=== PATIENT | female | born 1980 | race Caucasian/White ===

== ENCOUNTER 2017-10-06 15:50 | Emergency (ER) | payer SELFPAY ==
[~2017-10-06] VITALS: Ht 154.9 cm; Wt 77.1 kg
[~2017-10-06 15:50] MED LIST: BUDE6HFA IH; CARBAMAZEPINE; CEPH500C PO; METR500T PO; RT-COMBINH IH; SULF1TAB7 PO
[2017-10-06 16:21] LABS: BILIRUBIN,URINE NEGATIVE (NEGATIVE); CLARITY,URINE CLEAR; COLOR,URINE YELLOW; GLUCOSE, URINE (UA) NEGATIVE (NEGATIVE); KETONES,URINE NEGATIVE (NEGATIVE); LEUKOCYTE ESTERASE ,URINE 1+ (NEGATIVE); NITRITE,URINE NEGATIVE (NEGATIVE); PH,URINE 8 (5-9); PROTEIN,URINE NEGATIVE (NEGATIVE); UROBILINOGEN,URINE NORMAL (NORMAL)
--- NOTE | 2017-10-06 16:27 | ED Upper Extremity ---
General Chief Complaint: General Problems/Pain Stated Complaint: , CARPEL TUNNEL, MEDICATION CHANGE Source: patient Exam Limitations: no limitations History of Present Illness Date Seen by Provider: Oct 06, 2017 Time Seen by Provider: 16:00 Initial Comments Patient resists ER by private conveyance with her friend and a chief complaint that she is having pain in bilateral wrists and has a known history of carpal tunnel syndrome. Says the pain became much worse and unbearable now since beginning . Her last missed her period was sometime in the middle of June putting her around 12-13 weeks. She also has concerns that her primary care doctor took her off the Haldol and she has not been tolerating enough Haldol. 7 troubles friend's family and job. She would like to go back on her Haldol but she is out of the medication. She has discussed this with her primary care doctor but did not rewrote her for that or any other medication. Allergies and Home Medications Allergies Uncoded Allergies: PAPER TAPE (Allergy, 12/03/11) Home Medications Cephalexin Monohydrate 500 Mg Capsule, 1 EACH PO TID, (Reported) Ipratropium/Albuterol Sulfate 14.7 Gm Aer.w.adap, 2 PUFF IH Q 6 - 8 HRS PRN, ( Reported) Metronidazole 500 Mg Tab, 1 EACH PO BID Prescribed by: CAMILA SOTO on 12/03/111910 Patient Home Medication List Home Medication List Reviewed: Yes Constitutional: No chills, No diaphoresis, No fever, No malaise EENTM: No ear pain, No eye pain Respiratory: No cough, No short of breath Cardiovascular: No chest pain, No palpitations Gastrointestinal: No abdominal pain, No constipation, No diarrhea, No nausea Genitourinary: No discharge, No dysuria : No Musculoskeletal: No back pain, No gout Psychiatric/Neurological: Numbness, Paresthesia Past Qbdvrxy-Ieorad-Xmjsei Hx Patient Social History Alcohol Use: Denies Use Recreational Drug Use: No Recent Foreign Travel: No Contact w/Someone Who Travel: No Physical Exam Vital Signs Capillary Refill : Height, Weight, BMI Height: ', " Weight: lbs oz, kg Method:Stated ,BMI General Appearance: WD/WN, no apparent distress HEENT: PERRL/EOMI, pharynx normal Neck: non-tender, full range of motion, supple, normal inspection Cardiovascular: normal peripheral pulses, regular rate, rhythm Respiratory: no respiratory distress, no accessory muscle use Gastrointestinal: normal bowel sounds, non tender, soft Wrist: Yes no evidence of injury, Yes normal ROM, Yes soft tissue tenderness ( positive for 10) Progress/Results/Core Measures Results/Orders Lab Results Laboratory Tests Test 10/06/17 16:10 Range/Units My Orders Orders - CHRISTIANKESHA GIBBONS Ua Culture If Indicated (10/06/17 16:09) Hcg,Qualitative Urine (10/06/17 16:09) Progress Progress Note : Time: 16:36 Progress Note We'll recommend ice, Tylenol and cockup splints for her wrists. Elevation at night and when possible above the level of her heart. We will talk to her PCP provider. We have also encourage her to get an OB provider. Consults : Consulting Physician: ADAN BREWER MD Consults Notes After discussing with the psychiatrist they feel that the 2 days is a class B for and at sufficient doses can work for schizophrenia. She needs to be started low and scaled up so they recommend 60 mg one half a tablet daily until she is seen by Dr. Brewer. Dr. Brewer says she will have the clinic call the patient tomorrow to set up appointments for OB, primary care and psychiatry. Departure Impression Primary Impression: Carpal tunnel syndrome on both sides Additional Impressions: Qualified Codes: Z3A.12 - 12 weeks gestation of Schizophrenia Qualified Codes: F20.9 - Schizophrenia, unspecified Disposition: 01 HOME, SELF-CARE Condition: Stable Departure-Patient Inst. Decision time for Depature: 16:46 Referrals: [facility] [place] ([place]) Primary Care Physician Patient Instructions: Carpal Tunnel Exercises Add. Discharge Instructions: Apply ice for 20 minutes every 4 hours as needed to your wrists for swelling or pain. You can use Tylenol 1000 mg every 8 hours. You can also keep them elevated above the level of your heart so gravity will help keep the swelling down and wear the wrist splints as needed for pain especially at night when you sleep. Follow-up with your primary care physician as well as establish care with an vp software support. All discharge instructions reviewed with patient and/or family. Voiced understanding. Scripts Lurasidone HCl (Latuda) 60 Mg Tablet 30 MG PO DAILY for 30 Days, #30 TAB 0 Refills Prov: KESHA GONZALES 10/06/17 Copy Copies To 1: RADHA LEÓN DO KESHA GONZALES Oct 06, 2017 16:27
[2017-10-06 16:34] LABS: RBC,URINE 0-2 /HPF
[2017-10-06 16:35] LABS: BACTERIA,URINE FEW /HPF
[2017-10-06] MEDS ORDERED: LURA60TA2 PO (16:57)
[2017-10-06 17:12] VITALS: BP 113/61
--- OUTSIDE RECORDS SUMMARY | 2017-10-06 19:57 | XMS REPORT ---
Author Author DONOVAN JACKSON Organization [facility] Address [address] [place] [address] Care Team Providers Care Off Track Betting Manager Name Role Phone DONOVAN JACKSON Unavailable PROBLEMS Type Condition ICD9-CM Code RSQ07-GS Code Onset Dates Condition Status SNOMED Code Problem Simple chronic bronchitis J41.0 Active 28325730 Problem Anxiety F41.9 Active 27491651 Problem Acute seasonal allergic rhinitis, unspecified trigger J30.2 Active 104235978 Problem Asthma exacerbation J45.901 Active 464015939 Problem Migraine with aura and with status migrainosus, not intractable G43.101 Active 1148723 Problem Psychotic disorder with delusions F29 Active 19720335 Problem 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 186488862 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 855790769 ALLERGIES Substance Reaction Event Type Date Status Naproxen hives Drug Allergy Oct, Active ENCOUNTERS Encounter Location Date Diagnosis [facility] [id number] [place] [address] 87064- 8240 May, Psychotic disorder with delusions F29 [facility] [id number] [place] [address] 84746- 4557 May, [facility] [id number] [place] [address] 57740- 5420 May, [facility] [id number] [place] [address] 34490- 8434 Mar, Psychotic disorder with delusions F29 and 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 [facility] [id number] [place] [address] 91489- 4530 Jan, [facility] [id number] [place] [address] 80981- 7984 Dec, Psychotic disorder with delusions F29 [facility] [id number] [place] [address] 30758 -9539 Dec, Acute seasonal allergic rhinitis, unspecified trigger J30.2 [facility] [id number] [place] [address] 54691- 5547 Nov, Psychotic disorder with delusions F29 [facility] [id number] [place] [address] 26097- 6081 14 Nov, 2016 [facility] [id number] [place] [address] 55816- 7785 Nov, [facility] [address] [address]- [address]11 Nov, [facility] [address] 00986- 4930 Oct, Asthma exacerbation J45.901 [facility] [address] 30462- 7136 Oct, [place] [id number] [place] [address] 84658- 8589 Oct, 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 and 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 [facility] [id number] [place] [address] 81231- 8504 Oct, [facility] [id number] [place] [address] 75270- 8177 Oct, Migraine with aura and with status migrainosus, not intractable G43.101 ; Other abnormal cytological finding of specimen from cervix R87.618 ; Screening for diabetes mellitus (DM) Z13.1 ; Screening for lipid disorders Z13.220 and Weight gain R63.5 [facility] [id number] [place] [address] 07898- 2340 Oct, [facility] [id number] [place] [address] 70437- 1925 Oct, [facility] [address] 25363- 2666 Oct, [facility] [address] [place] [address] 31173- 7522 Sep, Weight gain R63.5 ; Screening for lipid disorders Z13.220 ; Screening for diabetes mellitus (DM) Z13.1 and Scabies exposure Z20.89 [facility] [address] [place] [address] [id number] Sep, Encounter for dental examination and cleaning without abnormal findings Z01.20 [facility] [id number] [place] [address] 23904 -7524 Sep, Abscess L02.91 [facility] [id number] [place] [address] 33829- 8567 Jun, [facility] [id number] [place] [address] 58927- 0396 Jun, Routine gynecological examination Z01.419 [place] [id number] [place] [address] 54049- 9292 Jun, Routine gynecological examination Z01.419 ; Encounter for Depo-Provera contraception Z30.42 and Routine screening for STI (sexually transmitted infection) Z11.3 [facility] [address] [place] [address] 79587- 0757 Jun, Anxiety F41.9 [place] [id number] [place] [address] 30520- 9394 May, [facility] [id number] [place] [address] 67400- 4703 Apr, Psychotic disorder with delusions F29 [facility] [id number] [place] [address] 25013- 3928 Jan, [place] [id number] [place] [address] 43567- 5853 Jan, Psychotic disorder with delusions F29 [facility] [id number] [place] [address] 21465- 8454 16 Jan, 2016 Encounter for contraceptive management, unspecified contraceptive encounter type Z30.9 ; Anxiety F41.9 ; Simple chronic bronchitis J41.0 and Encounter for Depo-Provera contraception Z30.42 [facility] [address] [address] 14 Jun, 2014 [facility] [id number] [place] [address] 71080- 7849 Jun, [facility] [id number] [place] [address] 29031- 4658 Mar, [facility] [id number] [place] [address] 67261- 5946 Jan, [facility] [id number] [place] [address] 04776- 5467 Jan, [facility] [id number] [place] [address] 27769- 6014 Jan, [facility] [id number] [place] [address] 48948- 0313 Jan, [facility] [id number] [place] [address] 40541- 1568 Jan, [facility] [address] [place] [address] 58113- 0158 Jan, [facility] [id number] [place] [address] 19362- 5151 Jan, [facility] [address] [place] [address] 22928- 3461 Dec, [facility] [id number] [place] [address] 01830- 9264 Dec, [facility] [id number] [address] 6051 Dec, [facility] [id number] [place] [address] 24711- 9290 Dec, [facility] [place] [facility] [address] [id number] [place] [address]- 5986 23 Dec, 2011 [facility] [place] [facility] [address] [id number] [place] [address] Dec, 2011 [facility] [place] [facility] [address] [id number] [place] [address]- 6655 18 Dec, 2011 [facility] [place] [facility] [address] [id number] [place] [address]- 6751 Dec, 2011 [facility] [place] [facility] [address] [id number] [place] [address]- 3030 Dec, 2011 [facility] [place] [facility] [address] [id number] [place] [address]- 6609 Dec, [facility] [place] [facility] [address] [id number] [place] [address]- 7364 Dec, [facility] [place] [facility] [address] [id number] [address] 4475 15 Dec, 2011 [facility] [place] [facility] [address] [id number] [place] [address]- 4588 10 Dec, 2011 [facility] [place] [facility] [address] [id number] [address] 4671 10 Dec, 2011 [facility] [place] [facility] [address] [id number], [place] [address]- 9990 08 Dec, 2011 [facility] [place] [facility] [address] [id number] [address]- 9885 05 Dec, 2011 [facility] [place] [facility] [address] [id number], [place] [address]- 1063 03 Dec, 2011 [facility] [place] [facility] [address] [id number], [place] [address]- 9584 02 Dec, 2011 [facility] [place] [facility] [address] [id number] [address]- 0587 18 Nov, 2011 [facility] [place] [facility] [address] [id number] [address]- 1346 17 Nov, 2011 [facility] [id number] [address]- 0616 13 Nov, 2011 [facility] [address] [address]- 1693 Nov, [facility] [address] [address]- 6882 Nov, [facility] [address] [address]- 4184 Nov, [facility] [id number] 47[address] Sep, [facility] [address] [address]- 0909 Aug, [facility] [address] [address]- 3809 Aug, [facility] [address] [address]- 0342 July, [facility] [address] [address]- 2521 July, [facility] [id number] [address] July, IMMUNIZATIONS No Known Immunizations SOCIAL HISTORY Never Assessed REASON FOR VISIT 2 week f/u PLAN OF CARE Activity Details Follow Up Schedule Colpo next available Reason: VITAL SIGNS Height 62 in 2016-11-19 Weight 206.2 lbs 2016-11-19 Temperature 98.2 degrees Fahrenheit 2016-11-19 BMI 37.71 kg/m2 2016-11-19 Blood pressure systolic 120 mmHg 2016-11-19 Blood pressure diastolic 76 mmHg 2016-11-19 MEDICATIONS Medication Instructions Dosage Frequency Start Date End Date Duration Status Propranolol HCl 20 mg Orally twice a day 1/2 tablet 12h Oct, 30 day(s) Active Benztropine Mesylate 2 MG Orally at bed time, voucher 1st fill only 1 tablet Active Haloperidol 10 mg Orally Once a day, at night. 1 tablet Jun, Active BusPIRone HCl 15 MG Orally Once a day 2 tablet 24h Active Singulair 10 mg Orally Once a day, voucher 1st fill only 1 tablet in the evening Active RESULTS Name Result Date Reference Range TSH W/ FREE T4 2016-11-19 TSH 0.741 0.450-4.500 T4,Free(Direct) 1.00 0.82-1.77 A1C 2016-11-19 Hemoglobin A1c 6.0 4.8-5.6 LIPID PANEL 2016-11-19 Cholesterol, Total 172 100-199 Triglycerides 282 0-149 HDL Cholesterol 39 >39 VLDL Cholesterol Michele 56 5-40 LDL Cholesterol Calc 77 0-99 PROCEDURES Procedure Date Ordered Result Body Site Hemoglobin Test Send Out 0 dollar Nov 19, 2016 ASSAY THYROID STIM HORMONE Nov 19, 2016 LIPID PANEL Nov 19, 2016 VENIPUNCT, ROUTINE* Nov 19, 2016 ASSAY OF FREE THYROXINE Nov 19, 2016 INSTRUCTIONS MEDICATIONS ADMINISTERED No Known Medications MEDICAL (GENERAL) HISTORY Type Description Date Medical History schizoaffective disorder Medical History bi-polar disorder Medical History depression Medical History anxiety Medical History pre diabetes Medical History COPD Surgical History x 2 Hospitalization History Staph infection in arm
--- OUTSIDE RECORDS SUMMARY | 2017-10-06 19:57 | XMS REPORT ---
Author Author JOSE NORRIS [facility] eClinicalWorks Address Unknown Phone Unavailable Care Team Providers Care Armored Vehicle Officer Name Role Phone JOSE NORRIS Unavailable Allergies No Known Allergies Problems Problem Type Condition Code Onset Dates Condition Status Problem Anxiety F41.9 Active Problem Simple chronic bronchitis J41.0 Active Problem Psychotic disorder with delusions F29 Active Medications Medication Code System Code Instructions Start Date End Date Status Dosage Atorvastatin Calcium [facility] [address]-94 10 mg Orally Once a day at bedtime Feb 15, 2016 1 tablet Results No Known Results Summary Purpose eClinicalWorks Submission
--- OUTSIDE RECORDS SUMMARY | 2017-10-06 19:58 | XMS REPORT ---
Author Author DONOVAN JACKSON Organization [facility] Address [address] [place] [address] Care Team Providers Care Director Of Rehabilitative Services Name Role Phone DONOVAN JACKSON Unavailable PROBLEMS Type Condition ICD9-CM Code UHR37-HT Code Onset Dates Condition Status SNOMED Code Problem Simple chronic bronchitis J41.0 Active 68762008 Problem Anxiety F41.9 Active 72031245 Problem Acute seasonal allergic rhinitis, unspecified trigger J30.2 Active 103234840 Problem Asthma exacerbation J45.901 Active 513577816 Problem Migraine with aura and with status migrainosus, not intractable G43.101 Active 7658782 Problem Psychotic disorder with delusions F29 Active 63128788 Problem 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 601940499 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 810929769 ALLERGIES No Information ENCOUNTERS Encounter Location Date Diagnosis [facility] [address] [address] May, Psychotic disorder with delusions F29 [facility] [id number] [place] [address] 70817- 8104 May, [facility] [id number] [place] [address] 01690- 6533 May, [facility] [id number] [place] [address] 76078- 3903 Mar, Psychotic disorder with delusions F29 and 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 [facility] [address] 02071- 7095 Jan, [facility] [id number] [place] [address] 68115- 8088 Dec, Psychotic disorder with delusions F29 [facility] [address] [place] [address] Dec, Acute seasonal allergic rhinitis, unspecified trigger J30.2 [facility] [id number] [place] [address] 32567- 7914 Nov, Psychotic disorder with delusions F29 [facility] [id number] [place] [address] 69290- 6033 14 Nov, 2016 [facility] [address] [address]- [address] Nov, [facility] [id number] [place] [address] 38311- 5708 Nov, [facility] [address] 90014- 5692 Oct, Asthma exacerbation J45.901 [facility] [address] 06084- 8596 Oct, [facility] [address] 56014- 9056 Oct, 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 and 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 [facility] [address] 37649- 5869 Oct, [facility] [id number] [place] [address] 97204- 4858 Oct, Migraine with aura and with status migrainosus, not intractable G43.101 ; Other abnormal cytological finding of specimen from cervix R87.618 ; Screening for diabetes mellitus (DM) Z13.1 ; Screening for lipid disorders Z13.220 and Weight gain R63.5 [facility] [id number] [place] [address] 50085- 1964 Oct, [facility] [id number] [place] [address] 75861- 8958 Oct, [facility] [id number] [place] [address] 72147- 1296 Oct, [facility] [id number] [place] [address] 35608- 8047 Sep, Weight gain R63.5 ; Screening for lipid disorders Z13.220 ; Screening for diabetes mellitus (DM) Z13.1 and Scabies exposure Z20.89 [facility] [address] [id number] Sep, Encounter for dental examination and cleaning without abnormal findings Z01.20 [facility] [id number] [place] [address] 95581 -1861 Sep, Abscess L02.91 [facility] [address] 01676- 0926 Jun, [facility] [id number] [place] [address] 65375- 1288 Jun, Routine gynecological examination Z01.419 [place] [address] 45007- 8002 Jun, Routine gynecological examination Z01.419 ; Encounter for Depo-Provera contraception Z30.42 and Routine screening for STI (sexually transmitted infection) Z11.3 [facility] [id number] [place] [address] 80479- 6661 Jun, Anxiety F41.9 [facility] [id number] [place] [address] 40272- 3686 May, [facility] [id number] [place] [address] 98988- 1653 Apr, Psychotic disorder with delusions F29 [facility] [id number] [place] [address] 22550- 4181 Jan, [place] [id number] [place] [address] 98490- 6685 Jan, Psychotic disorder with delusions F29 [facility] [id number] [place] [address] 87748- 4632 16 Nov, 2016 Encounter for contraceptive management, unspecified contraceptive encounter type Z30.9 ; Anxiety F41.9 ; Simple chronic bronchitis J41.0 and Encounter for Depo-Provera contraception Z30.42 [facility] [id number] [address] 6490 14 Jun, 2014 [facility] [id number] [place] [address] 43096- 8056 13 Jun, 2014 [facility] [id number] [place] [address] 92113- 2189 Mar, [facility] [id number] [place] [address] 14110- 6758 Jan, [facility] [id number] [place] [address] 73763- 1960 Jan, [facility] [id number] [place] [address] 41211- 7045 Jan, [facility] [id number] [place] [address] 95233- 8814 Jan, [facility] [id number] [place] [address] 03613- 2961 Jan, [facility] [id number] [place] [address] 57455- 7454 Jan, [facility] [address], [place] [address] 8816 Jan, [facility] [address], [place] [address]- 6796 Dec, [facility] [id number] [place] [address] 01039- 8207 Dec, [facility] [id number] [place] [address] 00865- 7211 Dec, [facility] [id number] [place] [address] 70297- 3746 Dec, [facility] [id number] [place] [address], [place] [address]- 7628 23 Dec, 2011 [facility] [place] [facility] [address] [id number] [place] [address]- 2169 18 Dec, 2011 [facility] [place] [facility] [address] [id number] [place] [address]- 3093 18 Dec, 2011 [facility] [place] [facility] [address] [id number] [place] [address]- 9687 18 Dec, 2011 [facility] [place] [facility] [address] [id number] [place] [address]- 9197 18 Dec, 2011 [facility] [place] [facility] [address] [id number] [place] [address]- 1610 18 Dec, 2011 [facility] [place] [facility] [address] [id number] [place] [address]- 6447 18 Dec, 2011 [facility] [place] [facility] [address] [id number] [place] [address]- 3761 15 Dec, 2011 [facility] [place] [facility] [address] [id number] [place] [address]- 4560 10 Dec, 2011 [facility] [place] [facility] [address] [id number] [place] [address]- 8612 10 Dec, 2011 [facility] [place] [facility] [address] [facility] [id number] [place] [address]- 4334 08 Dec, 2011 [facility] [place] [facility] [address] [id number] [place] [address]- 3784 05 Dec, 2011 [facility] [place] [facility] [address] [id number], [place] [address]- 6022 03 Dec, 2011 [facility] [place] [facility] [address] [id number] [place] [address]- 9216 02 Dec, 2011 [facility] [place] [facility] [address] [facility] [id number] [place] [address]- 4793 18 Sep, 2011 [facility] [place] [facility] [address] [facility] [id number], [place] [address]- 3969 17 Sep, 2011 [facility] [place] [facility] [id number], [place] [address]- 4163 13 Nov, 2011 [facility] [address], [place] [address]- 2840 13 Nov, 2011 [facility] [address], [place] [address]- 1763 12 Nov, 2011 [facility] [address], [place] [address]- 6051 Nov, [facility] [address], [place] [address]- 0103 Sep, [facility] [address], [place] [address]- 5911 Aug, [facility] [address], [place] [address]- 0614 Aug, [facility] [address], [place] [address]- 5869 July, [facility] [address], [place] [address]- 7247 July, [facility] [id number], [place] [address]- 2634 July, IMMUNIZATIONS No Known Immunizations SOCIAL HISTORY Never Assessed REASON FOR VISIT Medication question PLAN OF CARE VITAL SIGNS MEDICATIONS Unknown Medications RESULTS No Results PROCEDURES No Known procedures INSTRUCTIONS MEDICATIONS ADMINISTERED No Known Medications MEDICAL (GENERAL) HISTORY Type Description Date Medical History schizoaffective disorder Medical History bi-polar disorder Medical History depression Medical History anxiety Medical History pre diabetes Medical History COPD Surgical History x 2 Hospitalization History Staph infection in arm
--- OUTSIDE RECORDS SUMMARY | 2017-10-06 19:58 | XMS REPORT ---
Author Author GREGORY AMARAL [facility] Address [address] [place] [address] Care Team Providers Care Svp Of Digital Name Role Phone GREGORY AMARAL Unavailable PROBLEMS Type Condition ICD9-CM Code NJS41-OK Code Onset Dates Condition Status SNOMED Code Problem Simple chronic bronchitis J41.0 Active 73366378 Problem Anxiety F41.9 Active 22955569 Problem Acute seasonal allergic rhinitis, unspecified trigger J30.2 Active 121282612 Problem Asthma exacerbation J45.901 Active 960108011 Problem Migraine with aura and with status migrainosus, not intractable G43.101 Active 3099521 Problem Psychotic disorder with delusions F29 Active 32520502 Problem 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 779993779 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 188519187 ALLERGIES Substance Reaction Event Type Date Status Naproxen hives Drug Allergy Dec, Active ENCOUNTERS Encounter Location Date Diagnosis [facility] [id number] [place] [address] 83934- 1653 July, [facility] [id number] [place] [address] 97610- 5432 May, Psychotic disorder with delusions F29 [facility] [id number] [place] [address] 79388- 4779 May, [facility] [id number] [place] [address] 72863- 3734 May, [facility] [address] 73736- 2341 Mar, Psychotic disorder with delusions F29 and 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 [facility] [id number] [place] [address] 99729- 4204 Jan, [facility] [id number] [place] [address] 61041- 8538 Dec, Psychotic disorder with delusions F29 [facility] [id number] [place] [address] 16643 -1737 Dec, Acute seasonal allergic rhinitis, unspecified trigger J30.2 [facility] [id number] [place] [address] 83634- 8896 Nov, Psychotic disorder with delusions F29 [facility] [id number] [place] [address] 94752- 1585 14 Nov, 2016 [facility] [address] 11691- 6213 Nov, [facility] [id number] [place] [address] 18589- 2269 Nov, [facility] [address] 96991- 9037 Oct, Asthma exacerbation J45.901 [facility] [id number] [place] [address] 43396- 1256 Oct, [facility] [id number] [place] [address] 84782- 3346 Oct, 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 and 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 [facility] [id number] [place] [address] 44372- 7838 Oct, [facility] [id number] [place] [address] 41836- 5867 Oct, Migraine with aura and with status migrainosus, not intractable G43.101 ; Other abnormal cytological finding of specimen from cervix R87.618 ; Screening for diabetes mellitus (DM) Z13.1 ; Screening for lipid disorders Z13.220 and Weight gain R63.5 [facility] [id number] [place] [address] 87969- 7643 Oct, [facility] [id number] [place] [address] 22049- 0797 Oct, [facility] [address] 73680- 8894 Oct, [facility] [address] 72876- 1423 Sep, Weight gain R63.5 ; Screening for lipid disorders Z13.220 ; Screening for diabetes mellitus (DM) Z13.1 and Scabies exposure Z20.89 [facility] [address] [id number] Sep, Encounter for dental examination and cleaning without abnormal findings Z01.20 [facility] [address] 45554 -6730 Sep, Abscess L02.91 [place] [address] 14091- 6515 Jun, [facility] [address] 06670- 4992 Jun, Routine gynecological examination Z01.419 [place] [address] 43467- 6364 Jun, Routine gynecological examination Z01.419 ; Encounter for Depo-Provera contraception Z30.42 and Routine screening for STI (sexually transmitted infection) Z11.3 [place] [id number] [place] [address] 81441- 3118 Jun, Anxiety F41.9 [facility] [id number] [place] [address] 60866- 4302 May, [facility] [address] 71266- 8940 Apr, Psychotic disorder with delusions F29 [facility] [id number] [place] [address] 66648- 0370 Jan, [facility] [address] 01532- 8087 18 Jan, 2016 Psychotic disorder with delusions F29 [facility] [id number] [place] [address] 88236- 1196 16 Jan, 2016 Encounter for contraceptive management, unspecified contraceptive encounter type Z30.9 ; Anxiety F41.9 ; Simple chronic bronchitis J41.0 and Encounter for Depo-Provera contraception Z30.42 [facility] [id number] [place] [address] 55667- 1656 14 Jun, 2014 [facility] [id number] [place] [address] 90910- 7204 13 Jun, 2014 [facility] [id number] [place] [address] 41844- 8928 Mar, [facility] [id number] [place] [address] 29727- 3212 Jan, [facility] [id number] [place] [address] 91266- 8351 Jan, [facility] [id number] [place] [address] 84320- 9148 Jan, [facility] [id number] [place] [address] 88633- 5763 Jan, [facility] [id number] [place] [address] 63275- 3405 Jan, [facility] [id number] [place] [address] 05692- 1955 Jan, [facility] [id number] [place] [address] 23821- 3652 Jan, [facility] [id number] [place] [address] 25585- 8533 Dec, [facility] [id number] [place] [address] 70851- 3515 Dec, [facility] [id number] [place] [address] 89416- 5167 Dec, [facility] [place] [facility] [address] [id number] [place] [address]- 7112 Dec, 2011 [facility] [place] [facility] [address] [id number] [place] [address]- 8274 Dec, 2011 [facility] [place] [facility] [address] [id number] [place] [address]- 2427 Dec, 2011 [facility] [place] [facility] [address] [id number] [place] [address]- 2099 Dec, 2011 [facility] [place] [facility] [address] [id number] [place] [address]- 8959 Dec, 2011 [facility] [place] [facility] [address] [id number] [place] [address]- 3362 Dec, [facility] [place] [facility] [address] [id number] [place] [address]- 1854 Dec, [facility] [place] [facility] [address] [id number], [place] [address]- 8272 Dec, [facility] [place] [facility] [address] [id number], [place] [address]- 2503 15 Dec, 2011 [facility] [place] [facility] [address] [id number], [place] [address]- 1554 Dec, [facility] [place] [facility] [address] [id number], [place] [address]- 0377 10 Dec, 2011 [facility] [place] [facility] [address] [id number], [place] [address]- 0459 08 Dec, 2011 [facility] [place] [facility] [address] [id number], [place] [address]- 7414 05 Dec, 2011 [facility] [place] [facility] [address] [id number], [place] [address]- 9530 Dec, [facility] [place] [facility] [address] [id number], [place] [address]- 4475 02 Dec, 2011 [facility] [place] [facility] [address] [id number], [place] [address]- 5989 18 Nov, 2011 [facility] [address], [place] [address]- 1773 17 Nov, 2011 [facility] [address], [place] [address]- 8014 13 Nov, 2011 [facility] [address], [place] [address]- 7725 13 Nov, 2011 [facility] [id number] [place] [address] 85355- 4501 12 Nov, 2011 [facility] [id number] [place] [address] 47262- 8775 05 Nov, 2011 [facility] [id number] [place] [address] 06148- 7332 Sep, [facility] [id number] [place] [address] 51179- 5016 Aug, [facility] [address], [place] [address]- 4465 Aug, [facility] [id number] [place] [address] 01709- 1374 July, [facility] [address]- 4276 July, [facility] [address], [place] [address]- 0206 July, IMMUNIZATIONS Vaccine Route Administration Date Status DEXAMETHASONE 4MG/ML (PER 1 MG) IM Intramuscular Dec 30, 2016 Administered DEPO MEDROL 40 MG/ML IM Intramuscular Dec 30, 2016 Administered SOCIAL HISTORY Never Assessed REASON FOR VISIT Cough, congestion, facial itching and vomiting JStrasserRN PLAN OF CARE Activity Details Follow Up prn Reason: VITAL SIGNS Height 62 in 2016-12-30 Weight 215.2 lbs 2016-12-30 Temperature 98.1 degrees Fahrenheit 2016-12-30 Heart Rate 92 bpm 2016-12-30 Respiratory Rate 20 2016-12-30 BMI 39.36 kg/m2 2016-12-30 Blood pressure systolic 100 mmHg 2016-12-30 Blood pressure diastolic 70 mmHg 2016-12-30 MEDICATIONS Medication Instructions Dosage Frequency Start Date End Date Duration Status Benztropine Mesylate 2 MG Orally at bed time, voucher 1st fill only 1 tablet Active Zyrtec Allergy 10 MG Orally Once a day 1 tablet 24h Dec, Dec, 14 days Active Flonase 50 MCG/ACT Nasally Once a day 1 spray in each nostril 24h Dec, 30 day(s) Active Haloperidol 10 mg Orally Once a day, voucher 1st fill. 2 tablets Nov, 30 day(s) Active Singulair 10 mg Orally Once a day, voucher 1st fill only 1 tablet in the evening Active HydrOXYzine HCl 50 mg Orally Once a day, voucher 1st fill only 1 tablet as needed at HS Active Propranolol HCl 20 mg Orally Once a day 1 tablet 24h Oct, Active BuPROPion HCl ER (XL) 300 MG Orally Once a day, voucher 1st fill. 1 tablet in the morning Nov, 30 day(s) Active RESULTS No Results PROCEDURES Procedure Date Ordered Result Body Site DEPO MEDROL 40 MG/ML Dec 30, 2016 THER/PROPH/DIAG INJ, SC/IM Dec 30, 2016 DEXAMETHASONE 4MG/ML (PER 1 MG) Dec 30, 2016 INSTRUCTIONS MEDICATIONS ADMINISTERED No Known Medications MEDICAL (GENERAL) HISTORY Type Description Date Medical History schizoaffective disorder Medical History bi-polar disorder Medical History depression Medical History anxiety Medical History pre diabetes Medical History COPD Surgical History x 2 Hospitalization History Staph infection in arm
--- OUTSIDE RECORDS SUMMARY | 2017-10-06 19:58 | XMS REPORT ---
Author Author YENNY KHALIL [facility] Address [address] [place] [address] Care Team Providers Care Game Design Instructor Name Role Phone EMMANUEL KHALILFELIPE Unavailable PROBLEMS Type Condition ICD9-CM Code VUK70-SW Code Onset Dates Condition Status SNOMED Code Problem Simple chronic bronchitis J41.0 Active 89547311 Problem Anxiety F41.9 Active 71393524 Problem Acute seasonal allergic rhinitis, unspecified trigger J30.2 Active 612701691 Problem Asthma exacerbation J45.901 Active 679539308 Problem Migraine with aura and with status migrainosus, not intractable G43.101 Active 1020822 Problem Psychotic disorder with delusions F29 Active 28398549 Problem 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 838616611 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 153839481 ALLERGIES Substance Reaction Event Type Date Status Naproxen hives Drug Allergy Oct, Active ENCOUNTERS Encounter Location Date Diagnosis [facility] [id number] [place] [address] 86013- 9622 May, Psychotic disorder with delusions F29 [facility] [id number] [place] [address] 85023- 7509 May, [facility] [id number] [place] [address] 75578- 5585 May, [facility] [id number] [place] [address] 89188- 3454 Mar, Psychotic disorder with delusions F29 and 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 [facility] [id number] [place] [address] 08518- 6881 Jan, [facility] [id number] [place] [address] 39061- 7838 Dec, Psychotic disorder with delusions F29 [facility] [id number] [place] [address] 86842 -8730 Dec, Acute seasonal allergic rhinitis, unspecified trigger J30.2 [facility] [id number] [place] [address] 67856- 7514 Nov, Psychotic disorder with delusions F29 [facility] [id number] [place] [address] 57230- 2079 14 Nov, 2016 [facility] [id number] [place] [address] 91993- 7531 Nov, [facility] [address] 69915- 2562 Nov, [facility] [address] 88379- 7945 Oct, Asthma exacerbation J45.901 [facility] [address] 38355- 1941 Oct, [facility] [id number] [place] [address] 86904- 2203 Oct, 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 and 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 [facility] [id number] [place] [address] 99394- 5405 Oct, [facility] [id number] [place] [address] 36138- 5547 Oct, Migraine with aura and with status migrainosus, not intractable G43.101 ; Other abnormal cytological finding of specimen from cervix R87.618 ; Screening for diabetes mellitus (DM) Z13.1 ; Screening for lipid disorders Z13.220 and Weight gain R63.5 [facility] [id number] [place] [address] 56606- 5862 Oct, [facility] [id number] [place] [address] 59997- 1593 Oct, [facility] [address] 65291- 8605 Oct, [facility] [id number] [place] [address] 48687- 7386 Sep, Weight gain R63.5 ; Screening for lipid disorders Z13.220 ; Screening for diabetes mellitus (DM) Z13.1 and Scabies exposure Z20.89 [facility] [id number] [place] [address] [id number] Sep, Encounter for dental examination and cleaning without abnormal findings Z01.20 [facility] [id number] [place] [address] 21699 -4257 Sep, Abscess L02.91 [facility] [id number] [place] [address] 25146- 8635 Jun, [facility] [id number] [place] [address] 67194- 0526 Jun, Routine gynecological examination Z01.419 [facility] [id number] [place] [address] 91718- 3448 Jun, Routine gynecological examination Z01.419 ; Encounter for Depo-Provera contraception Z30.42 and Routine screening for STI (sexually transmitted infection) Z11.3 [facility] [id number] [place] [address] 33447- 7432 Jun, Anxiety F41.9 [facility] [id number] [place] [address] 73615- 8093 May, [facility] [id number] [place] [address] 19797- 8626 Apr, Psychotic disorder with delusions F29 [facility] [id number] [place] [address] 88898- 0920 Jan, [facility] [id number] [place] [address] 67869- 1711 Jan, Psychotic disorder with delusions F29 [facility] [id number] [place] [address] 09473- 9320 16 Jan, 2016 Encounter for contraceptive management, unspecified contraceptive encounter type Z30.9 ; Anxiety F41.9 ; Simple chronic bronchitis J41.0 and Encounter for Depo-Provera contraception Z30.42 [facility] [address] [address]- 2936 14 Jun, 2014 [facility] [id number] [place] [address] 93471- 2324 Jun, [facility] [id number] [place] [address] 50046- 1384 Mar, [facility] [id number] [place] [address] 22266- 4826 Jan, [facility] [id number] [place] [address] 52147- 5471 Jan, [facility] [id number] [place] [address] 98916- 3734 Jan, [facility] [id number] [place] [address] 63330- 5049 Jan, [facility] [id number] [place] [address] 25730- 9931 Jan, [facility] [id number] [place] [address] 22618- 6425 Jan, [facility] [id number] [place] [address] 02869- 2133 Jan, [facility] [id number] [place] [address] 17452- 4603 Dec, [facility] [id number] [place] [address] 11758- 8921 Dec, [facility] [id number] [address]- 5822 Dec, [facility] [id number] [place] [address] 89026- 6573 Dec, [facility] [place] [facility] [address] [id number] [place] [address]- 6349 23 Dec, 2011 [facility] [place] [facility] [address] [id number] [place] 3759 Dec, 2011 [facility] [place] [facility] [address] [id number] [place] [address]- 0392 18 Dec, 2011 [facility] [place] [facility] [address] [id number] [place] [address]- 3332 Dec, 2011 [facility] [place] [facility] [address] [id number] [place] [address]- 6804 Dec, 2011 [facility] [place] [facility] [address] [id number] [place] [address]- 6437 Dec, [facility] [place] [facility] [address] [id number] [place] [address]- 8159 Dec, [facility] [place] [facility] [address] [id number] [place] [address]- 2116 15 Dec, 2011 [facility] [place] [facility] [address] [id number] [place] [address]- 0042 10 Dec, 2011 [facility] [place] [facility] [address] [id number] [place] [address]- 6816 10 Dec, 2011 [facility] [place] [facility] [address] [id number] [place] [address]- 1699 08 Dec, 2011 [facility] [place] [facility] [address] [id number] [place] [address]- 7718 05 Dec, 2011 [facility] [place] [facility] [address] [id number] [place] [address]- 6247 03 Dec, 2011 [facility] [place] [facility] [address] [id number] [place] [address]- 4502 02 Dec, 2011 [facility] [place] [facility] [address] [id number] [place] [address]- 8468 18 Nov, 2011 [facility] [place] [facility] [address] [id number] [place] [address]- 1114 17 Nov, 2011 [facility] [address] [address]- 1045 Nov, [facility] [address] [address]- 1514 Nov, [facility] [address] [address]- 1439 Nov, [facility] [address] [address]- 8016 Nov, [facility] [address] [address]- 9497 Sep, [facility] [address] [address]- 6458 Aug, [facility] [address] [address]- 6925 Aug, [facility] [address] [address]- 8994 July, [facility] [address] [address]- 3169 July, [facility] [id number] [address]- 0704 July, IMMUNIZATIONS No Known Immunizations SOCIAL HISTORY Never Assessed REASON FOR VISIT intake PLAN OF CARE Activity Details Follow Up 4 Weeks Reason: VITAL SIGNS Height 62 in 2016-11-21 Weight 209.0 lbs 2016-11-21 Heart Rate 108 bpm 2016-11-21 Respiratory Rate 24 2016-11-21 BMI 38.22 kg/m2 2016-11-21 Blood pressure systolic 132 mmHg 2016-11-21 Blood pressure diastolic 84 mmHg 2016-11-21 MEDICATIONS Medication Instructions Dosage Frequency Start Date End Date Duration Status BusPIRone HCl 15 MG Orally Once a day 2 tablet 24h Active Singulair 10 mg Orally Once a day, voucher 1st fill only 1 tablet in the evening Active Benztropine Mesylate 2 MG Orally at bed time, voucher 1st fill only 1 tablet Active Haloperidol 10 mg Orally Once a day, at night. 1 tablet Jun, Active Haldol Decanoate 50 MG/ML Intramuscular as directed once every 4 weeks 1 ml Oct, 30 day(s) Active Propranolol HCl 20 mg Orally twice a day 1/2 tablet 12h Oct, 30 day(s) Active RESULTS No Results PROCEDURES No Known procedures INSTRUCTIONS MEDICATIONS ADMINISTERED No Known Medications MEDICAL (GENERAL) HISTORY Type Description Date Medical History schizoaffective disorder Medical History bi-polar disorder Medical History depression Medical History anxiety Medical History pre diabetes Medical History COPD Surgical History x 2 Hospitalization History Staph infection in arm
--- OUTSIDE RECORDS SUMMARY | 2017-10-06 19:58 | XMS REPORT ---
Author Author MURIEL LORA Organization [facility] Address [address] [place] [address] Care Team Providers Care Sql Analyst Name Role Phone MURIEL LORA Unavailable PROBLEMS Type Condition ICD9-CM Code CKH63-VK Code Onset Dates Condition Status SNOMED Code Problem Simple chronic bronchitis J41.0 Active 15639543 Problem Anxiety F41.9 Active 28149279 Problem Acute seasonal allergic rhinitis, unspecified trigger J30.2 Active 591243169 Problem Asthma exacerbation J45.901 Active 119620410 Problem Migraine with aura and with status migrainosus, not intractable G43.101 Active 4533267 Problem Psychotic disorder with delusions F29 Active 15729844 Problem 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 022038741 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 322567004 ALLERGIES No Information ENCOUNTERS Encounter Location Date Diagnosis [facility] [id number] [place] [address] 68579- 0410 Aug, Anxiety F41.9 and Screening for diabetes mellitus (DM) Z13.1 [facility] [id number] [place] [address] 55499- 2884 July, [facility] [id number] [place] [address] 54178- 2244 July, [facility] [id number] [place] [address] 28797- 1599 May, Psychotic disorder with delusions F29 [facility] [id number] [place] [address] 04671- 0655 May, [facility] [id number] [place] [address] 56063- 4327 May, [facility] [id number] [place] [address] 18420- 0534 Mar, Psychotic disorder with delusions F29 and 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 [facility] [id number] [place] [address] 48738- 2281 Jan, [facility] [id number] [place] [address] 90105- 0222 Dec, Psychotic disorder with delusions F29 [facility] [id number] [place] [address] 62850 -1810 Dec, Acute seasonal allergic rhinitis, unspecified trigger J30.2 [facility] [id number] [place] [address] 22029- 5548 Nov, Psychotic disorder with delusions F29 [facility] [id number] [place] [address] 13625- 5949 14 Nov, 2016 [facility] [id number] [place] [address] 57622- 9894 Nov, [facility] [id number] [place] [address] 39851- 2239 Nov, [facility] [id number] [place] [address] 21279- 5619 Oct, Asthma exacerbation J45.901 [facility] [id number] [place] [address] 90521- 2768 Oct, [facility] [id number] [place] [address] 99551- 4107 Oct, 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 and 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 [facility] [id number] [place] [address] 43473- 5359 Oct, [facility] [id number] [place] [address] 65168- 6003 Oct, Migraine with aura and with status migrainosus, not intractable G43.101 ; Other abnormal cytological finding of specimen from cervix R87.618 ; Screening for diabetes mellitus (DM) Z13.1 ; Screening for lipid disorders Z13.220 and Weight gain R63.5 [facility] [address] [address]- 9422 Oct, [facility] [id number] [place] [address] 90379- 5340 Oct, [facility] [id number] [place] [address] 81069- 4145 Oct, [facility] [id number] [place] [address] 06939- 9700 Sep, Weight gain R63.5 ; Screening for lipid disorders Z13.220 ; Screening for diabetes mellitus (DM) Z13.1 and Scabies exposure Z20.89 [facility] [id number] [place] [address] [id number] Sep, Encounter for dental examination and cleaning without abnormal findings Z01.20 [facility] [id number] [place] [address] 35682 -3021 Sep, Abscess L02.91 [facility] [id number] [place] [address] 49037- 6604 Jun, [facility] [id number] [place] [address] 46256- 3605 Jun, Routine gynecological examination Z01.419 [facility] [id number] [place] [address] 81624- 9693 Jun, Routine gynecological examination Z01.419 ; Encounter for Depo-Provera contraception Z30.42 and Routine screening for STI (sexually transmitted infection) Z11.3 [facility] [id number] [place] [address] 69014- 8498 Jun, Anxiety F41.9 [facility] [id number] [place] [address] 09674- 4580 May, [facility] [id number] [place] [address] 03727- 3547 Apr, Psychotic disorder with delusions F29 [facility] [id number] [address]- 3760 18 Jan, 2016 [facility] [id number] [place] [address] 17420- 2624 18 Jan, 2016 Psychotic disorder with delusions F29 [facility] [id number] [place] [address] 80474- 3781 16 Jan, 2016 Encounter for contraceptive management, unspecified contraceptive encounter type Z30.9 ; Anxiety F41.9 ; Simple chronic bronchitis J41.0 and Encounter for Depo-Provera contraception Z30.42 [facility] [id number] [place] [address] 77828- 3246 14 Jun, 2014 [facility] [id number] [place] [address] 37212- 7218 13 Jun, 2014 [facility] [id number] [place] [address] 57260- 2448 Mar, [facility] [id number] [place] [address] 96150- 2586 Jan, [facility] [id number] [place] [address] 06729- 4433 Jan, [facility] [id number] [place] [address] 33547- 3672 Jan, [facility] [id number] [place] [address] 84440- 5457 Jan, [facility] [id number] [place] [address] 46868- 2817 Jan, [facility] [place] [id number] [place] [address] 02436- 1978 Jan, [facility] [place] [id number] [place] [address] 61860- 6374 Jan, [facility] [id number] [place] [address] 08270- 0394 Dec, [facility] [place] [facility] [address] [id number] [place] [address]- 2911 31 Dec, 2011 [facility] [place] [facility] [address] [id number] [place] [address]- 5913 26 Dec, 2011 [facility] [place] [facility] [address] [id number] [place] [address]- 7717 Dec, [facility] [place] [facility] [address] [id number] [place] [address]- 8033 23 Dec, 2011 [facility] [place] [facility] [address] [id number] [place] [address]- 5982 18 Dec, 2011 [facility] [place] [facility] [address] [id number] [place] [address]- 5375 18 Dec, 2011 [facility] [place] [facility] [address] [id number] [place] [address]- 3105 18 Dec, 2011 [facility] [place] [facility] [address] [id number] [place] [address]- 9495 18 Dec, 2011 [facility] [place] [facility] [address] [id number] [place] [address]- 7589 18 Dec, 2011 [facility] [place] [facility] [address] [id number] [place] [address]- 5039 18 Dec, 2011 [facility] [place] [facility] [address] [id number] [place] [address]- 0186 15 Dec, 2011 [facility] [place] [facility] [address] [id number] [address]- 3225 10 Dec, 2011 [facility] [place] [facility] [address] [id number] [place] [address]- 0318 10 Dec, 2011 [facility] [place] [facility] [address] [id number] [place] [address]- 8666 08 Dec, 2011 [facility] [place] [facility] [address] [id number] [place] [address]- 3887 05 Dec, 2011 [facility] [place] [facility] [address] [id number], [place] [address]- 0616 Dec, [facility] [id number] [address]- 8405 Dec, [facility] [address] [address]- 0906 Nov, [facility] [address] [address]- 1676 17 Nov, 2011 [facility] [id number], [place] [address]- 4246 Nov, [facility] [id number], [place] [address]- 0398 Nov, [facility] [id number], [place] [address]- 9816 Nov, [facility] [id number] [address]- 1516 Nov, [facility] [id number] [address]- 9847 Sep, [facility] [id number] [address]- 1139 Aug, [facility] [id number] [address] Aug, [facility], [place] [id number] [address] July, [facility], [place] [id number] [id number] July, [facility], [place] [id number], [place] [address] July, IMMUNIZATIONS No Known Immunizations SOCIAL HISTORY Never Assessed REASON FOR VISIT Requests return call PLAN OF CARE VITAL SIGNS MEDICATIONS Medication Instructions Dosage Frequency Start Date End Date Duration Status Benztropine Mesylate 2 MG Orally at bed time, voucher 1st fill only 1 tablet Active RESULTS No Results PROCEDURES No Known procedures INSTRUCTIONS MEDICATIONS ADMINISTERED No Known Medications MEDICAL (GENERAL) HISTORY Type Description Date Medical History schizoaffective disorder Medical History bi-polar disorder Medical History depression Medical History anxiety Medical History pre diabetes Medical History COPD Surgical History x 2 Hospitalization History Staph infection in arm
--- OUTSIDE RECORDS SUMMARY | 2017-10-06 19:59 | XMS REPORT ---
Author Author DONOVAN JACKSON Organization [facility] Address [address] [place] [address] Care Team Providers Care Furniture Duster Name Role Phone DONOVAN JACKSON Unavailable PROBLEMS Type Condition ICD9-CM Code [id number] Code Onset Dates Condition Status SNOMED Code Problem Simple chronic bronchitis J41.0 Active 66487589 Problem Anxiety F41.9 Active 69588021 Problem Acute seasonal allergic rhinitis, unspecified trigger J30.2 Active 282259395 Problem Asthma exacerbation J45.901 Active 342265714 Problem Migraine with aura and with status migrainosus, not intractable G43.101 Active 8982172 Problem Psychotic disorder with delusions F29 Active 42578113 Problem 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 [address] 92267- 9252 Aug, [facility] [id number] [place] [address] 16416- 5009 July, [facility] [id number] [place] [address] 09891- 9076 July, [facility] [id number] [place] [address] 61762- 5420 May, Psychotic disorder with delusions F29 [facility] [id number] [place] [address] 70646- 9596 May, [facility] [id number] [place] [address] 85477- 7379 May, 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 [id number] [place] [address] 57150- 0772 Jan, [facility] [id number] [place] [address] 15065- 8634 Dec, Psychotic disorder with delusions F29 [facility] [address] [address]41 -[address]26 Dec, Acute seasonal allergic rhinitis, unspecified trigger J30.2 [facility] [id number] [place] [address] 35940- 8709 Nov, Psychotic disorder with delusions F29 [facility] [id number] [place] [address] 85186- 2381 Nov, [facility] [id number] [place] [address] 67202- 7554 Nov, [facility] [id number] [place] [address] 60149- 0593 Nov, [facility] [id number] [place] [address] 30556- 6188 Oct, Asthma exacerbation J45.901 [facility] [id number] [place] [address] 98145- 6234 Oct, 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 [id number] [place] [address] 97770- 4816 Oct, [facility] [address] 78599- 2774 Oct, Migraine with aura and with status migrainosus, not intractable G43.101 ; Other abnormal cytological finding of specimen from cervix R87.618 ; Screening for diabetes mellitus (DM) Z13.1 ; Screening for lipid disorders Z13.220 and Weight gain R63.5 [facility] [address], [place] [address] 8230 Oct, [facility] [id number] [place] [address] 12450- 5960 Oct, [facility] [id number] [place] [address] 31692- 7258 Oct, [facility] [id number] [place] [address] 79464- 4877 Sep, Weight gain R63.5 ; Screening for lipid disorders Z13.220 ; Screening for diabetes mellitus (DM) Z13.1 and Scabies exposure Z20.89 [facility] [id number] [place] [address] [id number] Sep, Encounter for dental examination and cleaning without abnormal findings Z01.20 [facility] [id number] [place] [address] 56096 -7437 Sep, Abscess L02.91 [facility] [id number] [place] [address] 76557- 8770 Jun, [facility] [id number] [place] [address] 38364- 6287 Jun, Routine gynecological examination Z01.419 [place] [facility] [id number] [place] [address] 32552- 7636 Jun, Routine gynecological examination Z01.419 ; Encounter for Depo-Provera contraception Z30.42 and Routine screening for STI (sexually transmitted infection) Z11.3 [facility] [address] [place] [address] 76212- 2883 Jun, Anxiety F41.9 [facility] [id number] [place] [address] 16689- 0012 May, [facility] [id number] [place] [address] 34459- 1575 Apr, Psychotic disorder with delusions F29 [facility] [id number] [address] 4867 18 Jan, 2016 [facility] [id number] [place] [address] 71359- 9706 18 Jan, 2016 Psychotic disorder with delusions F29 [facility] [id number] [place] [address] 32792- 6011 16 Jan, 2016 Encounter for contraceptive management, unspecified contraceptive encounter type Z30.9 ; Anxiety F41.9 ; Simple chronic bronchitis J41.0 and Encounter for Depo-Provera contraception Z30.42 [facility] [id number] [place] [address] 10827- 2068 14 Jun, 2014 [facility] [id number] [place] [address] 75637- 1787 Jun, [facility] [id number] [place] [address] 49108- 6475 Mar, [facility] [id number] [place] [address] 52947- 3662 Jan, [facility] [id number] [place] [address] 40838- 8709 Jan, [facility] [id number] [place] [address] 50650- 5542 Jan, [facility] [id number] [place] [address] 61675- 4794 Jan, [facility] [address] [place] [address] 82548- 1355 Jan, [facility] [id number] [place] [address] 20861- 3870 Jan, [facility] [id number] [place] [address] 41171- 9143 Jan, [facility] [id number] [place] [address] 91040- 8668 Dec, [facility] [place] [facility] [address] [id number] [place] [address]- 4506 31 Dec, 2011 [facility] [place] [facility] [address] [id number] [place] [address]- 6708 26 Dec, 2011 [facility] [place] [facility] [address] [id number] [place] [address]- 3721 Dec, 2011 [facility] [place] [facility] [address] [id number] [place] [address]- 5760 23 Dec, 2011 [facility] [place] [facility] [address] [id number] [place] [address]- 7845 18 Dec, 2011 [facility] [place] [facility] [address] [id number] [place] [address]- 9227 18 Dec, 2011 [facility] [place] [facility] [address] [id number] [place] [address]- 9307 18 Dec, 2011 [facility] [place] [facility] [address] [id number] [place] [address]- 6420 18 Dec, 2011 [facility] [place] [facility] [address] [id number] [place] [address]- 3920 18 Dec, 2011 [facility] [place] [facility] [address] [id number], [place] [address]- 0353 18 Dec, 2011 [facility] [place] [facility] [address] [id number], [place] [address]- 6942 15 Dec, 2011 [facility] [place] [facility] [address] [id number], [place] [address]- 3788 10 Dec, 2011 [facility] [place] [facility] [address] [id number], [place] [address]- 7590 10 Dec, 2011 [facility] [place] [facility] [address] [id number], [place] [address]- 4212 08 Dec, 2011 [facility] [place] [facility] [address] [id number] 0233 05 Dec, 2011 [facility] [place] [facility] [address] [id number], [place] [address] 2546 Dec, [facility] [address], [place] [address]- 3156 Dec, [facility] [address], [place] [address]- 0806 18 Nov, 2011 [facility] [address], [place] [address]- 5916 17 Nov, 2011 [facility] [address], [place] [address]- 4606 13 Nov, 2011 [facility] [address], [place] [address]- 6350 Nov, [facility] [address], [place] [address]- 3762 12 Nov, 2011 [facility] [address], [place] [address]- 9300 05 Nov, 2011 [facility] [address], [place] [address]- 8418 Sep, [facility] [address], [place] [address]- 2064 Aug, [facility] [address] [address] 4467 Aug, [facility] [address], [place] [address]- 2758 July, [facility] [address] [address] 5689 July, [facility] [id number] 5722 July, IMMUNIZATIONS No Known Immunizations SOCIAL HISTORY Never Assessed REASON FOR VISIT Transition of Care: transferring care from Júnior Mendes APRN--Rajesh, -Pt has a spot that just appeared on left lower extremity right before appt and is itching. Pt states 2 people she lives with have scabies, -pt requesting lab work for thyroid. Pt reports increased weight gain, -Would like to discuss medications and possibly make some changes PLAN OF CARE Activity Details Follow Up 3 Months with Dipesh for weight management Reason: VITAL SIGNS Height 62 in 2016-10-27 Weight 193 lbs 2016-10-27 Temperature 98.3 degrees Fahrenheit 2016-10-27 Heart Rate 72 bpm 2016-10-27 Respiratory Rate 20 2016-10-27 BMI 35.30 kg/m2 2016-10-27 Blood pressure systolic 108 mmHg 2016-10-27 Blood pressure diastolic 78 mmHg 2016-10-27 MEDICATIONS Medication Instructions Dosage Frequency Start Date End Date Duration Status Benztropine Mesylate 2 MG Orally at bed time, voucher 1st fill only 1 tablet Active HydrOXYzine HCl 50 mg Orally Once a day, voucher 1st fill only 1 tablet as needed at HS Not-Taking Haloperidol 10 mg Orally Once a day, at night. 1 tablet Jun, Active Singulair 10 mg Orally Once a day, voucher 1st fill only 1 tablet in the evening Active Haloperidol 25 mg Orally Once a day, voucher 1st fill only 1 tablet Dec, Not-Taking ProAir HFA 90 mcg/actuation 2 puffs by Inhalation route 4 times per day 6h July, Not-Taking BuSpar Not-Taking BusPIRone HCl 15 MG Orally Once a day 2 tablet 24h Active Atorvastatin Calcium 10 mg Orally Once a day at bedtime 1 tablet Jan, 30 day(s) Not-Taking RESULTS No Results PROCEDURES No Known procedures INSTRUCTIONS MEDICATIONS ADMINISTERED No Known Medications MEDICAL (GENERAL) HISTORY Type Description Date Medical History schizoaffective disorder Medical History bi-polar disorder Medical History depression Medical History anxiety Medical History pre diabetes Medical History COPD Surgical History x 2 Hospitalization History Staph infection in arm
--- OUTSIDE RECORDS SUMMARY | 2017-10-06 19:59 | XMS REPORT ---
Author Author DONOVAN JACKSON Organization [facility] Address [address] [place] [address] Care Team Providers Care Accounting Methods Analyst Name Role Phone DONOVAN JACKSON Unavailable PROBLEMS Type Condition ICD9-CM Code XPB66-PL Code Onset Dates Condition Status SNOMED Code Problem Simple chronic bronchitis J41.0 Active 84471918 Problem Anxiety F41.9 Active 41547066 Problem Acute seasonal allergic rhinitis, unspecified trigger J30.2 Active 383556701 Problem Asthma exacerbation J45.901 Active 544771570 Problem Migraine with aura and with status migrainosus, not intractable G43.101 Active 8057441 Problem Psychotic disorder with delusions F29 Active 05938939 Problem 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 183011472 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 271776510 ALLERGIES Substance Reaction Event Type Date Status Naproxen hives Drug Allergy Oct, Active ENCOUNTERS Encounter Location Date Diagnosis [facility] [id number] [place] [address] 91497- 9122 May, Psychotic disorder with delusions F29 [facility] [id number] [place] [address] 87748- 8751 May, [facility] [id number] [place] [address] 61186- 8214 May, [facility] [id number] [place] [address] 99238- 4775 Mar, Psychotic disorder with delusions F29 and 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 [facility] [id number] [place] [address] 79311- 1459 Jan, [facility] [id number] [place] [address] 54282- 1099 Dec, Psychotic disorder with delusions F29 [facility] [address] [place] [address] 87434 -0596 Dec, Acute seasonal allergic rhinitis, unspecified trigger J30.2 [facility] [id number] [place] [address] 79130- 0788 Nov, Psychotic disorder with delusions F29 [facility] [id number] [place] [address] 06359- 3108 14 Nov, 2016 [facility] [id number] [place] [address] 77821- 0920 Nov, [facility] [address] 03641- 7005 Nov, [facility] [address] 15516- 4027 Oct, Asthma exacerbation J45.901 [facility] [address] 52456- 1997 Oct, [facility] [id number] [place] [address] 07941- 9810 Oct, 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 and 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 [facility] [id number] [place] [address] 52037- 8939 Oct, [facility] [id number] [place] [address] 24421- 8335 Oct, Migraine with aura and with status migrainosus, not intractable G43.101 ; Other abnormal cytological finding of specimen from cervix R87.618 ; Screening for diabetes mellitus (DM) Z13.1 ; Screening for lipid disorders Z13.220 and Weight gain R63.5 [facility] [id number] [place] [address] 99662- 6495 Oct, [facility] [id number] [place] [address] 85179- 4471 Oct, [facility] [address] 72784- 7607 Oct, [facility] [address] [place] [address] 51839- 0594 Sep, Weight gain R63.5 ; Screening for lipid disorders Z13.220 ; Screening for diabetes mellitus (DM) Z13.1 and Scabies exposure Z20.89 [facility] [address] [place] [address] [id number] Sep, Encounter for dental examination and cleaning without abnormal findings Z01.20 [facility] [id number] [place] [address] 10451 -4549 Sep, Abscess L02.91 [facility] [id number] [place] [address] 70948- 9954 Jun, [facility] [id number] [place] [address] 37479- 9913 Jun, Routine gynecological examination Z01.419 [facility] [id number] [place] [address] 24140- 2296 Jun, Routine gynecological examination Z01.419 ; Encounter for Depo-Provera contraception Z30.42 and Routine screening for STI (sexually transmitted infection) Z11.3 [facility] [address] [place] [address] 39041- 6710 Jun, Anxiety F41.9 [facility] [id number] [place] [address] 06964- 6298 May, [facility] [id number] [place] [address] 81993- 5720 Apr, Psychotic disorder with delusions F29 [facility] [id number] [place] [address] 45122- 0272 Jan, [facility] [id number] [place] [address] 14976- 6805 Jan, Psychotic disorder with delusions F29 [facility] [id number] [place] [address] 83963- 4298 16 Jan, 2016 Encounter for contraceptive management, unspecified contraceptive encounter type Z30.9 ; Anxiety F41.9 ; Simple chronic bronchitis J41.0 and Encounter for Depo-Provera contraception Z30.42 [facility] [address] [address]- 4372 14 Jun, 2014 [facility] [id number] [place] [address] 49847- 2113 Jun, [facility] [id number] [place] [address] 09453- 7922 Mar, [facility] [id number] [place] [address] 25423- 9917 Jan, [facility] [id number] [place] [address] 17768- 7282 Jan, [facility] [id number] [place] [address] 87361- 4016 Jan, [facility] [id number] [place] [address] 53930- 1328 Jan, [facility] [id number] [place] [address] 03479- 8602 Jan, [facility] [address] [place] [address] 79336- 7326 Jan, [facility] [id number] [place] [address] 47848- 4759 Jan, [facility] [id number] [place] [address] 05390- 2992 Dec, [facility] [id number] [place] [address] 73701- 6849 Dec, [facility] [address] [id number] [address]- 3302 Dec, [facility] [id number] [place] [address] 27036- 3899 Dec, [facility] [place] [facility] [address] [id number] [place] [address]- 2762 23 Dec, 2011 [facility] [place] [facility] [address] [id number] [place] 6510 Dec, 2011 [facility] [place] [facility] [address] [id number] [place] [address]- 9608 18 Dec, 2011 [facility] [place] [facility] [address] [id number] [place] [address]- 8084 Dec, 2011 [facility] [place] [facility] [address] [id number] [place] [address]- 2254 Dec, 2011 [facility] [place] [facility] [address] [id number] [place] [address]- 4022 Dec, [facility] [place] [facility] [address] [id number] [place] [address]- 6698 Dec, [facility] [place] [facility] [address] [id number], [place] [address]- 6499 15 Dec, 2011 [facility] [place] [facility] [address] [id number] [place] [address]- 4242 10 Dec, 2011 [facility] [place] [facility] [address] [id number], [place] [address]- 6801 10 Dec, 2011 [facility] [place] [facility] [address] [id number], [place] [address]- 0645 08 Dec, 2011 [facility] [place] [facility] [address] [id number], [place] [address]- 9522 05 Dec, 2011 [facility] [place] [facility] [address] [id number], [place] [address]- 7057 03 Dec, 2011 [facility] [place] [facility] [address] [id number], [place] [address]- 3833 02 Dec, 2011 [facility] [place] [facility] [address] [id number], [place] [address]- 1790 18 Nov, 2011 [facility] [place] [facility] [address] [id number], [place] [address]- 9443 17 Nov, 2011 [facility] [address] [address]- 3764 13 Nov, 2011 [facility] [address]- 8946 Nov, [facility] [address], [place] [address]- 1674 Nov, [facility] [address], [place] [address]- 4358 Nov, [facility] [address], [place] [address]- 5940 Sep, [facility] [address]- 0249 Aug, [facility] [address] [address]- 7269 Aug, [facility] [address], [place] [address]- 9409 July, [facility] [address] [address]- 8045 July, [facility] [address], [place] [address]- 0639 July, IMMUNIZATIONS No Known Immunizations SOCIAL HISTORY Never Assessed REASON FOR VISIT wheezing, cough , back pain -- dylan klein PLAN OF CARE Activity Details Follow Up has appt with PCP Vaughn Reason: VITAL SIGNS Height 62 in 2016-11-27 Weight 207.6 lbs 2016-11-27 Temperature 97.8 degrees Fahrenheit 2016-11-27 BMI 37.97 kg/m2 2016-11-27 Blood pressure systolic 130 mmHg 2016-11-27 Blood pressure diastolic 76 mmHg 2016-11-27 MEDICATIONS Medication Instructions Dosage Frequency Start Date End Date Duration Status Propranolol HCl 20 mg Orally twice a day 1/2 tablet 12h 23 Oct, 2016 30 day(s) Active Singulair 10 mg Orally Once a day, voucher 1st fill only 1 tablet in the evening Active Benztropine Mesylate 2 MG Orally at bed time, voucher 1st fill only 1 tablet Active Haloperidol 10 mg Orally Once a day, at night. 1 tablet Jun, Active Azithromycin 250 MG Orally Once a day 2 tablets on the first day, then 1 tablet daily for 4 days 24h Oct, Nov, 5 day(s) Active Haldol Decanoate 50 MG/ML Intramuscular as directed once every 4 weeks 1 ml Oct, 30 day(s) Active PredniSONE 50 mg Orally Once a day 1 tablet 24h Oct, Nov, 07 days Active RESULTS No Results PROCEDURES No Known procedures INSTRUCTIONS MEDICATIONS ADMINISTERED No Known Medications MEDICAL (GENERAL) HISTORY Type Description Date Medical History schizoaffective disorder Medical History bi-polar disorder Medical History depression Medical History anxiety Medical History pre diabetes Medical History COPD Surgical History x 2 Hospitalization History Staph infection in arm
--- OUTSIDE RECORDS SUMMARY | 2017-10-06 19:59 | XMS REPORT ---
Author Author DONOVAN JACKSON Organization [facility] Address [address] [place] [address] Care Team Providers Care Cleaner Housekeeping Name Role Phone DONOVAN JACKSON Unavailable PROBLEMS Type Condition ICD9-CM Code VFR30-FL Code Onset Dates Condition Status SNOMED Code Problem Simple chronic bronchitis J41.0 Active 31820216 Problem Anxiety F41.9 Active 35565017 Problem Acute seasonal allergic rhinitis, unspecified trigger J30.2 Active 059022842 Problem Asthma exacerbation J45.901 Active 799507758 Problem Migraine with aura and with status migrainosus, not intractable G43.101 Active 8578321 Problem Psychotic disorder with delusions F29 Active 00845244 Problem 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 629287569 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 [id number] ALLERGIES No Information ENCOUNTERS Encounter Location Date Diagnosis [facility] [id number] [place] [address] 71521- 4383 Aug, [facility] [address] 17308- 8092 July, [facility] [id number] [place] [address] 45155- 3489 July, [facility] [id number] [place] [address] 54222- 3492 July, [facility] [id number] [place] [address] 45560- 3129 May, Psychotic disorder with delusions F29 [facility] [address] 37190- 2353 May, [facility] [id number] [place] [address] 81512- 0735 May, [facility] [id number] [place] [address] 19965- 9859 Mar, Psychotic disorder with delusions F29 and 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 [facility] [id number] [place] [address] 46999- 0819 Jan, [facility] [id number] [place] [address] 05331- 2781 Dec, Psychotic disorder with delusions F29 [facility] [id number] [place] [address] 09510 -2731 Dec, Acute seasonal allergic rhinitis, unspecified trigger J30.2 [facility] [address] 83103- 1818 Nov, Psychotic disorder with delusions F29 [facility] [id number] [place] [address] 79147- 7713 Nov, [facility] [address] 78363- 0713 Nov, [facility] [id number] [place] [address] 17109- 8432 Nov, [facility] [id number] [place] [address] 20765- 3429 Oct, Asthma exacerbation J45.901 [facility] [id number] [place] [address] 01107- 7350 Oct, [facility] [id number] [place] [address] 04347- 4023 Oct, 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 and 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 [facility] [address] 32365- 0931 Oct, [facility] [id number] [place] [address] 69973- 1635 Oct, Migraine with aura and with status migrainosus, not intractable G43.101 ; Other abnormal cytological finding of specimen from cervix R87.618 ; Screening for diabetes mellitus (DM) Z13.1 ; Screening for lipid disorders Z13.220 and Weight gain R63.5 [facility] [id number] [place] [address] 60761- 7753 Oct, [facility] [id number] [place] [address] 85906- 0312 Oct, [facility] [address] 23178- 6661 Oct, [facility] [id number] [place] [address] 98200- 4307 Sep, Weight gain R63.5 ; Screening for lipid disorders Z13.220 ; Screening for diabetes mellitus (DM) Z13.1 and Scabies exposure Z20.89 [facility] [id number] [place] [address] [id number] Sep, Encounter for dental examination and cleaning without abnormal findings Z01.20 [facility] [id number] [place] [address] 87081 -8346 Sep, Abscess L02.91 [place] [id number] [place] [address] 04256- 1574 Jun, [facility] [id number] [place] [address] 23844- 2530 Jun, Routine gynecological examination Z01.419 [place] [id number] [place] [address] 13154- 0620 Jun, Routine gynecological examination Z01.419 ; Encounter for Depo-Provera contraception Z30.42 and Routine screening for STI (sexually transmitted infection) Z11.3 [facility] [id number] [place] [address] 99693- 2930 Jun, Anxiety F41.9 [facility] [id number] [place] [address] 13366- 4043 May, [facility] [id number] [place] [address] 48813- 4029 Apr, Psychotic disorder with delusions F29 [facility] [address] [place] [address] 58807- 9035 Jan, [facility] [id number] [place] [address] 73715- 4344 Jan, Psychotic disorder with delusions F29 [facility] [id number] [place] [address] 61980- 5661 16 Jan, 2016 Encounter for contraceptive management, unspecified contraceptive encounter type Z30.9 ; Anxiety F41.9 ; Simple chronic bronchitis J41.0 and Encounter for Depo-Provera contraception Z30.42 [facility] [id number] [place] [address] 32167- 9413 14 Jun, 2014 [facility] [id number] [place] [address] 17247- 4769 Jun, [facility] [id number] [place] [address] 56462- 9502 Mar, [facility] [id number] [place] [address] 16754- 6202 Jan, [facility] [id number] [place] [address] 23767- 7009 Jan, [facility] [address] [place] [address] 08925- 2600 Jan, [facility] [id number] [place] [address] 64225- 5953 Jan, [facility] [address] [place] [address] 73551- 7998 Jan, [facility] [id number] [place] [address] 79783- 7916 Jan, [facility] [address] [place] [address] 63790- 9160 Jan, [facility] [id number] [place] [address], [place] [address]- 9541 31 Dec, 2011 [facility] [place] [facility] [address] [id number] [place] [address]- 9144 31 Dec, 2011 [facility] [place] [facility] [address] [id number] [place] [address]- 7251 26 Dec, 2011 [facility] [place] [facility] [address] [id number] [place] [address]- 4690 23 Dec, 2011 [facility] [place] [facility] [address] [id number] [place] [address]- 5235 23 Dec, 2011 [facility] [place] [facility] [address] [id number] [place] [address]- 0278 18 Dec, 2011 [facility] [place] [facility] [address] [id number] [place] [address]- 8922 18 Dec, 2011 [facility] [place] [facility] [address] [id number] [place] [address]- 1443 18 Dec, 2011 [facility] [place] [facility] [address] [id number] [place] [address]- 3325 18 Dec, 2011 [facility] [place] [facility] [address] [id number] [place] [address]- 2285 18 Dec, 2011 [facility] [place] [facility] [address] [facility] [id number] [place] [address]- 3391 18 Dec, 2011 [facility] [place] [facility] [address] [id number] [place] [address]- 5789 15 Dec, 2011 [facility] [place] [facility] [address] [id number] [address]- 8666 10 Dec, 2011 [facility] [place] [facility] [address] [id number] [place] [address]- 3207 10 Dec, 2011 [facility] [place] [facility] [address] [facility] [id number] [place] [address]- 8315 08 Dec, 2011 [facility] [place] [facility] [address] [facility] [id number], [place] [address]- 8604 05 Dec2011 [facility] [place] [facility] [address] [address] 5793 Dec, [facility] [address] 5081 Dec, [facility] [address] 5899 18 Nov, 2011 [facility] [address] [address]- 7961 17 Nov, 2011 [facility] [address] [facility] [id number], [place] [address]- 4202 Nov, [facility] [address] [address]- 4349 Nov, [facility] [address] [address]- 0990 Nov, [facility] [address] [address]- 0088 Nov, [facility] [address] [address]- 5017 Sep, [facility] [address] [address]- 9229 Aug, [facility] [address] [address]- 9305 Aug, [facility] [address] [address]- 1520 July, [facility] [id number] [address]- 5999 July, [facility] [address] [address]- 4996 July, IMMUNIZATIONS No Known Immunizations SOCIAL HISTORY Never Assessed REASON FOR VISIT Requests return call PLAN OF CARE VITAL SIGNS MEDICATIONS Unknown [...]
--- OUTSIDE RECORDS SUMMARY | 2017-10-06 19:59 | XMS REPORT ---
Author Author DONOVAN JACKSON Organization [facility] Address [address] [place] [address] Care Team Providers Care Firer Locomotive Crane Name Role Phone DONOVAN JACKSON Unavailable PROBLEMS Type Condition ICD9-CM Code YBO14-AY Code Onset Dates Condition Status SNOMED Code Problem Simple chronic bronchitis J41.0 Active 27768524 Problem Anxiety F41.9 Active 61316060 Problem Acute seasonal allergic rhinitis, unspecified trigger J30.2 Active 981355427 Problem Asthma exacerbation J45.901 Active 271509772 Problem Migraine with aura and with status migrainosus, not intractable G43.101 Active 7222296 Problem Psychotic disorder with delusions F29 Active 75294535 Problem 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 800053008 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 113057999 ALLERGIES No Information ENCOUNTERS Encounter Location Date Diagnosis [facility] [address] 56699- 9362 May, Psychotic disorder with delusions F29 [facility] [id number] [place] [address] 38718- 4598 May, [facility] [id number] [place] [address] 63163- 9594 May, [facility] [id number] [place] [address] 46424- 3168 Mar, Psychotic disorder with delusions F29 and 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 [facility] [address] 41649- 3697 Jan, [facility] [id number] [place] [address] 74800- 3324 Dec, Psychotic disorder with delusions F29 [facility] [address] [place] [address] -6538 Dec, Acute seasonal allergic rhinitis, unspecified trigger J30.2 [facility] [id number] [place] [address] 92338- 3631 Nov, Psychotic disorder with delusions F29 [facility] [id number] [place] [address] 03250- 1482 14 Nov, 2016 [facility] [address] 34062- 9059 Nov, [facility] [id number] [place] [address] 43068- 0122 Nov, [facility] [address] 16596- 5560 Oct, Asthma exacerbation J45.901 [facility] [address] 98056- 0497 Oct, [facility] [address] 31986- 0482 Oct, 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 and 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 [facility] [address] 74137- 3075 Oct, [facility] [id number] [place] [address] 20022- 5135 Oct, Migraine with aura and with status migrainosus, not intractable G43.101 ; Other abnormal cytological finding of specimen from cervix R87.618 ; Screening for diabetes mellitus (DM) Z13.1 ; Screening for lipid disorders Z13.220 and Weight gain R63.5 [facility] [id number] [place] [address] 48236- 8557 Oct, [facility] [id number] [place] [address] 11106- 9207 Oct, [facility] [id number] [place] [address] 73618- 1191 Oct, [facility] [address] [place] [address] 03892- 0387 Sep, Weight gain R63.5 ; Screening for lipid disorders Z13.220 ; Screening for diabetes mellitus (DM) Z13.1 and Scab[address] exposure Z20.89 [facility] [address] [id number] Sep, Encounter for dental examination and cleaning without abnormal findings Z01.20 [facility] [id number] [place] [address] 65100 -4549 Sep, Abscess L02.91 [facility] [address] 96826- 4720 Jun, [facility] [id number] [place] [address] 98800- 5208 Jun, Routine gynecological examination Z01.419 [place] [address] 88068- 0532 Jun, Routine gynecological examination Z01.419 ; Encounter for Depo-Provera contraception Z30.42 and Routine screening for STI (sexually transmitted infection) Z11.3 [facility] [id number] [place] [address] 19121- 6202 Jun, Anxiety F41.9 [facility] [id number] [place] [address] 05936- 5631 May, [facility] [id number] [place] [address] 05569- 5097 Apr, Psychotic disorder with delusions F29 [facility] [id number] [place] [address] 79759- 2745 Jan, [place] [id number] [place] [address] 48564- 1303 Jan, Psychotic disorder with delusions F29 [facility] [id number] [place] [address] 33108- 8783 16 Nov, 2016 Encounter for contraceptive management, unspecified contraceptive encounter type Z30.9 ; Anxiety F41.9 ; Simple chronic bronchitis J41.0 and Encounter for Depo-Provera contraception Z30.42 [facility] [id number] [address]- 1554 14 Jun, 2014 [facility] [id number] [place] [address] 77491- 8015 13 Jun, 2014 [facility] [id number] [place] [address] 08057- 4195 Mar, [facility] [id number] [place] [address] 62661- 2122 Jan, [facility] [id number] [place] [address] 44528- 6749 Jan, [facility] [id number] [place] [address] 54781- 3069 Jan, [facility] [id number] [place] [address] 10236- 8993 Jan, [facility] [id number] [place] [address] 71145- 2376 Jan, [facility] [id number] [place] [address] 70738- 7016 Jan, [facility] [address], [place] [address]- 9874 Jan, [facility] [address], [place] [address]- 3710 Dec, [facility] [id number] [place] [address] 30801- 7513 Dec, [facility] [id number] [place] [address] 88017- 3136 Dec, [facility] [address] [place] [address] 93766- 0553 Dec, [facility] [id number] [place] [address], [place] [address]- 1383 23 Dec, 2011 [facility] [place] [facility] [address] [id number] [place] [address]- 5129 18 Dec, 2011 [facility] [place] [facility] [address] [id number] [place] [address]- 0915 18 Dec, 2011 [facility] [place] [facility] [address] [id number] [place] [address]- 1921 18 Dec, 2011 [facility] [place] [facility] [address] [id number] [place] [address]- 1140 18 Dec, 2011 [facility] [place] [facility] [address] [id number] [place] [address]- 8740 18 Dec, 2011 [facility] [place] [facility] [address] [id number] [place] [address]- 6579 18 Dec, 2011 [facility] [place] [facility] [address] [id number] [place] [address]- 1219 15 Dec, 2011 [facility] [place] [facility] [address] [id number] [place] [address]- 8869 10 Dec, 2011 [facility] [place] [facility] [address] [id number] [place] [address]- 4903 10 Dec, 2011 [facility] [place] [facility] [address] [facility] [id number] [place] [address]- 3537 08 Dec, 2011 [facility] [place] [facility] [address] [id number] [place] [address]- 3809 05 Dec, 2011 [facility] [place] [facility] [address] [id number], [place] [address]- 5007 03 Dec, 2011 [facility] [place] [facility] [address] [id number] [place] [address]- 7358 02 Dec, 2011 [facility] [place] [facility] [address] [facility] [id number] [place] [address]- 5347 18 Sep, 2011 [facility] [place] [facility] [address] [facility] [id number], [place] [address]- 1776 17 Sep, 2011 [facility] [place] [facility] [id number], [place] [address]- 2246 13 Nov, 2011 [facility] [address], [place] [address]- 4694 13 Nov, 2011 [facility] [address], [place] [address]- 1611 12 Nov, 2011 [facility] [address], [place] [address]- 0699 Nov, [facility] [address], [place] [address]- 7221 Sep, [facility] [address], [place] [address]- 3491 Aug, [facility] [address], [place] [address]- 9996 Aug, [facility] [address], [place] [address]- 6925 July, [facility] [address], [place] [address]- 5251 July, [facility] [id number], [place] [address]- 0195 July, IMMUNIZATIONS No Known Immunizations SOCIAL HISTORY [...]
--- OUTSIDE RECORDS SUMMARY | 2017-10-06 20:00 | XMS REPORT ---
Author Author DONOVAN JACKSON Organization [facility] Address [address] [place] [address] Care Team Providers Care Life Enrichment Assistant Name Role Phone DONOVAN JACKSON Unavailable PROBLEMS Type Condition ICD9-CM Code [id number] Code Onset Dates Condition Status SNOMED Code Problem Simple chronic bronchitis J41.0 Active 74412599 Problem Anxiety F41.9 Active 79335435 Problem Acute seasonal allergic rhinitis, unspecified trigger J30.2 Active 900351478 Problem Asthma exacerbation J45.901 Active 510058279 Problem Migraine with aura and with status migrainosus, not intractable G43.101 Active 5210985 Problem Psychotic disorder with delusions F29 Active 53741324 Problem 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 474012246 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 396687756 ALLERGIES No Information ENCOUNTERS Encounter Location Date Diagnosis [facility] [address] [address] May, Psychotic disorder with delusions F29 [facility] [id number] [place] [address] 11789- 8327 May, [facility] [id number] [place] [address] 11476- 1587 May, [facility] [id number] [place] [address] 08044- 6789 Mar, Psychotic disorder with delusions F29 and 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 [facility] [address] 9[address]78- 4934 Jan, [facility] [id number] [place] [address] 83323- 4366 Dec, Psychotic disorder with delusions F29 [facility] [address] [place] [address] Dec, Acute seasonal allergic rhinitis, unspecified trigger J30.2 [facility] [id number] [place] [address] 17499- 1598 Nov, Psychotic disorder with delusions F29 [facility] [id number] [place] [address] 52786- 1105 14 Nov, 2016 [facility] [address] 42979- 6839 Nov, [facility] [id number] [place] [address] 90490- 3844 Nov, [facility] [address] 34595- 7638 Oct, Asthma exacerbation J45.901 [facility] [address] 91517- 7731 Oct, [facility] [address] 30573- 5475 Oct, 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 and 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 [facility] [address] 81979- 8180 Oct, [facility] [id number] [place] [address] 10226- 0750 Oct, Migraine with aura and with status migrainosus, not intractable G43.101 ; Other abnormal cytological finding of specimen from cervix R87.618 ; Screening for diabetes mellitus (DM) Z13.1 ; Screening for lipid disorders Z13.220 and Weight gain R63.5 [facility] [id number] [place] [address] 15442- 7513 Oct, [facility] [id number] [place] [address] 82147- 4761 Oct, [facility] [id number] [place] [address] 02693- 3270 Oct, [facility] [address] [place] [address] 59029- 3804 Sep, Weight gain R63.5 ; Screening for lipid disorders Z13.220 ; Screening for diabetes mellitus (DM) Z13.1 and Scabies exposure Z20.89 [facility] [address] [id number] Sep, Encounter for dental examination and cleaning without abnormal findings Z01.20 [facility] [id number] [place] [address] 91295 -2410 Sep, Abscess L02.91 [facility] [address] 31802- 5015 Jun, [facility] [id number] [place] [address] 54488- 5368 Jun, Routine gynecological examination Z01.419 [place] [address] 61015- 6641 Jun, Routine gynecological examination Z01.419 ; Encounter for Depo-Provera contraception Z30.42 and Routine screening for STI (sexually transmitted infection) Z11.3 [facility] [id number] [place] [address] 52675- 9694 Jun, Anxiety F41.9 [facility] [id number] [place] [address] 51742- 3747 May, [facility] [id number] [place] [address] 14314- 1692 Apr, Psychotic disorder with delusions F29 [facility] [id number] [place] [address] 73073- 7163 Jan, [place] [id number] [place] [address] 65893- 7496 Jan, Psychotic disorder with delusions F29 [facility] [id number] [place] [address] 51506- 9584 16 Nov, 2016 Encounter for contraceptive management, unspecified contraceptive encounter type Z30.9 ; Anxiety F41.9 ; Simple chronic bronchitis J41.0 and Encounter for Depo-Provera contraception Z30.42 [facility] [id number] [address] 3[address] 14 Jun, 2014 [facility] [id number] [place] [address] 46156- 6728 13 Jun, 2014 [facility] [id number] [place] [address] 57760- 2634 Mar, [facility] [id number] [place] [address] 18629- 1584 Jan, [facility] [id number] [place] [address] 23609- 0037 Jan, [facility] [id number] [place] [address] 79789- 0860 Jan, [facility] [id number] [place] [address] 40378- 3107 Jan, [facility] [id number] [place] [address] 48501- 5450 Jan, [facility] [id number] [place] [address] 60833- 7576 Jan, [facility] [address] [address] 5264 Jan, [facility] [address], [place] [address] 4638 Dec, [facility] [id number] [place] [address] 99892- 2513 Dec, [facility] [id number] [place] [address] 45514- 4403 Dec, [facility] [address] [place] [address] 42506- 1939 Dec, [facility] [id number] [place] [address], [place] [address]- 7551 23 Dec, 2011 [facility] [place] [facility] [address] [id number] [place] [address]- 0840 18 Dec, 2011 [facility] [place] [facility] [address] [id number] [place] [address]- 4264 18 Dec, 2011 [facility] [place] [facility] [address] [id number] [place] [address]- 9711 18 Dec, 2011 [facility] [place] [facility] [address] [id number] [place] [address]- 5426 18 Dec, 2011 [facility] [place] [facility] [address] [id number] [place] [address]- 9096 18 Dec, 2011 [facility] [place] [facility] [address] [id number] [place] [address]- 9770 18 Dec, 2011 [facility] [place] [facility] [address] [id number] [place] [address]- 5600 15 Dec, 2011 [facility] [place] [facility] [address] [id number] [place] [address]- 4010 10 Dec, 2011 [facility] [place] [facility] [address] [id number] [place] [address]- 2787 10 Dec, 2011 [facility] [place] [facility] [address] [facility] [id number] [place] [address]- 1176 08 Dec, 2011 [facility] [place] [facility] [address] [id number] [place] [address]- 2217 05 Dec, 2011 [facility] [place] [facility] [address] [id number] [address]- 3852 03 Dec, 2011 [facility] [place] [facility] [address] [id number] [place] [address]- 1504 02 Dec, 2011 [facility] [place] [facility] [address] [facility] [id number] [place] [address]- 0069 18 Sep, 2011 [facility] [place] [facility] [address] [facility] [id number], [place] [address]- 2521 17 Sep, 2011 [facility] [place] [facility] [id number] [address]- 4566 13 Nov, 2011 [facility] [address], [place] [address]- 4708 13 Nov, 2011 [facility] [address], [place] [address]- 1463 12 Nov, 2011 [facility] [address], [place] [address]- 1016 05 Nov, 2011 [facility] [address], [place] [address]- 0388 Sep, [facility] [address], [place] [address]- 1221 Aug, [facility] [address], [place] [address]- 5908 Aug, [facility] [address], [place] [address]- 2876 July, [facility] [address], [place] [address]- 0699 July, [facility] [id number] [address]- 9815 July, IMMUNIZATIONS No Known Immunizations SOCIAL HISTORY Never Assessed REASON FOR VISIT Eye Exam PLAN OF CARE VITAL SIGNS MEDICATIONS Unknown [...]
--- OUTSIDE RECORDS SUMMARY | 2017-10-06 20:00 | XMS REPORT ---
Author Author BRENDON VAN Organization [facility] Address [address] [place] [address] Phone Unavailable Care Team Providers Care Polytechnic Teacher Name Role Phone BRENDON VAN Unavailable Unavailable PROBLEMS Type Condition ICD9-CM Code QRH47-HT Code Onset Dates Condition Status SNOMED Code Problem Simple chronic bronchitis J41.0 Active 02446499 Problem Anxiety F41.9 Active 55475895 Problem Acute seasonal allergic rhinitis, unspecified trigger J30.2 Active 018182743 Problem Asthma exacerbation J45.901 Active 071263864 Problem Migraine with aura and with status migrainosus, not intractable G43.101 Active 1478642 Problem Psychotic disorder with delusions F29 Active 35292054 Problem 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 080666087 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 142006926 ALLERGIES Substance Reaction Event Type Date Status Naproxen hives Drug Allergy Sep, Active ENCOUNTERS Encounter Location Date Diagnosis [facility] [id number] [place] [address] 22610- 9313 May, Psychotic disorder with delusions F29 [facility] [id number] [place] [address] 41764- 1623 May, [facility] [id number] [place] [address] 30499- 9913 May, [facility] [id number] [place] [address] 00353- 6701 Mar, Psychotic disorder with delusions F29 and 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 [address] [place] [address] Dec, Acute seasonal allergic rhinitis, unspecified trigger J30.2 [facility] [address] 70411- 7831 Nov, Psychotic disorder with delusions F29 [facility] [address] 47585- 1530 Nov, [facility] [address] 25526- 0589 Nov, [facility] [address] 08934- 0004 Nov, [place] [address] 94190- 9567 Oct, Asthma exacerbation J45.901 [place] [address] 50754- 3106 Oct, [facility] [address] 93391- 8802 Oct, 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 and 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 [place] [address] 26595- 7296 Oct, [place] [id number] [place] [address] 33742- 9150 Oct, Migraine with aura and with status migrainosus, not intractable G43.101 ; Other abnormal cytological finding of specimen from cervix R87.618 ; Screening for diabetes mellitus (DM) Z13.1 ; Screening for lipid disorders Z13.220 and Weight gain R63.5 [place] [address] 31786- 0959 Oct, [facility] [id number] [place] [address] 22680- 2590 Oct, [facility] [address] 09325- 3916 Oct, [facility] [address] [place] [address] 97669- 0908 Sep, Weight gain R63.5 ; Screening for lipid disorders Z13.220 ; Screening for diabetes mellitus (DM) Z13.1 and Scabies exposure Z20.89 [facility] [address] [place] [address] [id number] Sep, Encounter for dental examination and cleaning without abnormal findings Z01.20 [facility] [id number] [place] [address] 35153 -7647 Sep, Abscess L02.91 [place] [address] 84304- 5642 Jun, [facility] [address] 38358- 6561 Jun, Routine gynecological examination Z01.419 [place] [address] 96361- 0284 Jun, Routine gynecological examination Z01.419 ; Encounter for Depo-Provera contraception Z30.42 and Routine screening for STI (sexually transmitted infection) Z11.3 [place] [id number] [place] [address] 94360- 6942 Jun, Anxiety F41.9 [place] [id number] [place] [address] 55329- 3036 May, [place] [id number] [place] [address] 13115- 5101 Apr, Psychotic disorder with delusions F29 [place] [id number] [place] [address] 83345- 7059 Jan, [place] [address] 13797- 0769 Jan, Psychotic disorder with delusions F29 [place] [id number] [place] [address] 50430- 5917 Jan, Encounter for contraceptive management, unspecified contraceptive encounter type Z30.9 ; Anxiety F41.9 ; Simple chronic bronchitis J41.0 and Encounter for Depo-Provera contraception Z30.42 [facility] [id number] [place] [address] 02316- 7432 14 Jun, 2014 [facility] [address] [place] [address] 73061- 9460 13 Jun, 2014 [facility] [address] [place] [address] 82737- 1151 Mar, [facility] [id number] [place] [address] 49213- 2648 Jan, [facility] [id number] [place] [address] 47292- 2805 Jan, [facility] [id number] [place] [address] 23716- 1681 Jan, [facility] [id number] [place] [address] 13332- 7491 Jan, [facility] [id number] [place] [address] 50181- 6842 Jan, [facility] [id number] [place] [address] 41164- 7327 Jan, [facility] [address] [place] [address] 30509- 8231 Jan, [facility] [id number] [place] [address] 81064- 1250 Dec, [facility] [id number] [place] [address] 68238- 8195 Dec, [facility] [id number] [place] [address] 74345- 5472 Dec, [facility] [id number] [place] [address] 81189- 2838 Dec, [facility] [address] [place] [address]- 1098 23 Dec, 2011 [facility] [place] [facility] [address] [id number] [place] [address]- 8025 18 Dec, 2011 [facility] [place] [facility] [address] [id number] [place] 7135 18 Dec, 2011 [facility] [place] [facility] [address] [id number] [place] [address]- 7401 18 Dec, 2011 [facility] [place] [facility] [address] [id number] [place] [address]- 1890 18 Dec, 2011 [facility] [place] [facility] [address] [id number] [place] 8830 18 Dec, 2011 [facility] [place] [facility] [address] [id number] [place] [address]- 5316 18 Dec, 2011 [facility] [place] [facility] [address] [id number] [place] [address]- 3624 15 Dec, 2011 [facility] [place] [facility] [address] [id number] [place] [address]- 9404 10 Dec, 2011 [facility] [place] [facility] [address] [id number] [place] [address]- 0048 10 Dec, 2011 [facility] [place] [facility] [address] [facility] [id number] [place] [address]- 5275 08 Dec, 2011 [facility] [place] [facility] [address] [id number] [place] [address]- 1451 05 Dec, 2011 [facility] [place] [facility] [address] [id number], [place] [address]- 1696 03 Dec, 2011 [facility] [place] [facility] [address] [id number] [place] [address]- 2681 02 Dec, 2011 [facility] [place] [facility] [address] [facility] [id number] [place] [address]- 4081 18 Sep, 2011 [facility] [place] [facility] [address] [id number] [place] [address]- 9303 17 Nov, 2011 [facility] [address] [facility] [id number], [place] [address]- 8276 Nov, [facility] [address] [facility] [id number], [place] [address]- 2296 Nov, [facility] [address] [facility] [id number], [place] [address]- 6706 Nov, [facility] [address] [facility] [id number], [place] [address]- 9158 Nov, [facility] [address] [facility] [id number], [place] [address]- 1649 Sep, [facility] [address] [facility] [id number], [place] [address]- 6618 Aug, [facility] [address] [address]- 0344 Aug, [facility] [address] [address]- 8973 July, [facility] [address] [address]- 5190 July, [facility] [id number] [address]- 6649 July, IMMUNIZATIONS No Known Immunizations SOCIAL HISTORY Never Assessed REASON FOR VISIT ADULT OUTREACH [facility] PLAN OF CARE Activity Details Follow Up prn Reason:TE #15 VITAL SIGNS MEDICATIONS Medication Instructions Dosage Frequency Start Date End Date Duration Status Bactrim DS 800-160 MG Orally Twice a day 1 tablet 12h Sep,Sep 10 day(s) Active Haloperidol 10 mg Orally Once a day, at night. 1 tablet Jun, Active HydrOXYzine HCl 50 mg Orally Once a day, voucher 1st fill only 1 tablet as needed at HS Active Haloperidol 25 mg Orally Once a day, voucher 1st fill only 1 tablet Dec, Active Ibuprofen 800 MG Orally Three times a day 1 tablet with food or milk 8h Sep, Sep, 10 days Active Cipro 500 mg Orally Twice a day 1 tablet 12h Jun, 07 days Active Benztropine Mesylate 2 MG Orally at bed time, voucher 1st fill only 1 tablet Active RESULTS No Results PROCEDURES Procedure Date Ordered Result Body Site Full mouth debridement October 17, 2016 Dental Outreach adjust balance October 17, 2016 INSTRUCTIONS MEDICATIONS ADMINISTERED No Known Medications MEDICAL (GENERAL) HISTORY Type Description Date Medical History schizoaffective disorder Medical History bi-polar disorder Medical History depression Medical History anxiety Medical History pre diabetes Medical History COPD Surgical History x 2 Hospitalization History Staph infection in arm
--- OUTSIDE RECORDS SUMMARY | 2017-10-06 20:00 | XMS REPORT ---
Author Author DONOVAN JACKSON Organization [facility] Address [address] [place] [address] Care Team Providers Care Corrections Cadet Name Role Phone DONOVAN JACKSON Unavailable PROBLEMS Type Condition ICD9-CM Code [id number] Code Onset Dates Condition Status SNOMED Code Problem Simple chronic bronchitis J41.0 Active 02831521 Problem Anxiety F41.9 Active 36144424 Problem Acute seasonal allergic rhinitis, unspecified trigger J30.2 Active 136261079 Problem Asthma exacerbation J45.901 Active 509294746 Problem Migraine with aura and with status migrainosus, not intractable G43.101 Active 6539039 Problem Psychotic disorder with delusions F29 Active 28259424 Problem 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 136435006 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 691830600 ALLERGIES No Information ENCOUNTERS Encounter Location Date Diagnosis [facility] [address] [address] May, Psychotic disorder with delusions F29 [facility] [id number] [place] [address] 56110- 9032 May, [facility] [id number] [place] [address] 81257- 1008 May, [facility] [id number] [place] [address] 70805- 0705 Mar, Psychotic disorder with delusions F29 and 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 [facility] [address] 88698- 3140 Jan, [facility] [id number] [place] [address] 19211- 1531 Dec, Psychotic disorder with delusions F29 [facility] [address] [place] [address] Dec, Acute seasonal allergic rhinitis, unspecified trigger J30.2 [facility] [id number] [place] [address] 00676- 5239 Nov, Psychotic disorder with delusions F29 [facility] [id number] [place] [address] 21465- 0759 14 Nov, 2016 [facility] [address] 54325- 1563 Nov, [facility] [id number] [place] [address] 84562- 8477 Nov, [facility] [address] 88940- 3291 Oct, Asthma exacerbation J45.901 [facility] [address] 18131- 5242 Oct, [facility] [address] 64295- 2384 Oct, 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 and 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 [facility] [address] 52791- 6306 Oct, [facility] [id number] [place] [address] 00455- 6082 Oct, Migraine with aura and with status migrainosus, not intractable G43.101 ; Other abnormal cytological finding of specimen from cervix R87.618 ; Screening for diabetes mellitus (DM) Z13.1 ; Screening for lipid disorders Z13.220 and Weight gain R63.5 [facility] [id number] [place] [address] 54166- 7894 Oct, [facility] [id number] [place] [address] 61893- 1585 Oct, [facility] [id number] [place] [address] 94112- 3348 Oct, [facility] [id number] [place] [address] 59053- 5721 Sep, Weight gain R63.5 ; Screening for lipid disorders Z13.220 ; Screening for diabetes mellitus (DM) Z13.1 and Scabies exposure Z20.89 [facility] [address] [address] Sep, Encounter for dental examination and cleaning without abnormal findings Z01.20 [facility] [id number] [place] [address] 76358 -5224 Sep, Abscess L02.91 [facility] [address] 16841- 2590 Jun, [facility] [id number] [place] [address] 91728- 4346 Jun, Routine gynecological examination Z01.419 [place] [address] 47489- 7374 Jun, Routine gynecological examination Z01.419 ; Encounter for Depo-Provera contraception Z30.42 and Routine screening for STI (sexually transmitted infection) Z11.3 [facility] [id number] [place] [address] 08378- 6874 Jun, Anxiety F41.9 [facility] [id number] [place] [address] 40096- 8129 May, [facility] [id number] [place] [address] 76279- 9699 Apr, Psychotic disorder with delusions F29 [facility] [id number] [place] [address] 27120- 2389 Jan, [place] [id number] [place] [address] 10482- 9180 Jan, Psychotic disorder with delusions F29 [facility] [id number] [place] [address] 30513- 3520 16 Nov, 2016 Encounter for contraceptive management, unspecified contraceptive encounter type Z30.9 ; Anxiety F41.9 ; Simple chronic bronchitis J41.0 and Encounter for Depo-Provera contraception Z30.42 [facility] [id number] [address] 1557 14 Jun, 2014 [facility] [id number] [place] [address] 46975- 4102 13 Jun, 2014 [facility] [id number] [place] [address] 42412- 5255 Mar, [facility] [id number] [place] [address] 83873- 6060 Jan, [facility] [id number] [place] [address] 28047- 4012 Jan, [facility] [id number] [place] [address] 03784- 8010 Jan, [facility] [id number] [place] [address] 10789- 1035 Jan, [facility] [id number] [place] [address] 81099- 6839 Jan, [facility] [id number] [place] [address] 38531- 4733 Jan, [facility] [address] [address]- 2810 Jan, [facility] [address], [place] [address]- 1208 Dec, [facility] [id number] [place] [address] 81894- 4227 Dec, [facility] [id number] [place] [address] 16383- 3027 Dec, [facility] [id number] [place] [address] 96757- 2042 Dec, [facility] [id number] [place] [address], [place] [address]- 3326 23 Dec, 2011 [facility] [place] [facility] [address] [id number] [place] [address]- 1743 18 Dec, 2011 [facility] [place] [facility] [address] [id number] [place] [address]- 6378 18 Dec, 2011 [facility] [place] [facility] [address] [id number] [place] [address]- 2080 18 Dec, 2011 [facility] [place] [facility] [address] [id number] [place] [address]- 7227 18 Dec, 2011 [facility] [place] [facility] [address] [id number] [place] [address]- 0032 18 Dec, 2011 [facility] [place] [facility] [address] [id number] [place] [address]- 0032 18 Dec, 2011 [facility] [place] [facility] [address] [id number] [place] [address]- 4090 15 Dec, 2011 [facility] [place] [facility] [address] [id number] [place] [address]- 8224 10 Dec, 2011 [facility] [place] [facility] [address] [id number] [place] [address]- 3877 10 Dec, 2011 [facility] [place] [facility] [address] [facility] [id number] [place] [address]- 2390 08 Dec, 2011 [facility] [place] [facility] [address] [id number] [place] [address]- 7074 05 Dec, 2011 [facility] [place] [facility] [address] [id number] [address]- 6995 03 Dec, 2011 [facility] [place] [facility] [address] [id number] [place] [address]- 3278 02 Dec, 2011 [facility] [place] [facility] [address] [facility] [id number] [place] [address]- 6392 18 Sep, 2011 [facility] [place] [facility] [address] [facility] [id number], [place] [address]- 3061 17 Sep, 2011 [facility] [place] [facility] [id number] [address]- 2867 13 Nov, 2011 [facility] [address], [place] [address]- 9528 Nov, [facility] [address], [place] [address]- 7458 Nov, [facility] [address] [address]- 4395 Nov, [facility] [address] [address]- 4315 Sep, [facility] [address] [address]- [address] Aug, [facility] [address] [address]- 9244 Aug, [facility] [address], [place] [address]- 3380 July, [facility] [address], [place] [address]- 2308 July, [facility] [id number] [address]- 6229 July, IMMUNIZATIONS No Known Immunizations SOCIAL HISTORY Never Assessed REASON FOR VISIT requesting a returned call PLAN OF CARE VITAL SIGNS MEDICATIONS [...]
--- OUTSIDE RECORDS SUMMARY | 2017-10-06 20:01 | XMS REPORT ---
Author JOSE Pope [facility] eClinicalWorks Address Unknown Phone Unavailable Care Team Providers Care Family Consumer Science Teacher Name Role Phone JOSE NORRIS Unavailable Allergies, Adverse Reactions, Alerts Substance Reaction Event Type Naproxen hives Drug Allergy Problems Problem Type Condition Code Onset Dates Condition Status Problem Simple chronic bronchitis J41.0 Active Assessment Encounter for contraceptive management, unspecified contraceptive encounter type Z30.9 Active Problem Anxiety F41.9 Active Assessment Encounter for Depo-Provera contraception Z30.42 Active Assessment Anxiety F41.9 Active Assessment Simple chronic bronchitis J41.0 Active Medications Medication Code System Code Instructions Start Date End Date Status Dosage HydrOXYzine HCl [facility] [address]-48 50 MG Orally Once a day 1 tablet as needed at HS Haloperidol [facility] [address]-74 25 mg Orally Once a day Jan 02, 2012 1 tablet Singulair [facility] [address]-35 10 mg Orally Once a day 1 tablet in the evening ProAir HFA [facility] [address]-53 90 mcg/actuation August 21, 2011 2 puffs by Inhalation route 4 times per day Procedures Procedure Coding System Code Date VENIPUNCT, ROUTINE* CPT-4 33647 Feb 13, 2016 URINE TEST CPT-4 69997 Feb 13, 2016 COMPLETE CBC W/AUTO DIFF WBC CPT-4 34754 Feb 13, 2016 URINALYSIS, AUTO, W/O SCOPE CPT-4 06802 Feb 13, 2016 DEPO PROVERA (150 MG/ML) CPT-4 J1050 Feb 13, 2016 Office Visit, Est Pt., Level 4 CPT-4 94042 Feb 13, 2016 THER/PROPH/DIAG INJ, SC/IM CPT-4 63910 Feb 13, 2016 LIPID PANEL CPT-4 53616 Feb 13, 2016 COMPREHEN METABOLIC PANEL CPT-4 21550 Feb 13, 2016 ASSAY THYROID STIM HORMONE CPT-4 43281 Feb 13, 2016 ACUTE HEPATITIS PANEL CPT-4 82723 Feb 13, 2016 Vital Signs Date/Time: Feb 13, 2016 Cardiac Monitoring Heart Rate 92 bpm Weight 189.2 lbs Height 62 in BMI 34.60 Index Blood Pressure Diastolic 86 mmHg Blood Pressure Systolic 122 mmHg Results Name Result Date Reference Range Unit Abnormality Flag ROUTINE VENIPUNCTURE TSH ----TSH 0.701 20160213 0.450-4.500 uIU/mL TEST, URINE (IN HOUSE) ----RESULTS Negative [id number] ----Lot # [id number] ----Control + [id number] ----Exp date 20160213 UA LONG DIP (IN HOUSE) ----JOSE negative 20160213 ----GLU negative 58381752 ----SG 1.010 20160213 ----KET negative 20160213 ----pH 6.0 20160213 ----Protein negative 08982518 ----BLO Negative 80754408 ----ESTRELLITA negative 27837324 ----Color yellow 35917654 ----Odor none 20160213 ----Exp date 20160213 ----URO 0.2 19321284 ----NIT negative 20160213 ----Clarity clear 44549369 ----Lot # [id number] CMP ----BUN/Creatinine Ratio 14 20160213 8-20 ----eGFR If Africn Am 123 88814978 >59 mL/min/1.73 ----eGFR If NonAfricn Am 107 97681956 >59 mL/min/1.73 ----Creatinine, Serum 0.74 36209685 0.57-1.00 mg/dL ----Chloride, Serum 98 67659935 97-106 mmol/L ----Potassium, Serum 4.5 81707317 3.5-5.2 mmol/L ----Sodium, Serum 140 76508097 136-144 mmol/L ----Protein, Total, Serum 8.5 08830184 6.0-8.5 g/dL ----Albumin, Serum 4.7 90256424 3.5-5.5 g/dL ----Globulin, Total 3.8 02391067 1.5-4.5 g/dL ----A/G Ratio 1.2 96243535 1.1-2.5 ----BUN 10 20160213 6-20 mg/dL ----Glucose, Serum 87 20160213 65-99 mg/dL ----Carbon Dioxide, Total 23 20160213 18-29 mmol/L ----Calcium, Serum 10.3 77240446 8.7-10.2 mg/dL H ----AST (SGOT) 14 20160213 0-40 IU/L ----ALT (SGPT) 7 20160213 0-32 IU/L ----Bilirubin, Total 0.2 20160213 0.0-1.2 mg/dL ----Alkaline Phosphatase, S 181 19871077 39-117 IU/L H HEPATITIS PROFILE ----Hep A Ab, IgM Negative 51373686 Negative ----HBsAg Screen Negative 20160213 Negative ----Hep B Core Ab, IgM Negative 73843799 Negative ----Hep C Virus Ab <0.1 43083271 0.0-0.9 s/co ratio CBC ----RDW 14.0 64514299 12.3-15.4 % ----MCHC 32.4 86290466 31.5-35.7 g/dL ----MCH 28.2 71166441 26.6-33.0 pg ----MCV 87 43473906 79-97 fL ----Hematocrit 44.8 75185485 34.0-46.6 % ----Hemoglobin 14.5 40041007 11.1-15.9 g/dL ----Immature Granulocytes 1 39542251 % ----RBC 5.14 01166833 3.77-5.28 x10E6/uL ----WBC 10.1 94744352 3.4-10.8 x10E3/uL ----Immature Grans (Abs) 0.1 26434004 0.0-0.1 x10E3/uL ----Eos (Absolute) 0.3 34477697 0.0-0.4 x10E3/uL ----Basos 0 61544120 % ----Baso (Absolute) 0.0 38410565 0.0-0.2 x10E3/uL ----Neutrophils (Absolute) 7.2 93342821 1.4-7.0 x10E3/uL H ----Lymphs (Absolute) 2.0 96446283 0.7-3.1 x10E3/uL ----Monocytes(Absolute) 0.6 66277954 0.1-0.9 x10E3/uL ----Neutrophils 70 48735291 % ----Lymphs 20 57874918 % ----Monocytes 6 80360455 % ----Eos 3 37352898 % ----Platelets 308 13098612 150-379 x10E3/uL LIPID PANEL ----HDL Cholesterol 49 64422270 >39 mg/dL ----Triglycerides 209 42915876 0-149 mg/dL H ----LDL Cholesterol Calc 119 27842169 0-99 mg/dL H ----VLDL Cholesterol Michele 42 46820077 5-40 mg/dL H ----Cholesterol, Total 210 45032427 100-199 mg/dL H Summary Purpose eClinicalWorks Submission
--- OUTSIDE RECORDS SUMMARY | 2017-10-06 20:01 | XMS REPORT ---
Author Author DONOVAN JACKSON Organization [facility] Address [address] [place] [address] Care Team Providers Care Fruit Or Nut Crops Farm Manager Name Role Phone DONOVAN JACKSON Unavailable PROBLEMS Type Condition ICD9-CM Code TXD54-JD Code Onset Dates Condition Status SNOMED Code Problem Simple chronic bronchitis J41.0 Active 54717334 Problem Anxiety F41.9 Active 08077287 Problem Acute seasonal allergic rhinitis, unspecified trigger J30.2 Active 661754165 Problem Asthma exacerbation J45.901 Active 032956693 Problem Migraine with aura and with status migrainosus, not intractable G43.101 Active 6144681 Problem Psychotic disorder with delusions F29 Active 13366818 Problem 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 840453368 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 065535528 ALLERGIES No Information ENCOUNTERS Encounter Location Date Diagnosis [facility] [address] [address]- [address] May, Psychotic disorder with delusions F29 [facility] [id number] [place] [address] 00907- 9005 May, [facility] [id number] [place] [address] 43696- 1015 May, [facility] [id number] [place] [address] 29107- 8713 Mar, Psychotic disorder with delusions F29 and 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 [facility] [address] 88800- 4573 Jan, [facility] [id number] [place] [address] 97091- 6596 Dec, Psychotic disorder with delusions F29 [facility] [address] [place] [address] Dec, Acute seasonal allergic rhinitis, unspecified trigger J30.2 [facility] [id number] [place] [address] 82542- 1820 Nov, Psychotic disorder with delusions F29 [facility] [id number] [place] [address] 61939- 2544 14 Nov, 2016 [facility] [address] 33226- 8466 Nov, [facility] [id number] [place] [address] 69220- 7860 Nov, [facility] [address] 87743- 8447 Oct, Asthma exacerbation J45.901 [facility] [address] 05092- 5833 Oct, [facility] [address] 63271- 1919 Oct, 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 and 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 [facility] [address] 67891- 4103 Oct, [facility] [id number] [place] [address] 80980- 4899 Oct, Migraine with aura and with status migrainosus, not intractable G43.101 ; Other abnormal cytological finding of specimen from cervix R87.618 ; Screening for diabetes mellitus (DM) Z13.1 ; Screening for lipid disorders Z13.220 and Weight gain R63.5 [facility] [id number] [place] [address] 47904- 3062 Oct, [facility] [id number] [place] [address] 28163- 8077 Oct, [facility] [id number] [place] [address] 49913- 6732 Oct, [facility] [address] [place] [address] 76986- 7919 Sep, Weight gain R63.5 ; Screening for lipid disorders Z13.220 ; Screening for diabetes mellitus (DM) Z13.1 and Scabies exposure Z20.89 [facility] [address] [address] Sep, Encounter for dental examination and cleaning without abnormal findings Z01.20 [facility] [id number] [place] [address] 82475 -4391 Sep, Abscess L02.91 [facility] [address] 32583- 2084 Jun, [facility] [id number] [place] [address] 04024- 4435 Jun, Routine gynecological examination Z01.419 [place] [address] 19124- 6262 Jun, Routine gynecological examination Z01.419 ; Encounter for Depo-Provera contraception Z30.42 and Routine screening for STI (sexually transmitted infection) Z11.3 [facility] [id number] [place] [address] 31381- 1665 Jun, Anxiety F41.9 [facility] [id number] [place] [address] 84233- 6642 May, [facility] [id number] [place] [address] 95652- 3799 Apr, Psychotic disorder with delusions F29 [facility] [id number] [place] [address] 44550- 4993 Jan, [place] [id number] [place] [address] 46786- 5216 Jan, Psychotic disorder with delusions F29 [facility] [id number] [place] [address] 73174- 1884 16 Nov, 2016 Encounter for contraceptive management, unspecified contraceptive encounter type Z30.9 ; Anxiety F41.9 ; Simple chronic bronchitis J41.0 and Encounter for Depo-Provera contraception Z30.42 [facility] [address] [address]- 9773 14 Jun, 2014 [facility] [id number] [place] [address] 72123- 2978 13 Jun, 2014 [facility] [id number] [place] [address] 65297- 0425 Mar, [facility] [id number] [place] [address] 19444- 6565 Jan, [facility] [id number] [place] [address] 86851- 3395 Jan, [facility] [id number] [place] [address] 10582- 5613 Jan, [facility] [id number] [place] [address] 04132- 7587 Jan, [facility] [id number] [place] [address] 21788- 1628 Jan, [facility] [id number] [place] [address] 20731- 3299 Jan, [facility] [address], [place] [address]- 4082 Jan, [facility] [address], [place] [address]- 1574 Dec, [facility] [id number] [place] [address] 61341- 2814 Dec, [facility] [id number] [place] [address] 42861- 1677 Dec, [facility] [address] [place] [address] 84463- 7328 Dec, [facility] [id number] [place] [address], [place] [address]- 8759 23 Dec, 2011 [facility] [place] [facility] [address] [id number] [place] [address]- 4330 18 Dec, 2011 [facility] [place] [facility] [address] [id number] [place] [address]- 1507 18 Dec, 2011 [facility] [place] [facility] [address] [id number] [place] [address]- 4783 18 Dec, 2011 [facility] [place] [facility] [address] [id number] [place] [address]- 2961 18 Dec, 2011 [facility] [place] [facility] [address] [id number] [place] [address]- 0604 18 Dec, 2011 [facility] [place] [facility] [address] [id number] [place] [address]- 2199 18 Dec, 2011 [facility] [place] [facility] [address] [id number] [place] [address]- 0415 15 Dec, 2011 [facility] [place] [facility] [address] [id number] [place] [address]- 5065 10 Dec, 2011 [facility] [place] [facility] [address] [id number] [place] [address]- 7234 10 Dec, 2011 [facility] [place] [facility] [address] [facility] [id number] [place] [address]- 5174 08 Dec, 2011 [facility] [place] [facility] [address] [id number] [place] [address]- 9615 05 Dec, 2011 [facility] [place] [facility] [address] [id number], [place] [address]- 2251 03 Dec, 2011 [facility] [place] [facility] [address] [id number] [place] [address]- 2778 02 Dec, 2011 [facility] [place] [facility] [address] [facility] [id number] [place] [address] 18 Sep, 2011 [facility] [place] [facility] [address] [facility] [id number], [place] [address] 17 Sep, 2011 [facility] [place] [facility] [address] [id number], [place] [address] 13 Nov, 2011 [facility] [id number], [place] [address] 13 Nov, 2011 [facility] [id number], [place] [address] 12 Nov, 2011 [facility] [id number], [place] [address] Nov, [facility] [id number], [place] [address] Sep, [facility] [id number], [place] [address] Aug, [facility] [id number], [place] [address] Aug, [facility] [id number], [place] [address] July, [facility] [id number], [place] [address] July, [facility] [address] [id number], [place] [address] July, IMMUNIZATIONS No Known Immunizations SOCIAL HISTORY [...]
--- OUTSIDE RECORDS SUMMARY | 2017-10-06 20:01 | XMS REPORT ---
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 003375569 Problem Migraine with aura and with status migrainosus, not intractable G43.101 Active 3764017 ALLERGIES No Information SOCIAL HISTORY Never Assessed PLAN OF CARE VITAL SIGNS MEDICATIONS Medication Instructions Dosage Frequency Start Date End Date Duration Status Haloperidol 25 mg Orally Once a day, voucher 1st fill only 1 tablet Dec, Active Benztropine Mesylate 2 MG Orally at bed time, voucher 1st fill only 1 tablet Active Atorvastatin Calcium 10 mg Orally Once a day at bedtime 1 tablet Jan, 30 day(s) Active Singulair 10 mg Orally Once a day, voucher 1st fill only 1 tablet in the evening Active HydrOXYzine HCl 50 mg Orally Once a day, voucher 1st fill only 1 tablet as needed at HS Active BusPIRone HCl 15 MG Orally at bed time, voucher 1st fill only 2 tablets Active RESULTS No Results PROCEDURES No Known procedures IMMUNIZATIONS No Known Immunizations MEDICAL (GENERAL) HISTORY Type Description Date Medical History schizoaffective disorder Medical History bi-polar disorder Medical History depression Medical History anxiety Medical History pre diabetes Medical History COPD Surgical History x 2 Hospitalization History Staph infection in arm
--- OUTSIDE RECORDS SUMMARY | 2017-10-06 20:02 | XMS REPORT ---
Author Author DONOVAN JACKSON Organization [facility] Address [address] [place] [address] Care Team Providers Care Auto Radiator Specialist Name Role Phone DONOVAN JACKSNO Unavailable PROBLEMS Type Condition ICD9-CM Code WEF29-UD Code Onset Dates Condition Status SNOMED Code Problem Simple chronic bronchitis J41.0 Active 31009742 Problem Anxiety F41.9 Active 27529673 Problem Acute seasonal allergic rhinitis, unspecified trigger J30.2 Active 132624793 Problem Asthma exacerbation J45.901 Active 142236827 Problem Migraine with aura and with status migrainosus, not intractable G43.101 Active 1340826 Problem Psychotic disorder with delusions F29 Active 07135792 Problem 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 057673738 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 [id number] ALLERGIES No Information ENCOUNTERS Encounter Location Date Diagnosis [facility] [address] [address] May, Psychotic disorder with delusions F29 [facility] [id number] [place] [address] May, [facility] [id number] [place] [address] May, [facility] [id number] [place] [address]73- [address] Mar, Psychotic disorder with delusions F29 and 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 [facility] [address] [address] Jan, [facility] [id number] [place] [address]- 2391 Dec, Psychotic disorder with delusions F29 [facility] [address] [place] [address] Dec, Acute seasonal allergic rhinitis, unspecified trigger J30.2 [facility] [id number] [place] [address]- 117[address] Nov, Psychotic disorder with delusions F29 [facility] [id number] [place] [address]- [address] 14 Nov, 2016 [facility] [address] [address] Nov, [facility] [id number] [place] [address]- [address] Nov, [facility] [address] [address] Oct, Asthma exacerbation J45.901 [facility] [address] [address] Oct, [facility] [address] [address] Oct, 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 and 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 [facility] [address] [address] Oct, [facility] [id number] [place] [address]- [address] Oct, Migraine with aura and with status migrainosus, not intractable G43.101 ; Other abnormal cytological finding of specimen from cervix R87.618 ; Screening for diabetes mellitus (DM) Z13.1 ; Screening for lipid disorders Z13.220 and Weight gain R63.5 [facility] [id number] [place] [address]- 7569 Oct, [facility] [id number] [place] [address] 36173- 5[address] Oct, [facility] [id number] [place] [address]33- 87[address] Oct, [facility] [address] [place] [address]20- 62[address] Sep, Weight gain R63.5 ; Screening for lipid disorders Z13.220 ; Screening for diabetes mellitus (DM) Z13.1 and Scabies exposure Z20.89 [facility] [address] [id number] Sep, Encounter for dental examination and cleaning without abnormal findings Z01.20 [facility] [id number] [place] [address] Sep, Abscess L02.91 [facility] [address] [address] Jun, [facility] [id number] [place] [address]856- 49[address] Jun, Routine gynecological examination Z01.419 [place] [address] [address] Jun, Routine gynecological examination Z01.419 ; Encounter for Depo-Provera contraception Z30.42 and Routine screening for STI (sexually transmitted infection) Z11.3 [facility] [id number] [place] [address]- 395[address] Jun, Anxiety F41.9 [facility] [id number] [place] [address]- [address] May, [facility] [id number] [place] [address]97- 18[address] Apr, Psychotic disorder with delusions F29 [facility] [id number] [place] [address]227- [address] Jan, [place] [id number] [place] [address] 67965- 9[address] Jan, Psychotic disorder with delusions F29 [facility] [id number] [place] [address]79- 6[address] 16 Nov, 2016 Encounter for contraceptive management, unspecified contraceptive encounter type Z30.9 ; Anxiety F41.9 ; Simple chronic bronchitis J41.0 and Encounter for Depo-Provera contraception Z30.42 [facility] [id number] [address] 14 Jun, 2014 [facility] [id number] [place] [address]12- 60[address] 13 Jun, 2014 [facility] [id number] [place] [address] 58031- 47[address] Mar, [facility] [id number] [place] [address]24- 9[address] Jan, [facility] [id number] [place] [address] 9[address]15- 4[address] Jan, [facility] [id number] [place] [address]77- 6787 Jan, [facility] [id number] [place] [address] 76375- 3786 Jan, [facility] [id number] [place] [address] 73904- 5827 Jan, [facility] [id number] [place] [address] 29013- 7[address] Jan, [facility] [address], [place] [address] Jan, [facility] [address] [address] Dec, [facility] [id number] [place] [address]24- 8218 Dec, [facility] [id number] [place] [address] 62955- 4253 Dec, [facility] [address] [place] [address] 49387- 38[address] Dec, [facility] [id number] [place] [address], [place] [address] 23 Dec, 2011 [facility] [place] [facility] [address] [id number] [place] [address] 18 Dec, 2011 [facility] [place] [facility] [address] [id number] [place] [address]- 7198 18 Dec, 2011 [facility] [place] [facility] [address] [id number] [place] [address]- 0644 18 Dec, 2011 [facility] [place] [facility] [address] [id number] [place] [address]- 9105 18 Dec, 2011 [facility] [place] [facility] [address] [id number] [place] [address]- 7704 18 Dec, 2011 [facility] [place] [facility] [address] [id number] [place] [address]- 0[address] 18 Dec, 2011 [facility] [place] [facility] [address] [id number] [place] [address]- 3524 15 Dec, 2011 [facility] [place] [facility] [address] [id number] [place] [address]- 3342 10 Dec, 2011 [facility] [place] [facility] [address] [id number] [place] [address]- 9067 10 Dec, 2011 [facility] [place] [facility] [address] [facility] [id number] [place] [address]- 97[address] 08 Dec, 2011 [facility] [place] [facility] [address] [id number] [place] [address]- 8140 05 Dec, 2011 [facility] [place] [facility] [address] [id number] [address] 03 Dec, 2011 [facility] [place] [facility] [address] [id number] [place] [address]- 57[address] 02 Dec, 2011 [facility] [place] [facility] [address] [facility] [id number] [place] [address]- 6757 18 Sep, 2011 [facility] [place] [facility] [address] [facility] [id number] [address] 17 Sep, 2011 [facility] [place] [facility] [id number] [address] 13 Nov, 2011 [facility] [address], [place] [address] 9[address] Nov, [facility] [address], [place] [address] 0[address] Nov, [facility] [address], [place] [address] Nov, [facility] [address] [address] 8[address] Sep, [facility] [address], [place] [address] Aug, [facility] [address], [place] [address] Aug, [facility] [address], [place] [address] July, [facility] [address], [place] [address] July, [facility] [id number] [address] July, IMMUNIZATIONS No Known Immunizations SOCIAL HISTORY Never Assessed REASON FOR VISIT triage - CBowmanRN PLAN OF CARE VITAL SIGNS MEDICATIONS Unknown [...]
--- OUTSIDE RECORDS SUMMARY | 2017-10-06 20:02 | XMS REPORT | Continuity of Care Document ---
Author Author [facility] Address Unknown Phone Unavailable Allergies There is no data. Medications Medication Packaging Start Date Stop Date Route Dosage Sig gabapentin (NEURONTIN) 300 mg capsule -- Take 300 mg by mouth at bedtime capsule 07/08/2017 Oral EVERY BEDTIME EVERY BEDTIME metFORMIN (GLUCOPHAGE) 500 mg tablet -- Take 500 mg by mouth once a day with dinner tablet 07/08/2017 Oral DAILY WITH AN EVENING MEAL DAILY WITH AN EVENING MEAL Problems Date Dx Coded Attending Type Code Diagnosis Diagnosed By 10/17/2009 680.9 Carbuncle And Furuncle, Unspecified Site 10/17/2009 GREEN DDS, BENSON L 680.9 Carbuncle And Furuncle, Unspecified Site 08/21/2011 300.00 ANXIETY STATE UNSPECIFIED 08/21/2011 496 CHRONIC AIRWAY OBSTRUCTION NOT ELSEWHERE CLASSIFIED 08/21/2011 GREEN DDS, BENSON L 300.00 ANXIETY STATE UNSPECIFIED 08/21/2011 GREEN DDS, BENSON L 496 CHRONIC AIRWAY OBSTRUCTION NOT ELSEWHERE CLASSIFIED 09/27/2011 530.81 GERD 09/27/2011 553.3 DIAPHRAGMATIC HERNIA WITHOUT OBSTRUCTION OR GANGRENE 09/27/2011 V58.69 LONG-TERM ( CURRENT) USE OF OTHER MEDICATIONS 09/27/2011 V65.42 COUNSELING - SMOKING CESSATION 09/27/2011 GREEN DDS, BENSON L 530.81 GERD 09/27/2011 GREEN DDS, BENSON L 553.3 DIAPHRAGMATIC HERNIA WITHOUT OBSTRUCTION OR GANGRENE 09/27/2011 GREEN DDS, BENSON L V58.69 LONG-TERM (CURRENT) USE OF OTHER MEDICATIONS 09/27/2011 GREEN DDS, BENSON L V65.42 COUNSELING - SMOKING CESSATION 12/31/2011 112.1 CANDIDIASIS OF VULVA AND VAGINA 12/31/2011 620.2 OVARIAN CYST 12/31/2011 V25.42 CONTRACEPTION SURVEILLANCE (IUD) 12/31/2011 V74.5 STD SCREEN 12/31/2011 V76.2 CERVICAL CANCER SCREENING (PAP SMEAR) 12/31/2011 GREEN DDS, BENSON L 112.1 CANDIDIASIS OF VULVA AND VAGINA 12/31/2011 GREEN DDS, BENSON L 620.2 OVARIAN CYST 12/31/2011 GREEN DDS, BENSON L V25.42 CONTRACEPTION SURVEILLANCE (IUD) 12/31/2011 GREEN DDS, BENSON L V74.5 STD SCREEN 12/31/2011 GREEN DDS, BENSON L V76.2 CERVICAL CANCER SCREENING (PAP SMEAR) 01/02/2012 V04.81 FLU DX (3 YRS AND ABOVE, IM) 01/02/2012 GREEN DDS, BENSON L V04.81 FLU DX (3 YRS AND ABOVE, IM) 01/07/2012 305.1 TOBACCO ABUSE 01/07/2012 477.9 RHINITIS 01/07/2012 GREEN DDS, BENSON L 305.1 TOBACCO ABUSE 01/07/2012 GREEN DDS, BENSON L 477.9 RHINITIS 01/28/2012 626.2 MENORRHAGIA 01/28/2012 V25.09 CONTRACEPTIVE COUNSELING - GENERAL 01/28/2012 V25.12 IUD REMOVAL 01/28/2012 GREEN DDS, BENSON L 626.2 MENORRHAGIA 01/28/2012 GREEN DDS, BENSON L V25.09 CONTRACEPTIVE COUNSELING - GENERAL 01/28/2012 GREEN DDS, BENSON L V25.12 IUD REMOVAL 02/03/2012 327.23 OBSTRUCTIVE SLEEP APNEA (ADULT) (PEDIATRIC) 02/03/2012 GREEN DDS, BENSON L 327.23 OBSTRUCTIVE SLEEP APNEA (ADULT) (PEDIATRIC) 07/02/2017 MILLIE SHEIKH WORKING G89.29 Other chronic pain 07/02/2017 MILLIE SHEIKH WORKING M54.31 Sciatica, right side 07/02/2017 MILLIE SHEIKH WORKING M54.5 Low back pain 07/07/2017 MILLIE SHEIKH WORKING R53.83 Other fatigue 07/08/2017 WORKING M54.41 Lumbago with sciatica, right side 07/08/2017 WORKING R87.619 Unspecified abnormal cytological findings in specimens from cervix uteri 07/08/2017 WORKING Z86.32 Personal history of gestational diabetes 07/13/2017 WORKING G89.29 Other chronic pain 07/13/2017 WORKING R10.2 Pelvic and perineal pain 07/13/2017 WORKING Z87.898 Personal history of other specified conditions Procedures Code Description Performed By Performed On NICOLE JOAQUIN 01/28/2012 98903 SLEEP STUDY 02/03/2012 68921 US PELVIC (TRANSVAGINAL ONLY ) 02/05/2012 Results Test Result Range CBC With Differential/Platelet - 02/13/16 10:04 WBC 10.1 x10E3/uL 3.4-10.8 RBC 5.14 x10E6/uL 3.77-5.28 Hemoglobin 14.5 g/dL 11.1-15.9 Hematocrit 44.8 % 34.0-46.6 MCV 87 fL 79-97 MCH 28.2 pg 26.6-33.0 MCHC 32.4 g/dL 31.5-35.7 RDW 14.0 % 12.3-15.4 Platelets 308 x10E3/uL 150-379 Neutrophils 70 % Lymphs 20 % Monocytes 6 % Eos 3 % Basos 0 % Neutrophils (Absolute) 7.2 x10E3/uL 1.4-7.0 Lymphs (Absolute) 2.0 x10E3/uL 0.7-3.1 Monocytes(Absolute) 0.6 x10E3/uL 0.1-0.9 Eos (Absolute) 0.3 x10E3/uL 0.0-0.4 Baso (Absolute) 0.0 x10E3/uL 0.0-0.2 Immature Granulocytes 1 % Immature Grans (Abs) 0.1 x10E3/uL 0.0-0.1 Comp. Metabolic Panel (14) - 02/13/16 10:04 Glucose, Serum 87 mg/dL 65-99 BUN 10 mg/dL 6-20 Creatinine, Serum 0.74 mg/dL 0.57-1.00 eGFR If NonAfricn Am 107 mL/min/1.73 >59 eGFR If Africn Am 123 mL/min/1.73 >59 BUN/Creatinine Ratio 14 8-20 Sodium, Serum 140 mmol/L 136-144 Potassium, Serum 4.5 mmol/L 3.5-5.2 Chloride, Serum 98 mmol/L 97-106 Carbon Dioxide, Total 23 mmol/L 18-29 Calcium, Serum 10.3 mg/dL 8.7-10.2 Protein, Total, Serum 8.5 g/dL 6.0-8.5 Albumin, Serum 4.7 g/dL 3.5-5.5 Globulin, Total 3.8 g/dL 1.5-4.5 A/G Ratio 1.2 1.1-2.5 Bilirubin, Total 0.2 mg/dL 0.0-1.2 Alkaline Phosphatase, S 181 IU/L 39-117 AST (SGOT) 14 IU/L 0-40 ALT (SGPT) 7 IU/L 0-32 Lipid Panel - 02/13/16 10:04 Cholesterol, Total 210 mg/dL 100-199 Triglycerides 209 mg/dL 0-149 HDL Cholesterol 49 mg/dL >39 VLDL Cholesterol Michele 42 mg/dL 5-40 LDL Cholesterol Calc 119 mg/dL 0-99 Hepatitis Panel (4) - 02/13/16 10:04 HBsAg Screen Negative Negative Hep A Ab, IgM Negative Negative Hep B Core Ab, IgM Negative Negative Hep C Virus Ab <0.1 s/co ratio 0.0-0.9 TSH - 02/13/16 10:04 TSH 0.701 uIU/mL 0.450-4.500 Genital Culture, Routine - 07/08/16 14:11 Genital Culture, Routine Note HSV 1 and 2-Specific Ab, IgG - 07/08/16 14:11 HSV 1 IgG, Type Spec 19.10 index 0.00-0.90 HSV 2 IgG, Type Spec 5.49 index 0.00-0.90 HSV 1 and 2 IgM Abs, Indirect - 07/08/16 14:11 HSV 1 IgM Antibodies <1:10 titer <1:10 HSV 2 IgM Antibodies <1:10 titer <1:10 Pap Lb, HPV-hr - 07/08/16 14:11 HPV, high-risk Positive Negative DIAGNOSIS: Comment Specimen adequacy: Comment Clinician provided ICD10: Comment Performed by: Comment . . Note: Comment LIPID PANEL - 11/19/16 10:39 Cholesterol, Total 172 mg/dL 100-199 Triglycerides 282 mg/dL 0-149 HDL Cholesterol 39 mg/dL >39 VLDL Cholesterol Michele 56 mg/dL 5-40 LDL Cholesterol Calc 77 mg/dL 0-99 TSH+Free T4 - 11/19/16 10:39 TSH 0.741 uIU/mL 0.450-4.500 T4,Free(Direct) 1.00 ng/dL 0.82-1.77 Lipid Panel - 11/19/16 10:39 Cholesterol, Total 172 mg/dL 100-199 Triglycerides 282 mg/dL 0-149 HDL Cholesterol 39 mg/dL >39 VLDL Cholesterol Michele 56 mg/dL 5-40 LDL Cholesterol Calc 77 mg/dL 0-99 Hemoglobin A1c - 11/19/16 10:39 Hemoglobin A1c 6.0 % 4.8-5.6 POC URINE TEST, QUAL - 07/02/17 12:25 POC URINE TEST NEGATIVE POC COMMENT SEE NOTES URINALYSIS POC - 07/02/17 12:39 POC COMMENT SEE NOTES COLOR, URINE POCT YELLOW APPEARANCE, URINE POCT CLEAR GLUCOSE, URINE POCT NEGATIVE mg/dL NEGATIVE BILIRUBIN, URINE POCT NEGATIVE NEGATIVE KETONES, URINE POCT NEGATIVE mg/dL NEGATIVE SPECIFIC GRAVITY, URINE POCT 1.015 1.005-1.030 BLOOD, URINE POCT NEGATIVE NEGATIVE PH, URINE POCT 7.5 5.0-9.0 PROTEIN, URINE POCT NEGATIVE mg/dL NEGATIVE UROBILINOGEN, URINE POCT 0.2 EhrlichU/dL 0.2-1.0 NITRITES, URINE POCT NEGATIVE NEGATIVE LEUKOCYTES, URINE POCT NEGATIVE NEGATIVE URINALYSIS AUTOMATED W MICROSCOPY - 07/07/17 15:45 SPECIMEN VOIDED URINE COLOR LIGHT YELLOW APPEARANCE CLEAR CLEAR SPECIFIC GRAVITY 1.017 1.005-1.030 PH, URINE 6.5 5.0-9.0 PROTEIN NEGATIVE mg/dL NEGATIVE GLUC LARGE mg/dL NEGATIVE KETONES TRACE mg/dL NEGATIVE BILIRUBIN NEGATIVE NEGATIVE BLOOD NEGATIVE NEGATIVE NITRITE NEGATIVE NEGATIVE UROBILINOGEN NORMAL mg/dL NORMAL LEUKOCYTE ESTERASE NEGATIVE NEGATIVE WBC'S <1 [HPF] 0-4 SQUAMOUS EPITHELIAL CELLS 1 [HPF] 0-1 DRUG SCREEN URINE - 07/07/17 15:45 BARBITURATE, URINE NEGATIVE NEGATIVE BENZODIAZEPINE, URINE NEGATIVE NEGATIVE AMPHETAMINE, URINE NEGATIVE NEGATIVE THC, URINE NEGATIVE NEGATIVE COCAINE, URINE NEGATIVE NEGATIVE OPIATES, URINE NEGATIVE NEGATIVE PHENCYCLIDINE, URINE SCREEN NEGATIVE NEGATIVE ALCOHOL, URINE NEGATIVE NEGATIVE CBC WITH DIFF - 07/07/17 15:50 WBC 19.76 10*3/uL 4.00-10.80 RBC 4.49 10*6/uL 4.20-5.40 HGB 12.9 g/dL 12.0-16.0 HCT 40.1 % 37.0-47.0 MCV 89 fL 81-99 MCH 29 pg 26.0-34.0 MCHC 32.2 g/dL 31.0-37.0 PLATELET COUNT 298 10*3/uL 150-400 RDWCV 14.2 % 11.5-14.5 DIFF TYPE AUTOMATED DIFF NEUTROPHIL % 79.0 % 36.0-66.0 LYMPHOCYTE % 11.8 % 24.0-44.0 MONOCYTE % 3.7 % 1.0-10.0 EOSINOPHIL % 0.1 % 0.0-6.0 BASOPHIL % 0.6 % 0.0-2.0 ABS. NEUTROPHILS 15.63 10*3/uL 1.55-7.13 ABS. LYMPHOCYTES 2.33 10*3/uL 1.00-4.80 ABS. MONOCYTES 0.73 10*3/uL 0.40-1.08 ABS. EOSINOPHILS 0.01 10*3/uL 0.00-0.65 ABS. BASOPHILS 0.11 10*3/uL 0.00-0.11 ABSOLUTE NUCLEATED RBC 0.00 10*3/uL 0.00 PERCENT NUCLEATED RBC 0.0 % 0.0 MPV 9.3 fL 9.4-12.3 RDW STANDARD DEVIATION 46.5 fL 36.4-46.3 GRANULOCYTE, IMMATURE, ABSOLUTE 0.95 10*3/uL 0.00-0.10 GRANULOCYTES, IMMATURE, PERCENT 4.8 % 0.0-0.5 ACETAMINOPHEN LEVEL - 07/07/17 15:50 ACETAMINOPHEN <2.0 ug/mL COMPREHENSIVE METABOLIC PANEL - 07/07/17 15:50 POTASSIUM 4.2 mmol/L 3.5-5.1 CALCIUM 9.0 mg/dL 8.5-10.0 GLUCOSE 233 mg/dL 70-115 BUN 15 mg/dL 7-18 CREATININE 1.02 mg/dL 0.55-1.30 SODIUM 138 mmol/L 136-145 CHLORIDE 104 mmol/L 98-107 CO2 23 mmol/L 21-32 GFR ESTIMATED NOT AFR/AM >60 GFR ESTIMATED IF AFR/AM >60 ALT-SGPT 11 U/L 13-56 AST-SGOT 7 U/L 15-37 TOTAL PROTEIN,SERUM 7.6 g/dL 6.0-8.3 ALBUMIN 3.5 g/dL 3.4-5.0 ALKALINE PHOSPHATASE 146 U/L 45-117 TOTAL BILIRUBIN 0.2 mg/dL 0.2-1.0 ANION GAP 11 5-15 GLOBULIN, CALCULATED 4.1 g/dL A/G RATIO 0.9 ratio 1-1.8 PROCALCITONIN - 07/07/17 15:50 PROCALCITONIN <0.05 ng/mL POC URINE TEST, QUAL - 07/07/17 15:58 POC URINE TEST NEGATIVE POC COMMENT SEE NOTES LACTIC ACID - 07/07/17 16:22 LACTATE 3.1 mmol/L 0.4-2.0 SALICYLATE LEVEL - 07/07/17 16:22 SALICYLATE 2.5 mg/dL MONO TEST - 07/07/17 16:22 MONONUCLEOSIS TEST NEGATIVE NEGATIVE LACTIC ACID - 07/07/17 18:18 LACTATE 1.8 mmol/L 0.4-2.0 LACTIC ACID - 07/07/17 20:18 LACTATE 1.5 mmol/L 0.4-2.0 Encounters ACCT No. Visit Date/Time Discharge Status Pt. Type Provider Facility Loc./Unit Complaint [id number] 02/04/2012 11:19:00 02/04/2012 23:59:59 CLS Outpatient [id number] 01/28/2012 17:42:00 01/28/2012 23:59:59 CLS Outpatient BENSON ZHANG DDS [id number] 07/11/2016 10:08:00 Document Registration [id number] 02/14/2016 13:06:00 Document Registration [id number] 09/09/2017 18:00:00 09/09/2017 23:59:59 CLS Outpatient MURIEL LORA APRN [facility] [id number] 11/19/2016 10:00:00 Document Registration [id number] 11/20/2016 09:09:00 Document Registration [id number] 07/13/2017 10:07:00 07/13/2017 11:19:00 DIS Emergency [facility] FED [id number] 07/07/2017 14:49:00 07/07/2017 21:52:00 DIS Emergency [facility] FED [id number] 07/02/2017 10:25:00 07/02/2017 13:41:00 [facility] [id number] 07/10/2016 17:09:00 Document Registration [id number] 07/11/2016 19:07:00 Document Registration [id number] 07/13/2017 00:00:00 07/13/2017 23:59:59 [place] [facility] [id number] 07/13/2017 00:00:00 07/13/2017 23:59:59 CLS Outpatient [facility] [id number] 07/08/2017 09:51:36 07/08/2017 23:59:59 CLS Outpatient [facility]
--- OUTSIDE RECORDS SUMMARY | 2017-10-06 20:02 | XMS REPORT ---
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 Name Role Phone DONOVAN JACKSON Unavailable PROBLEMS Type Condition ICD9-CM Code JSB33-PO Code Onset Dates Condition Status SNOMED Code Problem Simple chronic bronchitis J41.0 Active 03563359 Problem Anxiety F41.9 Active 89447530 Problem Acute seasonal allergic rhinitis, unspecified trigger J30.2 Active 878949391 Problem Asthma exacerbation J45.901 Active 460830501 Problem Migraine with aura and with status migrainosus, not intractable G43.101 Active 1581807 Problem Psychotic disorder with delusions F29 Active 71617408 Problem 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 166602442 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 [id number] ALLERGIES No Information ENCOUNTERS Encounter Location Date Diagnosis [facility] [address] [address] May, Psychotic disorder with delusions F29 [facility] [id number] [place] [address] 88032- 6830 May, [facility] [id number] [place] [address] 33649- 2398 May, [facility] [id number] [place] [address] 62700- 7553 Mar, Psychotic disorder with delusions F29 and 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 [facility] [address] 50492- 0270 Jan, [facility] [id number] [place] [address] 42345- 1336 Dec, Psychotic disorder with delusions F29 [facility] [address] [place] [address] Dec, Acute seasonal allergic rhinitis, unspecified trigger J30.2 [facility] [id number] [place] [address] 84573- 8622 Nov, Psychotic disorder with delusions F29 [facility] [id number] [place] [address] 53918- 7255 14 Nov, 2016 [facility] [address] 13683- 1844 Nov, [facility] [id number] [place] [address] 65721- 1112 Nov, [facility] [address] 78489- 2845 Oct, Asthma exacerbation J45.901 [facility] [address] 21490- 6305 Oct, [facility] [address] 47572- 1799 Oct, 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 and 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 [facility] [address] 81369- 9989 Oct, [facility] [id number] [place] [address] 47452- 7460 Oct, Migraine with aura and with status migrainosus, not intractable G43.101 ; Other abnormal cytological finding of specimen from cervix R87.618 ; Screening for diabetes mellitus (DM) Z13.1 ; Screening for lipid disorders Z13.220 and Weight gain R63.5 [facility] [id number] [place] [address] 83918- 2460 Oct, [facility] [id number] [place] [address] 19584- 9212 Oct, [facility] [id number] [place] [address] 52780- 1655 Oct, [facility] [address] [place] [address] 09128- 7664 Sep, Weight gain R63.5 ; Screening for lipid disorders Z13.220 ; Screening for diabetes mellitus (DM) Z13.1 and Scabies exposure Z20.89 [facility] [address] [id number] Sep, Encounter for dental examination and cleaning without abnormal findings Z01.20 [facility] [id number] [place] [address] 83960 -5723 Sep, Abscess L02.91 [facility] [address] 82669- 7435 Jun, [facility] [id number] [place] [address] 85311- 7263 Jun, Routine gynecological examination Z01.419 [place] [address] 25995- 0064 Jun, Routine gynecological examination Z01.419 ; Encounter for Depo-Provera contraception Z30.42 and Routine screening for STI (sexually transmitted infection) Z11.3 [facility] [id number] [place] [address] 13133- 1598 Jun, Anxiety F41.9 [facility] [id number] [place] [address] 94594- 1147 May, [facility] [id number] [place] [address] 90176- 0258 Apr, Psychotic disorder with delusions F29 [facility] [id number] [place] [address] 09570- 3093 Jan, [place] [id number] [place] [address] 50348- 3449 Jan, Psychotic disorder with delusions F29 [facility] [id number] [place] [address] 58204- 9382 16 Nov, 2016 Encounter for contraceptive management, unspecified contraceptive encounter type Z30.9 ; Anxiety F41.9 ; Simple chronic bronchitis J41.0 and Encounter for Depo-Provera contraception Z30.42 [facility] [id number] [address]- 1011 14 Jun, 2014 [facility] [id number] [place] [address] 82109- 3369 13 Jun, 2014 [facility] [id number] [place] [address] 50029- 9857 Mar, [facility] [id number] [place] [address] 17519- 5783 Jan, [facility] [id number] [place] [address] 06580- 9267 Jan, [facility] [id number] [place] [address] 06484- 0087 Jan, [facility] [id number] [place] [address] 20688- 5180 Jan, [facility] [id number] [place] [address] 57162- 6694 Jan, [facility] [id number] [place] [address] 29920- 5884 Jan, [facility] [address] [address]- 7645 Jan, [facility] [address] [address]- 1708 Dec, [facility] [id number] [place] [address] 42925- 5536 Dec, [facility] [id number] [place] [address] 60090- 4913 Dec, [facility] [id number] [place] [address] 34994- 4901 Dec, [facility] [id number] [place] [address], [place] [address]- 6508 23 Dec, 2011 [facility] [place] [facility] [address] [id number] [place] [address]- 4453 18 Dec, 2011 [facility] [place] [facility] [address] [id number] [place] [address]- 1742 18 Dec, 2011 [facility] [place] [facility] [address] [id number] [place] [address]- 9857 18 Dec, 2011 [facility] [place] [facility] [address] [id number] [place] [address]- 5520 18 Dec, 2011 [facility] [place] [facility] [address] [id number] [place] [address]- 1688 18 Dec, 2011 [facility] [place] [facility] [address] [id number] [place] [address]- 5705 18 Dec, 2011 [facility] [place] [facility] [address] [id number] [place] [address]- 2694 15 Dec, 2011 [facility] [place] [facility] [address] [id number] [place] [address]- 2455 10 Dec, 2011 [facility] [place] [facility] [address] [id number] [place] [address]- 8442 10 Dec, 2011 [facility] [place] [facility] [address] [facility] [id number] [place] [address]- 2752 08 Dec, 2011 [facility] [place] [facility] [address] [id number] [place] [address]- 9093 05 Dec, 2011 [facility] [place] [facility] [address] [id number] [address]- 2421 03 Dec, 2011 [facility] [place] [facility] [address] [id number] [place] [address]- 4275 02 Dec, 2011 [facility] [place] [facility] [address] [facility] [id number] [place] [address]- 8195 18 Sep, 2011 [facility] [place] [facility] [address] [facility] [id number] [address]- 3233 17 Sep, 2011 [facility] [place] [facility] [id number] [address]- 1592 13 Nov, 2011 [facility] [address] [address]- 6396 13 Nov, 2011 [facility] [address] [address]- 4473 12 Nov, 2011 [facility] [address] [address]- 7004 Nov, [facility] [address] [address]- 1307 Sep, [facility] [address] [address]- 3005 Aug, [facility] [address] [address]- 6441 Aug, [facility] [address] [address]- 3893 July, [facility] [address] [address]- 9065 July, [facility] [id number] [address]- 4947 July, IMMUNIZATIONS No Known Immunizations SOCIAL HISTORY [...]
--- OUTSIDE RECORDS SUMMARY | 2017-10-06 20:02 | XMS REPORT ---
Author Author GREGORY AMARAL [facility] Address [address] [place] [address] Care Team Providers Care Scheduler Name Role Phone GREGORY AMARAL Unavailable PROBLEMS Type Condition ICD9-CM Code RPA34-AL Code Onset Dates Condition Status SNOMED Code Problem Simple chronic bronchitis J41.0 Active 31747142 Problem Anxiety F41.9 Active 64384959 Problem Acute seasonal allergic rhinitis, unspecified trigger J30.2 Active 129873521 Problem Asthma exacerbation J45.901 Active 725004170 Problem Migraine with aura and with status migrainosus, not intractable G43.101 Active 1694840 Problem Psychotic disorder with delusions F29 Active 98773163 Problem 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 911588611 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 620491336 ALLERGIES Substance Reaction Event Type Date Status Naproxen hives Drug Allergy Sep, Active ENCOUNTERS Encounter Location Date Diagnosis [facility] [id number] [place] [address] 03630- 5879 May, Psychotic disorder with delusions F29 [facility] [id number] [place] [address] 86967- 0014 May, [facility] [id number] [place] [address] 89122- 0906 May, [facility] [id number] [place] [address] 92634- 5295 Mar, Psychotic disorder with delusions F29 and 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 [facility] [id number] [place] [address] 67509- 6660 Jan, [facility] [id number] [place] [address] 51740- 9821 Dec, Psychotic disorder with delusions F29 [facility] [id number] [place] [address] 21023 -2908 Dec, Acute seasonal allergic rhinitis, unspecified trigger J30.2 [facility] [id number] [place] [address] 25921- 8272 Nov, Psychotic disorder with delusions F29 [facility] [address] 28267- 8961 Nov, [facility] [address] 40035- 4848 Nov, [facility] [address] 59047- 3771 Nov, [facility] [address] 10256- 2268 Oct, Asthma exacerbation J45.901 [facility] [address] 98042- 8373 Oct, [facility] [address] 37895- 1003 Oct, 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 and 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 [facility] [id number] [place] [address] 58572- 2096 Oct, [facility] [id number] [place] [address] 33617- 4455 Oct, Migraine with aura and with status migrainosus, not intractable G43.101 ; Other abnormal cytological finding of specimen from cervix R87.618 ; Screening for diabetes mellitus (DM) Z13.1 ; Screening for lipid disorders Z13.220 and Weight gain R63.5 [facility] [id number] [place] [address] 32995- 0977 Oct, [facility] [id number] [place] [address] 67037- 8981 Oct, [facility] [address] [place] [address]- 4508 Oct, [facility] [id number] [place] [address] 69106- 8755 Sep, Weight gain R63.5 ; Screening for lipid disorders Z13.220 ; Screening for diabetes mellitus (DM) Z13.1 and Scabies exposure Z20.89 [facility] [address] [place] [address] [id number] Sep, Encounter for dental examination and cleaning without abnormal findings Z01.20 [facility] [address] 48593 -5474 Sep, Abscess L02.91 [facility] [address] 13874- 2251 Jun, [facility] [address] 49179- 3193 Jun, Routine gynecological examination Z01.419 [place] [address] 02774- 2252 Jun, Routine gynecological examination Z01.419 ; Encounter for Depo-Provera contraception Z30.42 and Routine screening for STI (sexually transmitted infection) Z11.3 [facility] [id number] [place] [address] 87766- 5606 Jun, Anxiety F41.9 [place] [id number] [place] [address] 73857- 0938 May, [place] [id number] [place] [address] 93903- 2442 Apr, Psychotic disorder with delusions F29 [facility] [address] 57034- 7414 Jan, [place] [id number] [place] [address] 75837- 7006 Jan, Psychotic disorder with delusions F29 [facility] [address] 99712- 1755 16 Jan, 2016 Encounter for contraceptive management, unspecified contraceptive encounter type Z30.9 ; Anxiety F41.9 ; Simple chronic bronchitis J41.0 and Encounter for Depo-Provera contraception Z30.42 [facility] [address] [address]- 3559 14 Jun, 2014 [facility] [id number] [place] [address] 42910- 1316 Jun, [facility] [id number] [place] [address] 72167- 6050 Mar, [facility] [id number] [place] [address] 99101- 6430 Jan, [facility] [id number] [place] [address] 50185- 9000 Jan, [facility] [id number] [place] [address] 66218- 2066 Jan, [facility] [id number] [place] [address] 34072- 5987 Jan, [facility] [id number] [place] [address] 05773- 7838 Jan, [facility] [id number] [place] [address] 60824- 1349 Jan, [facility] [id number] [place] [address] 59966- 7763 Jan, [facility] [address] [place] [address] 77109- 9563 Dec, [facility] [id number] [place] [address] 070730- 9458 Dec, [facility] [id number] [place] [address] 63180- 6090 Dec, [facility] [id number] [place] [address] 95160- 8123 Dec, [facility] [place] [facility] [address] [id number] [place] [address]- 3498 23 Dec, 2011 [facility] [place] [facility] [address] [id number] [place] [address]- 5300 Dec, 2011 [facility] [place] [facility] [address] [id number] [place] 9693 18 Dec, 2011 [facility] [place] [facility] [address] [id number] [place] [address]- 1029 Dec, 2011 [facility] [place] [facility] [address] [id number] [place] [address]- 9944 Dec, [facility] [place] [facility] [address] [id number] [place] [address]- 5950 Dec, [facility] [place] [facility] [address] [id number] [place] [address]- 8403 Dec, [facility] [place] [facility] [address] [id number] [place] [address]- 9270 15 Dec, 2011 [facility] [place] [facility] [address] [id number] [place] [address]- 9682 10 Dec, 2011 [facility] [place] [facility] [address] [id number] [place] [address]- 6560 10 Dec, 2011 [facility] [place] [facility] [address] [id number] [place] [address]- 3362 08 Dec, 2011 [facility] [place] [facility] [address] [id number] [place] [address]- 5771 05 Dec, 2011 [facility] [place] [facility] [address] [id number] [place] [address]- 6818 Dec, [facility] [place] [facility] [address] [id number] [place] [address]- 1340 02 Dec, 2011 [facility] [place] [facility] [address] [id number] [place] [address]- 2457 18 Nov, 2011 [facility] [place] [facility] [address] [id number] [place] [address]- 5438 17 Nov, 2011 [facility] [address] [address]- 9745 13 Nov, 2011 [facility] [address] [address]- 2351 13 Nov, 2011 [facility] [address] [address]- 6929 12 Nov, 2011 [facility] [id number] [place] [address] 22521- 8856 05 Nov, 2011 [facility] [id number] [place] [address] 49397- 3252 Sep, [facility] [id number] [place] [address] 66119- 7766 Aug, [facility] [id number] [place] [address] 970982- 3060 Aug, [facility] [id number] [place] [address] 05994- 3050 July, [facility] [id number] [place] [address] 668981- 2421 July, [facility] [address] [address]- 8718 July, IMMUNIZATIONS Vaccine Route Administration Date Status ROCEPHIN 1 GM (IM) IM Intramuscular October 13, 2016 Administered SOCIAL HISTORY Never Assessed REASON FOR VISIT Shot up meth 7 days ago in right wrist, slammed in door that night- is having redness and swelling. JStrasserRN PLAN OF CARE Activity Details Follow Up prn Reason: VITAL SIGNS Height 62 in 2016-10-13 Weight 185.2 lbs 2016-10-13 Temperature 97.8 degrees Fahrenheit 2016-10-13 Heart Rate 68 bpm 2016-10-13 Respiratory Rate 22 2016-10-13 BMI 33.87 kg/m2 2016-10-13 Blood pressure systolic 114 mmHg 2016-10-13 Blood pressure diastolic 88 mmHg 2016-10-13 MEDICATIONS Medication Instructions Dosage Frequency Start Date End Date Duration Status Benztropine Mesylate 2 MG Orally at bed time, voucher 1st fill only 1 tablet Active HydrOXYzine HCl 50 mg Orally Once a day, voucher 1st fill only 1 tablet as needed at HS Active Singulair 10 mg Orally Once a day, voucher 1st fill only 1 tablet in the evening Active BuSpar Active Atorvastatin Calcium 10 mg Orally Once a day at bedtime 1 tablet Jan, 30 day(s) Active Haloperidol 10 mg Orally Once a day, at night. 1 tablet Jun, Active Bactrim DS 800-160 MG Orally Twice a day 1 tablet 12h Sep,Sep 10 day(s) Active Ibuprofen 800 MG Orally Three times a day 1 tablet with food or milk 8h Sep, Sep, 10 days Active RESULTS No Results PROCEDURES Procedure Date Ordered Result Body Site ROCEPHIN 1 GM (IM) October 13, 2016 THER/PROPH/DIAG INJ, SC/IM October 13, 2016 INSTRUCTIONS MEDICATIONS ADMINISTERED No Known Medications MEDICAL (GENERAL) HISTORY Type Description Date Medical History schizoaffective disorder Medical History bi-polar disorder Medical History depression Medical History anxiety Medical History pre diabetes Medical History COPD Surgical History x 2 Hospitalization History Staph infection in arm
== END 2017-10-06 17:12 | disposition home or self-care (01) ==
LOC: EDUNIT# 15:50 → ER 15:54
DX: O99.351 Diseases of the nervous system complicating pregnancy, first trimester (principal); G56.03 Carpal tunnel syndrome, bilateral upper limbs; O99.341 Other mental disorders complicating pregnancy, first trimester; F20.9 Schizophrenia, unspecified; Z88.8 Allergy status to other drugs, medicaments and biological substances; Z3A.12 12 weeks gestation of pregnancy
CPT/HCPCS: 81000; 84703; 99282

== ENCOUNTER 2018-04-11 11:29 | Inpatient (IN) | payer MEDICAID ==
[~2018-04-11] VITALS: Ht 160 cm; Wt 104.0 kg
--- NOTE | 2018-04-11 11:24 | NUR ---
SMITHA WELLS presented to unit via W/C from HOME, accompanied by S/O, with c/o CONTRACTIONS. SMITHA WELLS weighed, gowned, voided, and to bed. EFHM and TOCO applied, VS taken. SMITHA WELLS oriented to bed controls, call light, TV, heat, and A/C controls.
[~2018-04-11 11:29] MED LIST changes: +LURA60TA2 PO
[2018-04-11 11:35] VITALS: BP 132/86
--- NOTE | 2018-04-11 11:45 | NUR ---
assisted into lithotomy position. SVE performed by this RN. 3cm 60-70% -3 membranes intact. no bleeding noted. patient very anxious and tense during exam. s/o at bedside.
[2018-04-11 11:48] LABS: BILIRUBIN,URINE NEGATIVE (NEGATIVE); CLARITY,URINE SLIGHTLY CLOUDY; COLOR,URINE YELLOW; GLUCOSE, URINE (UA) 3+ (NEGATIVE); KETONES,URINE 2+ (NEGATIVE); LEUKOCYTE ESTERASE ,URINE NEGATIVE (NEGATIVE); NITRITE,URINE NEGATIVE (NEGATIVE); PH,URINE 5 (5-9); PROTEIN,URINE 1+ (NEGATIVE); UROBILINOGEN,URINE NORMAL (NORMAL)
[2018-04-11 11:56] LABS: BACTERIA,URINE FEW /HPF
[2018-04-11 12:00] LABS: AMPHETAMINE SCREEN, URINE NEGATIVE (NEGATIVE); BARBITURATE SCREEN URINE NEGATIVE (NEGATIVE); BENZODIAZEPINES SCREEN URINE NEGATIVE (NEGATIVE); CANNABINOID SCREEN, URINE NEGATIVE (NEGATIVE); COCAINE SCREEN URINE NEGATIVE (NEGATIVE); METHADONE STAT NEGATIVE (NEGATIVE); METHAMPHETAMINE SCREEN URINE S NEGATIVE (NEGATIVE); OPIATE SCREEN URINE NEGATIVE (NEGATIVE); OXYCODONE STAT NEGATIVE (NEGATIVE); PROPOXYPHENE STAT NEGATIVE (NEGATIVE); TRICYCLIC ANTIDEPRESSANTS SCRE POSITIVE (NEGATIVE)
[2018-04-11] MEDS ORDERED: FLU QUADRIvalent (5+ YOA) 2018-2019 (AFLURIA) 0.5 ML IM ONE (12:15)
[2018-04-11] MEDS ORDERED: LACTATED RINGERS 1,000 ML IV ONE (12:18)
--- NOTE | 2018-04-11 12:18 | NUR ---
dr antoine notified of patient status using SBAR report. new orders received. continuing to monitor expectantly.
--- NOTE | 2018-04-11 12:30 | NUR ---
to bedside reviewed UA results and continued plan for EFM and IV fluids. patient verbalized understanding.
[2018-04-11 12:38] VITALS: BP 118/70
[2018-04-11] MEDS ORDERED: ACETAMINOPHEN 500 MG TAB (TYLENOL) PO NR (12:45)
[2018-04-11] MEDS ORDERED: LACTATED RINGERS 1,000 ML IV SCH (13:00)
--- NOTE | 2018-04-11 13:11 | NUR ---
Dr. Stuart notified of patients c/o pain and contractions and current FHR pattern. No accelerations in FHR since arrival with periods of decreased variability with continued irregular contractions. orders received to continue IV fluids and current plan of care and observation.
[2018-04-11] MEDS: LACTATED RINGERS 1,000 ML IV SCH ×2 (13:30→15:45)
[2018-04-11] MEDS ORDERED: LACTATED RINGERS 1,000 ML IV PRN ×2 (14:16)
[2018-04-11 14:20] VITALS: BP 109/57
[2018-04-11] MEDS ORDERED: METOCLOPRAMIDE INJ 10 MG/2 ML (REGLAN) IV ONE (14:30)
[2018-04-11] MEDS ORDERED: CITRIC ACID/SOB CIT (BICITRA) 30 ML UDC PO ONE (14:30)
[2018-04-11] MEDS ORDERED: FAMOTIDINE 20MG/2ML IV (PEPCID) IV ONE (14:30)
[2018-04-11] MEDS ORDERED: CATHETER FLUSH 10 ML SYR IV PRN (14:30)
[2018-04-11] MEDS ORDERED: fentaNYL INJECTION 100 MCG/2 ML AMP ONE (15:01)
--- NOTE | 2018-04-11 15:05 | NUR ---
dr antoine called for abx order and ETA. new orders received.
[2018-04-11] MEDS ORDERED: ceFAZolin 2 GM IV Premixed 50 ML ONE (15:11)
[2018-04-11 15:16] LABS: BASOPHILS # (AUTO) 0.1 10^3/uL (0.0-0.1); BASOPHILS % (AUTO) 1 % (0-10); EOSINOPHILS # (AUTO) 0.2 10^3/uL (0.0-0.3); EOSINOPHILS % (AUTO) 2 % (0-10); HEMATOCRIT 37 % (35-52); HEMOGLOBIN 12.3 G/DL (11.5-16.0); LYMPHOCYTES # (AUTO) 2.7 X 10^3 (1.0-4.0); LYMPHOCYTES % (AUTO) 21 % (12-44); MEAN CORPUSCULAR HEMOGLOBIN 32 PG (25-34); MEAN CORPUSCULAR HGB CONC 33 G/DL (32-36); MEAN CORPUSCULAR VOLUME 96 FL (80-99); MONOCYTES # (AUTO) 1.4 X 10^3 (0.0-1.0); MONOCYTES % (AUTO) 10 % (0-12); NEUTROPHILS # (AUTO) 8.8 X 10^3 (1.8-7.8); NEUTROPHILS % (AUTO) 67 % (42-75); PLATELET COUNT 227 10^3/uL (130-400); RED BLOOD COUNT 3.89 10^6/uL (4.35-5.85); RED CELL DISTRIBUTION WIDTH 14.2 % (10.0-14.5); WHITE BLOOD COUNT 13.1 10^3/uL (4.3-11.0)
--- NOTE | 2018-04-11 15:18 | NUR ---
dr antoine arrived to floor.
--- NOTE | 2018-04-11 15:33 | History & Physical-OB ---
OB - Chief Complaint & HPI Date/Time Date of Admission: 04/11/2018 \Date of Admission: Date seen by a Provider: Apr 11, 2018 Time Seen by a Provider: 15:20 Chief Complaint/History OB-Reason for Admission/Chief: Obstetrical Complication Hx : 4 Hx Para: 3 Expected Date of Delivery: Apr 16, 2018 Gestational Age in Weeks: 38 Gestational Age in Days: 2 Other reason for admission: Pelvic pain, visual disturbances and contractions Allergies and Home Medications Allergies Coded Allergies: latex (Verified Allergy, Unknown, HIVES, 04/11/18) Uncoded Allergies: PAPER TAPE (Allergy, Unknown, 04/11/18) Patient Home Medication List Home Medication List Reviewed: Yes OB - History Hx of Present Care: Yes Obstetrical History Hx : 4 Hx Para: 3 Hx Total # of Abortions (Spona: 0 Delivery History Adverse Rxn to Tranfusion: No Patient Past Medical History Bipolar Disorder Schizophrenia Diabetic 2 Previous Social History/Family History Recent Infectious Disease Expo: No 2nd Hand Smoke Exposure: Yes OB - Admission Exam Physical Exam Vitals: Vital Signs 04/11/18 11:53 O2 Delivery Room Air Labs Laboratory Tests Test 04/11/18 11:30 04/11/18 14:45 Range/Units Urine Color YELLOW Urine Clarity SLIGHTLY CLOUDY Urine pH 5 5-9 Urine Specific Jamison 1.015 L 1.016-1.022 Urine Protein 1+ H NEGATIVE Urine Glucose (UA) 3+ H NEGATIVE Urine Ketones 2+ H NEGATIVE Urine Nitrite NEGATIVE NEGATIVE Urine Bilirubin NEGATIVE NEGATIVE Urine Urobilinogen NORMAL NORMAL MG/DL Urine Leukocyte Esterase NEGATIVE NEGATIVE Urine RBC (Auto) NEGATIVE NEGATIVE Urine RBC NONE /HPF Urine WBC NONE /HPF Urine Squamous Epithelial Cells 2-5 /HPF Urine Crystals NONE /LPF Urine Bacteria FEW H /HPF Urine Casts NONE /LPF Urine Mucus NEGATIVE /LPF Urine Culture Indicated NO Urine Opiates Screen NEGATIVE NEGATIVE Urine Oxycodone Screen NEGATIVE NEGATIVE Urine Methadone Screen NEGATIVE NEGATIVE Urine Propoxyphene Screen NEGATIVE NEGATIVE Urine Barbiturates Screen NEGATIVE NEGATIVE Ur Tricyclic Antidepressants Screen POSITIVE H NEGATIVE Urine Phencyclidine Screen NEGATIVE NEGATIVE Urine Amphetamines Screen NEGATIVE NEGATIVE Urine Methamphetamines Screen NEGATIVE NEGATIVE Urine Benzodiazepines Screen NEGATIVE NEGATIVE Urine Cocaine Screen NEGATIVE NEGATIVE Urine Cannabinoids Screen NEGATIVE NEGATIVE White Blood Count 13.1 H 4.3-11.0 10^3/uL Red Blood Count 3.89 L 4.35-5.85 10^6/uL Hemoglobin 12.3 11.5-16.0 G/DL Hematocrit 37 35-52 % Mean Corpuscular Volume 96 80-99 FL Mean Corpuscular Hemoglobin 32 25-34 PG Mean Corpuscular Hemoglobin Concent 33 32-36 G/DL Red Cell Distribution Width 14.2 10.0-14.5 % Platelet Count 227 130-400 10^3/uL Mean Platelet Volume 10.0 7.4-10.4 FL Neutrophils (%) (Auto) 67 42-75 % Lymphocytes (%) (Auto) 21 12-44 % Monocytes (%) (Auto) 10 0-12 % Eosinophils (%) (Auto) 2 0-10 % Basophils (%) (Auto) 1 0-10 % Neutrophils # (Auto) 8.8 H 1.8-7.8 X 10^3 Lymphocytes # (Auto) 2.7 1.0-4.0 X 10^3 Monocytes # (Auto) 1.4 H 0.0-1.0 X 10^3 Eosinophils # (Auto) 0.2 0.0-0.3 10^3/uL Basophils # (Auto) 0.1 0.0-0.1 10^3/uL OB - Assessment/Plan/Diagnosis Assessment Assessment: section (Previous 2. Pelvic Pain 3. Gestational Diabetes 4. Nonreassuring Heart Tracing 5. History of Bipolar Disorder) Admission Dx IUP at 38 2/7 weeks Previous Nonreassuring Heart Strip Diabetes Pelvic Pain Bipolar Disorder Admission Status: Inpatient Order (span 2 midnights) Reason for Inpatient Admission: performed Plan Plan: Section (Proceed with a Repeat C-Seciton) ProblemList: BENNYAnshulAMY Mendez Apr 11, 2018 15:33
[2018-04-11] MEDS ORDERED: ceFAZolin 2 GM IV Premixed 50 ML IV ONE (16:00)
--- OUTSIDE RECORDS SUMMARY | 2018-04-11 16:33 | XMS REPORT ---
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 945343327 Problem Migraine with aura and with status migrainosus, not intractable G43.101 Active 3690090 Problem Anxiety F41.9 Active 57127089 Problem Simple chronic bronchitis J41.0 Active 60218584 Problem Previous section complicating O34.219 Active 864140515 Problem Hallucinations R44.3 Active 7276345 Problem Asthma exacerbation J45.901 Active 507053427 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 443010387 Problem Diabetes mellitus affecting in second trimester O24.912 Active 56855933 Problem Acute seasonal allergic rhinitis, unspecified trigger J30.2 Active 015621396 ALLERGIES No Information ENCOUNTERS Encounter Location Date Diagnosis [place] [id number] [place] [address] 64632- 3356 Dec, [facility] [id number] [place] [address] 39886- 7682 Dec, [facility] [id number] [place] [address] 73671- 4867 Dec, Normal in multigravida Z34.80 ; Right hip pain M25.551 ; 26 weeks gestation of Z3A.26 ; Psychotic disorder with delusions F29 ; Gestational diabetes mellitus (GDM) in second trimester controlled on oral hypoglycemic drug O24.415 ; Multigravida of advanced maternal age in second trimester O09.522 and Previous section complicating O34.219 [facility] [id number] [address] Dec, [facility] [id number] [place] [address] 84038- 6276 Nov, care in second trimester Z34.92 [place] [id number] [place] [address] 98942- 8321 Nov, Normal in multigravida Z34.80 ; Diabetes mellitus affecting in second trimester O24.912 ; Hallucinations R44.3 ; 18 weeks gestation of Z3A.18 and Multigravida of advanced maternal age in second trimester O09.522 [place] [id number] [place] [address] 30978- 4946 Nov, [place] [id number] [place] [address] 56778- 1554 Nov, [place] [id number] [place] [address] 81408- 1692 Oct, care in second trimester Z34.92 ; Anxiety F41.9 and Psychotic disorder with delusions F29 [place] [id number] [place] [address] 76248- 9463 Oct, Normal in multigravida Z34.80 ; care in second trimester Z34.92 ; Gonorrhea affecting , antepartum O98.219 ; 18 weeks gestation of Z3A.18 ; 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 and Psychotic disorder with delusions F29 [place] [id number] [place] [address] 34326- 5962 Oct, Encounter for dental examination and cleaning without abnormal findings Z01.20 and Caries K02.9 [place] [id number] [place] [address] 10585- 0038 Oct, [place] [id number] [place] [address] 10347- 4412 Oct, [place] [id number] [place] [address] 66465- 5081 Oct, [facility] [address] [address] 7506 Sep, [facility] [id number] [place] [address] 87816- 3733 Sep, [facility] [id number] [place] [address] 11548- 4592 Sep, Normal in multigravida Z34.80 ; Currently in second trimester with unknown gestational age Z34.92 ; 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 ; 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 and Psychotic disorder with delusions F29 [facility] [id number] [place] [address] 81565- 5015 Sep, [facility] [id number] [place] [address] 26897- 6527 Sep, [facility] [id number] [place] [address] 05612- 8898 Aug, Anxiety F41.9 and Screening for diabetes mellitus (DM) Z13.1 [facility] [id number] [place] [address] 85826- 1882 July, [facility] [id number] [place] [address] 25566- 1336 July, [facility] [id number] [place] [address] 12821- 3835 May, Psychotic disorder with delusions F29 [facility] [address] [address] 2653 May, [facility] [id number] [place] [address] 07930- 3078 May, [facility] [id number] [place] [address] 61875- 3581 Mar, Psychotic disorder with delusions F29 and 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 [facility] [id number] [place] [address] 52701- 1171 Jan, [facility] [id number] [place] [address] 50567- 3399 Dec, Psychotic disorder with delusions F29 [facility] [id number] [place] [address] 02065 -6849 Dec, Acute seasonal allergic rhinitis, unspecified trigger J30.2 [facility] [address] 35735- 8989 Nov, Psychotic disorder with delusions F29 [facility] [id number] [place] [address] 12841- 2380 Nov, [facility] [address] 66975- 7133 Nov, [facility] [address] 07787- 7831 Nov, [facility] [address] 36042- 2195 Oct, Asthma exacerbation J45.901 [facility] [id number] [place] [address] 51944- 8791 Oct, [facility] [id number] [place] [address] 09512- 7544 Oct, 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 and 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 [facility] [id number] [place] [address] 60952- 0117 Oct, [facility] [id number] [place] [address] 21779- 8389 Oct, Migraine with aura and with status migrainosus, not intractable G43.101 ; Other abnormal cytological finding of specimen from cervix R87.618 ; Screening for diabetes mellitus (DM) Z13.1 ; Screening for lipid disorders Z13.220 and Weight gain R63.5 [facility] [id number] [place] [address] 62892- 4424 Oct, [facility] [address] [address]- 9164 Oct, [facility] [id number] [place] [address] 32637- 3868 Oct, [facility] [id number] [place] [address] 91825- 6080 Sep, Weight gain R63.5 ; Screening for lipid disorders Z13.220 ; Screening for diabetes mellitus (DM) Z13.1 and Scabies exposure Z20.89 [facility] [id number] [place] [address] [id number] Sep, Encounter for dental examination and cleaning without abnormal findings Z01.20 [facility] [id number] [place] [address] 44444 -7878 Sep, Abscess L02.91 [place] [id number] [place] [address] 03686- 9338 Jun, [facility] [id number] [place] [address] 22784- 4403 Jun, Routine gynecological examination Z01.419 [place] [id number] [place] [address] 22370- 2085 Jun, Routine gynecological examination Z01.419 ; Encounter for Depo-Provera contraception Z30.42 and Routine screening for STI (sexually transmitted infection) Z11.3 [facility] [id number] [place] [address] 88082- 2275 Jun, Anxiety F41.9 [facility] [id number] [place] [address] 82239- 2406 May, [facility] [id number] [place] [address] 47051- 5183 Apr, Psychotic disorder with delusions F29 [facility] [id number] [place] [address] 36229- 7826 Jan, [facility] [id number] [place] [address] 77737- 7744 18 Jan, 2016 Psychotic disorder with delusions F29 [facility] [id number] [place] [address] 39511- 6881 16 Jan, 2016 Encounter for contraceptive management, unspecified contraceptive encounter type Z30.9 ; Anxiety F41.9 ; Simple chronic bronchitis J41.0 and Encounter for Depo-Provera contraception Z30.42 [facility] [id number] [place] [address] 37875- 2056 14 Jun, 2014 [facility] [id number] [place] [address] 43935- 2223 Jun, [facility] [id number] [place] [address] 93064- 3126 Mar, [facility] [id number] [place] [address] 01206- 6182 Jan, [facility] [id number] [place] [address] 68837- 5489 Jan, [facility] [id number] [place] [address] 80220- 5599 Jan, [facility] [id number] [place] [address] 11225- 4269 Jan, [facility] [id number] [place] [address] 21869- 4383 Jan, [facility] [id number] [place] [address] 83568- 5108 Jan, [facility] [id number] [place] [address] 20200- 7457 Jan, [facility] [id number] [place] [address] 45802- 6472 Dec, [facility] [id number] [place] [address] 27248- 0821 Dec, [facility] [id number] [address]- 1012 26 Dec, 2011 [facility] [place] [facility] [address] [id number] [place] [address]- 3895 Dec, 2011 [facility] [place] [facility] [address] [id number] [place] [address]- 7517 23 Dec, 2011 [facility] [place] [facility] [address] [id number] [place] [address]- 2382 18 Dec, 2011 [facility] [place] [facility] [address] [id number] [place] [address]- 4270 18 Dec, 2011 [facility] [place] [facility] [address] [id number] [place] [address]- 9404 18 Dec, 2011 [facility] [place] [facility] [address] [id number] [place] [address]- 5840 18 Dec, 2011 [facility] [place] [facility] [address] [id number] [place] [address]- 6382 18 Dec, 2011 [facility] [place] [facility] [address] [id number] [place] [address]- 2872 18 Dec, 2011 [facility] [place] [facility] [address] [id number] [place] [address]- 0828 15 Dec, 2011 [facility] [place] [facility] [address] [facility] [id number] [place] [address]- 1617 10 Dec, 2011 [facility] [place] [facility] [address] [id number] [place] [address]- 8669 10 Dec, 2011 [facility] [place] [facility] [address] [id number] [address]- 1907 08 Dec, 2011 [facility] [place] [facility] [address] [id number] [place] [address]- 0486 05 Dec, 2011 [facility] [place] [facility] [address] [facility] [id number] [place] [address]- 5548 03 Dec, 2011 [facility] [place] [facility] [address] [id number] [place] [address]- 5559 02 Dec, 2011 [facility] [address] [address]- 4868 18 Nov, 2011 [facility] [address] [address]- 9184 17 Nov, 2011 [facility] [address] [facility] [id number] [address]- 8812 13 Nov, 2011 [facility] [address] [address]- 0880 13 Nov, 2011 [facility] [address] [facility] [id number] [address]- 5315 12 Nov, 2011 [facility] [address] [address]- 6770 05 Nov, 2011 [facility] [address] [address]- 7271 Sep, [facility] [address] [address]- 0361 Aug, [facility] [address] [address]- 1112 Aug, [facility] [address] [address]- 3418 July, [facility] [address] [address]- 4336 July, [facility] [address] [place] [id number] [address]- 7270 July, IMMUNIZATIONS No Known Immunizations SOCIAL HISTORY Never Assessed REASON FOR VISIT OB 4wk f/u -- dylan klein PLAN OF CARE Activity Details Follow Up 2 Weeks Reason: VITAL SIGNS Height 62 in 2018-01-21 Weight 205.0 lbs 2018-01-21 Temperature 97.4 degrees Fahrenheit 2018-01-21 Heart Rate 78 bpm 2018-01-21 Respiratory Rate 22 2018-01-21 BMI 37.495 kg/m2 2018-01-21 Blood pressure systolic 126 mmHg 2018-01-21 Blood pressure diastolic 72 mmHg 2018-01-21 MEDICATIONS Medication Instructions Dosage Frequency Start Date End Date Duration Status Zyrtec Allergy 10 mg Orally Once a day 1 tablet 24h Oct, 30 day (s) Active Glucocard Expression Test - In Vitro 4 times a day as directed 6h Nov, Active Glucocard Expression Monitor w/Device as directed Nov, Active Vitamins Plus by oral route Once a day 1 tablet 24h 14 Oct, 2017 Active Risperdal 1 MG Orally BID 1.5 tab 12h 30 days Active Metformin HCl 500 mg Orally twice a day 1 tablet with a meal 12h 30 days Active PredniSONE 20 mg Orally Once a day 1 tablet 24h Dec, 30 Dec, 2017 5 days Active Latuda 40 mg Orally Once a day 1 tablet daily for two weeks and then 1/2 tab daily x2 weeks then stop 24h Sep, Active BusPIRone HCl 15 mg Orally Twice a day 1 tablet 12h 13 Aug, 2017 Active Ferrous Sulfate 325 (65 Fe) MG Orally Once a day 1 tablet 24h Dec, 30 day(s) Active TUBE SORTER-Thiago Rx 1 MG Orally Once a day 1 tablet 24h Dec, 30 day(s) Active RESULTS Name Result Date Reference Range UA OB DIP (IN HOUSE) 2018-01-21 Glucose negative Protein trace PROCEDURES Procedure Date Ordered Result Body Site URINE-NO MICRO Jan 21, 2018 INSTRUCTIONS MEDICATIONS ADMINISTERED No Known Medications MEDICAL (GENERAL) HISTORY Type Description Date Medical History schizoaffective disorder Medical History bi-polar disorder Medical History depression Medical History anxiety Medical History pre diabetes Medical History COPD Surgical History x 2 Hospitalization History Staph infection in arm
--- OUTSIDE RECORDS SUMMARY | 2018-04-11 16:33 | XMS REPORT ---
Author Author DONOVAN JACKSON Organization [facility] Address [address] [place] [address] Care Team Providers Care Tank Pumper Panelboard Name Role Phone DONOVAN JACKSON Unavailable PROBLEMS Type Condition ICD9-CM Code [id number]-VA Code Onset Dates Condition Status SNOMED Code Problem Simple chronic bronchitis J41.0 Active 58887968 Problem Anxiety F41.9 Active 93410588 Problem Acute seasonal allergic rhinitis, unspecified trigger J30.2 Active 833107981 Problem Asthma exacerbation J45.901 Active 624814719 Problem Migraine with aura and with status migrainosus, not intractable G43.101 Active 3190415 Problem Psychotic disorder with delusions F29 Active 67995982 Problem 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 675983895 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 813550697 ALLERGIES Substance Reaction Event Type Date Status Naproxen hives Drug Allergy Oct, Active ENCOUNTERS Encounter Location Date Diagnosis [facility] [id number] [place] [address] 80527- 6010 Jan, [facility] [id number] [place] [address] 06019- 7464 Dec, [facility] [id number] [place] [address] 92595- 7620 Dec, [facility] [id number] [place] [address] 41104- 8398 Dec, Normal in multigravida Z34.80 ; Right hip pain M25.551 ; 26 weeks gestation of Z3A.26 ; Psychotic disorder with delusions F29 and Gestational diabetes mellitus (GDM) in second trimester controlled on oral hypoglycemic drug O24.415 [facility] [id number] [place] [address] 12344- 9546 Dec, [facility] [address], [place] [address] 1634 Nov, care in second trimester Z34.92 [facility] [id number] [place] [address] 94310- 0236 Nov, Normal in multigravida Z34.80 [facility] [address], [place] [address]- 6729 Nov, [facility] [id number] [place] [address] 26358- 1918 Nov, [facility] [id number] [place] [address] 18932- 8877 Oct, care in second trimester Z34.92 ; Anxiety F41.9 and Psychotic disorder with delusions F29 [facility] [id number] [place] [address] 31423- 5015 Oct, Normal in multigravida Z34.80 ; care in second trimester Z34.92 ; Gonorrhea affecting , antepartum O98.219 ; 18 weeks gestation of Z3A.18 ; 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 and Psychotic disorder with delusions F29 [facility] [id number] [place] [address] 28357- 6831 Oct, Encounter for dental examination and cleaning without abnormal findings Z01.20 and Caries K02.9 [facility] [address], [place] [address] Oct, [facility] [address], [place] [address] 0866 Oct, [facility] [id number] [place] [address] 82343- 0518 Oct, [facility] [address], [place] [address]- 2689 Sep, [facility] [address], [place] [address]- 4309 Sep, [facility] [address], [place] [address]- 0954 Sep, Normal in multigravida Z34.80 ; Currently in second trimester with unknown gestational age Z34.92 ; 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 ; 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 and Psychotic disorder with delusions F29 [facility] [id number] [place] [address] 55965- 8036 Sep, [facility] [id number] [place] [address] 37122- 8324 Sep, [facility] [id number] [place] [address] 46640- 6302 Aug, Anxiety F41.9 and Screening for diabetes mellitus (DM) Z13.1 [facility] [id number] [place] [address] 26499- 8567 July, [facility] [id number] [place] [address] 22036- 4625 July, [facility] [id number] [place] [address] 08874- 7486 May, Psychotic disorder with delusions F29 [facility] [id number] [place] [address] 16754- 5525 May, [facility] [id number] [place] [address] 18811- 3771 May, [facility] [id number] [place] [address] 24628- 7861 Mar, Psychotic disorder with delusions F29 and 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 [facility] [id number] [place] [address] 04474- 2248 Jan, [facility] [id number] [place] [address] 19910- 4690 Dec, Psychotic disorder with delusions F29 [facility] [id number] [place] [address] 83597 -5632 Dec, Acute seasonal allergic rhinitis, unspecified trigger J30.2 [facility] [id number] [place] [address] 21164- 2608 Nov, Psychotic disorder with delusions F29 [facility] [id number] [place] [address] 35784- 8908 14 Nov, 2016 [facility] [address] 72018- 2478 Nov, [facility] [id number] [place] [address] 65535- 0880 Nov, [facility] [address] 87324- 6720 Oct, Asthma exacerbation J45.901 [address] 23197- 0916 Oct, [facility] [address] 03991- 6366 Oct, 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 and 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 [address] [id number] [place] [address] 07720- 2275 Oct, [facility] [id number] [place] [address] 52410- 8576 Oct, Migraine with aura and with status migrainosus, not intractable G43.101 ; Other abnormal cytological finding of specimen from cervix R87.618 ; Screening for diabetes mellitus (DM) Z13.1 ; Screening for lipid disorders Z13.220 and Weight gain R63.5 [facility] [id number] [place] [address] 12042- 8169 Oct, [facility] [id number] [place] [address] 38996- 5981 Oct, [facility] [id number] [place] [address] 66206- 3668 Oct, [facility] [address] [place] [address] 22324- 8202 Sep, Weight gain R63.5 ; Screening for lipid disorders Z13.220 ; Screening for diabetes mellitus (DM) Z13.1 and Scabies exposure Z20.89 [facility] [address] [id number] Sep, Encounter for dental examination and cleaning without abnormal findings Z01.20 [facility] [id number] [place] [address] 28178 -1357 Sep, Abscess L02.91 [facility] [id number] [place] [address] 83116- 0472 Jun, [facility] [id number] [place] [address] 32606- 1552 Jun, Routine gynecological examination Z01.419 [address] 48074- 4556 Jun, Routine gynecological examination Z01.419 ; Encounter for Depo-Provera contraception Z30.42 and Routine screening for STI (sexually transmitted infection) Z11.3 [facility] [id number] [place] [address] 09059- 7852 Jun, Anxiety F41.9 [facility] [id number] [place] [address] 63890- 5704 May, [facility] [id number] [place] [address] 90545- 3878 Apr, Psychotic disorder with delusions F29 [facility] [id number] [place] [address] 35112- 5668 Jan, [facility] [id number] [place] [address] 73144- 9887 Jan, Psychotic disorder with delusions F29 [facility] [id number] [place] [address] 55207- 2769 Jan, Encounter for contraceptive management, unspecified contraceptive encounter type Z30.9 ; Anxiety F41.9 ; Simple chronic bronchitis J41.0 and Encounter for Depo-Provera contraception Z30.42 [facility] [id number] [place] [address] 65110- 8292 14 Jun, 2014 [facility] [id number] [place] [address] 14983- 4026 13 Jun, 2014 [facility] [address] 06054- 0011 Mar, [facility] [address] 68269- 1662 Jan, [facility] [address] 91420- 3276 Jan, [facility] [address] 52103- 4309 Jan, [facility] [address] 68630- 5154 Jan, [facility] [id number] [place] [address] 87742- 1617 Jan, [facility] [id number] [place] [address] 29755- 1767 Jan, [facility] [id number] [place] [address] 13113- 0823 Jan, [facility] [id number] [place] [address] 97465- 8553 Dec, [facility] [id number] [place] [address] 76467- 5453 Dec, [facility] [id number] [place] [address] 28734- 7273 Dec, [facility] [id number] [place] [address] 00316- 3983 Dec, [facility] [address] 19930- 6476 23 Dec, 2011 [facility] [place] [facility] [address] [id number] [place] [address]- 2016 18 Dec, 2011 [facility] [place] [facility] [address] [id number] [place] [address]- 2198 18 Dec, 2011 [facility] [place] [facility] [address] [id number] [place] [address]- 0999 18 Dec, 2011 [facility] [place] [facility] [address] [id number] [place] [address]- 5393 18 Dec, 2011 [facility] [place] [facility] [address] [id number] [place] [address]- 8664 18 Dec, 2011 [facility] [place] [facility] [address] [id number] [place] [address]- 0826 18 Dec, 2011 [facility] [place] [facility] [address] [id number] [place] [address]- 0388 15 Dec, 2011 [facility] [place] [facility] [address] [id number], [place] [address]- 0804 10 Dec, 2011 [facility] [place] [facility] [address] [id number], [place] [address]- 3173 10 Dec, 2011 [facility] [place] [facility] [address] [id number], [place] [address]- 2138 08 Dec, 2011 [facility] [place] [facility] [address] [id number], [place] [address]- 2245 05 Dec, 2011 [facility] [place] [facility] [address] [id number], [place] [address]- 4518 03 Dec, 2011 [facility] [place] [facility] [address] [id number] [place] [address]- 5256 02 Dec, 2011 [facility] [place] [facility] [address] [facility] [id number], [place] [address]- 3413 18 Sep, 2011 [facility] [place] [facility] [address] [id number], [place] [address] 2545 17 Sep, 2011 [facility] [place] [facility] [id number] [address]- 8217 13 Nov, 2011 [facility] [id number] [address]- 0040 13 Nov, 2011 [facility] [address], [place] [address]- 8334 12 Nov, 2011 [facility] [address], [place] [address]- 1150 Nov, [facility] [address], [place] [address]- 8924 Sep, [facility] [address] Aug, [facility] [address], [place] [address]- 8812 Aug, [facility] [address], [place] [address]- 0323 July, [facility] [address], [place] [address]- 1346 July, [facility] [address], [place] [address]- 9139 July, IMMUNIZATIONS No Known Immunizations SOCIAL HISTORY Never Assessed REASON FOR VISIT OB 4wk f/u -- dylan klein PLAN OF CARE Activity Details Follow Up 2 Weeks Reason: VITAL SIGNS Height 62 in 2017-11-18 Weight 191.0 lbs 2017-11-18 Temperature 98.0 degrees Fahrenheit 2017-11-18 BMI 34.934 kg/m2 2017-11-18 Blood pressure systolic 126 mmHg 2017-11-18 Blood pressure diastolic 86 mmHg 2017-11-18 MEDICATIONS Medication Instructions Dosage Frequency Start Date End Date Duration Status HydrOXYzine HCl 50 mg Orally Once a day, voucher 1st fill only 1 tablet as needed at HS Not-Taking Propranolol HCl 20 mg Orally Once a day 1 tablet 24h Oct, Not-Taking Flonase 50 MCG/ACT Nasally Once a day 1 spray in each nostril 24h Dec, 30 day(s) Not-Taking BuPROPion HCl ER (XL) 300 MG Orally Once a day, voucher 1st fill. 1 tablet in the morning Nov, 90 days Not-Taking Latuda 60 mg Orally Once a day 0.5 tablet with food 24h Sep, 30 day(s) Active BusPIRone HCl 15 mg Orally Twice a day 1 tablet 12h 13 Aug, 2017 Not -Taking Haloperidol 10 mg Orally Once a day, voucher 1st fill. 2 tablets Nov, 30 day(s) Not-Taking Vitamins Plus by oral route Once a day 1 tablet 24h Oct, Not-Taking Metformin HCl 500 mg Orally twice a day 1 tablet with a meal 12h Not-Taking Benztropine Mesylate 2 MG Orally at bed time, voucher 1st fill only 1 tablet Not-Taking Singulair 10 MG Orally Once a day 1 tablet in the evening 24h 30 days Not-Taking RESULTS Name Result Date Reference Range UA OB DIP (IN HOUSE) 2017-11-18 Glucose 500 Protein neg PROCEDURES Procedure Date Ordered Result Body Site URINE-NO MICRO Nov 18, 2017 INSTRUCTIONS MEDICATIONS ADMINISTERED No Known Medications MEDICAL (GENERAL) HISTORY Type Description Date Medical History schizoaffective disorder Medical History bi-polar disorder Medical History depression Medical History anxiety Medical History pre diabetes Medical History COPD Surgical History x 2 Hospitalization History Staph infection in arm
--- OUTSIDE RECORDS SUMMARY | 2018-04-11 16:33 | XMS REPORT ---
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 416880955 Problem Migraine with aura and with status migrainosus, not intractable G43.101 Active 2531423 Problem Anxiety F41.9 Active 41738494 Problem Simple chronic bronchitis J41.0 Active 40265231 Problem Previous section complicating O34.219 Active 395222601 Problem Hallucinations R44.3 Active 4352361 Problem Asthma exacerbation J45.901 Active 968826608 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 387824000 Problem Diabetes mellitus affecting in second trimester O24.912 Active 30289127 Problem Acute seasonal allergic rhinitis, unspecified trigger J30.2 Active 578520534 ALLERGIES No Information ENCOUNTERS Encounter Location Date Diagnosis [place] [id number] [place] [address] 37442- 4112 Dec, [facility] [id number] [place] [address] 51134- 8085 Dec, [facility] [id number] [place] [address] 66614- 3124 Dec, Normal in multigravida Z34.80 ; Right hip pain M25.551 ; 26 weeks gestation of Z3A.26 ; Psychotic disorder with delusions F29 ; Gestational diabetes mellitus (GDM) in second trimester controlled on oral hypoglycemic drug O24.415 ; Multigravida of advanced maternal age in second trimester O09.522 and Previous section complicating O34.219 [facility] [id number] [address] Dec, [place] [id number] [place] [address] 00646- 6596 Nov, care in second trimester Z34.92 [place] [id number] [place] [address] 10087- 2450 Nov, Normal in multigravida Z34.80 ; Diabetes mellitus affecting in second trimester O24.912 ; Hallucinations R44.3 ; 18 weeks gestation of Z3A.18 and Multigravida of advanced maternal age in second trimester O09.522 [place] [id number] [place] [address] 75500- 1653 Nov, [place] [id number] [place] [address] 57108- 8580 Nov, [place] [id number] [place] [address] 24842- 5634 Oct, care in second trimester Z34.92 ; Anxiety F41.9 and Psychotic disorder with delusions F29 [place] [id number] [place] [address] 42333- 0715 Oct, Normal in multigravida Z34.80 ; care in second trimester Z34.92 ; Gonorrhea affecting , antepartum O98.219 ; 18 weeks gestation of Z3A.18 ; 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 and Psychotic disorder with delusions F29 [place] [id number] [place] [address] 62267- 2597 Oct, Encounter for dental examination and cleaning without abnormal findings Z01.20 and Caries K02.9 [place] [id number] [place] [address] 96984- 0887 Oct, [place] [id number] [place] [address] 55426- 9127 Oct, [place] [id number] [place] [address] 42207- 5484 Oct, [facility] [address] [address] 3732 Sep, [facility] [id number] [place] [address] 72969- 5426 Sep, [facility] [id number] [place] [address] 95514- 3143 Sep, Normal in multigravida Z34.80 ; Currently in second trimester with unknown gestational age Z34.92 ; 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 ; 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 and Psychotic disorder with delusions F29 [facility] [id number] [place] [address] 74602- 8109 Sep, [facility] [id number] [place] [address] 50171- 7878 Sep, [facility] [id number] [place] [address] 22478- 4680 Aug, Anxiety F41.9 and Screening for diabetes mellitus (DM) Z13.1 [facility] [id number] [place] [address] 09076- 4992 July, [facility] [id number] [place] [address] 88676- 3610 July, [facility] [id number] [place] [address] 32191- 9111 May, Psychotic disorder with delusions F29 [facility] [address] [address] 6446 May, [facility] [id number] [place] [address] 23047- 6390 May, [facility] [id number] [place] [address] 82122- 7744 Mar, Psychotic disorder with delusions F29 and 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 [facility] [id number] [place] [address] 72870- 3413 Jan, [facility] [id number] [place] [address] 16051- 5284 Dec, Psychotic disorder with delusions F29 [facility] [id number] [place] [address] 31364 -7186 Dec, Acute seasonal allergic rhinitis, unspecified trigger J30.2 [facility] [address] 20669- 6688 Nov, Psychotic disorder with delusions F29 [facility] [id number] [place] [address] 31090- 0050 Nov, [facility] [address] 72908- 6526 Nov, [facility] [address] 20767- 8911 Nov, [facility] [address] 07482- 6699 Oct, Asthma exacerbation J45.901 [facility] [id number] [place] [address] 89941- 9721 Oct, [facility] [id number] [place] [address] 28733- 2569 Oct, 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 and 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 [facility] [id number] [place] [address] 98262- 0026 Oct, [facility] [id number] [place] [address] 78399- 5494 Oct, Migraine with aura and with status migrainosus, not intractable G43.101 ; Other abnormal cytological finding of specimen from cervix R87.618 ; Screening for diabetes mellitus (DM) Z13.1 ; Screening for lipid disorders Z13.220 and Weight gain R63.5 [facility] [id number] [place] [address] 21733- 9535 Oct, [facility] [address] [address]- 5897 Oct, [facility] [id number] [place] [address] 22886- 9563 Oct, [facility] [id number] [place] [address] 80732- 8356 Sep, Weight gain R63.5 ; Screening for lipid disorders Z13.220 ; Screening for diabetes mellitus (DM) Z13.1 and Scabies exposure Z20.89 [facility] [address] [place] [address] [id number] Sep, Encounter for dental examination and cleaning without abnormal findings Z01.20 [facility] [id number] [place] [address] 19740 -4981 Sep, Abscess L02.91 [place] [id number] [place] [address] 40353- 0748 Jun, [facility] [id number] [place] [address] 93760- 6647 Jun, Routine gynecological examination Z01.419 [place] [id number] [place] [address] 76190- 1781 Jun, Routine gynecological examination Z01.419 ; Encounter for Depo-Provera contraception Z30.42 and Routine screening for STI (sexually transmitted infection) Z11.3 [facility] [address] [place] [address] 08409- 4067 Jun, Anxiety F41.9 [facility] [id number] [place] [address] 81402- 7365 May, [facility] [id number] [place] [address] 36204- 9710 Apr, Psychotic disorder with delusions F29 [facility] [id number] [place] [address] 34485- 3997 Jan, [facility] [id number] [place] [address] 27109- 9958 18 Jan, 2016 Psychotic disorder with delusions F29 [facility] [id number] [place] [address] 19705- 7322 16 Jan, 2016 Encounter for contraceptive management, unspecified contraceptive encounter type Z30.9 ; Anxiety F41.9 ; Simple chronic bronchitis J41.0 and Encounter for Depo-Provera contraception Z30.42 [facility] [id number] [place] [address] 42637- 7855 14 Jun, 2014 [facility] [id number] [place] [address] 89135- 2271 Jun, [facility] [id number] [place] [address] 86340- 1529 Mar, [facility] [id number] [place] [address] 80785- 3094 Jan, [facility] [id number] [place] [address] 79541- 4080 Jan, [facility] [id number] [place] [address] 70369- 6839 Jan, [facility] [id number] [place] [address] 83639- 6194 Jan, [facility] [id number] [place] [address] 96621- 4295 Jan, [facility] [id number] [place] [address] 21993- 9984 Jan, [facility] [id number] [place] [address] 59335- 8763 Jan, [facility] [id number] [place] [address] 85804- 7107 Dec, [facility] [id number] [place] [address] 40334- 8897 Dec, [facility] [id number] [place] [address]- 8789 26 Dec, 2011 [facility] [place] [facility] [address] [id number] [place] [address]- 3650 Dec, 2011 [facility] [place] [facility] [address] [id number] [place] [address]- 1889 23 Dec, 2011 [facility] [place] [facility] [address] [id number] [place] [address]- 7681 18 Dec, 2011 [facility] [place] [facility] [address] [id number] [place] [address]- 6211 18 Dec, 2011 [facility] [place] [facility] [address] [id number] [place] [address]- 1702 18 Dec, 2011 [facility] [place] [facility] [address] [id number] [place] [address]- 4719 18 Dec, 2011 [facility] [place] [facility] [address] [id number] [place] [address]- 4269 18 Dec, 2011 [facility] [place] [facility] [address] [id number] [place] [address]- 5915 18 Dec, 2011 [facility] [place] [facility] [address] [id number] [place] [address]- 1735 15 Dec, 2011 [facility] [place] [facility] [address] [facility] [id number] [place] [address]- 7720 10 Dec, 2011 [facility] [place] [facility] [address] [id number] [place] [address]- 8456 10 Dec, 2011 [facility] [place] [facility] [address] [id number] [address]- 8672 08 Dec, 2011 [facility] [place] [facility] [address] [id number] [place] [address]- 6969 05 Dec, 2011 [facility] [place] [facility] [address] [facility] [id number] [address]- 6882 03 Dec, 2011 [facility] [place] [facility] [address] [id number] [address]- 7315 02 Dec, 2011 [facility] [address] [address]- 2363 18 Nov, 2011 [facility] [address] [address]- 5333 17 Nov, 2011 [facility] [address] [address]- 5280 13 Nov, 2011 [facility] [id number] [place] [address] 94846- 6869 13 Nov, 2011 [facility] [address] [address]- 5049 12 Nov, 2011 [facility] [id number] [place] [address] 71900- 3343 05 Nov, 2011 [facility] [id number] [address]- 2867 Sep, [facility] [id number] [place] [address] 05660- 5903 Aug, [facility] [address] [address]- 2229 Aug, [facility] [address] [address]- 7416 July, [facility] [address] [address]- 3020 July, [facility] [address] [address]- 1397 July, IMMUNIZATIONS No Known Immunizations SOCIAL HISTORY Never Assessed REASON FOR VISIT OB 4wk f/u, urine ob dip-- dylan klein PLAN OF CARE Activity Details Follow Up 4 Weeks Reason: VITAL SIGNS Height 62 in 2017-12-24 Weight 200.0 lbs 2017-12-24 Temperature 98.6 degrees Fahrenheit 2017-12-24 BMI 36.58 kg/m2 2017-12-24 Blood pressure systolic 126 mmHg 2017-12-24 Blood pressure diastolic 80 mmHg 2017-12-24 MEDICATIONS Medication Instructions Dosage Frequency Start Date End Date Duration Status Glucocard Expression Test - In Vitro 4 times a day as directed 6h Nov, Active HydrOXYzine HCl 50 mg Orally Once a day, voucher 1st fill only 1 tablet as needed at HS Not-Taking Glucocard Expression Monitor w/Device as directed Nov, Active Metformin HCl 500 mg Orally twice a day 1 tablet with a meal 12h Not-Taking Flonase 50 MCG/ACT Nasally Once a day 1 spray in each nostril 24h Dec, 30 day(s) Not-Taking Risperdal 1 MG Orally Once a day 1/2 tablet twice daily x2 weeks then 1 tablet twice daily 24h Active Latuda 40 mg Orally Once a day 1 tablet daily for two weeks and then 1/2 tab daily x2 weeks then stop 24h Sep, Active BuPROPion HCl ER (XL) 300 MG Orally Once a day, voucher 1st fill. 1 tablet in the morning Nov, 90 days Not-Taking Benztropine Mesylate 2 MG Orally at bed time, voucher 1st fill only 1 tablet Not-Taking Propranolol HCl 20 mg Orally Once a day 1 tablet 24h Oct, Not-Taking Haloperidol 10 mg Orally Once a day, voucher 1st fill. 2 tablets Nov, 30 day(s) Not-Taking Zyrtec Allergy 10 mg Orally Once a day 1 tablet 24h Oct, 30 day (s) Active BusPIRone HCl 15 mg Orally Twice a day 1 tablet 12h Aug, Active Vol-Care Rx 1 MG Orally Once a day 1 tablet 24h Oct, 30 day(s) Active Vitamins Plus by oral route Once a day 1 tablet 24h 14 Oct, 2017 Not-Taking RESULTS Name Result Date Reference Range UA OB DIP (IN HOUSE) 2017-12-24 Glucose neg Protein trace PROCEDURES Procedure Date Ordered Result Body Site URINE-NO MICRO Dec 24, 2017 INSTRUCTIONS MEDICATIONS ADMINISTERED No Known Medications MEDICAL (GENERAL) HISTORY Type Description Date Medical History schizoaffective disorder Medical History bi-polar disorder Medical History depression Medical History anxiety Medical History pre diabetes Medical History COPD Surgical History x 2 Hospitalization History Staph infection in arm
--- OUTSIDE RECORDS SUMMARY | 2018-04-11 16:34 | XMS REPORT ---
Author Author DONOVAN JACKSON Organization [facility] Address [address] [place] [address] Care Team Providers Care Back Tender Pulp Drier Name Role Phone DONOVAN JACKSON Unavailable PROBLEMS Type Condition ICD9-CM Code WPA49-YS Code Onset Dates Condition Status SNOMED Code Problem Simple chronic bronchitis J41.0 Active 02652829 Problem Anxiety F41.9 Active 29176778 Problem Acute seasonal allergic rhinitis, unspecified trigger J30.2 Active 603734216 Problem Asthma exacerbation J45.901 Active 353261911 Problem Migraine with aura and with status migrainosus, not intractable G43.101 Active 6709352 Problem Psychotic disorder with delusions F29 Active 71996261 Problem 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 [id number] [place] [address] 04545- 2379 Dec, [facility] [id number] [place] [address] 06231- 0830 Dec, [facility] [id number] [place] [address] 48207- 7323 Nov, care in second trimester Z34.92 [facility] [id number] [place] [address] 84975- 0939 Nov, Normal in multigravida Z34.80 [facility] [id number] [place] [address] 36314- 5783 Nov, [facility] [address] [address] 2419 Nov, [facility] [id number] [place] [address] 66758- 2647 Oct, care in second trimester Z34.92 ; Anxiety F41.9 and Psychotic disorder with delusions F29 [facility] [id number] [address]- 7577 Oct, Normal in multigravida Z34.80 ; care in second trimester Z34.92 ; Gonorrhea affecting , antepartum O98.219 and 18 weeks gestation of Z3A.18 [place] [id number] [place] [address] 54258- 7689 Oct, Encounter for dental examination and cleaning without abnormal findings Z01.20 and Caries K02.9 [facility] [id number] [place] [address] 09125- 8726 Oct, [facility] [id number] [place] [address] 80762- 6907 Oct, [facility] [id number] [place] [address] 50529- 7892 Oct, [facility] [id number] [place] [address] 53647- 8890 Sep, [facility] [address] [address]- 8302 Sep, 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 [address] [address]- 2131 Sep, [facility] [id number] [place] [address] 10162- 7177 Sep, [facility] [id number] [place] [address] 78058- 8036 Aug, Anxiety F41.9 and Screening for diabetes mellitus (DM) Z13.1 [facility] [id number] [place] [address] 31883- 2254 July, [facility] [id number] [place] [address] 80933- 3149 July, [facility] [id number] [place] [address] 26757- 2496 May, Psychotic disorder with delusions F29 [facility] [id number] [place] [address] 73696- 7675 May, [facility] [id number] [place] [address] 89553- 3798 May, 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 [id number] [place] [address] 07194- 7696 Jan, [facility] [id number] [place] [address] 35285- 0543 Dec, Psychotic disorder with delusions F29 [facility] [id number] [place] [address] 95040 -4912 Dec, Acute seasonal allergic rhinitis, unspecified trigger J30.2 [facility] [id number] [place] [address] 30670- 5286 Nov, Psychotic disorder with delusions F29 [facility] [id number] [place] [address] 49014- 5015 14 Nov, 2016 [facility] [id number] [place] [address] 93848- 5422 11 Nov, 2016 [facility] [id number] [place] [address]- 1679 Nov, [facility] [id number] [place] [address] 74285- 6737 Oct, Asthma exacerbation J45.901 [facility] [id number] [place] [address] 63521- 4254 Oct, 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 [address] 96881- 0727 Oct, [place] [address] 83198- 1720 Oct, Migraine with aura and with status migrainosus, not intractable G43.101 ; Other abnormal cytological finding of specimen from cervix R87.618 ; Screening for diabetes mellitus (DM) Z13.1 ; Screening for lipid disorders Z13.220 and Weight gain R63.5 [facility] [id number] [place] [address] 47421- 8911 Oct, [facility] [id number] [place] [address] 07583- 4094 Oct, [facility] [id number] [place] [address] 90251- 6211 Oct, [facility] [id number] [place] [address] 57956- 4698 Sep, Weight gain R63.5 ; Screening for lipid disorders Z13.220 ; Screening for diabetes mellitus (DM) Z13.1 and Scabies exposure Z20.89 [facility] [id number] [place] [address] [id number] Sep, Encounter for dental examination and cleaning without abnormal findings Z01.20 [facility] [id number] [place] [address] 23706 -6374 Sep, Abscess L02.91 [facility] [address] [address]- 8806 Jun, [facility] [address] [address]- 2303 Jun, Routine gynecological examination Z01.419 [facility] [address] [address]- 2907 Jun, Routine gynecological examination Z01.419 ; Encounter for Depo-Provera contraception Z30.42 and Routine screening for STI (sexually transmitted infection) Z11.3 [facility] [address] [address]- 9510 Jun, Anxiety F41.9 [facility] [id number] [place] [address] 39188- 8836 May, [facility] [id number] [place] [address] 67590- 9530 Apr, Psychotic disorder with delusions F29 [facility] [id number] [place] [address] 16333- 1029 Jan, [facility] [id number] [place] [address] 57471- 7791 Jan, Psychotic disorder with delusions F29 [facility] [address] [address]- 7515 Jan, Encounter for contraceptive management, unspecified contraceptive encounter type Z30.9 ; Anxiety F41.9 ; Simple chronic bronchitis J41.0 and Encounter for Depo-Provera contraception Z30.42 [facility] [address] [address]- 1432 Jun, [facility] [id number] [place] [address] 06608- 5323 Jun, [facility] [address] [address]- 8783 Mar, [facility] [address] [place] [address]- 8514 Jan, [facility] [place] [facility] [address] [id number] [place] [address]- 8352 Jan, [facility] [place] [facility] [address] [id number] [place] [address]- 7356 Jan, [facility] [place] [facility] [address] [id number] [place] [address]- 4112 Jan, [facility] [place] [facility] [address] [id number] [place] [address]- 3868 Jan, [facility] [place] [facility] [address] [facility] [id number] [place] [address], [place]- 6287 Jan, [facility] [place] [facility] [address] [facility] [id number] [place] [address]- 7268 Jan, [facility] [place] [facility] [address] [facility] [id number] [place] [address]- 1653 Dec, [facility] [place] [facility] [address] [facility] [id number] [place] [address]- 5879 Dec, [facility] [place] [facility] [address] [facility] [id number] [place] [address]- 5816 Dec, [facility] [place] [facility] [address] [facility] [id number] [place] [address]- 4783 Dec, [facility] [place] [facility] [address] [facility] [id number] [place] [address]- 6483 Dec, [facility] [place] [facility] [address] [facility] [id number] [address]- 0595 Dec, [facility] [place] [facility] [address] [facility] [id number] [place] [address]- 3600 Dec, [facility] [place] [facility] [address] [facility] [id number] [place] [address]- 4005 Dec, [facility] [place] [facility] [address] [facility] [id number] [place] [address]- 7270 Dec, [facility] [place] [facility] [address] [id number] [place] [address]- 7013 18 Dec, 2011 [facility] [place] [facility] [address] [id number] [place] [address]- 2877 18 Dec, 2011 [facility] [place] [facility] [address] [id number] [place] [address]- 3489 15 Dec, 2011 [facility] [place] [facility] [address] [id number] [place] [address]- 4261 10 Dec, 2011 [facility] [place] [facility] [address] [id number] [place] [address]- 1232 10 Dec, 2011 [facility] [place] [facility] [address] [id number] [place] [address]- 2711 08 Dec, 2011 [facility] [place] [facility] [address] [facility] [id number] [place] [address]- 2352 05 Dec, 2011 [facility] [place] [facility] [address] [id number] [place] [address]- 8188 03 Dec, 2011 [facility] [place] [facility] [address] [id number] [place] [address]- 8384 02 Dec, 2011 [facility] [place] [facility] [address] [facility] [id number] [place] [address]- 7501 18 Nov, 2011 [facility] [place] [facility] [address] [facility] [id number] [place] [address]- 1832 17 Sep, 2011 [facility] [place] [facility] [address] [id number] [place] [address]- 1616 13 Sep, 2011 [facility] [place] [facility] [address] [id number] [place] [address]- 8420 13 Sep, 2011 [facility] [place] [facility] [address] [id number] [place] [address]- 9151 12 Sep, 2011 [facility] [place] [facility] [address] [facility] [id number] [place] [address]- 1423 05 Sep, 2011 [facility] [place] [facility] [address] [id number] [place] [address]- 2546 Sep, [facility] [address] [facility] [id number] [place] [address] 2546 Aug, [facility] [address] [facility] [id number] [place] [address] 2546 Aug, [facility] [address] [facility] [id number] [place] [address] 2546 July, [facility] [address] [facility] [id number] [place] [address] 2546 July, [facility] [address] [facility] [id number] [place] [address]- 1746 July, IMMUNIZATIONS No Known Immunizations SOCIAL HISTORY Never Assessed REASON FOR VISIT OB-intake -- dylan klein PLAN OF CARE Activity Details Follow Up 2 Weeks Reason: Pending Test URINE DRUG SCREEN (IN HOUSE) VITAL SIGNS Height 62 in 2017-10-21 Weight 184.6 lbs 2017-10-21 Temperature 98.0 degrees Fahrenheit 2017-10-21 Heart Rate 78 bpm 2017-10-21 Respiratory Rate 20 2017-10-21 BMI 33.764 kg/m2 2017-10-21 Blood pressure systolic 127 mmHg 2017-10-21 Blood pressure diastolic 78 mmHg 2017-10-21 MEDICATIONS Medication Instructions Dosage Frequency Start Date End Date Duration Status Benztropine Mesylate 2 MG Orally at bed time, voucher 1st fill only 1 tablet Not-Taking BuPROPion HCl ER (XL) 300 MG Orally Once a day, voucher 1st fill. 1 tablet in the morning Nov, 90 days Not-Taking Flonase 50 MCG/ACT Nasally Once a day 1 spray in each nostril 24h Dec, 30 day(s) Not-Taking Singulair 10 MG Orally Once a day 1 tablet in the evening 24h 30 days Not-Taking HydrOXYzine HCl 50 mg Orally Once a day, voucher 1st fill only 1 tablet as needed at HS Not-Taking Metformin HCl 500 mg Orally twice a day 1 tablet with a meal 12h Not-Taking Haloperidol 10 mg Orally Once a day, voucher 1st fill. 2 tablets Nov, 30 day(s) Active Latuda 60 mg Orally Once a day 0.5 tablet with food 24h Sep, 30 day(s) Active BusPIRone HCl 15 mg Orally Twice a day 1 tablet 12h 13 Aug, 2017 Not -Taking Propranolol HCl 20 mg Orally Once a day 1 tablet 24h 23 Oct, 2016 Not-Taking RESULTS No Results PROCEDURES Procedure Date Ordered Result Body Site No Charge October 21, 2017 TRICHOMONAS ASSAY W/OPTIC October 21, 2017 SPECIMEN HANDLING October 21, 2017 CULTURE, BACTERIA, OTHER October 21, 2017 VENIPUNCT, ROUTINE* October 21, 2017 INSTRUCTIONS MEDICATIONS ADMINISTERED No Known Medications MEDICAL (GENERAL) HISTORY Type Description Date Medical History schizoaffective disorder Medical History bi-polar disorder Medical History depression Medical History anxiety Medical History pre diabetes Medical History COPD Surgical History x 2 Hospitalization History Staph infection in arm
--- OUTSIDE RECORDS SUMMARY | 2018-04-11 16:34 | XMS REPORT ---
Author Author DONOVAN JACKSON Organization [facility] Address [address] [place] [address] Care Team Providers Care Operations Superintendent Name Role Phone DONOVAN JACKSON Unavailable PROBLEMS Type Condition ICD9-CM Code [id number] Code Onset Dates Condition Status SNOMED Code Problem Simple chronic bronchitis J41.0 Active 53196496 Problem Anxiety F41.9 Active 64390685 Problem Acute seasonal allergic rhinitis, unspecified trigger J30.2 Active 801689939 Problem Asthma exacerbation J45.901 Active 650673880 Problem Migraine with aura and with status migrainosus, not intractable G43.101 Active 0770574 Problem Psychotic disorder with delusions F29 Active 65594465 Problem 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 953972740 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 274523581 ALLERGIES No Information ENCOUNTERS Encounter Location Date Diagnosis [place] [id number] [address] Jan, [facility] [address] [address]- [address] Dec, [facility] [address] [place] [id number] [place] [address] 64104- 4949 Dec, [facility] [address] [place] [id number] [place] [address] 01453- 8893 Nov, care in second trimester Z34.92 [facility] [address] [place] [id number] [place] [address] 62170- 2090 Nov, Normal in multigravida Z34.80 [facility] [address] [place] [id number] [place] [address] 21409- 0548 Nov, [facility] [address] [address]57- 8403 Nov, [facility] [id number] [place] [address] 82083- 8300 Oct, care in second trimester Z34.92 ; Anxiety F41.9 and Psychotic disorder with delusions F29 [facility] [address] [place] [address] 88431- 5603 Oct, Normal in multigravida Z34.80 ; care in second trimester Z34.92 ; Gonorrhea affecting , antepartum O98.219 and 18 weeks gestation of Z3A.18 [facility] [address] [place] [id number] [place] [address] 35461- 3752 Oct, Encounter for dental examination and cleaning without abnormal findings Z01.20 and Caries K02.9 [facility] [address] [place] [id number] [place] [address] 17552- 6991 Oct, [facility] [address] [place] [id number] [place] [address] 61719- 8185 Oct, [facility] [address] [place] [id number] [place] [address] 03557- 5630 Oct, [facility] [address] [place] [id number] [place] [address] 39221- 1897 Sep, [facility] [address] [place] [id number] [place] [address] 12472- 0560 Sep, [facility] [address] [place] [id number] [place] [address] 36162- 2745 Sep, Normal in multigravida Z34.80 ; Currently in second trimester with unknown gestational age Z34.92 ; 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 ; 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 and Psychotic disorder with delusions F29 [facility] [address] [place] [address] 96049- 5107 Sep, [facility] [address] [place] [id number] [place] [address] 56654- 1663 Sep, [facility] [address] [place] [id number] [place] [address] 97281- 4773 Aug, Anxiety F41.9 and Screening for diabetes mellitus (DM) Z13.1 [facility] [address] [place] [id number] [place] [address] 07917- 7460 July, [facility] [address] [place] [id number] [place] [address] 26661- 6781 July, [facility] [address] [place] [id number] [place] [address] 60522- 1220 May, Psychotic disorder with delusions F29 [facility] [address] [place] [id number] [place] [address] 31164- 7279 May, [facility] [address] [place] [id number] [place] [address] 74334- 1065 May, [facility] [address] [place] [id number] [place] [address] 32366- 4188 Mar, Psychotic disorder with delusions F29 and 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 [facility] [address] [place] [id number] [place] [address] 96163- 2482 Jan, [facility] [address] [place] [id number] [place] [address] 29508- 9175 Dec, Psychotic disorder with delusions F29 [facility] [address] [place] [address] [id number] [place] [address] 69176 -0616 Dec, Acute seasonal allergic rhinitis, unspecified trigger J30.2 [facility] [address] [place] [id number] [place] [address] 93278- 7596 Nov, Psychotic disorder with delusions F29 [facility] [address] [place] [id number] [place] [address] 96014- 1705 14 Nov, 2016 [facility] [address] [place] [id number] [place] [address] 32122- 8381 11 Nov, 2016 [facility] [address] [place] [id number] [place] [address] 61870- 2536 Nov, [facility] [address] [place] [id number] [place] [address] 06043- 5832 Oct, Asthma exacerbation J45.901 [place] [address] 16593- 3023 Oct, [place] [address] 52928- 2129 Oct, 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 and 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 [place] [address] 90332- 9940 Oct, [place] [address] 90020- 6377 Oct, Migraine with aura and with status migrainosus, not intractable G43.101 ; Other abnormal cytological finding of specimen from cervix R87.618 ; Screening for diabetes mellitus (DM) Z13.1 ; Screening for lipid disorders Z13.220 and Weight gain R63.5 [place] [address] [place] [id number] [place] [address] 98709- 4648 Oct, [place] [address] 48353- 9583 Oct, [place] [address] [place] [id number] [place] [address] 62764- 0125 Oct, [place] [address] [place] [id number] [place] [address] 13321- 5252 Sep, Weight gain R63.5 ; Screening for lipid disorders Z13.220 ; Screening for diabetes mellitus (DM) Z13.1 and Scabies exposure Z20.89 [facility] [address] [id number] Sep, Encounter for dental examination and cleaning without abnormal findings Z01.20 [facility] [address] [place] [id number] [place] [address] 37808 -9137 Sep, Abscess L02.91 [place] [address] [place] [address] Jun, [facility] [address] [place] [address] 73281- 3942 Jun, Routine gynecological examination Z01.419 [facility] [address] [address]- 5391 Jun, Routine gynecological examination Z01.419 ; Encounter for Depo-Provera contraception Z30.42 and Routine screening for STI (sexually transmitted infection) Z11.3 [facility] [address] [address]- 1621 Jun, Anxiety F41.9 [facility] [address] [place] [id number] [place] [address] 88825- 7963 May, [facility] [address] [place] [id number] [place] [address] 37662- 1433 Apr, Psychotic disorder with delusions F29 [facility] [id number] [place] [address] 94272- 1276 Jan, [facility] [address] [place] [id number] [place] [address] 75372- 8172 Jan, Psychotic disorder with delusions F29 [facility] [address] [place] [address] 46823- 4663 Jan, Encounter for contraceptive management, unspecified contraceptive encounter type Z30.9 ; Anxiety F41.9 ; Simple chronic bronchitis J41.0 and Encounter for Depo-Provera contraception Z30.42 [facility] [address] [address]- 1615 Jun, [facility] [address] [place] [id number] [place] [address] 93179- 6897 Jun, [facility] [address] [address]- 1820 Mar, [facility] [address] [place] [id number] [place] [address] 42431- 0905 Jan, [facility] [place] [facility] [address] [id number] [place] [address]- 1863 Jan, [facility] [place] [facility] [address] [id number] [place] [address]- 9434 Jan, [facility] [place] [facility] [address] [id number] [place] [address]- 9381 Jan, [facility] [place] [facility] [address] [id number] [place] [address]- 5577 Jan, [facility] [place] [facility] [address] [id number] [place] [address]- 8577 Jan, [facility] [place] [facility] [address] [id number] [place] [address]- 7998 Jan, [facility] [place] [facility] [address] [facility] [id number] [place] [address]- 9874 Dec, [facility] [place] [facility] [address] [id number], [place] [address]- 2949 Dec, [facility] [place] [facility] [address] [id number], [place] [address]- 7005 Dec, [facility] [place] [facility] [address] [facility] [id number], [place] [address]- 5342 Dec, [facility] [place] [facility] [address] [id number], [place] [address]- 2369 Dec, [facility] [place] [facility] [address] [id number], [place] [address]- 3631 Dec, [facility] [place] [facility] [address] [id number], [place] [address]- 5171 Dec, [facility] [place] [facility] [address] [id number], [place] [address]- 4699 Dec, [facility] [place] [facility] [address] [facility] [id number], [place] [address]- 6335 Dec, [facility] [place] [facility] [address] [id number] [place] [address]- 2995 18 Dec, 2011 [facility] [place] [facility] [address] [id number] [place] [address]- 9307 18 Dec, 2011 [facility] [place] [facility] [address] [id number] [place] [address]- 8886 15 Dec, 2011 [facility] [place] [facility] [address] [id number] [place] [address]- 9826 10 Dec, 2011 [facility] [place] [facility] [address] [id number] [place] [address]- 3316 10 Dec, 2011 [facility] [place] [facility] [address] [id number] [place] [address]- 4694 08 Dec, 2011 [facility] [place] [facility] [address] [id number] [place] [address]- 1202 05 Dec, 2011 [facility] [place] [facility] [address] [id number] [place] [address]- 3007 03 Dec, 2011 [facility] [place] [facility] [address] [id number] [place] [address]- 0900 02 Dec, 2011 [facility] [place] [facility] [address] [id number] [place] [address]- 3640 18 Nov, 2011 [facility] [place] [facility] [address] [id number] [place] [address]- 9957 17 Sep, 2011 [facility] [place] [facility] [address] [id number] [place] [address]- 6506 13 Nov, 2011 [facility] [place] [facility] [address] [id number] [place] [address]- 2546 13 Nov, 2011 [facility] [place] [facility] [address] [id number] [place] [address]- 0066 12 Nov, 2011 [facility] [place] [facility] [address] [id number] [place] [address]- 9456 05 Nov, 2011 [facility] [place] [facility] [address] [id number], [place] [address]- 0297 13 Sep, 2011 [facility] [address] [facility] [id number][place] 3691 Aug, [facility] [address] [facility] [id number], [place] [address]- 1193 Aug, [facility] [address] [facility] [id number], [place] [address]- 9774 July, [facility] [address] [place] [id number] [address]- 0815 July, [facility] [address] [facility] [id number], [place] [address]- 2500 July, IMMUNIZATIONS No Known Immunizations SOCIAL HISTORY Never Assessed REASON FOR VISIT Patient Call PLAN OF CARE VITAL SIGNS MEDICATIONS Unknown [...]
--- OUTSIDE RECORDS SUMMARY | 2018-04-11 16:34 | XMS REPORT ---
Author Author DONOVAN JACKSON Organization [facility] Address [address] [place] [address] Care Team Providers Care Manager Architecture Name Role Phone DONOVAN JACKSON Unavailable PROBLEMS Type Condition ICD9-CM Code YSA25-LZ Code Onset Dates Condition Status SNOMED Code Problem Simple chronic bronchitis J41.0 Active 07231146 Problem Anxiety F41.9 Active 51212676 Problem Acute seasonal allergic rhinitis, unspecified trigger J30.2 Active 906773686 Problem Asthma exacerbation J45.901 Active 377810924 Problem Migraine with aura and with status migrainosus, not intractable G43.101 Active 2184478 Problem Psychotic disorder with delusions F29 Active 67754824 Problem 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 767302721 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 [id number] ALLERGIES No Information ENCOUNTERS Encounter Location Date Diagnosis [facility] [address] [address] Jan, [facility] [address] [address] Dec, [place] [id number] [place] [address] 18607- 1436 Dec, [facility] [id number] [place] [address] 34795- 6034 Dec, Normal in multigravida Z34.80 ; Right hip pain M25.551 ; 26 weeks gestation of Z3A.26 ; Psychotic disorder with delusions F29 and Gestational diabetes mellitus (GDM) in second trimester controlled on oral hypoglycemic drug O24.415 [facility] [id number] [place] [address] 89136- 7616 Dec, [facility] [address] [address] Nov, care in second trimester Z34.92 [facility] [address] [address] Nov, Normal in multigravida Z34.80 [facility] [address] [address] Nov, [facility] [id number] [place] [address] 15231- 4519 Nov, [facility] [address] [address] Oct, care in second trimester Z34.92 ; Anxiety F41.9 and Psychotic disorder with delusions F29 [facility] [address], [place] [address] Oct, Normal in multigravida Z34.80 ; care in second trimester Z34.92 ; Gonorrhea affecting , antepartum O98.219 and 18 weeks gestation of Z3A.18 [facility] [address] [address] Oct, Encounter for dental examination and cleaning without abnormal findings Z01.20 and Caries K02.9 [facility] [address] [address] Oct, [facility] [address] [address] 52[address] Oct, [facility] [address] [address] 8[address] Oct, [facility] [id number] [address] Sep, [facility] [address] [address] 7969 Sep, [facility] [address], [place] [address] 2288 Sep, Normal in multigravida Z34.80 ; Currently in second trimester with unknown gestational age Z34.92 ; 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 ; 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 and Psychotic disorder with delusions F29 [facility] [id number] [place] [address] 30321- 0858 Sep, [facility] [id number] [place] [address] 07654- 5537 Sep, [facility] [id number] [place] [address] 18450- 9672 Aug, Anxiety F41.9 and Screening for diabetes mellitus (DM) Z13.1 [facility] [id number] [place] [address] 07230- 0788 July, [facility] [id number] [place] [address] 29186- 8084 July, [facility] [id number] [place] [address] 15243- 1330 May, Psychotic disorder with delusions F29 [facility] [id number] [place] [address] 39312- 0505 May, [facility] [id number] [place] [address] 27210- 0715 May, [facility] [id number] [place] [address] 47754- 1657 Mar, Psychotic disorder with delusions F29 and 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 [facility] [id number] [place] [address] 15226- 0472 Jan, [facility] [id number] [place] [address] 35677- 2145 Dec, Psychotic disorder with delusions F29 [facility] [address] [place] [address] 56674 -2551 Dec, Acute seasonal allergic rhinitis, unspecified trigger J30.2 [facility] [id number] [address] 58[address] Nov, Psychotic disorder with delusions F29 [facility] [id number] [place] [address] 88449- 6405 14 Nov, 2016 [facility] [address] [place] [address] 63532- 8010 Nov, [facility] [id number] [place] [address] 68747- 5017 Nov, [facility] [id number] [place] [address] 77990- 4940 Oct, Asthma exacerbation J45.901 [facility] [id number] [place] [address] 68379- 2929 Oct, [facility] [id number] [place] [address] 61203- 8830 Oct, 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 and 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 [facility] [id number] [place] [address] 03797- 3448 Oct, [place] [id number] [place] [address] 92937- 6045 Oct, Migraine with aura and with status migrainosus, not intractable G43.101 ; Other abnormal cytological finding of specimen from cervix R87.618 ; Screening for diabetes mellitus (DM) Z13.1 ; Screening for lipid disorders Z13.220 and Weight gain R63.5 [facility] [address], [place] [address]- 4992 Oct, [facility] [id number] [place] [address] 52298- 7306 Oct, [facility] [address] [place] [address] 98369- 8750 Oct, [facility] [address] [place] [address] 52918- 7146 Sep, Weight gain R63.5 ; Screening for lipid disorders Z13.220 ; Screening for diabetes mellitus (DM) Z13.1 and Scabies exposure Z20.89 [facility] [address] [place] [address] [id number] Sep, Encounter for dental examination and cleaning without abnormal findings Z01.20 [facility] [id number] [place] [address] 02783 -7815 Sep, Abscess L02.91 [facility] [id number] [place] [address] 10510- 7345 Jun, [facility] [id number] [place] [address] 65933- 1340 Jun, Routine gynecological examination Z01.419 [facility] [id number] [place] [address] 57686- 2794 Jun, Routine gynecological examination Z01.419 ; Encounter for Depo-Provera contraception Z30.42 and Routine screening for STI (sexually transmitted infection) Z11.3 [facility] [id number] [place] [address] 64769- 1854 Jun, Anxiety F41.9 [facility] [id number] [place] [address] 08136- 0665 May, [facility] [id number] [place] [address] 69999- 5920 Apr, Psychotic disorder with delusions F29 [facility] [id number] [place] [address] 16935- 8180 Jan, [facility] [id number] [place] [address] 44573- 0332 Jan, Psychotic disorder with delusions F29 [facility] [id number] [place] [address] 92523- 4093 Jan, Encounter for contraceptive management, unspecified contraceptive encounter type Z30.9 ; Anxiety F41.9 ; Simple chronic bronchitis J41.0 and Encounter for Depo-Provera contraception Z30.42 [facility] [place] [facility] [address] [id number] [place] [address]- 0440 14 Jun, 2014 [facility] [place] [facility] [address] [id number] [place] [address]- 2811 Jun, [facility] [place] [facility] [address] [id number] [place] [address]- 1505 Mar, [facility] [place] [facility] [id number] [place] [address], [place] [address]- 8224 Jan, [facility] [place] [facility] [address] [id number] [place] [address]- 5785 Jan, [facility] [place] [facility] [id number] [place] [address], [place] [address]- 9062 Jan, [facility] [place] [facility] [address] [facility] [id number] [place] [address]- 8433 Jan, [facility] [place] [facility] [id number] [place] [address], [place] [address]- 6184 Jan, [facility] [place] [facility] [address] [id number] [place] [address]- 0298 Jan, [facility] [place] [facility] [address] [facility] [id number] [place] [address]- 2436 Jan, [facility] [place] [facility] [address] [facility] [id number] [place] [address]- 9315 Dec, [facility] [place] [facility] [address] [id number], [place] [address]- 8025 Dec, [facility] [place] [facility] [address] [id number] [place] [address]- 4068 Dec, [facility] [place] [facility] [address] [id number] [place] [address]- 7907 Dec, [facility] [place] [facility] [address] [id number] [place] [address]- 4339 Dec, [facility] [place] [facility] [address] [id number] [place] [address]- 2546 18 Dec, 2011 [facility] [place] [facility] [address] [id number] [place]- 5174 18 Dec, 2011 [facility] [place] [facility] [address] [id number] [place] [address]- 2372 18 Dec, 2011 [facility] [place] [facility] [address] [id number] [place] [address]- 6467 18 Dec, 2011 [facility] [place] [facility] [address] [id number] [place] [address]- 2457 18 Dec, 2011 [facility] [place] [facility] [address] [id number] [place]- 3438 18 Dec, 2011 [facility] [place] [facility] [address] [id number] [place]- 0922 15 Dec, 2011 [facility] [place] [facility] [address] [id number] [place] [address]- 0514 10 Dec, 2011 [facility] [place] [facility] [address] [id number] [place] [address]- 7170 10 Dec, 2011 [facility] [place] [facility] [address] [id number] [place] [address]- 1069 08 Dec, 2011 [facility] [place] [facility] [address] [id number] [place] [address]- 8183 05 Dec, 2011 [facility] [place] [facility] [address] [id number], [place] [address]- 7642 03 Dec, 2011 [facility] [place] [facility] [address] [id number], [place] [address]- 7527 02 Dec, 2011 [facility] [place] [facility] [address] [id number] [place] [address]- 6756 18 Sep, 2011 [facility] [place] [facility] [address] [id number] [place] [address]- 8636 17 Sep, 2011 [facility] [place] [facility] [address] [id number] [place] [address]- 9187 13 Sep, 2011 [facility] [place] [facility] [id number] [address] 2546 13 Nov, 2011 [facility] [id number] [address]- 9805 Nov, [facility] [address], [place] [address]- 1356 Nov, [facility] [address], [place] [address]- 8143 Sep, [facility] [address], [place] [address]- 6904 Aug, [facility] [id number] [place] [address] 62323- 7373 Aug, [facility] [address], [place] [address]- 2642 July, [facility] [address], [place] [address]- 8815 July, [facility] [id number] [address]- 5663 July, IMMUNIZATIONS No Known Immunizations SOCIAL HISTORY Never Assessed REASON FOR VISIT OBGYN Referral PLAN OF CARE VITAL SIGNS MEDICATIONS Unknown [...]
--- OUTSIDE RECORDS SUMMARY | 2018-04-11 16:34 | XMS REPORT ---
Author Author DONOVAN JACKSON Organization [facility] Address [address] [place] [address] Care Team Providers Care Travel Director Name Role Phone DONOVAN JACKSON Unavailable PROBLEMS Type Condition ICD9-CM Code CDH81-VX Code Onset Dates Condition Status SNOMED Code Problem Simple chronic bronchitis J41.0 Active 32447622 Problem Anxiety F41.9 Active 94302289 Problem Acute seasonal allergic rhinitis, unspecified trigger J30.2 Active 643575703 Problem Asthma exacerbation J45.901 Active 167577787 Problem Migraine with aura and with status migrainosus, not intractable G43.101 Active 0027967 Problem Psychotic disorder with delusions F29 Active 22297464 Problem 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 305351052 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 563238930 ALLERGIES No Information ENCOUNTERS Encounter Location Date Diagnosis [facility] [address] [address] Jan, [facility] [address] [address]- [address] Dec, [facility] [id number] [place] [address] 32668- 9346 Dec, [facility] [id number] [place] [address] 99055- 1607 Dec, Normal in multigravida Z34.80 ; Right hip pain M25.551 ; 26 weeks gestation of Z3A.26 ; Psychotic disorder with delusions F29 and Gestational diabetes mellitus (GDM) in second trimester controlled on oral hypoglycemic drug O24.415 [facility] [id number] [place] [address] 54217- 5577 Dec, [facility] [address] [address]- [address] Nov, care in second trimester Z34.92 [facility] [address] [address] Nov, Normal in multigravida Z34.80 [facility] [address] [address] Nov, [facility] [id number] [place] [address] 67104- 6607 Nov, [facility] [address], [place] [address] Oct, care in second trimester Z34.92 ; Anxiety F41.9 and Psychotic disorder with delusions F29 [facility] [address] [address] Oct, Normal in multigravida Z34.80 ; care in second trimester Z34.92 ; Gonorrhea affecting , antepartum O98.219 and 18 weeks gestation of Z3A.18 [facility] [address] [address] Oct, Encounter for dental examination and cleaning without abnormal findings Z01.20 and Caries K02.9 [facility] [address] [address] Oct, [facility] [address] [address] Oct, [facility] [address] [address] Oct, [facility] [id number] [address] Sep, [facility] [address], [place] [address] Sep, [facility] [address] [address] 39[address] Sep, Normal in multigravida Z34.80 ; Currently in second trimester with unknown gestational age Z34.92 ; 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 ; 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 and Psychotic disorder with delusions F29 [facility] [id number] [place] [address] 69900- 0000 Sep, [facility] [id number] [place] [address] 29071- 1992 Sep, [facility] [id number] [place] [address] 03068- 4857 Aug, Anxiety F41.9 and Screening for diabetes mellitus (DM) Z13.1 [facility] [id number] [place] [address] 96166- 3410 July, [facility] [id number] [place] [address] 52625- 1739 July, [facility] [id number] [place] [address] 27573- 5769 May, Psychotic disorder with delusions F29 [facility] [id number] [place] [address] 07244- 0904 May, [facility] [id number] [place] [address] 54436- 6907 May, [facility] [id number] [place] [address] 85522- 0045 Mar, Psychotic disorder with delusions F29 and 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 [facility] [id number] [place] [address] 11998- 2333 Jan, [facility] [id number] [place] [address] 22132- 7710 Dec, Psychotic disorder with delusions F29 [facility] [id number] [place] [address] 85093 -6301 Dec, Acute seasonal allergic rhinitis, unspecified trigger J30.2 [facility] [id number] [address] Nov, Psychotic disorder with delusions F29 [facility] [id number] [place] [address] 18005- 5139 14 Nov, 2016 [facility] [id number] [place] [address] 19762- 8043 Nov, [facility] [id number] [place] [address] 29668- 0799 Nov, [facility] [id number] [place] [address] 46759- 2529 Oct, Asthma exacerbation J45.901 [facility] [id number] [place] [address] 56040- 9301 Oct, [facility] [id number] [place] [address] 74110- 2919 Oct, 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 and 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 [facility] [id number] [place] [address] 58284- 7919 Oct, [facility] [id number] [place] [address] 38357- 9801 Oct, Migraine with aura and with status migrainosus, not intractable G43.101 ; Other abnormal cytological finding of specimen from cervix R87.618 ; Screening for diabetes mellitus (DM) Z13.1 ; Screening for lipid disorders Z13.220 and Weight gain R63.5 [facility] [address] [address]- 4111 Oct, [facility] [id number] [place] [address] 39154- 3300 Oct, [facility] [id number] [place] [address] 85466- 3443 Oct, [facility] [id number] [place] [address] 13662- 0100 Sep, Weight gain R63.5 ; Screening for lipid disorders Z13.220 ; Screening for diabetes mellitus (DM) Z13.1 and Scabies exposure Z20.89 [facility] [id number] [place] [address] [id number] Sep, Encounter for dental examination and cleaning without abnormal findings Z01.20 [facility] [id number] [place] [address] 16204 -8299 Sep, Abscess L02.91 [facility] [id number] [place] [address] 28322- 5690 Jun, [facility] [id number] [place] [address] 67015- 7554 Jun, Routine gynecological examination Z01.419 [facility] [id number] [place] [address] 45823- 0794 Jun, Routine gynecological examination Z01.419 ; Encounter for Depo-Provera contraception Z30.42 and Routine screening for STI (sexually transmitted infection) Z11.3 [facility] [id number] [place] [address] 84588- 4563 Jun, Anxiety F41.9 [facility] [id number] [place] [address] 63391- 2315 May, [facility] [id number] [place] [address] 42825- 2003 Apr, Psychotic disorder with delusions F29 [facility] [id number] [place] [address] 67696- 1851 Jan, [facility] [id number] [place] [address] 41138- 1789 Jan, Psychotic disorder with delusions F29 [facility] [id number] [place] [address] 78256- 2725 Jan, Encounter for contraceptive management, unspecified contraceptive encounter type Z30.9 ; Anxiety F41.9 ; Simple chronic bronchitis J41.0 and Encounter for Depo-Provera contraception Z30.42 [facility] [place] [facility] [address] [id number] [place] [address]- 6228 14 Jun, 2014 [facility] [place] [facility] [address] [id number] [place] [address]- 3682 Jun, [facility] [place] [facility] [address] [id number] [place] [address]- 6580 Mar, [facility] [place] [facility] [id number] [place] [address], [place] [address]- 3467 Jan, [facility] [place] [facility] [address] [id number] [place] [address]- 6065 Jan, [facility] [place] [facility] [address] [id number] [place] [address], [place] [address]- 3959 Jan, [facility] [place] [facility] [address] [facility] [id number] [place] [address]- 9587 Jan, [facility] [place] [facility] [address] [id number] [place] [address], [place] [address]- 6460 Jan, [facility] [place] [facility] [address] [id number] [place] [address]- 8398 Jan, [facility] [place] [facility] [address] [facility] [id number] [place] [address]- 2492 Jan, [facility] [place] [facility] [address] [facility] [id number] [place] [address]- 5231 Dec, [facility] [place] [facility] [address] [id number] [address]- 7502 Dec, [facility] [place] [facility] [address] [id number] [place] [address]- 7071 Dec, [facility] [place] [facility] [address] [id number] [place] [address]- 4772 Dec, [facility] [place] [facility] [address] [id number] [place] [address]- 8921 Dec, [facility] [place] [facility] [address] [id number] [place] [address]- 2546 18 Dec, 2011 [facility] [place] [facility] [address] [id number] [place] [address] 18 Dec, 2011 [facility] [place] [facility] [address] [id number] [place] [address]- 6628 18 Dec, 2011 [facility] [place] [facility] [address] [id number] [place] [address]- 2347 18 Dec, 2011 [facility] [place] [facility] [address] [id number] [place] [address]- 8172 18 Dec, 2011 [facility] [place] [facility] [address] [id number] [place] 8221 18 Dec, 2011 [facility] [place] [facility] [address] [id number] [place] 1439 15 Dec, 2011 [facility] [place] [facility] [address] [id number] [place] [address]- 8234 10 Dec, 2011 [facility] [place] [facility] [address] [id number] [place] [address]- 1729 10 Dec, 2011 [facility] [place] [facility] [address] [id number] [place] [address]- 0383 08 Dec, 2011 [facility] [place] [facility] [address] [id number] [place] [address]- 4323 05 Dec, 2011 [facility] [place] [facility] [address] [id number] [address]- 6374 03 Dec, 2011 [facility] [place] [facility] [address] [id number], [place] [address]- 5131 02 Dec, 2011 [facility] [place] [facility] [address] [id number] [place] [address]- 8702 18 Sep, 2011 [facility] [place] [facility] [address] [id number] [place] [address]- 1499 17 Sep, 2011 [facility] [place] [facility] [address] [id number] [place] [address]- 5252 13 Sep, 2011 [facility] [place] [facility] [id number] [address] 2546 13 Nov, 2011 [facility] [id number] [address]- 2795 Nov, [facility] [address], [place] [address]- 2426 Nov, [facility] [address], [place] [address]- 8324 Sep, [facility] [address], [place] [address]- 8704 Aug, [facility] [id number] [place] [address] 83863- 0008 Aug, [facility] [address] [address]- 4956 July, [facility] [address], [place] [address]- 6728 July, [facility] [id number] [address]- 1877 July, IMMUNIZATIONS No Known Immunizations SOCIAL HISTORY Never Assessed REASON FOR VISIT Refill request PLAN OF CARE VITAL SIGNS MEDICATIONS Unknown [...]
--- OUTSIDE RECORDS SUMMARY | 2018-04-11 16:35 | XMS REPORT ---
Author Author DONOVAN JACKSON Organization [facility] [place] Address [address] [place] [address] Care Team Providers Care Torch Operator Name Role Phone DONOVAN JACKSON Unavailable PROBLEMS Type Condition ICD9-CM Code SFE29-ZZ Code Onset Dates Condition Status SNOMED Code Problem Simple chronic bronchitis J41.0 Active 88327551 Problem Anxiety F41.9 Active 44478394 Problem Acute seasonal allergic rhinitis, unspecified trigger J30.2 Active 995104565 Problem Asthma exacerbation J45.901 Active 731526042 Problem Migraine with aura and with status migrainosus, not intractable G43.101 Active 7077699 Problem Psychotic disorder with delusions F29 Active 36217714 Problem 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 142273963 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80 [facility] [place] [id number] [place] [address] 76852- 4378 Nov, [facility] [place] [id number] [place] [address] 24860- 9300 Nov, [facility] [place] [id number] [place] [address] 59751- 4961 Oct, care in second trimester Z34.92 ; Anxiety F41.9 and Psychotic disorder with delusions F29 [facility] [place] [id number] [place] [address] 05690- 0535 Oct, Normal in multigravida Z34.80 ; care in second trimester Z34.92 ; Gonorrhea affecting , antepartum O98.219 and 18 weeks gestation of Z3A.18 [facility] [place] [id number] [place] [address] 42637- 0729 Oct, Encounter for dental examination and cleaning without abnormal findings Z01.20 and Caries K02.9 [facility] [place] [id number] [place] [address] 77100- 1928 Oct, [facility] [place] [id number] [place] [address] 69624- 7931 Oct, [facility] [place] [id number] [place] [address] 25208- 5831 Oct, [facility] [place] [id number] [place] [address] 48895- 5928 Sep, [facility] [place] [id number] [place] [address] 57338- 6759 Sep, [facility] [place] [id number] [place] [address] 36631- 3416 Sep, Normal in multigravida Z34.80 [facility] [place] [id number] [place] [address] 93446- 4042 Sep, [facility] [place] [id number] [place] [address] 90630- 4435 Sep, [facility] [place] [id number] [place] [address] 47608- 2327 Aug, Anxiety F41.9 and Screening for diabetes mellitus (DM) Z13.1 [facility] [place] [id number] [place] [address] 15714- 5800 July, [facility] [place] [address] [address] 3981 July, [facility] [place] [id number] [place] [address] 44072- 4444 May, Psychotic disorder with delusions F29 [facility] [place] [address] [address]- 4772 May, [facility] [place] [id number] [place] [address] 65196- 1853 May, [facility] [place] [id number] [place] [address] 83986- 5340 Mar, Psychotic disorder with delusions F29 and 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 [facility] [place] [id number] [place] [address] 76757- 0073 Jan, [facility] [place] [id number] [place] [address] 04803- 6208 Dec, Psychotic disorder with delusions F29 [facility] [id number] [place] [address] 81454 -5359 Dec, Acute seasonal allergic rhinitis, unspecified trigger J30.2 [facility] [place] [id number] [place] [address] 74491- 0550 Nov, Psychotic disorder with delusions F29 [facility] [place] [id number] [place] [address] 84164- 8027 14 Nov, 2016 [facility] [place] [id number] [place] [address] 74291- 2169 Nov, [facility] [place] [id number] [place] [address] 33060- 9487 Nov, [facility] [place] [id number] [place] [address] 28977- 1877 Oct, Asthma exacerbation J45.901 [facility] [place] [id number] [place] [address] 68729- 0644 Oct, [facility] [place] [id number] [place] [address] 23451- 0973 Oct, 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 and 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 [facility] [place] [id number] [place] [address] 33882- 6870 Oct, [facility] [place] [id number] [place] [address] 88653- 6284 Oct, Migraine with aura and with status migrainosus, not intractable G43.101 ; Other abnormal cytological finding of specimen from cervix R87.618 ; Screening for diabetes mellitus (DM) Z13.1 ; Screening for lipid disorders Z13.220 and Weight gain R63.5 [facility] [id number] [place] [address] 32103- 6607 Oct, [facility] [address] 72832- 2918 Oct, [place] [address] 68495- 7516 Oct, [facility] [address] 28180- 4319 Sep, Weight gain R63.5 ; Screening for lipid disorders Z13.220 ; Screening for diabetes mellitus (DM) Z13.1 and Scabies exposure Z20.89 [facility] [address] [place] [address] [id number] Sep, Encounter for dental examination and cleaning without abnormal findings Z01.20 [facility] [id number] [place] [address] 72517 -3874 Sep, Abscess L02.91 [facility] [place] [address] 02620- 4597 Jun, [facility] [place] [id number] [place] [address] 93804- 9856 Jun, Routine gynecological examination Z01.419 [place] [address] 66255- 0771 Jun, Routine gynecological examination Z01.419 ; Encounter for Depo-Provera contraception Z30.42 and Routine screening for STI (sexually transmitted infection) Z11.3 [facility] [place] [address] [place] [address] 83091- 0616 Jun, Anxiety F41.9 [facility] [place] [id number] [place] [address] 18227- 8128 May, [facility] [place] [id number] [place] [address] 27178- 5768 Apr, Psychotic disorder with delusions F29 [facility] [place] [id number] [place] [address] 97277- 1255 Jan, [facility] [place] [id number] [place] [address] 91168- 0770 Jan, Psychotic disorder with delusions F29 [facility] [place] [id number] [place] [address] 69126- 6498 Jan, Encounter for contraceptive management, unspecified contraceptive encounter type Z30.9 ; Anxiety F41.9 ; Simple chronic bronchitis J41.0 and Encounter for Depo-Provera contraception Z30.42 [facility] [place] [id number] [place] [address] 94646- 6492 Jun, [facility] [place] [id number] [place] [address] 79180- 3745 Jun, [facility] [place] [id number] [place] [address] 83231- 7044 Mar, [facility] [place] [id number] [place] [address] 62933- 9749 Jan, [facility] [place] [id number] [place] [address] 34530- 6793 Jan, [facility] [place] [id number] [place] [address] 55806- 4819 Jan, [facility] [place] [facility] [address] [facility] [id number] [place] [address]- 4215 08 Jan, 2012 [facility] [place] [facility] [address] [id number] [place] [address]- 0403 08 Jan, 2012 [facility] [place] [facility] [address] [id number] [place] [address]- 4788 Jan, [facility] [place] [facility] [address] [id number] [place] [address]- 2638 Jan, [facility] [place] [facility] [address] [id number] [place] [address]- 2924 Dec, [facility] [place] [facility] [address] [id number] [place] 0380 31 Dec, 2011 [facility] [place] [facility] [address] [id number] [place] [address]- 0161 Dec, [facility] [place] [facility] [address] [id number] [place] [address]- 3769 Dec, [facility] [place] [facility] [address] [id number] [place] [address]- 4992 Dec, [facility] [place] [facility] [address] [id number] [place] [address]- 2937 Dec, [facility] [place] [facility] [address] [facility] [id number] [place] [address]- 2231 18 Dec, 2011 [facility] [place] [facility] [address] [id number] [place] [address]- 1479 18 Dec, 2011 [facility] [place] [facility] [address] [id number] [place] [address]- 4141 18 Dec, 2011 [facility] [place] [facility] [address] [id number] [place] [address]- 7880 18 Dec, 2011 [facility] [place] [facility] [address] [facility] [id number] [place] [address]- 5692 18 Dec, 2011 [facility] [place] [facility] [address] [id number] [place] [address]- 7734 15 Dec, 2011 [facility] [place] [facility] [address] [id number] [place] [address]- 6760 10 Dec, 2011 [facility] [place] [facility] [address] [id number] [place] [address]- 6634 10 Dec, 2011 [facility] [place] [facility] [address] [id number] [place] [address]- 1680 08 Dec, 2011 [facility] [place] [facility] [address] [id number] [place] [address]- 2667 05 Dec, 2011 [facility] [place] [facility] [address] [id number] [place] [address]- 2604 03 Dec, 2011 [facility] [place] [facility] [address] [id number] [place] [address]- 8214 02 Dec, 2011 [facility] [place] [facility] [address] [id number] [place] [address]- 5877 18 Nov, 2011 [facility] [place] [facility] [address] [id number] [place] [address]- 5954 17 Nov, 2011 [facility] [place] [facility] [address] [id number] [place] [address]- 1166 13 Nov, 2011 [facility] [place] [facility] [address] [id number] [place] [address]- 2670 13 Nov, 2011 [facility] [place] [facility] [address] [id number] [address]- 4006 12 Nov, 2011 [facility] [place] [facility] [address] [id number], [place] [address]- 4717 05 Nov, 2011 [facility] [place] [facility] [address] [id number] [place] [address]- 2351 13 Sep, 2011 [facility] [place] [facility] [address] [id number], [place] [address]- 8019 30 Aug, 2011 [facility] [place] [facility] [address] [id number] [place] [address]- 6695 29 Aug, 2011 [facility] [place] [facility] [address] [facility] [id number] [place] [address]- 4992 July, [facility] [place] [address] [facility] [id number] [place] [address]- 0829 July, [facility] [place] [address] [facility] [id number] [place] [address]- 3184 July, IMMUNIZATIONS No Known Immunizations SOCIAL HISTORY Never Assessed REASON FOR VISIT Lab Draw PLAN OF CARE VITAL SIGNS MEDICATIONS Unknown [...]
--- OUTSIDE RECORDS SUMMARY | 2018-04-11 16:35 | XMS REPORT ---
Author Author DONOVAN JACKSON Organization [facility] Address [address] [place] [address] Care Team Providers Care Spool Cleaner Name Role Phone DONOVAN JACKSON Unavailable PROBLEMS Type Condition ICD9-CM Code DZL70-PN Code Onset Dates Condition Status SNOMED Code Problem Simple chronic bronchitis J41.0 Active 64771787 Problem Anxiety F41.9 Active 50924547 Problem Acute seasonal allergic rhinitis, unspecified trigger J30.2 Active 171687128 Problem Asthma exacerbation J45.901 Active 475181905 Problem Migraine with aura and with status migrainosus, not intractable G43.101 Active 9558314 Problem Psychotic disorder with delusions F29 Active 93873274 Problem 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 823445804 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 897195718 ALLERGIES No Information ENCOUNTERS Encounter Location Date Diagnosis [place] [id number] [address] Jan, [place] [address] [address]- [address] Dec, [place] [address] [address] [place] [id number] [place] [address] 27325- 8307 Nov, care in second trimester Z34.92 [facility] [address] [place] [id number] [place] [address] 84690- 3966 Nov, Normal in multigravida Z34.80 [facility] [address] [address]- 1446 Nov, [facility] [address] [place] [id number] [place] [address] 76936- 5259 Nov, [facility] [address] [address]- [address] Oct, care in second trimester Z34.92 ; Anxiety F41.9 and Psychotic disorder with delusions F29 [facility] [address] [place] [id number] [place] [address] 58740- 0104 Oct, Normal in multigravida Z34.80 ; care in second trimester Z34.92 ; Gonorrhea affecting , antepartum O98.219 and 18 weeks gestation of Z3A.18 [facility] [address] [place] [id number] [place] [address] 37858- 4164 Oct, Encounter for dental examination and cleaning without abnormal findings Z01.20 and Caries K02.9 [facility] [address] [place] [id number] [place] [address] 60877- 2482 Oct, [facility] [address] [place] [id number] [place] [address] 49762- 7576 Oct, [facility] [address] [place] [id number] [place] [address] 24007- 2201 Oct, [facility] [address] [place] [id number] [place] [address] 22526- 8164 Sep, [facility] [address] [place] [id number] [place] [address] 40173- 9346 Sep, [facility] [address] [place] [id number] [place] [address] 86593- 3537 Sep, Normal in multigravida Z34.80 [facility] [address] [place] [id number] [place] [address] 44769- 2009 Sep, [facility] [address] [place] [id number] [place] [address] 60864- 7741 Sep, [facility] [address] [place] [id number] [place] [address] 13909- 4975 Aug, Anxiety F41.9 and Screening for diabetes mellitus (DM) Z13.1 [facility] [address] [place] [id number] [place] [address] 21231- 6779 July, [facility] [address], [place] [address] 6[address] July, [facility] [address] [place] [id number] [place] [address] 13025- 2148 May, Psychotic disorder with delusions F29 [facility] [address] [address] 2402 May, [facility] [address] [place] [id number] [place] [address] 41259- 8651 May, [facility] [address] [place] [id number] [place] [address] 15132- 9037 Mar, Psychotic disorder with delusions F29 and 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 [facility] [address] [place] [id number] [place] [address] 03379- 0054 Jan, [facility] [address] [place] [id number] [place] [address] 45404- 2511 Dec, Psychotic disorder with delusions F29 [facility] [address], [place] [address] Dec, Acute seasonal allergic rhinitis, unspecified trigger J30.2 [facility] [address] [address] 2164 Nov, Psychotic disorder with delusions F29 [facility] [address], [place] [address] 3400 14 Nov, 2016 [facility] [id number] [place] [address] 92620- 3201 Nov, [facility] [address] [place] [id number] [place] [address] 43871- 8582 Nov, [facility] [address] [place] [address] 44824- 0440 Oct, Asthma exacerbation J45.901 [facility] [address] [place] [id number] [place] [address] 81692- 7245 Oct, [facility] [address] [place] [id number] [place] [address] 59563- 2393 Oct, 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 and 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 [facility] [address] [place] [id number] [place] [address] 77954- 9435 Oct, [place] [address] 13841- 0577 Oct, Migraine with aura and with status migrainosus, not intractable G43.101 ; Other abnormal cytological finding of specimen from cervix R87.618 ; Screening for diabetes mellitus (DM) Z13.1 ; Screening for lipid disorders Z13.220 and Weight gain R63.5 [place] [address] [place] [id number] [place] [address] 87724- 4668 Oct, [place] [address] 19421- 0646 Oct, [place] [address] [place] [id number] [place] [address] 43217- 2274 Oct, [place] [address] 00745- 1776 Sep, Weight gain R63.5 ; Screening for lipid disorders Z13.220 ; Screening for diabetes mellitus (DM) Z13.1 and Scabies exposure Z20.89 [facility] [address] [place] [id number] [place] [address] [id number] Sep, Encounter for dental examination and cleaning without abnormal findings Z01.20 [facility] [address] [place] [id number] [place] [address] 21004 -7447 Sep, Abscess L02.91 [facility] [address] [place] [id number] [place] [address] 95165- 4279 Jun, [facility] [address] [place] [id number] [place] [address] 89605- 5854 Jun, Routine gynecological examination Z01.419 [place] [address], [place] [address]- [address]26 Jun, Routine gynecological examination Z01.419 ; Encounter for Depo-Provera contraception Z30.42 and Routine screening for STI (sexually transmitted infection) Z11.3 [facility] [address], [place] [address]- 1775 Jun, Anxiety F41.9 [facility] [address] [place] [id number] [place] [address] 48775- 0335 May, [facility] [address] [place] [id number] [place] [address] 99667- 5977 Apr, Psychotic disorder with delusions F29 [facility] [address] [place] [id number] [place] [address] 67891- 7021 Jan, [facility] [address] [place] [id number] [place] [address] 67279- 1095 Jan, Psychotic disorder with delusions F29 [facility] [address] [place] [id number] [place] [address] 21670- 5665 16 Jan, 2016 Encounter for contraceptive management, unspecified contraceptive encounter type Z30.9 ; Anxiety F41.9 ; Simple chronic bronchitis J41.0 and Encounter for Depo-Provera contraception Z30.42 [facility] [address], [place] [address]- 7148 14 Jun, 2014 [facility] [address] [place] [address] 42947- 2633 Jun, [facility] [address] [place] [address] 74095- 1910 Mar, [facility] [address] [place] [id number] [place] [address] 79440- 0802 Jan, [facility] [address] [place] [id number] [place] [address] 29340- 7585 Jan, [facility] [address] [place] [id number] [place] [address] 55104- 5083 Jan, [facility] [place] [facility] [address] [id number] [place] [address]- 6850 Jan, [facility] [place] [facility] [address] [id number] [place] [address]- 3048 Jan, [facility] [place] [facility] [address] [id number] [place] [address]- 7953 Jan, [facility] [place] [facility] [address] [id number] [place] [address]- 0933 Jan, [facility] [place] [facility] [address] [id number] [place] [address]80 Dec, [facility] [place] [facility] [address] [id number] [place] [address]- 4289 Dec, [facility] [place] [facility] [address] [facility] [id number] [place] [address]- 8725 Dec, [facility] [place] [facility] [address] [id number], [place] [address]- 4546 Dec, [facility] [place] [facility] [address] [facility] [id number], [place] [address]- 6092 Dec, [facility] [place] [facility] [address] [facility] [id number], [place] [address]- 1878 Dec, [facility] [place] [facility] [address] [facility] [id number], [place] [address]- 1749 Dec, [facility] [place] [facility] [address] [id number], [place] [address]- 6242 Dec, [facility] [place] [facility] [address] [facility] [id number][place] [address]- 8226 Dec, [facility] [place] [facility] [address] [facility] [id number], [place] [address]- 1703 Dec, [facility] [place] [facility] [address] [facility] [id number] 3393 Dec, [facility] [place] [facility] [address] [id number], [place] [address]- 6809 15 Dec, 2011 [facility] [place] [facility] [address] [id number] [place] [address]- 9152 10 Dec, 2011 [facility] [place] [facility] [address] [id number] [place] [address]- 0039 10 Dec, 2011 [facility] [place] [facility] [address] [facility] [id number] [place] [address]- 9483 08 Dec, 2011 [facility] [place] [facility] [address] [id number] [place] [address]- 6340 05 Dec, 2011 [facility] [place] [facility] [address] [id number] [place] [address]- 6156 03 Dec, 2011 [facility] [place] [facility] [address] [facility] [id number] [place] [address]- 7627 02 Dec, 2011 [facility] [place] [facility] [address] [place] [id number] [place] [address]- 9187 18 Nov, 2011 [facility] [place] [facility] [address] [facility] [id number] [place] [address]- 4861 17 Nov, 2011 [facility] [place] [facility] [address] [place] [id number] [place] [address]- 3405 13 Nov, 2011 [facility] [place] [facility] [address] [facility] [id number] [place] [address]- 6287 13 Nov, 2011 [facility] [place] [facility] [address] [facility] [id number], [place] [address]- 9684 12 Nov, 2011 [facility] [place] [facility] [address] [facility] [id number], [place] [address]- 7215 05 Nov, 2011 [facility] [place] [facility] [address] [facility] [id number] [place] [address]- 2677 13 Sep, 2011 [facility] [place] [facility] [address] [facility] [id number] [place] [address]- 2969 30 Aug, 2011 [facility] [place] [facility] [address] [facility] [id number] [place] [address]- 0347 29 Aug, 2011 [facility] [place] [facility] [address] [facility] [id number] [place] [address] July, [facility] [address] [facility] [id number], [place] [address]- 2844 July, [facility] [address] [facility] [id number] [place] [address]- 0910 July, IMMUNIZATIONS No Known Immunizations SOCIAL HISTORY Never Assessed REASON FOR VISIT Prior Authorization Request PLAN OF CARE VITAL SIGNS MEDICATIONS Medication Instructions Dosage Frequency Start Date End Date Duration Status Ferrous Sulfate 325 (65 Fe) MG Orally Once a day 1 tablet 24h Dec, 30 day(s) Active COMBER SETTER-Thiago Rx 1 MG Orally Once a day 1 tablet 24h Dec, 30 day(s) Active RESULTS No Results PROCEDURES No Known procedures INSTRUCTIONS MEDICATIONS ADMINISTERED No Known Medications MEDICAL (GENERAL) HISTORY Type Description Date Medical History schizoaffective disorder Medical History bi-polar disorder Medical History depression Medical History anxiety Medical History pre diabetes Medical History COPD Surgical History x 2 Hospitalization History Staph infection in arm
--- OUTSIDE RECORDS SUMMARY | 2018-04-11 16:35 | XMS REPORT ---
Author Author DONOVAN JACKSON Organization [facility] Address [address] [place] [address] Care Team Providers Care Ruby On Rails Web Developer Name Role Phone DONOVAN JACKSON Unavailable PROBLEMS Type Condition ICD9-CM Code [id number] Code Onset Dates Condition Status SNOMED Code Problem Simple chronic bronchitis J41.0 Active 18255411 Problem Anxiety F41.9 Active 64101864 Problem Acute seasonal allergic rhinitis, unspecified trigger J30.2 Active 890546333 Problem Asthma exacerbation J45.901 Active 470950186 Problem Migraine with aura and with status migrainosus, not intractable G43.101 Active 8916782 Problem Psychotic disorder with delusions F29 Active 55715877 Problem 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 631176803 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 [id number] ALLERGIES No Information ENCOUNTERS Encounter Location Date Diagnosis [facility] [id number] [place] [address] 08025- 0916 Jan, [facility] [id number] [place] [address] 06733- 2644 Dec, [facility] [id number] [place] [address] 10330- 2929 Nov, [facility] [id number] [place] [address] 99966- 7486 Nov, Normal in multigravida Z34.80 [facility] [id number] [place] [address] 47969- 3095 Nov, [facility] [id number] [place] [address] 27198- 5160 Nov, [facility] [id number] [place] [address] 95375- 6785 Oct, care in second trimester Z34.92 ; Anxiety F41.9 and Psychotic disorder with delusions F29 [facility] [id number] [place] [address] 15792- 0567 Oct, Normal in multigravida Z34.80 ; care in second trimester Z34.92 ; Gonorrhea affecting , antepartum O98.219 and 18 weeks gestation of Z3A.18 [facility] [id number] [place] [address] 27072- 7223 Oct, Encounter for dental examination and cleaning without abnormal findings Z01.20 and Caries K02.9 [facility] [id number] [place] [address] 42669- 9241 Oct, [facility] [id number] [place] [address] 24849- 7281 Oct, [facility] [id number] [place] [address] 99300- 2667 Oct, [facility] [id number] [place] [address] 37042- 1961 Sep, [facility] [id number] [place] [address] 03416- 9673 Sep, [facility] [id number] [place] [address] 03945- 1286 Sep, Normal in multigravida Z34.80 [facility] [id number] [place] [address] 06165- 5787 Sep, [facility] [id number] [place] [address] 42556- 0150 Sep, [facility] [id number] [place] [address] 63829- 3356 Aug, Anxiety F41.9 and Screening for diabetes mellitus (DM) Z13.1 [facility] [id number] [place] [address] 57473- 7104 July, [facility] [address] [place] [address] 0434 July, [facility] [id number] [place] [address] 40976- 1280 May, Psychotic disorder with delusions F29 [facility] [address] [address] 5112 May, [facility] [id number] [place] [address] 59260- 2927 May, [facility] [id number] [place] [address] 84595- 1342 Mar, Psychotic disorder with delusions F29 and 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 [id number] [place] [address] 81833 -0464 Dec, Acute seasonal allergic rhinitis, unspecified trigger J30.2 [facility] [id number] [place] [address] 71761- 7960 Nov, Psychotic disorder with delusions F29 [facility] [id number] [place] [address] 51556- 2641 14 Nov, 2016 [facility] [id number] [place] [address] 45195- 9688 Nov, [facility] [id number] [place] [address] 99672- 1954 Nov, [facility] [id number] [place] [address] 91003- 3010 Oct, Asthma exacerbation J45.901 [facility] [id number] [place] [address] 29285- 8317 Oct, [facility] [id number] [place] [address] 05702- 0110 Oct, 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 and 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 [facility] [id number] [place] [address] 78884- 6532 Oct, [facility] [id number] [place] [address] 74265- 5739 Oct, Migraine with aura and with status migrainosus, not intractable G43.101 ; Other abnormal cytological finding of specimen from cervix R87.618 ; Screening for diabetes mellitus (DM) Z13.1 ; Screening for lipid disorders Z13.220 and Weight gain R63.5 [place] [id number] [place] [address] 50498- 8467 Oct, [place] [address] 39927- 6286 Oct, [place] [address] 20561- 9322 Oct, [place] [address] 04927- 0299 Sep, Weight gain R63.5 ; Screening for lipid disorders Z13.220 ; Screening for diabetes mellitus (DM) Z13.1 and Scabies exposure Z20.89 [facility] [address] [place] [address] [id number] Sep, Encounter for dental examination and cleaning without abnormal findings Z01.20 [facility] [id number] [place] [address] 59840 -0190 Sep, Abscess L02.91 [facility] [address] 56043- 6327 Jun, [facility] [id number] [place] [address] 55993- 1115 Jun, Routine gynecological examination Z01.419 [place] [address] 13363- 8210 Jun, Routine gynecological examination Z01.419 ; Encounter for Depo-Provera contraception Z30.42 and Routine screening for STI (sexually transmitted infection) Z11.3 [facility] [id number] [place] [address] 09690- 9973 Jun, Anxiety F41.9 [facility] [id number] [place] [address] 63601- 8947 May, [facility] [id number] [place] [address] 38715- 9788 Apr, Psychotic disorder with delusions F29 [facility] [id number] [place] [address] 97144- 6570 Jan, [facility] [id number] [place] [address] 88009- 5917 Jan, Psychotic disorder with delusions F29 [facility] [id number] [place] [address] 80901- 0201 Jan, Encounter for contraceptive management, unspecified contraceptive encounter type Z30.9 ; Anxiety F41.9 ; Simple chronic bronchitis J41.0 and Encounter for Depo-Provera contraception Z30.42 [facility] [id number] [place] [address] 56753- 5995 Jun, [facility] [id number] [place] [address] 34546- 3176 Jun, [facility] [id number] [place] [address] 72268- 9049 Mar, [facility] [id number] [place] [address] 53074- 7917 Jan, [facility] [id number] [place] [address] 69144- 0060 Jan, [facility] [id number] [place] [address] 52052- 9749 Jan, [facility] [place] [facility] [address] [id number] [place] [address]- 8559 08 Jan, 2012 [facility] [place] [facility] [address] [id number] [place] [address]- 8525 08 Jan, 2012 [facility] [place] [facility] [address] [id number] [place] [address]- 7157 Jan, [facility] [place] [facility] [address] [id number] [place] [address]- 6162 Jan, [facility] [place] [facility] [address] [id number] [place] [address]- 7781 Dec, [facility] [place] [facility] [address] [id number] [place] 5375 31 Dec, 2011 [facility] [place] [facility] [address] [id number] [place] [address]- 8212 Dec, [facility] [place] [facility] [address] [id number] [place] [address]- 5077 Dec, [facility] [place] [facility] [address] [id number] [place] [address]- 1496 Dec, [facility] [place] [facility] [address] [id number] [place] [address]- 3975 Dec, [facility] [place] [facility] [address] [facility] [id number] [place] [address]- 2161 18 Dec, 2011 [facility] [place] [facility] [address] [id number] [place] [address]- 6667 18 Dec, 2011 [facility] [place] [facility] [address] [id number] [place] [address]- 7543 18 Dec, 2011 [facility] [place] [facility] [address] [id number] [place] [address]- 4887 18 Dec, 2011 [facility] [place] [facility] [address] [id number] [place] [address]- 3065 18 Dec, 2011 [facility] [place] [facility] [address] [id number] [place] [address]- 2761 15 Dec, 2011 [facility] [place] [facility] [address] [id number] [place] [address]- 4535 10 Dec, 2011 [facility] [place] [facility] [address] [id number] [place] [address]- 1019 10 Dec, 2011 [facility] [place] [facility] [address] [id number] [place] [address]- 6491 08 Dec, 2011 [facility] [place] [facility] [address] [id number] [place] [address]- 2923 05 Dec, 2011 [facility] [place] [facility] [address] [id number] [place] [address]- 6864 03 Dec, 2011 [facility] [place] [facility] [address] [id number] [place] [address]- 8704 02 Dec, 2011 [facility] [place] [facility] [address] [id number] [place] [address]- 5041 18 Nov, 2011 [facility] [place] [facility] [address] [id number] [place] [address]- 7683 17 Nov, 2011 [facility] [place] [facility] [address] [id number] [place] [address]- 6382 13 Nov, 2011 [facility] [place] [facility] [address] [id number] [place] [address]- 5759 13 Nov, 2011 [facility] [place] [facility] [address] [id number] [place] [address]- 0153 12 Nov, 2011 [facility] [place] [facility] [address] [id number] [place] [address]- 1166 05 Nov, 2011 [facility] [place] [facility] [address] [id number] [place] [address]- 6576 13 Sep, 2011 [facility] [place] [facility] [address] [id number] [place] [address]- 7564 30 Aug, 2011 [facility] [place] [facility] [address] [id number] [place] [address]- 1855 29 Aug, 2011 [facility] [place] [facility] [address] [id number] [place] [address]- 3310 July, [facility] [address] [id number] [place] [address]- 4933 July, [facility] [address] [id number] [place] [address]- 0137 July, IMMUNIZATIONS No Known Immunizations SOCIAL HISTORY [...]
--- OUTSIDE RECORDS SUMMARY | 2018-04-11 16:35 | XMS REPORT ---
Author Author MURIEL LORA Organization [facility] Address [address] [place] [address] Care Team Providers Care Internal Controls Consultant Name Role Phone MURIEL LORA Unavailable PROBLEMS Type Condition ICD9-CM Code ORN58-VL Code Onset Dates Condition Status SNOMED Code Problem Simple chronic bronchitis J41.0 Active 10958095 Problem Anxiety F41.9 Active 25714481 Problem Acute seasonal allergic rhinitis, unspecified trigger J30.2 Active 010670057 Problem Asthma exacerbation J45.901 Active 912984141 Problem Migraine with aura and with status migrainosus, not intractable G43.101 Active 7699150 Problem Psychotic disorder with delusions F29 Active 63609343 Problem 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 915265884 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 953077004 ALLERGIES No Information ENCOUNTERS Encounter Location Date Diagnosis [facility] [id number] [place] [address] 58889- 4054 Jan, [facility] [id number] [place] [address] 01751- 5883 Nov, [facility] [address] [address] Nov, [facility] [id number] [place] [address] 40569- 5888 Nov, [facility] [id number] [place] [address] 07733- 8112 Oct, care in second trimester Z34.92 ; Anxiety F41.9 and Psychotic disorder with delusions F29 [facility] [id number] [place] [address] 73611- 3636 Oct, 2018 Normal in multigravida Z34.80 ; care in second trimester Z34.92 ; Gonorrhea affecting , antepartum O98.219 and 18 weeks gestation of Z3A.18 [facility] [id number] [place] [address] 47660- 2757 Oct, Encounter for dental examination and cleaning without abnormal findings Z01.20 and Caries K02.9 [facility] [id number] [place] [address] 91561- 9325 Oct, [facility] [id number] [place] [address] 26516- 0781 Oct, [facility] [id number] [place] [address] 51971- 7101 Oct, [facility] [id number] [place] [address] 32279- 3421 Sep, [facility] [id number] [place] [address] 21062- 3882 Sep, [facility] [id number] [place] [address] 16321- 1581 Sep, Normal in multigravida Z34.80 [facility] [id number] [place] [address] 45446- 9682 Sep, [facility] [id number] [place] [address] 74688- 4563 Sep, [facility] [id number] [place] [address] 77999- 7206 Aug, Anxiety F41.9 and Screening for diabetes mellitus (DM) Z13.1 [facility] [id number] [place] [address] 16219- 4833 July, [facility] [id number] [place] [address] 78716- 7521 July, [facility] [id number] [place] [address] 04418- 5281 May, Psychotic disorder with delusions F29 [facility] [address] [place] [address]- 7904 May, [facility] [id number] [place] [address] 91480- 6876 May, [facility] [id number] [place] [address] 26710- 9425 Mar, Psychotic disorder with delusions F29 and 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 [facility] [id number] [place] [address] 71552- 3085 Jan, [facility] [id number] [place] [address] 82869- 7090 Dec, Psychotic disorder with delusions F29 [facility] [id number] [place] [address] 17730 -1200 Dec, Acute seasonal allergic rhinitis, unspecified trigger J30.2 [facility] [id number] [place] [address] 59184- 7827 Nov, Psychotic disorder with delusions F29 [facility] [id number] [place] [address] 75089- 7948 Nov, [facility] [id number] [place] [address] 58826- 0168 Nov, [facility] [id number] [place] [address] 30015- 1227 Nov, [facility] [id number] [place] [address] 24275- 3649 Oct, Asthma exacerbation J45.901 [facility] [id number] [place] [address] 85627- 2407 Oct, [facility] [id number] [place] [address] 55093- 8717 Oct, 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 and 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 [facility] [id number] [place] [address] 82428- 1596 Oct, [facility] [id number] [place] [address] 81972- 9657 Oct, Migraine with aura and with status migrainosus, not intractable G43.101 ; Other abnormal cytological finding of specimen from cervix R87.618 ; Screening for diabetes mellitus (DM) Z13.1 ; Screening for lipid disorders Z13.220 and Weight gain R63.5 [facility] [address] 76840- 0086 Oct, [place] [facility] [id number] [place] [address] 46394- 7751 Oct, [facility] [facility] [address] 92015- 5828 Oct, [facility] [id number] [place] [address] 68191- 5272 Sep, Weight gain R63.5 ; Screening for lipid disorders Z13.220 ; Screening for diabetes mellitus (DM) Z13.1 and Scabies exposure Z20.89 [facility] [id number] [place] [address] [id number] Sep, Encounter for dental examination and cleaning without abnormal findings Z01.20 [facility] [id number] [place] [address] 32518 -2141 Sep, Abscess L02.91 [facility] [id number] [place] [address] 16246- 9838 Jun, [facility] [id number] [place] [address] 85027- 8106 Jun, Routine gynecological examination Z01.419 [place] [facility] [address] 41951- 5389 Jun, Routine gynecological examination Z01.419 ; Encounter for Depo-Provera contraception Z30.42 and Routine screening for STI (sexually transmitted infection) Z11.3 [facility] [id number] [place] [address] 58123- 1911 Jun, Anxiety F41.9 [facility] [id number] [place] [address] 47237- 0481 May, [facility] [id number] [place] [address] 85344- 9519 Apr, Psychotic disorder with delusions F29 [facility] [id number] [place] [address] 14313- 1447 Jan, [facility] [id number] [place] [address] 94662- 2751 Jan, Psychotic disorder with delusions F29 [facility] [id number] [place] [address] 60700- 0957 Jan, Encounter for contraceptive management, unspecified contraceptive encounter type Z30.9 ; Anxiety F41.9 ; Simple chronic bronchitis J41.0 and Encounter for Depo-Provera contraception Z30.42 [facility] [id number] [place] [address] 55081- 8264 Jun, [facility] [id number] [place] [address] 97786- 4013 Jun, [facility] [id number] [place] [address] 41733- 8644 Mar, [facility] [id number] [place] [address] 11862- 1515 Jan, [facility] [id number] [place] [address] 39569- 2124 Jan, [facility] [id number] [place] [address] 04060- 6006 Jan, [facility] [id number] [place] [address] 61233- 4991 Jan, [facility] [id number] [place] [address] 45717- 7752 Jan, [facility] [id number] [place] [address] 15533- 3176 Jan, [facility] [place] [facility] [address] [id number] [place] 5342 Jan, [facility] [place] [facility] [address] [id number] [place] [address]- 3249 31 Dec, 2011 [facility] [place] [facility] [address] [facility] [id number] [place] 7048 31 Dec, 2011 [facility] [place] [facility] [address] [id number] 6380 Dec, [facility] [place] [facility] [address] [id number] [place] [address]- 4943 Dec, [facility] [place] [facility] [address] [id number] [place] [address]- 3708 Dec, [facility] [place] [facility] [address] [id number], [place] [address]- 7339 18 Dec, 2011 [facility] [place] [facility] [address] [id number], [place] [address]- 4113 18 Dec, 2011 [facility] [place] [facility] [address] [id number], [place] [address]- 4917 18 Dec, 2011 [facility] [place] [facility] [address] [id number], [place] [address]- 7491 18 Dec, 2011 [facility] [place] [facility] [address] [id number], [place] [address]- 1759 18 Dec, 2011 [facility] [place] [facility] [address] [id number], [place] [address]- 5002 18 Dec, 2011 [facility] [place] [facility] [address] [id number], [place] [address]- 4843 15 Dec, 2011 [facility] [place] [facility] [address] [facility] [id number][place]- 2832 10 Dec, 2011 [facility] [place] [facility] [address] [facility] [id number], [place] [address]- 7774 10 Dec, 2011 [facility] [place] [facility] [address] [id number] [place] [address]- 8973 Dec, [facility] [address] [id number] [place] [address]- 5224 Dec, [facility] [address] [id number] [place] [address]- 7636 Dec, [facility] [address] [id number] [place] [address]- 3648 Dec, [facility] [address] [id number] [place] [address]- 7254 18 Nov, 2011 [facility] [id number] [place] [address], [place] [address]- 5696 17 Nov, 2011 [facility] [address] [facility] [id number] [place] [address]- 8206 13 Nov, 2011 [facility] [id number] [place] [address]- 5064 13 Nov, 2011 [facility] [address] [facility] [id number] [place] [address]- 2345 12 Nov, 2011 [facility] [id number] [place] [address]- 8026 05 Nov, 2011 [facility] [address] [facility] [id number] [place] [address]- 6391 Sep, [facility] [address] [facility] [id number] [place] [address]- 5965 Aug, [facility] [address] [facility] [id number] [place] [address]- 9940 Aug, [facility] [address] [facility] [id number] [place] [address]- 9134 July, [facility] [address] [facility] [id number] [place] [id number] 2006 July, [facility] [address] [facility] [id number] [place] [address]- 7251 July, IMMUNIZATIONS No Known Immunizations SOCIAL HISTORY Never Assessed REASON FOR VISIT eye exam PLAN OF CARE VITAL SIGNS MEDICATIONS Unknown [...]
--- OUTSIDE RECORDS SUMMARY | 2018-04-11 16:35 | XMS REPORT ---
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 Name Role Phone DANIELLAJANELL ARGUETAHANY Unavailable PROBLEMS Type Condition ICD9-CM Code [id number] Code Onset Dates Condition Status SNOMED Code Problem Simple chronic bronchitis J41.0 Active 73482122 Problem Anxiety F41.9 Active 27648960 Problem Acute seasonal allergic rhinitis, unspecified trigger J30.2 Active 979032636 Problem Asthma exacerbation J45.901 Active 286802198 Problem Migraine with aura and with status migrainosus, not intractable G43.101 Active 0818667 Problem Psychotic disorder with delusions F29 Active 08024815 Problem 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 458147722 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 501905721 ALLERGIES No Information ENCOUNTERS Encounter Location Date Diagnosis [facility] [id number] [place] [address] 09478- 2984 Jan, [facility] [id number] [place] [address] 39969- 5535 Nov, [facility] [id number] [place] [address] 49462- 5521 Nov, [facility] [id number] [place] [address] 87292- 5036 Nov, [facility] [id number] [place] [address] 93161- 6311 Oct, care in second trimester Z34.92 ; Anxiety F41.9 and Psychotic disorder with delusions F29 [facility] [id number] [place] [address] 23338- 2458 Oct, 2018 Normal in multigravida Z34.80 ; care in second trimester Z34.92 ; Gonorrhea affecting , antepartum O98.219 and 18 weeks gestation of Z3A.18 [facility] [id number] [place] [address] 17717- 7763 Oct, Encounter for dental examination and cleaning without abnormal findings Z01.20 and Caries K02.9 [facility] [id number] [address] 3[address] Oct, [facility] [id number] [place] [address] 82558- 3585 Oct, [facility] [id number] [place] [address] 25773- 6501 Oct, [facility] [id number] [place] [address] 79848- 5312 Sep, [facility] [id number] [place] [address] 40858- 6500 Sep, [facility] [id number] [place] [address] 31311- 1925 Sep, Normal in multigravida Z34.80 [facility] [id number] [place] [address] 68551- 1390 Sep, [facility] [id number] [place] [address] 52125- 3975 Sep, [facility] [id number] [place] [address] 41682- 0332 Aug, Anxiety F41.9 and Screening for diabetes mellitus (DM) Z13.1 [facility] [id number] [address] 5[address] July, [facility] [id number] [place] [address] 26014- 9419 July, [facility] [id number] [address] 8796 May, Psychotic disorder with delusions F29 [facility] [id number] [place] [address] 89050- 3265 May, [facility] [id number] [place] [address] 88196- 1398 May, [facility] [id number] [place] [address] 53342- 2033 Mar, Psychotic disorder with delusions F29 and 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 [facility] [id number] [place] [address] 35345- 8330 Jan, [facility] [id number] [place] [address] 58099- 4101 Dec, Psychotic disorder with delusions F29 [facility] [id number] [place] [address] 60668 -6370 Dec, Acute seasonal allergic rhinitis, unspecified trigger J30.2 [facility] [id number] [place] [address] 00614- 3291 Nov, Psychotic disorder with delusions F29 [facility] [id number] [place] [address] 67766- 0634 Nov, [facility] [id number] [place] [address] 38628- 7019 Nov, [facility] [id number] [place] [address] 56820- 8548 Nov, [facility] [id number] [place] [address] 73465- 3680 Oct, Asthma exacerbation J45.901 [facility] [id number] [place] [address] 03082- 8317 Oct, [facility] [id number] [place] [address] 49473- 0428 Oct, 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 and 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 [facility] [id number] [place] [address] 68308- 7602 Oct, [facility] [id number] [place] [address] 88579- 0489 Oct, Migraine with aura and with status migrainosus, not intractable G43.101 ; Other abnormal cytological finding of specimen from cervix R87.618 ; Screening for diabetes mellitus (DM) Z13.1 ; Screening for lipid disorders Z13.220 and Weight gain R63.5 [facility] [id number] [place] [address] 68939- 1042 Oct, [facility] [id number] [place] [address] 00413- 6939 Oct, [place] [address] 98713- 0813 Oct, [place] [id number] [place] [address] 95732- 2001 Sep, Weight gain R63.5 ; Screening for lipid disorders Z13.220 ; Screening for diabetes mellitus (DM) Z13.1 and Scabies exposure Z20.89 [facility] [id number] [place] [address] [id number] Sep, Encounter for dental examination and cleaning without abnormal findings Z01.20 [facility] [id number] [place] [address] 00671 -0632 Sep, Abscess L02.91 [facility] [id number] [place] [address] 51842- 2314 Jun, [facility] [id number] [place] [address] 93175- 4743 Jun, Routine gynecological examination Z01.419 [place] [address] 84932- 4395 Jun, Routine gynecological examination Z01.419 ; Encounter for Depo-Provera contraception Z30.42 and Routine screening for STI (sexually transmitted infection) Z11.3 [facility] [id number] [place] [address] 77440- 9794 Jun, Anxiety F41.9 [facility] [address] [address]- 5450 May, [facility] [id number] [place] [address] 30340- 8707 Apr, Psychotic disorder with delusions F29 [facility] [id number] [place] [address] 52934- 0930 Jan, [facility] [id number] [place] [address] 51887- 0558 Jan, Psychotic disorder with delusions F29 [facility] [id number] [place] [address] 34966- 8804 Jan, Encounter for contraceptive management, unspecified contraceptive encounter type Z30.9 ; Anxiety F41.9 ; Simple chronic bronchitis J41.0 and Encounter for Depo-Provera contraception Z30.42 [facility] [id number] [place] [address] 16664- 4432 Jun, [facility] [id number] [place] [address] 28233- 3610 Jun, [facility] [id number] [place] [address] 65460- 6805 Mar, [facility] [address] [address]- 1772 Jan, [facility] [id number] [place] [address] 30920- 1184 Jan, [facility] [id number] [place] [address] 26125- 3416 Jan, [facility] [id number] [place] [address] 45969- 2151 Jan, [facility] [address] [address]- 4341 Jan, [facility] [id number] [place] [address] [place] [address]- 6140 06 Jan, 2011 [facility] [place] [facility] [address] [id number] [place] [address]- 4931 06 Jan, 2011 [facility] [place] [facility] [address] [id number] [place] [address]- 0497 31 Dec, 2011 [facility] [place] [facility] [address] [id number] [place] [address]- 5520 31 Dec, 2011 [facility] [place] [facility] [address] [id number] [place] [address]- 7681 26 Dec, 2011 [facility] [place] [facility] [id number] [place] [address], [place] 1322 Dec, 2011 [facility] [place] [facility] [address] [id number] [place] [address]- 1807 23 Dec, 2011 [facility] [place] [facility] [address] [facility] [id number] [place] [address]- 9771 18 Dec, 2011 [facility] [place] [facility] [address] [id number] [address]- 9610 18 Dec, 2011 [facility] [place] [facility] [address] [facility] [id number] [place] [address]- 5846 18 Dec, 2011 [facility] [place] [facility] [address] [facility] [id number] [address]- 4470 18 Dec, 2011 [facility] [place] [facility] [address] [facility] [id number] [address]- 5363 18 Dec, 2011 [facility] [place] [facility] [address] [id number] [address]- 9303 18 Dec, 2011 [facility] [place] [facility] [address] [id number] 5808 15 Dec, 2011 [facility] [place] [facility] [address] [facility] [id number] [address]- 3641 10 Dec, 2011 [facility] [place] [facility] [address] [facility] [id number] 7367 10 Dec, 2011 [facility] [place] [facility] [address] [id number] [place] [address]- 2627 08 Dec, 2011 [facility] [place] [facility] [address] [id number] [place] [address]- 2276 05 Dec, 2011 [facility] [place] [facility] [address] [id number] [place] [address] 2546 Dec, [facility] [place] [facility] [address] [id number] [place] [address]- 0616 02 Dec, 2011 [facility] [place] [facility] [address] [id number] [place] [address]- 7465 18 Nov, 2011 [facility] [place] [facility] [address] [id number] [place] [address]- 1906 17 Nov, 2011 [facility] [place] [facility] [address] [id number] [place] [address]- 1676 13 Nov, 2011 [facility] [place] [facility] [address] [id number] [place] [address]- 2786 13 Nov, 2011 [facility] [place] [facility] [address] [id number] [place] [address]- 4098 12 Nov, 2011 [facility] [place] [facility] [address] [id number] [place] [address]- 8389 05 Nov, 2011 [facility] [place] [facility] [address] [id number] [place] [address]- 2562 Sep, [facility] [place] [facility] [address] [id number] [place] [address]- 5780 Aug, [facility] [place] [facility] [address] [id number] [place] [address]- 0723 Aug, [facility] [place] [facility] [address] [id number] [place] 8347 July, [facility] [place] [facility] [address] [id number] [place] [address]- 9321 July, [facility] [place] [facility] [address] [id number] [place] [address]- 9519 July, IMMUNIZATIONS No Known Immunizations SOCIAL HISTORY Never Assessed REASON FOR VISIT refills PLAN OF CARE VITAL SIGNS MEDICATIONS Medication Instructions Dosage Frequency Start Date End Date Duration Status BusPIRone HCl 15 mg Orally Twice a day 1 tablet 12h 13 Aug, 2017 Active Latuda 80 MG Orally Once a day 1 tablet with food 24h Sep, 30 day(s) Active Vol-Care Rx 1 MG Orally Once a day 1 tablet 24h Oct, 30 day(s) Active Zyrtec Allergy 10 mg Orally Once a day 1 tablet 24h Oct, 30 day (s) Active RESULTS No Results PROCEDURES No Known procedures INSTRUCTIONS MEDICATIONS ADMINISTERED No Known Medications MEDICAL (GENERAL) HISTORY Type Description Date Medical History schizoaffective disorder Medical History bi-polar disorder Medical History depression Medical History anxiety Medical History pre diabetes Medical History COPD Surgical History x 2 Hospitalization History Staph infection in arm
--- OUTSIDE RECORDS SUMMARY | 2018-04-11 16:36 | XMS REPORT ---
Author Author DONOVAN JACKSON Organization [facility] Address [address] [place] [address] Care Team Providers Care Marketing Database Coordinator Name Role Phone DONOVAN JACKSON Unavailable PROBLEMS Type Condition ICD9-CM Code NQA60-TM Code Onset Dates Condition Status SNOMED Code Problem Simple chronic bronchitis J41.0 Active 00590419 Problem Anxiety F41.9 Active 45184410 Problem Acute seasonal allergic rhinitis, unspecified trigger J30.2 Active 344366263 Problem Asthma exacerbation J45.901 Active 684038800 Problem Migraine with aura and with status migrainosus, not intractable G43.101 Active 9840184 Problem Psychotic disorder with delusions F29 Active 44155451 Problem 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 008770485 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 828749720 ALLERGIES No Information ENCOUNTERS Encounter Location Date Diagnosis [facility] [id number] [place] [address] 18530- 6848 Jan, [facility] [id number] [place] [address] 88383- 5119 Nov, [facility] [id number] [place] [address] 20790- 8114 Nov, [facility] [id number] [place] [address] 94514- 8854 Nov, [facility] [id number] [place] [address] 32731- 0954 Oct, care in second trimester Z34.92 ; Anxiety F41.9 and Psychotic disorder with delusions F29 [facility] [id number] [place] [address] 52669- 1907 Oct, Normal in multigravida Z34.80 ; care in second trimester Z34.92 ; Gonorrhea affecting , antepartum O98.219 and 18 weeks gestation of Z3A.18 [facility] [id number] [place] [address] 43878- 7572 Oct, Encounter for dental examination and cleaning without abnormal findings Z01.20 and Caries K02.9 [facility] [id number] [address] 5149 Oct, [facility] [id number] [place] [address] 19108- 0390 Oct, [facility] [id number] [place] [address] 44732- 5726 Oct, [facility] [id number] [place] [address] 75868- 9325 Sep, [facility] [id number] [place] [address] 98648- 8344 Sep, [facility] [id number] [place] [address] 45752- 7447 Sep, Normal in multigravida Z34.80 [facility] [id number] [place] [address] 92220- 1849 Sep, [facility] [address] [address] 7759 Sep, [facility] [id number] [place] [address] 28620- 2771 Aug, Anxiety F41.9 and Screening for diabetes mellitus (DM) Z13.1 [facility] [id number] [address] 3[address] July, [facility] [id number] [place] [address] 72946- 5312 July, [facility] [address] [address] 0247 May, Psychotic disorder with delusions F29 [facility] [id number] [place] [address] 60556- 5369 May, [facility] [address] 40547- 2495 May, [facility] [id number] [place] [address] 71022- 2759 Mar, Psychotic disorder with delusions F29 and 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 [facility] [address] 49763- 8035 Jan, [facility] [id number] [place] [address] 03916- 8226 Dec, Psychotic disorder with delusions F29 [facility] [id number] [place] [address] 40158 -0947 Dec, Acute seasonal allergic rhinitis, unspecified trigger J30.2 [facility] [address] 47573- 5419 Nov, Psychotic disorder with delusions F29 [facility] [id number] [place] [address] 72133- 5281 Nov, [facility] [address] 41738- 6661 Nov, [facility] [id number] [place] [address] 31773- 8195 Nov, [facility] [id number] [place] [address] 45444- 2803 Oct, Asthma exacerbation J45.901 [facility] [id number] [place] [address] 80175- 7864 Oct, [facility] [address] 35629- 0538 Oct, 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 and 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 [facility] [id number] [place] [address] 55649- 0485 Oct, [facility] [address] [place] [address] 20106- 6888 Oct, Migraine with aura and with status migrainosus, not intractable G43.101 ; Other abnormal cytological finding of specimen from cervix R87.618 ; Screening for diabetes mellitus (DM) Z13.1 ; Screening for lipid disorders Z13.220 and Weight gain R63.5 [facility] [id number] [place] [address] 80646- 5355 Oct, [facility] [id number] [place] [address] 05509- 9567 Oct, [facility] [id number] [place] [address] 51219- 8478 Oct, [facility] [id number] [place] [address] 29259- 5900 Sep, Weight gain R63.5 ; Screening for lipid disorders Z13.220 ; Screening for diabetes mellitus (DM) Z13.1 and Scabies exposure Z20.89 [facility] [id number] [place] [address] [id number] Sep, Encounter for dental examination and cleaning without abnormal findings Z01.20 [facility] [id number] [place] [address] 82782 -0392 Sep, Abscess L02.91 [facility] [id number] [place] [address] 29071- 0329 Jun, [facility] [id number] [place] [address] 19308- 7422 Jun, Routine gynecological examination Z01.419 [place] [facility] [address] 97188- 5604 Jun, Routine gynecological examination Z01.419 ; Encounter for Depo-Provera contraception Z30.42 and Routine screening for STI (sexually transmitted infection) Z11.3 [facility] [id number] [place] [address] 58202- 9972 Jun, Anxiety F41.9 [facility] [address], [place] [address]- 7004 May, [facility] [id number] [place] [address] 65534- 8042 Apr, Psychotic disorder with delusions F29 [facility] [id number] [place] [address] 32845- 7949 Jan, [facility] [id number] [place] [address] 57173- 8819 Jan, Psychotic disorder with delusions F29 [facility] [id number] [place] [address] 55263- 3951 Jan, Encounter for contraceptive management, unspecified contraceptive encounter type Z30.9 ; Anxiety F41.9 ; Simple chronic bronchitis J41.0 and Encounter for Depo-Provera contraception Z30.42 [facility] [id number] [place] [address] 75021- 3678 Jun, [facility] [id number] [place] [address] 64595- 3347 Jun, [facility] [id number] [place] [address] 39924- 5002 Mar, [facility] [address] [address]- 0799 Jan, [facility] [id number] [place] [address] 69346- 9545 Jan, [facility] [id number] [place] [address] 02377- 2619 Jan, [facility] [id number] [place] [address] 28212- 2307 Jan, [facility] [id number] [place] [address] 44723- 8947 Jan, [facility] [id number] [place] [address] 69370- 7098 Jan, [facility] [place] [facility] [address] [id number] [place] [address]- 5281 06 Jan, 2011 [facility] [place] [facility] [address] [id number] [place] [address]- 5435 31 Dec, 2011 [facility] [place] [facility] [address] [facility] [id number] [place] [address]326 31 Dec, 2011 [facility] [place] [facility] [address] [id number] [place] [address]- 9835 26 Dec, 2011 [facility] [place] [facility] [address] [id number] [place] [address]- 6459 Dec, [facility] [place] [facility] [address] [facility] [id number] [place] [address]- 0258 23 Dec, 2011 [facility] [place] [facility] [address] [facility] [id number], [place] [address]- 7829 18 Dec, 2011 [facility] [place] [facility] [address] [facility] [id number] [place] [address]- 7984 18 Dec, 2011 [facility] [place] [facility] [address] [facility] [id number], [place] [address]- 5053 18 Dec, 2011 [facility] [place] [facility] [address] [facility] [id number] [address]- 9798 18 Dec, 2011 [facility] [place] [facility] [address] [facility] [id number] [address]- 7624 18 Dec, 2011 [facility] [place] [facility] [address] [facility] [id number], [place] [address]- 1608 18 Dec, 2011 [facility] [place] [facility] [address] [facility] [id number], [place] [address]- 5962 15 Dec, 2011 [facility] [place] [facility] [address] [facility] [id number], [place] [address]- 4801 10 Dec, 2011 [facility] [place] [facility] [address] [facility] [id number] [address]- 5418 10 Dec, 2011 [facility] [place] [facility] [address] [id number] [place] [address]- 1526 08 Dec, 2011 [facility] [place] [facility] [address] [id number] [place] [address]- 0954 05 Dec, 2011 [facility] [place] [facility] [address] [id number] [place] [address]- 2896 Dec, [facility] [place] [facility] [address] [id number] [place] [address]- 9522 02 Dec, 2011 [facility] [place] [facility] [address] [id number] [place] [address]- 8608 18 Nov, 2011 [facility] [place] [facility] [address] [id number] [place] [address]- 4306 17 Nov, 2011 [facility] [place] [facility] [address] [id number] [place] [address]- 9320 13 Nov, 2011 [facility] [place] [facility] [address] [id number] [place] [address]- 0498 13 Nov, 2011 [facility] [place] [facility] [address] [id number] [place] [address]- 8416 12 Nov, 2011 [facility] [place] [facility] [address] [id number] [place] [address]- 7323 05 Nov, 2011 [facility] [place] [facility] [address] [id number] [place] [address]- 2997 Sep, [facility] [place] [facility] [address] [id number] [place] [address]- 8836 Aug, [facility] [place] [facility] [address] [id number] [place] [address]- 8654 Aug, [facility] [place] [facility] [address] [id number] [place] [address]- 0556 July, [facility] [place] [facility] [address] [id number] [place] [address]- 1680 July, [facility] [place] [facility] [address] [id number] [place] [address]- 1675 July, IMMUNIZATIONS No Known Immunizations SOCIAL HISTORY Never Assessed REASON FOR VISIT Requests return call PLAN OF CARE VITAL SIGNS MEDICATIONS Medication Instructions Dosage Frequency Start Date End Date Duration Status Miconazole 7 2 % Vaginal Once a day 1 applicatorful at bedtime 24h Oct, Oct, 7 day(s) Active RESULTS No Results PROCEDURES No Known procedures INSTRUCTIONS MEDICATIONS ADMINISTERED No Known Medications MEDICAL (GENERAL) HISTORY Type Description Date Medical History schizoaffective disorder Medical History bi-polar disorder Medical History depression Medical History anxiety Medical History pre diabetes Medical History COPD Surgical History x 2 Hospitalization History Staph infection in arm
--- OUTSIDE RECORDS SUMMARY | 2018-04-11 16:36 | XMS REPORT ---
Author Author EDILBERTO JACKSON Organization [facility] Address [address] [place] [address] Care Team Providers Care Materials Mgmt Tech Name Role Phone RENETTA EDILBERTO Unavailable PROBLEMS Type Condition ICD9-CM Code SMU66-HI Code Onset Dates Condition Status SNOMED Code Problem Simple chronic bronchitis J41.0 Active 90811590 Problem Anxiety F41.9 Active 49009214 Problem Acute seasonal allergic rhinitis, unspecified trigger J30.2 Active 645224774 Problem Asthma exacerbation J45.901 Active 734394972 Problem Migraine with aura and with status migrainosus, not intractable G43.101 Active 7132830 Problem Psychotic disorder with delusions F29 Active 67527967 Problem 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 397574659 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 233505579 ALLERGIES Substance Reaction Event Type Date Status Naproxen hives Drug Allergy Oct, Active ENCOUNTERS Encounter Location Date Diagnosis [facility] [id number] [place] [address] 58199- 2987 Jan, [facility] [id number] [place] [address] 75931- 8750 Nov, [facility] [id number] [place] [address] 21016- 4526 Nov, [facility] [id number] [place] [address] 47947- 5128 Nov, [facility] [address] 49538- 4977 Oct, care in second trimester Z34.92 ; Anxiety F41.9 and Psychotic disorder with delusions F29 [facility] [id number] [place] [address] 42056- 6036 Oct, Normal in multigravida Z34.80 ; care in second trimester Z34.92 ; Gonorrhea affecting , antepartum O98.219 and 18 weeks gestation of Z3A.18 [facility] [id number] [place] [address] 40249- 6949 Oct, Encounter for dental examination and cleaning without abnormal findings Z01.20 and Caries K02.9 [facility] [id number] [place] [address] 80278- 5500 Oct, [facility] [id number] [place] [address] 23773- 0177 Oct, [facility] [id number] [place] [address] 09217- 5213 Oct, [facility] [id number] [place] [address] 04874- 5673 Sep, [facility] [id number] [place] [address] 88437- 3020 Sep, [facility] [id number] [place] [address] 61789- 5016 Sep, Normal in multigravida Z34.80 [facility] [id number] [place] [address] 77040- 4306 Sep, [facility] [id number] [place] [address] 10448- 0452 Sep, [facility] [id number] [place] [address] 55217- 4656 Aug, Anxiety F41.9 and Screening for diabetes mellitus (DM) Z13.1 [facility] [id number] [place] [address] 89928- 0723 July, [facility] [id number] [place] [address] 59322- 8354 July, [facility] [id number] [place] [address] 81766- 9219 May, Psychotic disorder with delusions F29 [facility] [id number] [place] [address] 20336- 8730 May, [facility] [id number] [place] [address] 70240- 3210 May, [facility] [id number] [place] [address] 89230- 3730 Mar, Psychotic disorder with delusions F29 and 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 [facility] [id number] [place] [address] 89069- 5132 Jan, [facility] [id number] [place] [address] 81964- 0871 Dec, Psychotic disorder with delusions F29 [facility] [id number] [place] [address] 75199 -3224 Dec, Acute seasonal allergic rhinitis, unspecified trigger J30.2 [facility] [id number] [place] [address] 73251- 3118 Nov, Psychotic disorder with delusions F29 [facility] [id number] [place] [address] 25348- 7155 Nov, [facility] [id number] [place] [address] 73033- 9071 Nov, [facility] [id number] [place] [address] 30556- 2015 Nov, [facility] [id number] [place] [address] 63749- 9947 Oct, Asthma exacerbation J45.901 [facility] [id number] [place] [address] 12871- 9408 Oct, [facility] [id number] [place] [address] 77207- 0851 Oct, 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 and 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 [facility] [id number] [place] [address] 95581- 2672 Oct, [facility] [id number] [place] [address] 86805- 2831 Oct, Migraine with aura and with status migrainosus, not intractable G43.101 ; Other abnormal cytological finding of specimen from cervix R87.618 ; Screening for diabetes mellitus (DM) Z13.1 ; Screening for lipid disorders Z13.220 and Weight gain R63.5 [facility] [id number] [place] [address] 40560- 0104 Oct, [facility] [id number] [place] [address] 45329- 1073 Oct, [facility] [id number] [place] [address] 44077- 8331 Oct, [facility] [id number] [place] [address] 22247- 2450 Sep, Weight gain R63.5 ; Screening for lipid disorders Z13.220 ; Screening for diabetes mellitus (DM) Z13.1 and Scabies exposure Z20.89 [facility] [id number] [place] [address] [id number] Sep, Encounter for dental examination and cleaning without abnormal findings Z01.20 [facility] [address] [place] [address] 51798 -3283 Sep, Abscess L02.91 [facility] [id number] [place] [address] 62568- 9273 Jun, [facility] [id number] [place] [address] 11928- 5052 Jun, Routine gynecological examination Z01.419 [facility] [address] 16411- 2939 Jun, Routine gynecological examination Z01.419 ; Encounter for Depo-Provera contraception Z30.42 and Routine screening for STI (sexually transmitted infection) Z11.3 [facility] [address] [address]- 6606 Jun, Anxiety F41.9 [facility] [id number] [place] [address] 05827- 6891 May, [facility] [id number] [place] [address] 28870- 5753 Apr, Psychotic disorder with delusions F29 [facility] [id number] [place] [address] 72847- 0681 Jan, [facility] [address] [place] [address] 66767- 8390 Jan, Psychotic disorder with delusions F29 [facility] [address] [place] [address] 38955- 2926 16 Jan, 2016 Encounter for contraceptive management, unspecified contraceptive encounter type Z30.9 ; Anxiety F41.9 ; Simple chronic bronchitis J41.0 and Encounter for Depo-Provera contraception Z30.42 [facility] [address] [address]- 2294 Jun, [facility] [id number] [place] [address] 64736- 9284 Jun, [facility] [address] [address]- 3827 Mar, [facility] [address] [address]- 7357 Jan, [facility] [address] [place] [address] 72299- 3110 Jan, [facility] [id number] [place] [address] 19397- 9953 Jan, [facility] [id number] [place] [address] 62583- 6472 Jan, [facility] [id number] [place] [address] 65078- 4735 Jan, [facility] [place] [facility] [address] [id number] [place] [address]- 0838 Jan, [facility] [place] [facility] [address] [id number] [place] [address]- 0000 Jan, [facility] [place] [facility] [address] [id number] [place] 2552 Dec, [facility] [place] [facility] [address] [id number] [place] [address]- 2440 Dec, [facility] [place] [facility] [address] [id number] [place] [address]- 9820 Dec, [facility] [place] [facility] [address] [id number] [place] [address]- 7360 Dec, [facility] [place] [facility] [address] [id number] [place] [address]- 4309 Dec, [facility] [place] [facility] [address] [id number] [address]- 0273 Dec, [facility] [place] [facility] [address] [id number] [place] [address]- 8876 18 Dec, 2011 [facility] [place] [facility] [address] [id number], [place] [address]- 8714 18 Dec, 2011 [facility] [place] [facility] [address] [id number], [place] [address]- 1747 18 Dec, 2011 [facility] [place] [facility] [address] [id number], [place] [address]- 8381 18 Dec, 2011 [facility] [place] [facility] [address] [id number], [place] [address]- 2653 18 Dec, 2011 [facility] [place] [facility] [address] [id number], [place] [address]- 7432 15 Dec, 2011 [facility] [place] [facility] [address] [id number], [place] [address]- 4239 10 Dec, 2011 [facility] [place] [facility] [address] [id number] [place] [address]- 6719 10 Dec, 2011 [facility] [place] [facility] [address] [id number] [place] [address]- 4470 08 Dec, 2011 [facility] [place] [facility] [address] [id number] [place] [address]- 9402 05 Dec, 2011 [facility] [place] [facility] [address] [id number] [place] [address]- 1531 03 Dec, 2011 [facility] [place] [facility] [address] [id number] [place] [address]- 1956 02 Dec, 2011 [facility] [place] [facility] [address] [id number] [place] [address]- 8173 18 Nov, 2011 [facility] [place] [facility] [address] [id number] [place] [address]- 9615 17 Nov, 2011 [facility] [place] [facility] [address] [id number] [place] [address]- 1275 13 Nov, 2011 [facility] [place] [facility] [address] [id number] [place] [address]- 2684 13 Nov, 2011 [facility] [place] [facility] [address] [id number] [place] [address]- 0958 12 Nov, 2011 [facility] [place] [facility] [address] [facility] [id number] [place] [address]- 7554 05 Nov, 2011 [facility] [place] [facility] [address] [id number] [place] [address]- 1246 Sep, [facility] [place] [facility] [address] [id number] [place] [address]- 7510 30 Aug, 2011 [facility] [place] [facility] [address] [id number] [place] [address]- 5824 Aug, [facility] [place] [facility] [address] [facility] [id number] [place] [address]- 6353 July, [facility] [place] [facility] [address] [facility] [id number] [place]- 5878 July, [facility] [place] [facility] [address] [facility] [id number] [place] [address]- 4816 July, IMMUNIZATIONS No Known Immunizations SOCIAL HISTORY Never Assessed REASON FOR VISIT OB DENTAL/est. care PLAN OF CARE Activity Details Follow Up SATISH Reason:JOVANNA VITAL SIGNS Height 62 in 2017-11-18 Blood pressure systolic 130 mmHg 2017-11-18 Blood pressure diastolic 76 mmHg 2017-11-18 MEDICATIONS Medication Instructions Dosage Frequency Start Date End Date Duration Status BuPROPion HCl ER (XL) 300 MG Orally Once a day, voucher 1st fill. 1 tablet in the morning Nov, 90 days Not-Taking BusPIRone HCl 15 mg Orally Twice a day 1 tablet 12h 13 Aug, 2017 Not -Taking Propranolol HCl 20 mg Orally Once a day 1 tablet 24h Oct, Not-Taking Benztropine Mesylate 2 MG Orally at bed time, voucher 1st fill only 1 tablet Not-Taking Metformin HCl 500 mg Orally twice a day 1 tablet with a meal 12h Not-Taking HydrOXYzine HCl 50 mg Orally Once a day, voucher 1st fill only 1 tablet as needed at HS Not-Taking Vitamins Plus by oral route Once a day 1 tablet 24h 14 Oct, 2017 Active Latuda 60 mg Orally Once a day 0.5 tablet with food 24h Sep, 30 day(s) Active Flonase 50 MCG/ACT Nasally Once a day 1 spray in each nostril 24h Dec, 30 day(s) Not-Taking Haloperidol 10 mg Orally Once a day, voucher 1st fill. 2 tablets Nov, 30 day(s) Not-Taking Singulair 10 MG Orally Once a day 1 tablet in the evening 24h 30 days Not-Taking RESULTS No Results PROCEDURES Procedure Date Ordered Result Body Site INTRAORL - CMPL SERIES CODE 71042 Nov 27, 2017 PANORAMIC FILM SEE ALSO CODE 83255 Nov 27, 2017 TOPICAL FLUORIDE VARNISH Nov 27, 2017 PROPHYLAXIS - ADULT Nov 27, 2017 INSTRUCTIONS MEDICATIONS ADMINISTERED No Known Medications MEDICAL (GENERAL) HISTORY Type Description Date Medical History schizoaffective disorder Medical History bi-polar disorder Medical History depression Medical History anxiety Medical History pre diabetes Medical History COPD Surgical History x 2 Hospitalization History Staph infection in arm
--- OUTSIDE RECORDS SUMMARY | 2018-04-11 16:36 | XMS REPORT ---
Author Author DONOVAN JACKSON Organization [facility] Address [address] [place] [address] Care Team Providers Care Database Administration Project Manager Name Role Phone DONOVAN JACKSON Unavailable PROBLEMS Type Condition ICD9-CM Code WVX55-EY Code Onset Dates Condition Status SNOMED Code Problem Simple chronic bronchitis J41.0 Active 50412838 Problem Anxiety F41.9 Active 82201156 Problem Acute seasonal allergic rhinitis, unspecified trigger J30.2 Active 870849661 Problem Asthma exacerbation J45.901 Active 582970441 Problem Migraine with aura and with status migrainosus, not intractable G43.101 Active 2962269 Problem Psychotic disorder with delusions F29 Active 19544833 Problem 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 767764495 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 123227338 ALLERGIES No Information ENCOUNTERS Encounter Location Date Diagnosis [place] [address] [address] Nov, [place] [address] [address] Oct, care in second trimester Z34.92 ; Anxiety F41.9 and Psychotic disorder with delusions F29 [place] [address] [place] [id number] [place] [address] Oct, Normal in multigravida Z34.80 ; care in second trimester Z34.92 ; Gonorrhea affecting , antepartum O98.219 and 18 weeks gestation of Z3A.18 [place] [address] [address] Oct, Encounter for dental examination and cleaning without abnormal findings Z01.20 and Caries K02.9 [place] [address] [address] Oct, [facility] [address] [address] Oct, [facility] [address] [id number] [place] [address]4638- 8115 Oct, [facility] [address] [address] Sep, [facility] [address] [place] [address] [id number] [place] [address]9611- 65[address] Sep, [facility] [address] [id number] [place] [address] 65151- 3156 Sep, Normal in multigravida Z34.80 [facility] [address] [place] [id number] [place] [address] 96405- 6670 Sep, [facility] [address] [id number] [place] [address] 61817- 8496 Sep, [facility] [address] [place] [id number] [place] [address]- 3359 Aug, Anxiety F41.9 and Screening for diabetes mellitus (DM) Z13.1 [facility] [address] [address] July, [facility] [address] [address] July, [facility] [address] [address] May, Psychotic disorder with delusions F29 [facility] [address] [address] May, [facility] [id number] [address] May, [facility] [address] [address] Mar, Psychotic disorder with delusions F29 and 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 [facility] [address] [place] [id number] [place] [address] 55683- 3434 Jan, [facility] [address] [place] [id number] [place] [address] 30300- 52[address] Dec, Psychotic disorder with delusions F29 [facility] [address] [place] [id number] [place] [address] Dec, Acute seasonal allergic rhinitis, unspecified trigger J30.2 [facility] [address] [place] [id number] [place] [address] 62359- 5332 Nov, Psychotic disorder with delusions F29 [facility] [address] [place] [id number] [place] [address] 40747- 2716 14 Nov, 2016 [facility] [address] [place] [id number] [place] [address] 89603- 4303 Nov, [facility] [address] [place] [id number] [place] [address] 40088- 5185 Nov, [facility] [address] [place] [id number] [place] [address] 44523- 7163 Oct, Asthma exacerbation J45.901 [facility] [address] [place] [id number] [place] [address] 24124- 0131 Oct, [facility] [address] [place] [id number] [place] [address] 75589- 5875 Oct, 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 and 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 [facility] [address] [place] [id number] [place] [address] 09093- 3051 Oct, [place] [address] [address] Oct, Migraine with aura and with status migrainosus, not intractable G43.101 ; Other abnormal cytological finding of specimen from cervix R87.618 ; Screening for diabetes mellitus (DM) Z13.1 ; Screening for lipid disorders Z13.220 and Weight gain R63.5 [place] [address] [place] [id number] [place] [address] 76835- 4487 Oct, [facility] [address] [place] [id number] [place] [address] 22683- 3911 Oct, [facility] [address] [place] [id number] [place] [address] 59294- 2027 Oct, [facility] [address] [address] Sep, Weight gain R63.5 ; Screening for lipid disorders Z13.220 ; Screening for diabetes mellitus (DM) Z13.1 and Scabies exposure Z20.89 [facility] [address] [place] [id number] [place] [id number] Sep, Encounter for dental examination and cleaning without abnormal findings Z01.20 [facility] [address] [place] [id number] [place] [address] -[address]59 Sep, Abscess L02.91 [facility] [address] [place] [id number] [place] [address] 36748- 2908 Jun, [facility] [address] [place] [id number] [place] [address] 43057- 7436 Jun, Routine gynecological examination Z01.419 [place] [address] [place] [id number] [place] [address] 83242- 2681 Jun, Routine gynecological examination Z01.419 ; Encounter for Depo-Provera contraception Z30.42 and Routine screening for STI (sexually transmitted infection) Z11.3 [facility] [address] [place] [id number] [place] [address] 18116- 1236 Jun, Anxiety F41.9 [facility] [address] [place] [id number] [place] [address] 49759- 0276 May, [facility] [address] [place] [id number] [place] [address] 67305- 3649 Apr, Psychotic disorder with delusions F29 [facility] [address] [place] [address]- [address] 18 Jan, 2016 [facility] [address] [place] [id number] [place] [address] 15795- 3694 18 Jan, 2016 Psychotic disorder with delusions F29 [facility] [address] [place] [id number] [place] [address] 75951- 7538 16 Jan, 2016 Encounter for contraceptive management, unspecified contraceptive encounter type Z30.9 ; Anxiety F41.9 ; Simple chronic bronchitis J41.0 and Encounter for Depo-Provera contraception Z30.42 [facility] [address] [place] [id number] [place] [address] 84149- 1364 14 Jun, 2014 [facility] [address] [place] [id number] [place] [address] 47707- 0361 13 Jun, 2014 [facility] [address] [place] [id number] [place] [address] 57561- 0173 Mar, [facility] [address] [place] [id number] [place] [address] 22901- 0198 Jan, [facility] [address] [place] [id number] [place] [address] 69935- 1484 Jan, [facility] [address] [place] [id number] [place] [address] 62707- 9417 Jan, [facility] [address] [place] [id number] [place] [address] 08068- 2687 Jan, [facility] [address] [place] [id number] [place] [address] 52691- 4683 Jan, [facility] [id number] [place] [address] 51620- 9257 Jan, [facility] [address] [place] [id number] [place] [address] 00536- 1218 Jan, [facility] [address] [address]- 8[address] Dec, [facility] [address] [place] [id number] [place] [address] 76040- 3008 31 Dec, 2011 [facility] [place] [facility] [address] [id number] [place] [address]- 3181 26 Dec, 2011 [facility] [place] [facility] [address] [id number] [place] [address]- 0734 Dec, 2011 [facility] [place] [facility] [address] [facility] [id number] [place] [address]- 4821 23 Dec, 2011 [facility] [place] [facility] [address] [id number] [place] [address]- 0325 18 Dec, 2011 [facility] [place] [facility] [address] [id number] [place] [address]- 2292 18 Dec, 2011 [facility] [place] [facility] [address] [id number] [place] [address]- 3701 18 Dec, 2011 [facility] [place] [facility] [address] [facility] [id number] [address]- 74[address] 18 Dec, 2011 [facility] [place] [facility] [address] [facility] [id number] [place] [address]- 1120 18 Dec, 2011 [facility] [place] [facility] [address] [facility] [id number] [address]- 5630 18 Dec, 2011 [facility] [place] [facility] [address] [facility] [id number] [address]- 4255 15 Dec, 2011 [facility] [place] [facility] [address] [facility] [id number] [address]- 7948 10 Dec, 2011 [facility] [place] [facility] [address] [facility] [id number] [address]- 3601 10 Dec, 2011 [facility] [place] [facility] [address] [facility] [id number] [address]- 6592 08 Dec, 2011 [facility] [place] [facility] [address] [facility] [id number] [address]- 1072 05 Dec, 2011 [facility] [place] [facility] [address] [facility] [id number] [address]- 1570 03 Dec, 2011 [facility] [place] [facility] [address] [place] [id number] [address]- 0466 02 Dec, 2011 [facility] [address] 18 Nov, 2011 [facility] [address] [facility] [id number] [address]- 3335 17 Nov, 2011 [facility] [address] [address]- 4659 13 Nov, 2011 [facility] [address] [facility] [id number] [place] [address]- 1729 13 Nov, 2011 [facility] [address] [address]- 0767 12 Nov, 2011 [facility] [address] 278[address] 05 Nov, 2011 [facility] [address] [address]- 8613 Sep, [facility] [address] [address]- 4020 Aug, [facility] [address] [address]- 0639 Aug, [facility] [address] [place] [id number] July, [facility] [address] [place] [id number] [address]- 9226 July, [facility] [address] [place] [id number] [address]- 0726 July, IMMUNIZATIONS No Known Immunizations SOCIAL HISTORY Never Assessed REASON FOR VISIT PLAN OF CARE VITAL SIGNS MEDICATIONS Unknown [...]
--- OUTSIDE RECORDS SUMMARY | 2018-04-11 16:36 | XMS REPORT ---
Author Author DONOVAN JACKSON Organization [facility] Address [address] [place] [address] Care Team Providers Care Financial Brokers Name Role Phone DONOVAN JACKSON Unavailable PROBLEMS Type Condition ICD9-CM Code [id number] Code Onset Dates Condition Status SNOMED Code Problem Simple chronic bronchitis J41.0 Active 92656263 Problem Anxiety F41.9 Active 26825127 Problem Acute seasonal allergic rhinitis, unspecified trigger J30.2 Active 199844391 Problem Asthma exacerbation J45.901 Active 247588286 Problem Migraine with aura and with status migrainosus, not intractable G43.101 Active 9797221 Problem Psychotic disorder with delusions F29 Active 34489442 Problem 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 124856526 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 882077249 ALLERGIES No Information ENCOUNTERS Encounter Location Date Diagnosis [facility] [id number] [place] [address] 09398- 4173 Jan, [facility] [id number] [place] [address] 20571- 3994 Nov, [facility] [id number] [place] [address] 28281- 1054 Nov, [facility] [id number] [place] [address] 56824- 0008 Nov, [facility] [id number] [place] [address] 95749- 1079 Oct, care in second trimester Z34.92 ; Anxiety F41.9 and Psychotic disorder with delusions F29 [facility] [id number] [place] [address] 59710- 1988 Oct, Normal in multigravida Z34.80 ; care in second trimester Z34.92 ; Gonorrhea affecting , antepartum O98.219 and 18 weeks gestation of Z3A.18 [facility] [id number] [place] [address] 86918- 9538 Oct, Encounter for dental examination and cleaning without abnormal findings Z01.20 and Caries K02.9 [facility] [id number] [address] 8082 Oct, [facility] [id number] [place] [address] 95474- 5360 Oct, [facility] [id number] [place] [address] 20842- 9662 Oct, [facility] [id number] [place] [address] 24552- 6719 Sep, [facility] [id number] [place] [address] 78037- 9897 Sep, [facility] [id number] [place] [address] 59748- 8740 Sep, Normal in multigravida Z34.80 [facility] [id number] [place] [address] 28840- 8929 Sep, [facility] [address], [place] [address]- 3816 Sep, [facility] [id number] [place] [address] 53655- 3161 Aug, Anxiety F41.9 and Screening for diabetes mellitus (DM) Z13.1 [facility] [id number] [address] 0188 July, [facility] [id number] [place] [address] 63587- 7817 July, [facility] [address], [place] [address]- 7603 May, Psychotic disorder with delusions F29 [facility] [id number] [place] [address] 10599- 4877 May, [facility] [address] 79141- 6808 May, [facility] [id number] [place] [address] 33152- 7391 Mar, Psychotic disorder with delusions F29 and 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 [facility] [address] 45832- 0001 Jan, [facility] [id number] [place] [address] 80927- 6217 Dec, Psychotic disorder with delusions F29 [facility] [id number] [place] [address] 21968 -6787 Dec, Acute seasonal allergic rhinitis, unspecified trigger J30.2 [facility] [address] 47810- 1996 Nov, Psychotic disorder with delusions F29 [facility] [id number] [place] [address] 50905- 9541 Nov, [facility] [address] 52425- 2844 Nov, [facility] [id number] [place] [address] 41743- 1509 Nov, [facility] [id number] [place] [address] 62072- 3895 Oct, Asthma exacerbation J45.901 [facility] [id number] [place] [address] 01194- 8719 Oct, [facility] [address] 95281- 9234 Oct, 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 and 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 [facility] [id number] [place] [address] 61082- 7523 Oct, [facility] [id number] [place] [address] 27532- 7079 Oct, Migraine with aura and with status migrainosus, not intractable G43.101 ; Other abnormal cytological finding of specimen from cervix R87.618 ; Screening for diabetes mellitus (DM) Z13.1 ; Screening for lipid disorders Z13.220 and Weight gain R63.5 [facility] [id number] [place] [address] 89552- 0977 Oct, [facility] [id number] [place] [address] 01497- 3258 Oct, [place] [id number] [place] [address] 00100- 3217 Oct, [place] [facility] [id number] [place] [address] 21375- 5076 Sep, Weight gain R63.5 ; Screening for lipid disorders Z13.220 ; Screening for diabetes mellitus (DM) Z13.1 and Scabies exposure Z20.89 [facility] [id number] [place] [address] [id number] Sep, Encounter for dental examination and cleaning without abnormal findings Z01.20 [facility] [id number] [place] [address] 89897 -3631 Sep, Abscess L02.91 [facility] [id number] [place] [address] 45063- 7014 Jun, [facility] [id number] [place] [address] 18075- 5048 Jun, Routine gynecological examination Z01.419 [place] [address] 22019- 1370 Jun, Routine gynecological examination Z01.419 ; Encounter for Depo-Provera contraception Z30.42 and Routine screening for STI (sexually transmitted infection) Z11.3 [facility] [id number] [place] [address] 14346- 6150 Jun, Anxiety F41.9 [facility] [address], [place] [address]- 4607 May, [facility] [id number] [place] [address] 47099- 7846 Apr, Psychotic disorder with delusions F29 [facility] [id number] [place] [address] 56860- 9658 Jan, [facility] [id number] [place] [address] 70462- 0463 Jan, Psychotic disorder with delusions F29 [facility] [id number] [place] [address] 07385- 2939 Jan, Encounter for contraceptive management, unspecified contraceptive encounter type Z30.9 ; Anxiety F41.9 ; Simple chronic bronchitis J41.0 and Encounter for Depo-Provera contraception Z30.42 [facility] [id number] [place] [address] 02886- 4707 Jun, [facility] [id number] [place] [address] 70839- 9190 Jun, [facility] [id number] [place] [address] 30807- 7384 Mar, [facility] [address], [place] [address]- 6144 Jan, [facility] [id number] [place] [address] 72556- 3491 Jan, [facility] [id number] [place] [address] 16848- 5372 Jan, [facility] [id number] [place] [address] 31995- 5294 Jan, [facility] [id number] [place] [address] 03750- 6636 Jan, [facility] [id number] [place] [address] 36797- 9791 Jan, [facility] [place] [facility] [address] [id number] [place] [address]- 7131 06 Jan, 2011 [facility] [place] [facility] [address] [id number] [place] [address]- 1998 31 Dec, 2011 [facility] [place] [facility] [address] [facility] [id number] [place] 4380 31 Dec, 2011 [facility] [place] [facility] [address] [id number] [place] [address]- 1887 26 Dec, 2011 [facility] [place] [facility] [address] [id number] [place] [address]- 1668 Dec, [facility] [place] [facility] [address] [facility] [id number] [place] [address]- 7407 23 Dec, 2011 [facility] [place] [facility] [address] [facility] [id number], [place] [address]- 6296 18 Dec, 2011 [facility] [place] [facility] [address] [facility] [id number] [place] [address]- 1940 18 Dec, 2011 [facility] [place] [facility] [address] [facility] [id number], [place] [address]- 3923 18 Dec, 2011 [facility] [place] [facility] [address] [facility] [id number], [place] [address]- 0444 18 Dec, 2011 [facility] [place] [facility] [address] [facility] [id number], [place] [address]- 7662 18 Dec, 2011 [facility] [place] [facility] [address] [facility] [id number], [place] [address]- 6410 18 Dec, 2011 [facility] [place] [facility] [address] [facility] [id number], [place] [address]- 0580 15 Dec, 2011 [facility] [place] [facility] [address] [facility] [id number], [place] [address]- 1077 10 Dec, 2011 [facility] [place] [facility] [address] [facility] [id number], [place] [address]- 6379 10 Dec, 2011 [facility] [place] [facility] [address] [id number] [place] [address]- 5441 08 Dec, 2011 [facility] [place] [facility] [address] [id number] [place] [address]- 6292 05 Dec, 2011 [facility] [place] [facility] [address] [id number] [place] [address]- 3196 Dec, [facility] [place] [facility] [address] [id number] [place] [address]- 3798 02 Dec, 2011 [facility] [place] [facility] [address] [id number] [place] [address]- 0219 18 Nov, 2011 [facility] [place] [facility] [address] [id number] [place] [address]- 7806 17 Nov, 2011 [facility] [place] [facility] [address] [id number] [place] [address]- 6247 13 Nov, 2011 [facility] [place] [facility] [address] [id number] [place] [address]- 2921 13 Nov, 2011 [facility] [place] [facility] [address] [id number] [place] [address]- 4134 12 Nov, 2011 [facility] [place] [facility] [address] [id number] [place] [address]- 8004 05 Nov, 2011 [facility] [place] [facility] [address] [id number] [place] [address]- 1296 Sep, [facility] [place] [facility] [address] [id number] [place] [address]- 9397 Aug, [facility] [place] [facility] [address] [id number] [place] [address]- 7301 Aug, [facility] [place] [facility] [address] [id number] [place] [address]- 8292 July, [facility] [place] [facility] [address] [id number] [place] [address]- 5937 July, [facility] [place] [facility] [address] [id number] [place] [address]- 1166 July, IMMUNIZATIONS No Known Immunizations SOCIAL HISTORY Never Assessed REASON FOR VISIT Vitamins PLAN OF CARE VITAL SIGNS MEDICATIONS Medication Instructions Dosage Frequency Start Date End Date Duration Status Vitamins Plus by oral route Once a day 1 tablet 24h Oct, Active RESULTS No Results PROCEDURES No Known procedures INSTRUCTIONS MEDICATIONS ADMINISTERED No Known Medications MEDICAL (GENERAL) HISTORY Type Description Date Medical History schizoaffective disorder Medical History bi-polar disorder Medical History depression Medical History anxiety Medical History pre diabetes Medical History COPD Surgical History x 2 Hospitalization History Staph infection in arm
--- OUTSIDE RECORDS SUMMARY | 2018-04-11 16:37 | XMS REPORT ---
Author Author DONOVAN JACKSON Organization [facility] Address [address] [place] [address] Care Team Providers Care Underwriting Support Specialist Name Role Phone DONOVAN JACKSON Unavailable PROBLEMS Type Condition ICD9-CM Code [id number] Code Onset Dates Condition Status SNOMED Code Problem Simple chronic bronchitis J41.0 Active 08054965 Problem Anxiety F41.9 Active 59968064 Problem Acute seasonal allergic rhinitis, unspecified trigger J30.2 Active 218993409 Problem Asthma exacerbation J45.901 Active 420623049 Problem Migraine with aura and with status migrainosus, not intractable G43.101 Active 3703528 Problem Psychotic disorder with delusions F29 Active 83051298 Problem 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 722131985 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 832983784 ALLERGIES No Information ENCOUNTERS Encounter Location Date Diagnosis [place] [address] 36014- 5201 Nov, [place] [address] 82084- 0732 Oct, care in second trimester Z34.92 ; Anxiety F41.9 and Psychotic disorder with delusions F29 [place] [id number] [place] [address] 79599- 1509 Oct, Normal in multigravida Z34.80 ; care in second trimester Z34.92 ; Gonorrhea affecting , antepartum O98.219 and 18 weeks gestation of Z3A.18 [place] [address] 08042- 2395 Oct, Encounter for dental examination and cleaning without abnormal findings Z01.20 and Caries K02.9 [place] [address] 01625- 7146 Oct, [facility] [address], [place] [address]- 7707 Oct, [facility] [id number] [place] [address] 17399- 6323 Oct, [facility] [address], [place] [address]- 1605 Sep, [facility] [id number] [place] [address] 86192- 4617 Sep, [facility] [id number] [place] [address] 16108- 9148 Sep, Normal in multigravida Z34.80 [facility] [id number] [place] [address] 29118- 7821 Sep, [facility] [id number] [place] [address] 44879- 7604 Sep, [facility] [id number] [place] [address] 86882- 3463 Aug, Anxiety F41.9 and Screening for diabetes mellitus (DM) Z13.1 [facility] [address] [address]- 8647 July, [facility] [address], [place] [address]- 1052 July, [facility] [address] [address]- 1146 May, Psychotic disorder with delusions F29 [facility] [address], [place] [address]- 0582 May, [facility] [id number] [address]- 4910 May, [facility] [address], [place] [address]- 6414 Mar, Psychotic disorder with delusions F29 and 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 [id number] [place] [address] 28657 -1908 Dec, Acute seasonal allergic rhinitis, unspecified trigger J30.2 [facility] [id number] [place] [address] 51345- 8818 Nov, Psychotic disorder with delusions F29 [facility] [id number] [place] [address] 81725- 2030 14 Nov, 2016 [facility] [id number] [place] [address] 07895- 6849 Nov, [facility] [id number] [place] [address] 97267- 3959 Nov, [facility] [id number] [place] [address] 65188- 6482 Oct, Asthma exacerbation J45.901 [facility] [id number] [place] [address] 01126- 2766 Oct, [facility] [id number] [place] [address] 61867- 8250 Oct, 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 and 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 [facility] [id number] [place] [address] 76378- 0443 Oct, [place] [address] 29324- 5744 Oct, Migraine with aura and with status migrainosus, not intractable G43.101 ; Other abnormal cytological finding of specimen from cervix R87.618 ; Screening for diabetes mellitus (DM) Z13.1 ; Screening for lipid disorders Z13.220 and Weight gain R63.5 [place] [id number] [place] [address] 80516- 8984 Oct, [facility] [id number] [place] [address] 68889- 3341 Oct, [facility] [id number] [place] [address] 92037- 2720 Oct, [facility] [address] 01382- 0563 Sep, Weight gain R63.5 ; Screening for lipid disorders Z13.220 ; Screening for diabetes mellitus (DM) Z13.1 and Scabies exposure Z20.89 [facility] [id number] [place] [address] [id number] Sep, Encounter for dental examination and cleaning without abnormal findings Z01.20 [facility] [id number] [place] [address] 55892 -1085 Sep, Abscess L02.91 [facility] [id number] [place] [address] 25450- 4075 Jun, [facility] [id number] [place] [address] 49597- 3326 Jun, Routine gynecological examination Z01.419 [place] [id number] [place] [address] 54907- 4399 Jun, Routine gynecological examination Z01.419 ; Encounter for Depo-Provera contraception Z30.42 and Routine screening for STI (sexually transmitted infection) Z11.3 [facility] [id number] [place] [address] 04257- 1393 Jun, Anxiety F41.9 [facility] [id number] [place] [address] 13687- 8441 May, [facility] [id number] [place] [address] 97954- 8177 Apr, Psychotic disorder with delusions F29 [facility] [address] [place] [address]- 7601 18 Jan, 2016 [facility] [id number] [place] [address] 31725- 4247 18 Jan, 2016 Psychotic disorder with delusions F29 [facility] [id number] [place] [address] 21557- 8109 16 Jan, 2016 Encounter for contraceptive management, unspecified contraceptive encounter type Z30.9 ; Anxiety F41.9 ; Simple chronic bronchitis J41.0 and Encounter for Depo-Provera contraception Z30.42 [facility] [id number] [place] [address] 48748- 4832 14 Jun, 2014 [facility] [id number] [place] [address] 28377- 6523 13 Jun, 2014 [facility] [id number] [place] [address] 98556- 8614 Mar, [facility] [id number] [place] [address] 33486- 5509 Jan, [facility] [id number] [place] [address] 98619- 9537 Jan, [facility] [id number] [place] [address] 83521- 8034 Jan, [facility] [id number] [place] [address] 98156- 9382 Jan, [facility] [id number] [place] [address] 40705- 7709 Jan, [facility] [id number] [place] [address] 45469- 8966 Jan, [facility] [id number] [place] [address] 34571- 5690 Jan, [facility] [address] [address]- 3263 Dec, [facility] [id number] [place] [address] 64588- 4524 31 Dec, 2011 [facility] [place] [facility] [address] [id number] [place] [address]- 0829 26 Dec, 2011 [facility] [place] [facility] [address] [id number] [place] [address]- 4296 Dec, 2011 [facility] [place] [facility] [address] [facility] [id number] [place] [address]- 3179 23 Dec, 2011 [facility] [place] [facility] [address] [id number] [place] [address]- 3724 18 Dec, 2011 [facility] [place] [facility] [address] [id number] [place] [address]- 9945 18 Dec, 2011 [facility] [place] [facility] [address] [id number] [place] [address]- 7175 18 Dec, 2011 [facility] [place] [facility] [address] [facility] [id number], [place] [address]- 3522 18 Dec, 2011 [facility] [place] [facility] [address] [facility] [id number] [place] [address]- 0016 18 Dec, 2011 [facility] [place] [facility] [address] [facility] [id number], [place] [address]- 1025 18 Dec, 2011 [facility] [place] [facility] [address] [facility] [id number], [place] [address]- 1602 15 Dec, 2011 [facility] [place] [facility] [address] [facility] [id number][place] [address]- 1109 10 Dec, 2011 [facility] [address] [facility] [id number], [place] [address] 10 Dec, 2011 [facility] [address] [facility] [id number], [place] [address] 08 Dec, 2011 [facility] [address] [facility] [id number], [place] [address] 05 Dec, 2011 [facility] [address] [facility] [id number], [place] [address] 03 Dec, 2011 [facility] [address] [id number] [address] 02 Dec, 2011 [facility] [id number], [place] [address] 18 Nov, 2011 [facility] [id number] [address] 17 Nov, 2011 [facility] [id number], [place] [address] 13 Nov, 2011 [facility] [address] [facility] [id number], [place] [address] 13 Nov, 2011 [facility] [id number], [place] [address] 12 Nov, 2011 [facility] [id number], [place] [address] 05 Nov, 2011 [facility] [id number], [place] [address] Sep, [facility] [id number], [place] [address] Aug, [facility] [id number], [place] [address] Aug, [facility] [address] [id number], [place] [address] July, [facility] [address] [id number], [place] [address] July, [facility] [address] [id number], [place] [address] July, IMMUNIZATIONS No Known Immunizations SOCIAL HISTORY Never Assessed REASON FOR VISIT BH/AT phone response PLAN OF CARE VITAL SIGNS MEDICATIONS Unknown [...]
--- OUTSIDE RECORDS SUMMARY | 2018-04-11 16:37 | XMS REPORT ---
Author Author DONOVAN JACKSON Organization [facility] Address [address] [place] [address] Care Team Providers Care Rocket Engine Component Mechanic Name Role Phone DONOVAN JACKSON Unavailable PROBLEMS Type Condition ICD9-CM Code PXF22-PI Code Onset Dates Condition Status SNOMED Code Problem Simple chronic bronchitis J41.0 Active 70982662 Problem Anxiety F41.9 Active 07800760 Problem Acute seasonal allergic rhinitis, unspecified trigger J30.2 Active 928553074 Problem Asthma exacerbation J45.901 Active 711815703 Problem Migraine with aura and with status migrainosus, not intractable G43.101 Active 0912144 Problem Psychotic disorder with delusions F29 Active 40110936 Problem 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 741255139 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 [id number] ALLERGIES No Information ENCOUNTERS Encounter Location Date Diagnosis [facility] [id number] [place] [address] 89869- 4787 Oct, [facility] [id number] [place] [address] 87551- 7330 Oct, [facility] [id number] [place] [address] 99411- 0686 Oct, [facility] [id number] [place] [address] 85652- 7783 Sep, [facility] [id number] [place] [address] 01468- 6526 Sep, [facility] [id number] [place] [address] 53662- 3887 Sep, Normal in multigravida Z34.80 [facility] [id number] [place] [address] 66455- 7792 Sep, [facility] [id number] [place] [address] 52212- 1515 Sep, [facility] [id number] [place] [address] 26534- 1158 Aug, Anxiety F41.9 and Screening for diabetes mellitus (DM) Z13.1 [facility] [id number] [place] [address] 98178- 0101 July, [facility] [id number] [place] [address] 35244- 3070 July, [facility] [id number] [place] [address] 99227- 5869 May, Psychotic disorder with delusions F29 [facility] [id number] [place] [address] 59347- 4917 May, [facility] [id number] [place] [address] 57052- 9212 May, [facility] [id number] [place] [address] 93343- 1111 Mar, Psychotic disorder with delusions F29 and 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 [facility] [id number] [place] [address] 17782- 9257 Jan, [facility] [id number] [place] [address] 21131- 7203 Dec, Psychotic disorder with delusions F29 [facility] [id number] [place] [address] 92643 -3013 Dec, Acute seasonal allergic rhinitis, unspecified trigger J30.2 [facility] [id number] [place] [address] 59135- 1286 25 Nov, 2016 Psychotic disorder with delusions F29 [facility] [id number] [place] [address] 30917- 5617 14 Nov, 2016 [facility] [id number] [place] [address] 99265- 2891 Nov, [facility] [id number] [place] [address] 40111- 7445 Nov, [facility] [id number] [place] [address] 29554- 0069 Oct, Asthma exacerbation J45.901 [facility] [id number] [place] [address] 96412- 6932 Oct, [facility] [id number] [place] [address] 21602- 0677 Oct, 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 and 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 [facility] [id number] [place] [address] 78606- 1821 Oct, [facility] [id number] [place] [address] 57468- 5811 Oct, Migraine with aura and with status migrainosus, not intractable G43.101 ; Other abnormal cytological finding of specimen from cervix R87.618 ; Screening for diabetes mellitus (DM) Z13.1 ; Screening for lipid disorders Z13.220 and Weight gain R63.5 [facility] [id number] [place] [address] 21610- 7087 Oct, [facility] [id number] [place] [address] 72896- 2854 Oct, [facility] [id number] [place] [address] 08605- 0397 Oct, [facility] [id number] [place] [address] 35226- 0189 Sep, Weight gain R63.5 ; Screening for lipid disorders Z13.220 ; Screening for diabetes mellitus (DM) Z13.1 and Scabies exposure Z20.89 [facility] [id number] [place] [address] [id number] Sep, Encounter for dental examination and cleaning without abnormal findings Z01.20 [facility] [id number] [address] Sep, Abscess L02.91 [facility] [id number] [place] [address] 19672- 5636 Jun, [facility] [id number] [place] [address] 51871- 7354 Jun, Routine gynecological examination Z01.419 [facility] [id number] [place] [address] 81671- 7858 Jun, Routine gynecological examination Z01.419 ; Encounter for Depo-Provera contraception Z30.42 and Routine screening for STI (sexually transmitted infection) Z11.3 [facility] [id number] [place] [address] 27090- 0307 Jun, Anxiety F41.9 [facility] [id number] [place] [address] 22554- 8083 May, [facility] [id number] [place] [address] 74299- 2571 Apr, Psychotic disorder with delusions F29 [facility] [id number] [place] [address] 40055- 6235 Jan, [facility] [id number] [place] [address] 49296- 4722 Jan, Psychotic disorder with delusions F29 [facility] [id number] [place] [address] 01829- 2921 16 Jan, 2016 Encounter for contraceptive management, unspecified contraceptive encounter type Z30.9 ; Anxiety F41.9 ; Simple chronic bronchitis J41.0 and Encounter for Depo-Provera contraception Z30.42 [facility] [id number] [place] [address] 88959- 3589 14 Jun, 2014 [facility] [id number] [place] [address] 69657- 8966 Jun, [facility] [id number] [place] [address] 25129- 8009 Mar, [facility] [place] [facility] [address] [id number] [place] [address]- 0623 Jan, [facility] [place] [facility] [address] [id number] [address]- 8919 Jan, [facility] [place] [facility] [address] [id number] [place] [address]- 1565 Jan, [facility] [place] [facility] [address] [id number] [address]- 1970 Jan, [facility] [place] [facility] [address] [id number] [place] [address]- 3597 Jan, [facility] [place] [facility] [address] [id number] [place] [address]- 7267 Jan, [facility] [place] [facility] [address] [facility] [id number] [address]- 6246 Jan, [facility] [place] [facility] [address] [id number] [place] [address]- 7356 Dec, [facility] [place] [facility] [address] [id number] [place] [address]- 4559 Dec, [facility] [place] [facility] [address] [facility] [id number] [address]- 8222 Dec, [facility] [place] [facility] [address] [id number] [address]- 1170 Dec, [facility] [place] [facility] [address] [facility] [id number] [place] [address]- 4470 Dec, [facility] [place] [facility] [address] [id number] [address]- 9917 Dec, [facility] [place] [facility] [address] [facility] [id number] [address]- 5623 Dec, [facility] [place] [facility] [address] [facility] [id number] [place] [address]- 8668 Dec, [facility] [place] [facility] [address] [id number] [place] [address]- 4880 18 Dec, 2011 [facility] [place] [facility] [address] [id number] [place] [address]- 2927 18 Dec, 2011 [facility] [place] [facility] [address] [id number] [place] [address]- 1990 18 Dec, 2011 [facility] [place] [facility] [address] [id number] [place] [address]- 5833 15 Dec, 2011 [facility] [place] [facility] [address] [id number] [place] [address]- 2190 10 Dec, 2011 [facility] [place] [facility] [address] [id number] [place] [address]- 2006 10 Dec, 2011 [facility] [place] [facility] [address] [id number] [place] [address]- 5133 08 Dec, 2011 [facility] [place] [facility] [address] [id number] [place] [address]- 1173 05 Dec, 2011 [facility] [place] [facility] [address] [id number] [place] [address]- 6206 03 Dec, 2011 [facility] [place] [facility] [address] [id number] [place] [address]- 3304 02 Dec, 2011 [facility] [place] [facility] [address] [id number] [place] [address]- 8569 18 Sep, 2011 [facility] [place] [facility] [address] [id number] [place] [address]- 3324 17 Sep, 2011 [facility] [place] [facility] [address] [id number] [place] [address]- 2182 13 Sep, 2011 [facility] [place] [facility] [address] [id number] [place] [address]- 5136 13 Sep, 2011 [facility] [place] [facility] [address] [id number] [place] [address]- 4836 12 Sep, 2011 [facility] [place] [facility] [address] [id number] [place] [address]- 5902 Nov, [facility] [address] [facility] [id number] [address]- 0989 Sep, [facility] [id number] [address]- 2522 Aug, [facility] [id number] [address]- 5363 Aug, [facility] [address] [address]- 0056 July, [facility] [address] [address]- 6038 July, [facility] [address] [address]- 0708 July, IMMUNIZATIONS No Known Immunizations SOCIAL HISTORY Never Assessed REASON FOR VISIT Phone call PLAN OF CARE VITAL SIGNS MEDICATIONS [...]
--- OUTSIDE RECORDS SUMMARY | 2018-04-11 16:37 | XMS REPORT ---
Author Author MURIEL LORA Organization [facility] Address [address] [place] [address] Care Team Providers Care Quarry Equipment Operator Name Role Phone MURIEL LORA Unavailable PROBLEMS Type Condition ICD9-CM Code [id number] Code Onset Dates Condition Status SNOMED Code Problem Simple chronic bronchitis J41.0 Active 01988648 Problem Anxiety F41.9 Active 35919190 Problem Acute seasonal allergic rhinitis, unspecified trigger J30.2 Active 188188187 Problem Asthma exacerbation J45.901 Active 754074870 Problem Migraine with aura and with status migrainosus, not intractable G43.101 Active 7405040 Problem Psychotic disorder with delusions F29 Active 33230328 Problem 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 947536258 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 834932925 ALLERGIES Substance Reaction Event Type Date Status Naproxen hives Drug Allergy Aug, Active ENCOUNTERS Encounter Location Date Diagnosis [id number] [place] [address] 11779- 0787 Nov, [id number] [place] [address] 24432- 5845 Oct, care in second trimester Z34.92 ; Anxiety F41.9 and Psychotic disorder with delusions F29 [place] [id number] [place] [address] 49047- 0050 Oct, Normal in multigravida Z34.80 ; care in second trimester Z34.92 ; Gonorrhea affecting , antepartum O98.219 and 18 weeks gestation of Z3A.18 [id number] [place] [address] 25549- 1842 Oct, Encounter for dental examination and cleaning without abnormal findings Z01.20 and Caries K02.9 [place] [address] [address] Oct, [facility] [id number] [address] 60[address] Oct, [facility] [id number] [address] 4[address] Oct, [facility] [id number] [place] [address] 39677- 7448 Sep, [facility] [id number] [place] [address] 82084- 0371 Sep, [facility] [id number] [place] [address] 74837- 3142 Sep, Normal in multigravida Z34.80 [facility] [id number] [place] [address] 88242- 5852 Sep, [facility] [id number] [place] [address] 84497- 6117 Sep, [facility] [id number] [address] 67[address] Aug, Anxiety F41.9 and Screening for diabetes mellitus (DM) Z13.1 [facility] [address] [address] 84[address] July, [facility] [id number] [address] July, [facility] [id number] [address] 04[address] May, Psychotic disorder with delusions F29 [facility] [id number] [address] 4181 May, [facility] [id number] [address] 0586 May, [facility] [id number] [address] 3646 Mar, Psychotic disorder with delusions F29 and 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 [facility] [id number] [place] [address] 67113- 5665 Jan, [facility] [id number] [place] [address] 33392- 3303 Dec, Psychotic disorder with delusions F29 [facility] [id number] [place] [address] 96065 -3504 Dec, Acute seasonal allergic rhinitis, unspecified trigger J30.2 [facility] [id number] [place] [address] 22541- 6875 Nov, Psychotic disorder with delusions F29 [facility] [id number] [place] [address] 84472- 6467 Nov, [facility] [id number] [place] [address] 46911- 7839 Nov, [facility] [id number] [place] [address] 54467- 0817 Nov, [facility] [id number] [place] [address] 77562- 7308 Oct, Asthma exacerbation J45.901 [facility] [id number] [place] [address] 05523- 2734 Oct, [facility] [id number] [place] [address] 98002- 4131 Oct, 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 and 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 [facility] [id number] [place] [address] 86748- 6181 Oct, [facility] [id number] [place] [address] 93227- 9899 Oct, Migraine with aura and with status migrainosus, not intractable G43.101 ; Other abnormal cytological finding of specimen from cervix R87.618 ; Screening for diabetes mellitus (DM) Z13.1 ; Screening for lipid disorders Z13.220 and Weight gain R63.5 [facility] [id number] [place] [address] 09384- 6664 Oct, [facility] [id number] [place] [address] 58355- 6946 Oct, [facility] [id number] [place] [address] 80825- 0222 Oct, [facility] [address] 23727- 0974 Sep, Weight gain R63.5 ; Screening for lipid disorders Z13.220 ; Screening for diabetes mellitus (DM) Z13.1 and Scabies exposure Z20.89 [facility] [id number] [place] [address] [id number] Sep, Encounter for dental examination and cleaning without abnormal findings Z01.20 [facility] [id number] [place] [address] 48984 -9528 Sep, Abscess L02.91 [facility] [id number] [place] [address] 73573- 1160 Jun, [facility] [id number] [place] [address] 65142- 0232 Jun, Routine gynecological examination Z01.419 [place] [id number] [place] [address] 32746- 5497 Jun, Routine gynecological examination Z01.419 ; Encounter for Depo-Provera contraception Z30.42 and Routine screening for STI (sexually transmitted infection) Z11.3 [facility] [id number] [place] [address] 76734- 9294 Jun, Anxiety F41.9 [facility] [id number] [place] [address] 12149- 4204 May, [facility] [id number] [place] [address] 06712- 5441 Apr, Psychotic disorder with delusions F29 [facility] [id number] [place] [address] 55586- 9594 18 Jan, 2016 [facility] [id number] [place] [address] 47217- 9903 18 Jan, 2016 Psychotic disorder with delusions F29 [facility] [id number] [place] [address] 63314- 3644 16 Jan, 2016 Encounter for contraceptive management, unspecified contraceptive encounter type Z30.9 ; Anxiety F41.9 ; Simple chronic bronchitis J41.0 and Encounter for Depo-Provera contraception Z30.42 [facility] [id number] [place] [address] 68638- 3156 14 Jun, 2014 [facility] [id number] [place] [address] 03531- 2352 13 Jun, 2014 [facility] [id number] [place] [address] 98251- 0481 Mar, [facility] [id number] [place] [address] 41888- 1021 Jan, [facility] [id number] [place] [address] 55042- 2687 Jan, [facility] [id number] [place] [address] 87011- 7202 Jan, [facility] [id number] [place] [address] 47238- 0499 Jan, [facility] [id number] [place] [address] 78983- 5567 Jan, [facility] [id number] [place] [address] 87963- 0821 Jan, [facility] [id number] [place] [address] 84784- 1858 Jan, [facility] [id number] [place] [address] 38547- 8982 Dec, [facility] [place] [facility] [address] [id number] [place] [address]- 5845 31 Dec, 2011 [facility] [place] [facility] [address] [id number] [place] [address]- 2136 26 Dec, 2011 [facility] [place] [facility] [address] [id number] [place] [address]- 5132 Dec, 2011 [facility] [place] [facility] [address] [id number] [place] 2734 23 Dec, 2011 [facility] [place] [facility] [address] [id number] [place] [address]- 4929 18 Dec, 2011 [facility] [place] [facility] [address] [id number] [place] [address]- 0667 18 Dec, 2011 [facility] [place] [facility] [address] [id number] [place] [address]- 3565 18 Dec, 2011 [facility] [place] [facility] [address] [id number] [place] [address]- 8149 18 Dec, 2011 [facility] [place] [facility] [address] [id number] [place] [address]- 6064 18 Dec, 2011 [facility] [place] [facility] [address] [id number] [place] [address]- 3621 18 Dec, 2011 [facility] [place] [facility] [address] [facility] [id number] [place] [address]- 5462 15 Dec, 2011 [facility] [place] [facility] [address] [id number] [place] [address]- 1715 10 Dec, 2011 [facility] [place] [facility] [address] [id number] [place] [address]- 9706 10 Dec, 2011 [facility] [place] [facility] [address] [id number] [place] 4850 08 Dec, 2011 [facility] [place] [facility] [address] [id number] [place] [address]- 7563 05 Dec, 2011 [facility] [place] [facility] [address] [id number] [place] 3979 Dec, [facility] [id number] [address]- 2546 Dec, [facility] [id number] [address]- 2546 18 Nov, 2011 [facility] [id number] [address]- 2546 17 Nov, 2011 [facility] [id number] [place] [address] 52207- 2546 Nov, [facility] [id number] [place] [address] 58833- 2546 Nov, [facility] [id number] [place] [address] 24629- 2546 Nov, [facility] [id number] [place] [address] 14393- 2546 Nov, [facility] [id number] [address] 2546 Sep, [facility] [id number] [address]- 8879 Aug, [facility] [id number] [address] 2546 Aug, [facility] [id number] [address]- 2546 July, [facility] [id number] [address]- 8766 July, [facility] [id number] [address]- 1666 July, IMMUNIZATIONS No Known Immunizations SOCIAL HISTORY Never Assessed REASON FOR VISIT Anxiety wants to get medications refilled just found out 2.5 months and is concerned about the haldol and what to take so she doesn't" loose her mind." CBrumbackRN, C/O pain and swelling junie hands and in right elbow and forearm. , reports difficulty with urinating and bowel movements. PLAN OF CARE VITAL SIGNS Height 62 in 2017-09-09 Weight 192.5 lbs 2017-09-09 Temperature 98.1 degrees Fahrenheit 2017-09-09 Heart Rate 80 bpm 2017-09-09 Respiratory Rate 20 2017-09-09 BMI 35.20 kg/m2 2017-09-09 Blood pressure systolic 108 mmHg 2017-09-09 Blood pressure diastolic 70 mmHg 2017-09-09 MEDICATIONS Medication Instructions Dosage Frequency Start Date End Date Duration Status BusPIRone HCl 15 mg Orally Twice a day 1 tablet 12h Aug, Active Propranolol HCl 20 mg Orally Once a day 1 tablet 24h Oct, Not-Taking Haloperidol 10 mg Orally Once a day, voucher 1st fill. 2 tablets Nov, 30 day(s) Not-Taking BuPROPion HCl ER (XL) 300 MG Orally Once a day, voucher 1st fill. 1 tablet in the morning Nov, 90 days Not-Taking Metformin HCl 500 mg Orally twice a day 1 tablet with a meal 12h Active Benztropine Mesylate 2 MG Orally at bed time, voucher 1st fill only 1 tablet Not-Taking Singulair 10 MG Orally Once a day 1 tablet in the evening 24h 30 days Not-Taking HydrOXYzine HCl 50 mg Orally Once a day, voucher 1st fill only 1 tablet as needed at HS Not-Taking Flonase 50 MCG/ACT Nasally Once a day 1 spray in each nostril 24h Dec, 30 day(s) Not-Taking RESULTS Name Result Date Reference Range A1C (IN HOUSE) 2017-09-09 A1C IN HOUSE 5.7 4.3 - 5.6 % Previous A1c Lot [id number] Exp date 05/2019 PROCEDURES Procedure Date Ordered Result Body Site GLYCATED HEMOGLOBIN TEST September 09, 2017 INSTRUCTIONS MEDICATIONS ADMINISTERED No Known Medications MEDICAL (GENERAL) HISTORY Type Description Date Medical History schizoaffective disorder Medical History bi-polar disorder Medical History depression Medical History anxiety Medical History pre diabetes Medical History COPD Surgical History x 2 Hospitalization History Staph infection in arm
--- OUTSIDE RECORDS SUMMARY | 2018-04-11 16:37 | XMS REPORT ---
Author Author ADAN BREWER [facility] Address [address] [place] [address] Care Team Providers Care Kettle Hand Name Role Phone DANIELLAJANELL ARGUETAHANY Unavailable PROBLEMS Type Condition ICD9-CM Code BUT70-UW Code Onset Dates Condition Status SNOMED Code Problem Simple chronic bronchitis J41.0 Active 02250006 Problem Anxiety F41.9 Active 30523576 Problem Acute seasonal allergic rhinitis, unspecified trigger J30.2 Active 013908971 Problem Asthma exacerbation J45.901 Active 003082347 Problem Migraine with aura and with status migrainosus, not intractable G43.101 Active 8404180 Problem Psychotic disorder with delusions F29 Active 43286034 Problem 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 516723382 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 237262235 ALLERGIES No Information ENCOUNTERS Encounter Location Date Diagnosis [place] [address] [address] Nov, [place] [address] 00[address]- 2115 Oct, care in second trimester Z34.92 ; Anxiety F41.9 and Psychotic disorder with delusions F29 [place] [id number] [place] [address] 69802- 3586 Oct, Normal in multigravida Z34.80 ; care in second trimester Z34.92 ; Gonorrhea affecting , antepartum O98.219 and 18 weeks gestation of Z3A.18 [place] [address] [address]- [address]30 Oct, Encounter for dental examination and cleaning without abnormal findings Z01.20 and Caries K02.9 [place] [address] 94649- 0670 Oct, [facility] [address] [address] 8660 Oct, [facility] [id number] [place] [address] 20273- 0325 Oct, [facility] [address] [address] 6922 Sep, [facility] [id number] [place] [address] 89381- 9903 Sep, [facility] [id number] [place] [address] 85064- 5977 Sep, Normal in multigravida Z34.80 [facility] [id number] [place] [address] 07736- 7299 Sep, [facility] [id number] [place] [address] 21863- 4705 Sep, [facility] [id number] [place] [address] 46099- 0008 Aug, Anxiety F41.9 and Screening for diabetes mellitus (DM) Z13.1 [facility] [id number] [place] [address] 51609- 8322 July, [facility] [address] [address]- 5465 July, [facility] [id number] [place] [address] 32174- 6595 May, Psychotic disorder with delusions F29 [facility] [address] [address]- 6775 May, [facility] [id number] [place] [address] 10366- 0542 May, [facility] [address] [address] 8082 Mar, Psychotic disorder with delusions F29 and 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 [facility] [id number] [place] [address] 34114- 6631 Jan, [facility] [id number] [place] [address] 50883- 4115 Dec, Psychotic disorder with delusions F29 [facility] [id number] [place] [address] 09109 -4745 Dec, Acute seasonal allergic rhinitis, unspecified trigger J30.2 [facility] [id number] [place] [address] 14935- 3901 Nov, Psychotic disorder with delusions F29 [facility] [id number] [place] [address] 16974- 0797 14 Nov, 2016 [facility] [id number] [place] [address] 80664- 5710 Nov, [facility] [id number] [place] [address] 57071- 0541 Nov, [facility] [id number] [place] [address] 95581- 2981 Oct, Asthma exacerbation J45.901 [facility] [id number] [place] [address] 50894- 8004 Oct, [facility] [id number] [place] [address] 00930- 4097 Oct, 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 and 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 [facility] [id number] [place] [address] 67812- 4946 Oct, [facility] [address] 78953- 4015 Oct, Migraine with aura and with status migrainosus, not intractable G43.101 ; Other abnormal cytological finding of specimen from cervix R87.618 ; Screening for diabetes mellitus (DM) Z13.1 ; Screening for lipid disorders Z13.220 and Weight gain R63.5 [place] [address] [place] [address] 56213- 1346 Oct, [facility] [id number] [place] [address] 35296- 9800 Oct, [facility] [address] [id number] [place] [address] 80491- 6699 Oct, [facility] [address] 00284- 4510 Sep, Weight gain R63.5 ; Screening for lipid disorders Z13.220 ; Screening for diabetes mellitus (DM) Z13.1 and Scabies exposure Z20.89 [facility] [address] [place] [id number] [place] [address] [id number] Sep, Encounter for dental examination and cleaning without abnormal findings Z01.20 [facility] [id number] [place] [address] 97637 -5772 Sep, Abscess L02.91 [facility] [address] [id number] [place] [address] 90251- 6571 Jun, [facility] [address] [place] [address] [place] [address] 35755- 0485 Jun, Routine gynecological examination Z01.419 [place] [address] [address] [address] [place] [address] 30490- 5792 Jun, Routine gynecological examination Z01.419 ; Encounter for Depo-Provera contraception Z30.42 and Routine screening for STI (sexually transmitted infection) Z11.3 [facility] [address] [id number] [place] [address] 42417- 6031 Jun, Anxiety F41.9 [facility] [address] [address] [id number] [place] [address] 07500- 1384 May, [facility] [id number] [place] [address] 07169- 4265 Apr, Psychotic disorder with delusions F29 [facility] [address] [place] [address] [place] [address]- 0024 18 Jan, 2016 [facility] [id number] [place] [address] 70260- 4328 18 Jan, 2016 Psychotic disorder with delusions F29 [facility] [address] [address]- 7772 16 Jan, 2016 Encounter for contraceptive management, unspecified contraceptive encounter type Z30.9 ; Anxiety F41.9 ; Simple chronic bronchitis J41.0 and Encounter for Depo-Provera contraception Z30.42 [facility] [address] [address] [id number] [place] [address] 91881- 0149 14 Jun, 2014 [facility] [id number] [place] [address] 68418- 6352 13 Jun, 2014 [facility] [id number] [place] [address] 44331- 1602 Mar, [facility] [address] [id number] [place] [address] 61133- 4217 Jan, [facility] [id number] [place] [address] 63291- 0810 Jan, [facility] [address] [address] [id number] [place] [address] 11427- 8758 Jan, [facility] [address] [address]- 7199 Jan, [facility] [address] [address] [id number] [place] [address] 97449- 9281 Jan, [facility] [id number] [place] [address] 47054- 7811 Jan, [facility] [address] [address] [id number] [place] [address] 31604- 0435 Jan, [facility] [address] [address]- 0847 Dec, [facility] [address] [address] [id number] [place] [address] [place] [address]- 5970 31 Dec, 2011 [facility] [place] [facility] [address] [id number] [place] [address]- 0532 26 Dec, 2011 [facility] [place] [facility] [address] [id number] [place] [address]- 0734 23 Dec, 2011 [facility] [place] [facility] [address] [id number] [place] [address]- 4423 23 Dec, 2011 [facility] [place] [facility] [address] [id number] [place] [address]- 3818 18 Dec, 2011 [facility] [place] [facility] [address] [id number] [place] [address]- 2314 18 Dec, 2011 [facility] [place] [facility] [address] [id number] [place] [address]- 4466 18 Dec, 2011 [facility] [place] [facility] [address] [id number] [place] [address]- 3544 18 Dec, 2011 [facility] [place] [facility] [address] [id number] [address]- 8950 18 Dec, 2011 [facility] [place] [facility] [address] [id number] [place] [address]- 9239 18 Dec, 2011 [facility] [place] [facility] [address] [facility] [id number] [place] [address]- 8063 15 Dec, 2011 [facility] [place] [facility] [address] [id number] [place] [address]- 0182 10 Dec, 2011 [facility] [place] [facility] [address] [id number] [place] [address]- 6952 10 Dec, 2011 [facility] [place] [facility] [address] [id number] [place] [address]- 8864 08 Dec, 2011 [facility] [place] [facility] [address] [facility] [id number] [place] [address]- 0402 05 Dec, 2011 [facility] [place] [facility] [address] [facility] [id number] [place] [address]- 4301 03 Dec, 2011 [facility] [place] [facility] [address] [facility] [id number] [place] 1735 Dec, [facility] [address] [address]- 7506 18 Nov, 2011 [facility] [address] [facility] [id number] [place] 6072 17 Nov, 2011 [facility] [address] [address]- 4809 13 Nov, 2011 [facility] [address] [facility] [id number] [place] [address]- 9282 13 Nov, 2011 [facility] [address] [address]- 4419 12 Nov, 2011 [facility] [address] [address]- 8659 05 Nov, 2011 [facility] [address] [address]- 0567 Sep, [facility] [address] [address]- 5844 Aug, [facility] [address] [address]- 1842 Aug, [facility] [address] [place] [id number] [address]- 6308 July, [facility] [address] [address]- 9576 July, [facility] [address] [place] [address] [id number] [address]- 6150 July, IMMUNIZATIONS No Known Immunizations SOCIAL HISTORY Never Assessed REASON FOR VISIT ED follow up call PLAN OF CARE VITAL SIGNS MEDICATIONS [...]
--- OUTSIDE RECORDS SUMMARY | 2018-04-11 16:37 | XMS REPORT ---
Author Author DONOVAN JACKSON Organization [facility] Address [address] [place] [address] Care Team Providers Care Utility Forester Name Role Phone DONOVAN JACKSON Unavailable PROBLEMS Type Condition ICD9-CM Code SIM20-FM Code Onset Dates Condition Status SNOMED Code Problem Simple chronic bronchitis J41.0 Active 20732668 Problem Anxiety F41.9 Active 70056967 Problem Acute seasonal allergic rhinitis, unspecified trigger J30.2 Active 149155228 Problem Asthma exacerbation J45.901 Active 736522895 Problem Migraine with aura and with status migrainosus, not intractable G43.101 Active 3357089 Problem Psychotic disorder with delusions F29 Active 28327195 Problem 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 937756641 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 838908214 ALLERGIES No Information ENCOUNTERS Encounter Location Date Diagnosis [facility] [address] [id number] [place] [address] 74980- 8315 Oct, [facility] [id number] [place] [address] 29117- 3821 Oct, [facility] [id number] [place] [address] 72196- 6349 Oct, [facility] [id number] [place] [address] 92104- 0284 Oct, [facility] [id number] [place] [address] 61146- 6636 Sep, [facility] [id number] [place] [address] 45784- 4200 Sep, [facility] [id number] [place] [address] 69172- 5236 Sep, Normal in multigravida Z34.80 [facility] [id number] [place] [address] 94601- 9763 Sep, [facility] [id number] [place] [address] 13298- 0796 Sep, [facility] [id number] [place] [address] 17617- 3016 Aug, Anxiety F41.9 and Screening for diabetes mellitus (DM) Z13.1 [facility] [id number] [place] [address] 72868- 1119 July, [facility] [id number] [place] [address] 92228- 9112 July, [facility] [id number] [place] [address] 97814- 6605 May, Psychotic disorder with delusions F29 [facility] [id number] [place] [address] 73012- 1832 May, [facility] [id number] [place] [address] 27240- 4876 May, [facility] [id number] [place] [address] 17160- 5227 Mar, Psychotic disorder with delusions F29 and 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 [facility] [id number] [place] [address] 95332- 5483 Jan, [facility] [id number] [place] [address] 52996- 2212 Dec, Psychotic disorder with delusions F29 [facility] [id number] [place] [address] 07166 -6124 Dec, Acute seasonal allergic rhinitis, unspecified trigger J30.2 [facility] [id number] [place] [address] 62958- 6962 Nov, Psychotic disorder with delusions F29 [facility] [id number] [place] [address] 32076- 1012 14 Nov, 2016 [facility] [id number] [place] [address] 90464- 4340 Nov, [facility] [id number] [place] [address] 51350- 5041 Nov, [facility] [id number] [place] [address] 56560- 6166 Oct, Asthma exacerbation J45.901 [facility] [id number] [place] [address] 34889- 3411 Oct, [facility] [id number] [place] [address] 12067- 4632 Oct, 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 and 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 [facility] [id number] [place] [address] 10720- 4411 Oct, [facility] [id number] [place] [address] 62669- 2264 Oct, Migraine with aura and with status migrainosus, not intractable G43.101 ; Other abnormal cytological finding of specimen from cervix R87.618 ; Screening for diabetes mellitus (DM) Z13.1 ; Screening for lipid disorders Z13.220 and Weight gain R63.5 [facility] [id number] [place] [address] 73326- 6360 Oct, [facility] [id number] [place] [address] 09140- 1883 Oct, [facility] [id number] [place] [address] 40802- 9971 Oct, [facility] [id number] [place] [address] 01495- 3884 Sep, Weight gain R63.5 ; Screening for lipid disorders Z13.220 ; Screening for diabetes mellitus (DM) Z13.1 and Scabies exposure Z20.89 [facility] [id number] [place] [address] [id number] Sep, Encounter for dental examination and cleaning without abnormal findings Z01.20 [facility] [address], [place] [address]0124 Sep, Abscess L02.91 [facility] [address], [place] [address]- 5930 Jun, [facility] [id number] [place] [address] 34886- 1895 Jun, Routine gynecological examination Z01.419 [place] [id number] [place] [address] 34704- 1761 Jun, Routine gynecological examination Z01.419 ; Encounter for Depo-Provera contraception Z30.42 and Routine screening for STI (sexually transmitted infection) Z11.3 [facility] [address] [place] [address] 19194- 9889 Jun, Anxiety F41.9 [facility] [id number] [place] [address] 92048- 2368 May, [facility] [id number] [place] [address] 28611- 0857 Apr, Psychotic disorder with delusions F29 [facility] [address] [place] [address] 17061- 9530 18 Jan, 2016 [facility] [id number] [place] [address] 19756- 7180 Jan, Psychotic disorder with delusions F29 [facility] [address] [place] [address] 29637- 3326 16 Jan, 2016 Encounter for contraceptive management, unspecified contraceptive encounter type Z30.9 ; Anxiety F41.9 ; Simple chronic bronchitis J41.0 and Encounter for Depo-Provera contraception Z30.42 [facility] [address], [place] [address]- 7153 Jun, [facility] [id number] [place] [address] 88339- 3525 Jun, [facility] [place] [facility] [address] [id number] [place] [address]- 0933 Mar, [facility] [place] [facility] [address] [id number], [place] [address]- 5850 Jan, [facility] [place] [facility] [address] [id number] [place] [address]- 5477 Jan, [facility] [place] [facility] [address] [id number] [place] [address]- 0902 Jan, [facility] [place] [facility] [address] [id number] [place] [address]- 5838 Jan, [facility] [place] [facility] [address] [id number] [place] [address]- 9799 Jan, [facility] [place] [facility] [address] [facility] [id number] [place] [address]- 9834 Jan, [facility] [place] [facility] [address] [id number] [place] [address]- 8193 Jan, [facility] [place] [facility] [address] [id number], [place] [address]- 5278 Dec, [facility] [place] [facility] [address] [id number] [place] [address]- 2669 Dec, [facility] [place] [facility] [address] [id number], [place] [address]- 3298 Dec, [facility] [place] [facility] [address] [id number], [place] [address]- 5080 Dec, [facility] [place] [facility] [address] [id number], [place] [address]- 0728 Dec, [facility] [place] [facility] [address] [facility] [id number], [place] [address]- 3460 Dec, [facility] [place] [facility] [address] [id number] [place] [address]- 2488 Dec, [facility] [place] [facility] [address] [id number] [place] [address]- 9152 18 Dec, 2011 [facility] [place] [facility] [address] [id number] [place] [address]- 5833 18 Dec, 2011 [facility] [place] [facility] [address] [id number] [place] [address]- 9838 18 Dec, 2011 [facility] [place] [facility] [address] [id number] [place] [address]- 2176 18 Dec, 2011 [facility] [place] [facility] [address] [id number] [place] [address]- 5814 15 Dec, 2011 [facility] [place] [facility] [address] [id number] [place] [address]- 8269 10 Dec, 2011 [facility] [place] [facility] [address] [id number] [place] [address]- 1262 10 Dec, 2011 [facility] [place] [facility] [address] [id number] [place] [address]- 7193 08 Dec, 2011 [facility] [place] [facility] [address] [id number] [place] [address]- 5714 05 Dec, 2011 [facility] [place] [facility] [address] [id number] [place] [address]- 3859 03 Dec, 2011 [facility] [place] [facility] [address] [id number] [place] [address] 02 Dec, 2011 [facility] [place] [facility] [address] [id number] [place] [address] 18 Sep, 2011 [facility] [place] [facility] [address] [id number] [place] [address] 17 Sep, 2011 [facility] [place] [facility] [address] [id number] [place] [address] 13 Sep, 2011 [facility] [place] [facility] [address] [id number] [place] [address] 13 Sep, 2011 [facility] [place] [facility] [address] [id number] [place] [address] Nov, [facility] [address] [id number] [address] Nov, [facility] [id number] [address] Sep, [facility] [address] [id number], [place] [address] Aug, [facility] [id number], [place] [address] Aug, [facility] [id number], [place] [address] July, [facility] [id number], [place] [address] July, [facility] [address] [id number], [place] [address] July, IMMUNIZATIONS No Known Immunizations SOCIAL HISTORY Never Assessed REASON FOR VISIT Gray PLAN OF CARE VITAL SIGNS MEDICATIONS Unknown [...]
--- OUTSIDE RECORDS SUMMARY | 2018-04-11 16:38 | XMS REPORT ---
Author Author MURIEL LORA Organization [facility] Address [address] [place] [address] Care Team Providers Care Project Geophysicist Name Role Phone MURIEL LORA Unavailable PROBLEMS Type Condition ICD9-CM Code [id number] Code Onset Dates Condition Status SNOMED Code Problem Simple chronic bronchitis J41.0 Active 42145802 Problem Anxiety F41.9 Active 05137739 Problem Acute seasonal allergic rhinitis, unspecified trigger J30.2 Active 194922711 Problem Asthma exacerbation J45.901 Active 137948392 Problem Migraine with aura and with status migrainosus, not intractable G43.101 Active 6206793 Problem Psychotic disorder with delusions F29 Active 99161687 Problem 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 366436048 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 471427658 ALLERGIES No Information ENCOUNTERS Encounter Location Date Diagnosis [place] [id number] [place] [address] 44255- 1421 Sep, [place] [id number] [place] [address] 14448- 2849 Aug, Anxiety F41.9 and Screening for diabetes mellitus (DM) Z13.1 [place] [id number] [place] [address] 58096- 1784 July, [place] [id number] [place] [address] 87706- 0974 July, [place] [id number] [place] [address] 65783- 9564 May, Psychotic disorder with delusions F29 [facility] [id number] [place] [address] 22152- 0352 May, [place] [id number] [place] [address] 20748- 3315 May, [facility] [id number] [place] [address] 59137- 7068 Mar, Psychotic disorder with delusions F29 and 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 [facility] [id number] [place] [address] 60814- 6289 Jan, [facility] [id number] [place] [address] 26225- 4015 Dec, Psychotic disorder with delusions F29 [facility] [id number] [place] [address] 87656 -9313 Dec, Acute seasonal allergic rhinitis, unspecified trigger J30.2 [facility] [id number] [place] [address] 47141- 7547 Nov, Psychotic disorder with delusions F29 [facility] [id number] [place] [address] 05171- 2672 14 Nov, 2016 [facility] [id number] [place] [address] 72297- 3630 Nov, [facility] [id number] [place] [address] 12171- 2750 Nov, [facility] [id number] [place] [address] 40106- 8513 Oct, Asthma exacerbation J45.901 [facility] [id number] [place] [address] 74513- 0281 Oct, [facility] [id number] [place] [address] 29380- 0024 Oct, 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 and 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 [facility] [id number] [place] [address] 90827- 3983 Oct, [facility] [id number] [place] [address] 27274- 1318 Oct, Migraine with aura and with status migrainosus, not intractable G43.101 ; Other abnormal cytological finding of specimen from cervix R87.618 ; Screening for diabetes mellitus (DM) Z13.1 ; Screening for lipid disorders Z13.220 and Weight gain R63.5 [place] [id number] [place] [address] 46995- 2779 Oct, [facility] [id number] [place] [address] 81580- 1372 Oct, [place] [address] 53024- 8423 Oct, [place] [id number] [place] [address] 27752- 0117 Sep, Weight gain R63.5 ; Screening for lipid disorders Z13.220 ; Screening for diabetes mellitus (DM) Z13.1 and Scabies exposure Z20.89 [facility] [id number] [place] [address] [id number] Sep, Encounter for dental examination and cleaning without abnormal findings Z01.20 [facility] [id number] [place] [address] 90480 -8504 Sep, Abscess L02.[address] 52143- 0902 Jun, [place] [id number] [place] [address] 98553- 8049 Jun, Routine gynecological examination Z01.[address] 79889- 4331 Jun, Routine gynecological examination Z01.419 ; Encounter for Depo-Provera contraception Z30.42 and Routine screening for STI (sexually transmitted infection) Z11.3 [place] [id number] [place] [address] 42833- 3531 Jun, Anxiety F41.9 [place] [id number] [place] [address] 87543- 5699 May, [place] [address] [address]- 6935 27 Apr, 2016 Psychotic disorder with delusions F29 [facility] [id number] [place] [address] 95102- 6388 Jan, [facility] [id number] [place] [address] 01888- 2619 Jan, Psychotic disorder with delusions F29 [facility] [id number] [place] [address] 00986- 0157 16 Jan, 2016 Encounter for contraceptive management, unspecified contraceptive encounter type Z30.9 ; Anxiety F41.9 ; Simple chronic bronchitis J41.0 and Encounter for Depo-Provera contraception Z30.42 [facility] [id number] [place] [address] 64353- 7369 14 Jun, 2014 [facility] [id number] [place] [address] 71676- 4256 Jun, [facility] [id number] [place] [address] 02356- 5282 Mar, [facility] [id number] [place] [address] 16859- 7499 Jan, [facility] [address] [address]- 6522 Jan, [facility] [id number] [place] [address] 87417- 9664 Jan, [facility] [id number] [place] [address] 29081- 0680 Jan, [facility] [id number] [place] [address] 90599- 3098 Jan, [facility] [id number] [place] [address] 08386- 4197 Jan, [facility] [id number] [place] [address] 08857- 7038 Jan, [facility] [place] [facility] [address] [id number] [place] [address]- 4064 31 Dec, 2011 [facility] [place] [facility] [address] [id number] [place] [address]- 7168 31 Dec, 2011 [facility] [place] [facility] [address] [id number] [place] [address]- 5652 26 Dec, 2011 [facility] [place] [facility] [address] [id number] [place] [address]- 3109 Dec, [facility] [place] [facility] [address] [id number] [place] [address]- 9775 Dec, [facility] [place] [facility] [address] [id number] [place] [address]- 7679 18 Dec, 2011 [facility] [place] [facility] [address] [id number] [place] [address]- 1224 18 Dec, 2011 [facility] [place] [facility] [address] [id number] [place] [address]- 7798 18 Dec, 2011 [facility] [place] [facility] [address] [id number] [place] [address]- 6284 18 Dec, 2011 [facility] [place] [facility] [address] [id number] [place] [address]- 7718 18 Dec, 2011 [facility] [place] [facility] [address] [id number] [place] [address]- 0438 18 Dec, 2011 [facility] [place] [facility] [address] [id number] [place] [address]- 0473 15 Dec, 2011 [facility] [place] [facility] [address] [id number] [place] [address]- 9954 10 Dec, 2011 [facility] [place] [facility] [address] [id number] [place] [address]- 7572 10 Dec, 2011 [facility] [place] [facility] [address] [id number] [place] [address]- 9925 08 Dec, 2011 [facility] [place] [facility] [address] [id number] [address]- 1366 Dec, [facility] [id number] [address]- 1124 Dec, [facility] [address], [place] [address]- 4096 Dec, [facility] [address], [place] [address]- 2047 18 Nov, 2011 [facility] [address], [place] [address]- 0090 17 Nov, 2011 [facility] [address], [place] [address]- 6013 Nov, [facility] [id number] [place] [address] 322069- 6040 Nov, [facility] [id number] [place] [address] 79848- 0994 Nov, [facility] [address], [place] [address]- 0032 Nov, [facility] [address], [place] [address]- 7353 Sep, [facility] [address], [place] [address]- 6502 Aug, [facility] [address], [place] [address]- 2045 Aug, [facility] [address], [place] [address]- 9594 July, [facility] [address], [place] [address]- 1574 July, [facility] [address] 3414 July, IMMUNIZATIONS No Known Immunizations SOCIAL HISTORY Never Assessed REASON FOR VISIT Medication refill request PLAN OF CARE VITAL SIGNS MEDICATIONS [...]
--- OUTSIDE RECORDS SUMMARY | 2018-04-11 16:38 | XMS REPORT ---
Author Author MURIEL LORA Organization [facility] Address [address] [place] [address] Care Team Providers Care Remote Advisor Name Role Phone MURIEL LORA Unavailable PROBLEMS Type Condition ICD9-CM Code [id number] Code Onset Dates Condition Status SNOMED Code Problem Simple chronic bronchitis J41.0 Active 51405760 Problem Anxiety F41.9 Active 51378888 Problem Acute seasonal allergic rhinitis, unspecified trigger J30.2 Active 108649126 Problem Asthma exacerbation J45.901 Active 349227377 Problem Migraine with aura and with status migrainosus, not intractable G43.101 Active 3276476 Problem Psychotic disorder with delusions F29 Active 16854134 Problem 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 754962930 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 634894560 ALLERGIES No Information ENCOUNTERS Encounter Location Date Diagnosis [place] [id number] [place] [address] 09439- 9141 Oct, [place] [id number] [place] [address] 49148- 6463 Sep, [place] [id number] [place] [address] 44610- 0774 Aug, Anxiety F41.9 and Screening for diabetes mellitus (DM) Z13.1 [place] [id number] [place] [address] 70126- 0619 July, [place] [address] 48111- 2281 July, [facility] [id number] [place] [address] 17766- 6615 May, Psychotic disorder with delusions F29 [place] [id number] [place] [address] 96317- 9647 May, [facility] [id number] [place] [address] 74738- 0865 May, [facility] [id number] [place] [address] 62881- 0696 Mar, Psychotic disorder with delusions F29 and 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 [address] 18327 -5830 Dec, Acute seasonal allergic rhinitis, unspecified trigger J30.2 [facility] [id number] [place] [address] 48130- 7760 Nov, Psychotic disorder with delusions F29 [facility] [id number] [place] [address] 87086- 9897 Nov, [facility] [id number] [place] [address] 00143- 4331 Nov, [facility] [id number] [place] [address] 85866- 7973 Nov, [facility] [id number] [place] [address] 79186- 9742 Oct, Asthma exacerbation J45.901 [facility] [id number] [place] [address] 56702- 2681 Oct, [facility] [id number] [place] [address] 45408- 6159 Oct, 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 and 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 [facility] [id number] [place] [address] 39542- 4133 Oct, [facility] [id number] [place] [address] 99263- 2880 Oct, Migraine with aura and with status migrainosus, not intractable G43.101 ; Other abnormal cytological finding of specimen from cervix R87.618 ; Screening for diabetes mellitus (DM) Z13.1 ; Screening for lipid disorders Z13.220 and Weight gain R63.5 [facility] [id number] [place] [address] 25184- 8272 Oct, [place] [address] 91769- 0246 Oct, [place] [id number] [place] [address] 29629- 5740 Oct, [place] [id number] [place] [address] 83416- 8946 Sep, Weight gain R63.5 ; Screening for lipid disorders Z13.220 ; Screening for diabetes mellitus (DM) Z13.1 and Scabies exposure Z20.89 [facility] [id number] [place] [address] [id number] Sep, Encounter for dental examination and cleaning without abnormal findings Z01.20 [facility] [id number] [place] [address] 77497 -9227 Sep, Abscess L02.[address] 83514- 0579 Jun, [facility] [address] 40997- 8573 Jun, Routine gynecological examination Z01.419 [place] [id number] [place] [address] 84147- 4324 Jun, Routine gynecological examination Z01.419 ; Encounter for Depo-Provera contraception Z30.42 and Routine screening for STI (sexually transmitted infection) Z11.3 [place] [id number] [place] [address] 55476- 5747 Jun, Anxiety F41.9 [place] [address], [place] [address]- 1963 May, [facility] [id number] [place] [address] 45248- 0454 Apr, Psychotic disorder with delusions F29 [facility] [address] [place] [address] 84552- 6894 Jan, [facility] [id number] [place] [address] 29464- 5372 Jan, Psychotic disorder with delusions F29 [facility] [address] [place] [address] 08619- 5305 Jan, Encounter for contraceptive management, unspecified contraceptive encounter type Z30.9 ; Anxiety F41.9 ; Simple chronic bronchitis J41.0 and Encounter for Depo-Provera contraception Z30.42 [facility] [id number] [place] [address] 19457- 4536 Jun, [facility] [id number] [place] [address] 36053- 1680 Jun, [facility] [id number] [place] [address] 43496- 3700 Mar, [facility] [address], [place] [address]- 9030 Jan, [facility] [id number] [place] [address] 05873- 4962 Jan, [facility] [address], [place] [address]- 0750 Jan, [facility] [id number] [place] [address] 63272- 7602 Jan, [facility] [address], [place] [address]- 2836 Jan, [facility] [id number] [place] [address] 74248- 0548 Jan, [facility] [place] [facility] [address] [id number] [place] [address]- 8584 Jan, [facility] [place] [facility] [address] [id number] [place] [address]- 3180 31 Dec, 2011 [facility] [place] [facility] [address] [id number] [place] [address]- 3074 31 Dec, 2011 [facility] [place] [facility] [address] [id number] [place] [address]- 8212 Dec, [facility] [place] [facility] [address] [id number] [place] [address]- 4438 Dec, [facility] [place] [facility] [address] [id number] [place] [address]- 2352 Dec, [facility] [place] [facility] [address] [id number] [place] [address]- 4022 Dec, [facility] [place] [facility] [address] [id number] [place] [address]- 8486 18 Dec, 2011 [facility] [place] [facility] [address] [id number] [place] [address]- 8902 18 Dec, 2011 [facility] [place] [facility] [address] [id number] [place] [address]- 2518 18 Dec, 2011 [facility] [place] [facility] [address] [id number] [place] [address]- 3426 18 Dec, 2011 [facility] [place] [facility] [address] [id number] [place] [address]- 8818 18 Dec, 2011 [facility] [place] [facility] [address] [id number] [place] [address]- 5664 15 Dec, 2011 [facility] [place] [facility] [address] [id number] [place] [address]- 6536 10 Dec, 2011 [facility] [place] [facility] [address] [id number] [place] [address]- 6968 10 Dec, 2011 [facility] [place] [facility] [address] [id number], [place] [address]- 4696 Dec, [facility] [address] [facility] [id number] 9835 Dec, [facility] [address] [facility] [id number], [place] [address]- 0756 Dec, [facility] [address] [facility] [id number], [place] [address]- 1337 Dec, [facility] [address] [facility] [id number], [place] [address]- 2222 18 Nov, 2011 [facility] [address] [facility] [id number]- 7791 17 Nov, 2011 [facility] [address] [facility] [id number]- 6549 13 Nov, 2011 [facility] [address] [facility] [id number], [place] [address]- 7495 Nov, [facility] [address] [facility] [id number], [place] [address]- 1691 12 Nov, 2011 [facility] [address] [facility] [id number], [place] [address]- 5421 05 Nov, 2011 [facility] [address] [facility] [id number], [place] [address]- 3523 Sep, [facility] [address] [facility] [id number], [place] [address]- 5572 Aug, [facility] [address] [facility] [id number], [place] [address]- 4658 Aug, [facility] [address] [facility] [id number], [place] [address]- 7602 July, [facility] [address] [facility] [id number][place]- 3741 July, [facility] [address] [facility] [id number], [place] [address]- 1694 July, IMMUNIZATIONS No Known Immunizations SOCIAL HISTORY Never Assessed REASON FOR VISIT Refill request PLAN OF CARE VITAL SIGNS MEDICATIONS Medication Instructions Dosage Frequency Start Date End Date Duration Status Singulair 10 MG Orally Once a day 1 tablet in the evening 24h 30 days Active RESULTS No Results PROCEDURES No Known procedures INSTRUCTIONS MEDICATIONS ADMINISTERED No Known Medications MEDICAL (GENERAL) HISTORY Type Description Date Medical History schizoaffective disorder Medical History bi-polar disorder Medical History depression Medical History anxiety Medical History pre diabetes Medical History COPD Surgical History x 2 Hospitalization History Staph infection in [place]
--- OUTSIDE RECORDS SUMMARY | 2018-04-11 16:38 | XMS REPORT ---
Author Author MURIEL LORA Organization [facility] Address [address] [place] [address] Care Team Providers Care Deckhand Crab Boat Name Role Phone MURIEL LORA Unavailable PROBLEMS Type Condition ICD9-CM Code IEE09-DG Code Onset Dates Condition Status SNOMED Code Problem Simple chronic bronchitis J41.0 Active 47585176 Problem Anxiety F41.9 Active 00723524 Problem Acute seasonal allergic rhinitis, unspecified trigger J30.2 Active 567887824 Problem Asthma exacerbation J45.901 Active 578838255 Problem Migraine with aura and with status migrainosus, not intractable G43.101 Active 6182077 Problem Psychotic disorder with delusions F29 Active 48743530 Problem 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 403840652 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 818617238 ALLERGIES No Information ENCOUNTERS Encounter Location Date Diagnosis [place] [id number] [place] [address] 44925- 9374 Sep, [place] [id number] [place] [address] 50527- 1034 Aug, Anxiety F41.9 and Screening for diabetes mellitus (DM) Z13.1 [place] [id number] [place] [address] 49823- 7683 July, [place] [id number] [place] [address] 61075- 8323 July, [place] [id number] [place] [address] 04956- 4931 May, Psychotic disorder with delusions F29 [facility] [id number] [place] [address] 38716- 8466 May, [place] [id number] [place] [address] 76683- 2467 May, [facility] [id number] [place] [address] 60023- 8828 Mar, Psychotic disorder with delusions F29 and 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 [facility] [id number] [place] [address] 92162- 7125 Jan, [facility] [id number] [place] [address] 45645- 7752 Dec, Psychotic disorder with delusions F29 [facility] [id number] [place] [address] 51787 -9952 Dec, Acute seasonal allergic rhinitis, unspecified trigger J30.2 [facility] [id number] [place] [address] 45789- 8351 Nov, Psychotic disorder with delusions F29 [facility] [id number] [place] [address] 70257- 4290 14 Nov, 2016 [facility] [id number] [place] [address] 34833- 8376 Nov, [facility] [id number] [place] [address] 99184- 4689 Nov, [facility] [id number] [place] [address] 05467- 0352 Oct, Asthma exacerbation J45.901 [facility] [id number] [place] [address] 01931- 6253 Oct, [facility] [id number] [place] [address] 08260- 5434 Oct, 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 and 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 [facility] [id number] [place] [address] 37442- 9193 Oct, [facility] [id number] [place] [address] 46946- 5370 Oct, Migraine with aura and with status migrainosus, not intractable G43.101 ; Other abnormal cytological finding of specimen from cervix R87.618 ; Screening for diabetes mellitus (DM) Z13.1 ; Screening for lipid disorders Z13.220 and Weight gain R63.5 [place] [id number] [place] [address] 23900- 3285 Oct, [facility] [id number] [place] [address] 35723- 0924 Oct, [place] [address] 96374- 5081 Oct, [place] [id number] [place] [address] 67906- 4704 Sep, Weight gain R63.5 ; Screening for lipid disorders Z13.220 ; Screening for diabetes mellitus (DM) Z13.1 and Scabies exposure Z20.89 [facility] [id number] [place] [address] [id number] Sep, Encounter for dental examination and cleaning without abnormal findings Z01.20 [facility] [id number] [place] [address] 73010 -8960 Sep, Abscess L02.[address] 63743- 3646 Jun, [place] [id number] [place] [address] 35617- 9053 Jun, Routine gynecological examination Z01.[address] 63425- 2622 Jun, Routine gynecological examination Z01.419 ; Encounter for Depo-Provera contraception Z30.42 and Routine screening for STI (sexually transmitted infection) Z11.3 [place] [id number] [place] [address] 20953- 1037 Jun, Anxiety F41.9 [place] [id number] [place] [address] 14430- 1856 May, [place] [address] [address] 7542 27 Apr, 2016 Psychotic disorder with delusions F29 [facility] [id number] [place] [address] 69123- 5500 Jan, [facility] [id number] [place] [address] 58151- 2095 Jan, Psychotic disorder with delusions F29 [facility] [id number] [place] [address] 05634- 2151 16 Jan, 2016 Encounter for contraceptive management, unspecified contraceptive encounter type Z30.9 ; Anxiety F41.9 ; Simple chronic bronchitis J41.0 and Encounter for Depo-Provera contraception Z30.42 [facility] [address] [place] [address] 73301- 8365 14 Jun, 2014 [facility] [id number] [place] [address] 81441- 4718 Jun, [facility] [id number] [place] [address] 15018- 7427 Mar, [facility] [id number] [place] [address] 85134- 2124 Jan, [facility] [address] [address]- 4964 Jan, [facility] [id number] [place] [address] 25192- 3001 Jan, [facility] [id number] [place] [address] 47651- 8208 Jan, [facility] [id number] [place] [address] 49500- 3730 Jan, [facility] [address] [place] [address] 31400- 3768 Jan, [facility] [address] [place] [address] 41371- 4957 Jan, [facility] [place] [facility] [address] [id number] [place] [address]- 0026 31 Dec, 2011 [facility] [place] [facility] [address] [id number] [place] [address]- 3497 31 Dec, 2011 [facility] [place] [facility] [address] [id number] [place] [address]- 2884 26 Dec, 2011 [facility] [place] [facility] [address] [id number] [place] [address]- 3669 Dec, [facility] [place] [facility] [address] [id number] [place] [address]- 3422 Dec, [facility] [place] [facility] [address] [id number] [place] [address]- 5082 18 Dec, 2011 [facility] [place] [facility] [address] [id number] [place] [address]- 9334 18 Dec, 2011 [facility] [place] [facility] [address] [id number] [place] [address]- 9978 18 Dec, 2011 [facility] [place] [facility] [address] [id number] [place] [address]- 2318 18 Dec, 2011 [facility] [place] [facility] [address] [id number] [place] [address]- 9316 18 Dec, 2011 [facility] [place] [facility] [address] [id number] [place] [address]- 8932 18 Dec, 2011 [facility] [place] [facility] [address] [id number] [place] [address]- 1370 15 Dec, 2011 [facility] [place] [facility] [address] [id number] [place] [address]- 1273 10 Dec, 2011 [facility] [place] [facility] [address] [id number] [place] [address]- 3578 10 Dec, 2011 [facility] [place] [facility] [address] [id number] [place] [address]- 4135 08 Dec, 2011 [facility] [place] [facility] [address] [id number] [address]- 4696 Dec, [facility] [id number] [address]- 7868 Dec, [facility] [address] [address]- 9906 Dec, [facility] [address] [address]- 0229 18 Nov, 2011 [facility] [address] [address]- 8752 17 Nov, 2011 [facility] [address] 4566 Nov, [facility] [address] [address] 9969 Nov, [facility] [address] [address]- 2481 Nov, [facility] [address] [address]- 2585 Nov, [facility] [address] [address]- 4051 Sep, [facility] [address] [address]- 9759 Aug, [facility] [address] [address]- 0243 Aug, [facility] [address] [address]- 1010 July, [facility] [address] [address]- 3456 July, [facility] [address] [address] July, IMMUNIZATIONS No Known Immunizations SOCIAL HISTORY [...]
--- OUTSIDE RECORDS SUMMARY | 2018-04-11 16:38 | XMS REPORT ---
Author MURIEL Becerra Organization [employer] Address Unknown Phone Unavailable Care Team Providers Care Reel Film Inspector Name Role Phone MURIEL LORA CP Unavailable Allergies, Adverse Reactions, Alerts Substance Reaction Event Type Naproxen hives Drug Allergy Problems Problem Type Condition Code Onset Dates Condition Status Problem Anxiety F41.9 Active Problem Simple chronic bronchitis J41.0 Active Problem Psychotic disorder with delusions F29 Active Assessment Psychotic disorder with delusions F29 Active Medications Medication Code System Code Instructions Start Date End Date Status Dosage Singulair [facility] [address]-51 10 mg Orally Once a day, voucher 1st fill only 1 tablet in the evening ProAir HFA [facility] [address]-65 90 mcg/actuation 4 times a day August 21, 2011 2 puffs by Inhalation route 4 times per day Haloperidol [facility] [address]-55 25 mg Orally Once a day, voucher 1st fill only Jan 02, 2012 1 tablet HydrOXYzine HCl [facility] [address]-10 50 mg Orally Once a day, voucher 1st fill only 1 tablet as needed at HS Benztropine Mesylate [facility] [address]-50 2 MG Orally at bed time, voucher 1st fill only 1 tablet BusPIRone HCl [facility] [address]-02 15 MG Orally at bed time, voucher 1st fill only 2 tablets Vital Signs Date/Time: Feb 15, 2016 Cardiac Monitoring Heart Rate 84 bpm Weight 187.6 lbs Height 62 in BMI 34.31 Index Blood Pressure Diastolic 82 mmHg Blood Pressure Systolic 124 mmHg Results No Known Results Summary Purpose [employer] Submission
--- OUTSIDE RECORDS SUMMARY | 2018-04-11 16:42 | XMS REPORT | Continuity of Care Document ---
Demographics Preferred Language Unknown Marital Status Unknown Holiness Affiliation Unknown Race Unknown Ethnic Group Unknown Author Author [facility] Organization [facility] Address Unknown Phone Unavailable Allergies Active Description Code Type Severity Reaction Onset Reported/Identified Relationship to Patient Clinical Status Yes PAPER TAPE PAPER TAPE Unknown N/A 12/03/2011 Medications Medication Packaging Start Date Stop Date [...] BENSON L V65.42 COUNSELING - SMOKING CESSATION 12/03/2011 Ot 614.9 FEM PELV INFLAM DIS NOS 12/03/2011 Ot 620.2 OVARIAN CYST NEC/NOS 12/03/2011 Ot 789.00 ABDOMINAL PAIN, UNSPECIFIED SITE 12/31/2011 112.1 CANDIDIASIS OF VULVA AND VAGINA [...] SHEIKH WORKING M54.5 Low back pain 07/07/2017 MILILE SHEIKH WORKING R53.83 Other fatigue 07/08/2017 WORKING M54.41 Lumbago with sciatica, right side 07/08/2017 WORKING R87.619 Unspecified abnormal cytological findings in specimens from cervix uteri 07/08/2017 WORKING Z86.32 Personal history of gestational diabetes 07/13/2017 WORKING G89.29 Other chronic pain 07/13/2017 WORKING R10.2 Pelvic and perineal pain 07/13/2017 WORKING Z87.898 Personal history of other specified conditions 10/06/2017 KESHA GONZALES MD Ot F20.9 SCHIZOPHRENIA, UNSPECIFIED 10/06/2017 KESHA GONZALES MD Ot G56.03 CARPAL TUNNEL SYNDROME, BILATERAL UPPER 10/06/2017 KESHA GONZALES MD Ot O99.341 OTH MENTAL DISORDERS COMPLICATING PREGNA 10/06/2017 KESHA GONZALES MD J Ot O99.351 DISEASES OF THE NERVOUS SYS COMP PREGNAN 10/06/2017 KESHA GONZALES MD Ot O99.89 OTH DISEASES AND CONDITIONS COMPL PREG/C 10/06/2017 KESHA GONZALES MD Ot Z3A.12 12 WEEKS GESTATION OF 10/06/2017 KESHA GONZALES MD Ot Z88.8 ALLERGY STATUS TO OTH DRUG/MEDS/BIOL SUB 10/08/2017 KESHA GONZALES MD Ot F20.9 SCHIZOPHRENIA, UNSPECIFIED 10/08/2017 KESHA GONZALES MD Ot G56.03 CARPAL TUNNEL SYNDROME, BILATERAL UPPER 10/08/2017 KESHA GONZALES MD Ot O99.341 OTH MENTAL DISORDERS COMPLICATING PREGNA 10/08/2017 KESHA GONZALES MD Ot O99.351 DISEASES OF THE NERVOUS SYS COMP PREGNAN 10/08/2017 KESHA GONZALES MD Ot O99.89 OTH DISEASES AND CONDITIONS COMPL PREG/C 10/08/2017 KESHA GONZALES MD Ot Z3A.12 12 WEEKS GESTATION OF 10/08/2017 KESHA GONZALES MD Ot Z88.8 ALLERGY STATUS TO OTH DRUG/MEDS/BIOL SUB 10/12/2017 KESHA GONZALES MD Ot F20.9 SCHIZOPHRENIA, UNSPECIFIED 10/12/2017 KESHA GONZALES MD Ot G56.03 CARPAL TUNNEL SYNDROME, BILATERAL UPPER 10/12/2017 KESHA GONZALES MD Ot O99.341 OTH MENTAL DISORDERS COMPLICATING PREGNA 10/12/2017 KESHA GONZALES MD Ot O99.351 DISEASES OF THE NERVOUS SYS COMP PREGNAN 10/12/2017 KESHA GONZALES MD Ot O99.89 OTH DISEASES AND CONDITIONS COMPL PREG/C 10/12/2017 KESHA GONZALES MD Ot Z3A.12 12 WEEKS GESTATION OF 10/12/2017 KESHA GONZALES MD Ot Z88.8 ALLERGY STATUS TO OTH DRUG/MEDS/BIOL SUB 10/14/2017 Ot 623.8 NONINFLAM DIS VAGINA NEC 10/14/2017 Ot 625.9 FEM GENITAL SYMPTOMS NOS 02/18/2018 KESHA GONZALES MD Ot F20.9 SCHIZOPHRENIA, UNSPECIFIED 02/18/2018 KESHA GONZALES MD Ot G56.03 CARPAL TUNNEL SYNDROME, BILATERAL UPPER 02/18/2018 KESHA GONZALES MD Ot O99.341 OTH MENTAL DISORDERS COMPLICATING PREGNA 02/18/2018 KESHA GONZALES MD Ot O99.351 DISEASES OF THE NERVOUS SYS COMP PREGNAN 02/18/2018 KESHA GONZALES MD Ot O99.89 OTH DISEASES AND CONDITIONS COMPL PREG/C 02/18/2018 KESHA GONZALES MD Ot Z3A.12 12 WEEKS GESTATION OF 02/18/2018 KESHA GONZALES MD Ot Z88.8 ALLERGY STATUS TO OTH DRUG/MEDS/BIOL SUB Procedures Code Description Performed By Performed On NICOLE JOAQUIN 01/28/2012 56559 SLEEP STUDY 02/03/2012 80861 US PELVIC (TRANSVAGINAL ONLY ) 02/05/2012 Results [...] - 02/13/16 10:04 TSH 0.701 uIU/mL 0.450-4.500 HSV 1 and 2-Specific Ab, IgG - 07/08/16 14:11 HSV 1 IgG, Type Spec 19.10 index 0.00-0.90 HSV 2 IgG, Type Spec 5.49 index 0.00-0.90 HSV 1 and 2 IgM Abs, Indirect - 07/08/16 14:11 HSV 1 IgM Antibodies <1:10 titer <1:10 HSV 2 IgM Antibodies <1:10 titer <1:10 Genital Culture, Routine - 07/08/16 14:11 Genital Culture, Routine Note Pap Lb, HPV-hr - 07/08/16 14:11 HPV, [...] - 07/07/17 20:18 LACTATE 1.5 mmol/L 0.4-2.0 Urine beta human chorionic gonadotropin (hCG) measurement - 10/06/17 16:10 Urine beta human chorionic gonadotropin (hCG) measurement POSITIVE NEGATIVE Complete urinalysis with reflex to culture - 10/06/17 16:10 Urine color determination YELLOW NRG Urine clarity determination CLEAR NRG Urine pH measurement by test strip 8 5-9 Specific gravity of urine by test strip 1.015 1.016- 1.022 Urine protein assay by test strip, semi-quantitative NEGATIVE NEGATIVE Urine glucose detection by automated test strip NEGATIVE NEGATIVE Erythrocytes detection in urine sediment by light microscopy NEGATIVE NEGATIVE Urine ketones detection by automated test strip NEGATIVE NEGATIVE Urine nitrite detection by test strip NEGATIVE NEGATIVE Urine total bilirubin detection by test strip NEGATIVE NEGATIVE Urine urobilinogen measurement by automated test strip (mass/volume) NORMAL NORMAL Urine leukocyte esterase detection by dipstick 1+ NEGATIVE Automated urine sediment erythrocyte count by microscopy (number/high power field) [HPF] NRG Automated urine sediment leukocyte count by microscopy (number/high power field ) NONE NRG Bacteria detection in urine sediment by light microscopy FEW NRG Squamous epithelial cells detection in urine sediment by light microscopy 5-10 NRG Crystals detection in urine sediment by light microscopy NONE NRG Casts detection in urine sediment by light microscopy NONE NRG Mucus detection in urine sediment by light microscopy NEGATIVE NRG Complete urinalysis with reflex to culture NO NRG SUREPATH PAP AND HPV mRNA E6/E7 - 10/21/17 14:40 CLINICAL INFORMATION: NRG LMP: NRG PREV. PAP: NRG PREV. BX: NRG SOURCE: NRG STATEMENT OF ADEQUACY: NRG INTERPRETATION/RESULT: NRG MINING ENGINEER: NRG HPV mRNA E6/E7, SUREPATH VIAL Detected NOT DETECTED REVIEW MINING ENGINEER: NRG INFECTION: NRG COMMENT NRG CULTURE, GENITAL - 10/21/17 14:40 CULTURE, GENITAL SEE NOTE NRG Complete urinalysis with reflex to culture - 04/11/18 11:30 Urine color determination YELLOW NRG Urine clarity determination SLIGHTLY CLOUDY NRG Urine pH measurement by test strip 5 5-9 Specific gravity of urine by test strip 1.015 1.016- 1.022 Urine protein assay by test strip, semi-quantitative 1+ NEGATIVE Urine glucose detection by automated test strip 3+ NEGATIVE Erythrocytes detection in urine sediment by light microscopy NEGATIVE NEGATIVE Urine ketones detection by automated test strip 2+ NEGATIVE Urine nitrite detection by test strip NEGATIVE NEGATIVE Urine total bilirubin detection by test strip NEGATIVE NEGATIVE Urine urobilinogen measurement by automated test strip (mass/volume) NORMAL NORMAL Urine leukocyte esterase detection by dipstick NEGATIVE NEGATIVE Automated urine sediment erythrocyte count by microscopy (number/high power field) NONE NRG Automated urine sediment leukocyte count by microscopy (number/high power field ) NONE NRG Bacteria detection in urine sediment by light microscopy FEW NRG Squamous epithelial cells detection in urine sediment by light microscopy 2-5 NRG Crystals detection in urine sediment by light microscopy NONE NRG Casts detection in urine sediment by light microscopy NONE NRG Mucus detection in urine sediment by light microscopy NEGATIVE NRG Complete urinalysis with reflex to culture NO NRG Urine drug screening test - 04/11/18 11:30 Urine phencyclidine detection by screening method NEGATIVE NEGATIVE Urine benzodiazepines detection by screening method NEGATIVE NEGATIVE Urine cocaine detection NEGATIVE NEGATIVE Urine amphetamines detection by screening method NEGATIVE NEGATIVE Urine methamphetamine detection by screening method NEGATIVE NEGATIVE Urine cannabinoids detection by screening method NEGATIVE NEGATIVE Urine opiates detection by screening method NEGATIVE NEGATIVE Urine barbiturates detection NEGATIVE NEGATIVE Screening urine tricyclic antidepressants detection POSITIVE NEGATIVE Urine methadone detection by screening method NEGATIVE NEGATIVE Urine oxycodone detection NEGATIVE NEGATIVE Urine propoxyphene detection NEGATIVE NEGATIVE Complete blood count (CBC) with automated white blood cell (WBC) differential - 04/11/18 14:45 Blood leukocytes automated count (number/volume) 13.1 10*3/uL 4.3-11.0 Blood erythrocytes automated count (number/volume) 3.89 10*6/uL 4.35-5.85 Venous blood hemoglobin measurement (mass/volume) 12.3 g/dL 11.5-16.0 Blood hematocrit (volume fraction) 37 % 35-52 Automated erythrocyte mean corpuscular volume 96 [foz_us] 80-99 Automated erythrocyte mean corpuscular hemoglobin (mass per erythrocyte) 32 pg 25-34 Automated erythrocyte mean corpuscular hemoglobin concentration measurement ( mass/volume) 33 g/dL 32-36 Automated erythrocyte distribution width ratio 14.2 % 10.0-14.5 Automated blood platelet count (count/volume) 227 10*3/uL 130-400 Automated blood platelet mean volume measurement 10.0 [foz_us] 7.4-10.4 Automated blood neutrophils/100 leukocytes 67 % 42-75 Automated blood lymphocytes/100 leukocytes 21 % 12-44 Blood monocytes/100 leukocytes 10 % 0-12 Automated blood eosinophils/100 leukocytes 2 % 0-10 Automated blood basophils/100 leukocytes 1 % 0-10 Blood neutrophils automated count (number/volume) 8.8 10*3 1.8-7.8 Blood lymphocytes automated count (number/volume) 2.7 10*3 1.0-4.0 Blood monocytes automated count (number/volume) 1.4 10*3 0.0-1.0 Automated eosinophil count 0.2 10*3/uL 0.0-0.3 Automated blood basophil count (count/volume) 0.1 10*3/uL 0.0-0.1 Blood type T Indirect antibody screen panel - 04/11/18 14:45 ABO+Rh group ON NRG Transfusion band number [id number] NRG Blood group antibody screen NEGATIVE NRG Encounters ACCT No. Visit Date/Time Discharge Status Pt. Type Provider Facility Loc./Unit Complaint [id number] 07/10/2016 17:09:00 Document Registration [id number] 07/11/2016 10:08:00 Document Registration [id number] 10/23/2017 09:20:00 10/23/2017 23:59:59 CLS Outpatient MURIEL LORA APRN [facility] [id number] 10/21/2017 14:00:00 Document Registration [id number] 11/19/2016 10:00:00 Document Registration [id number] 02/14/2016 13:06:00 Document Registration [id number] 02/04/2012 11:19:00 02/04/2012 23:59:59 CLS Outpatient [id number] 01/28/2012 17:42:00 01/28/2012 23:59:59 CLS Outpatient LEATHA BENSON RUVALCABA [place] [id number] 07/13/2017 10:07:00 07/13/2017 11:19:00 DIS Emergency [facility] FED [id number] 07/07/2017 14:49:00 07/07/2017 21:52:00 [facility] FED [id number] 07/02/2017 10:25:00 07/02/2017 13:41:00 [facility] FED [id number] 07/11/2016 19:07:00 Document Registration [id number] 11/20/2016 09:09:00 Document Registration [id number] 10/06/2017 15:54:00 10/06/2017 17:12:00 DIS Outpatient CHRISTIAN ACKERMAN, KESHA Sy [facility] , CARPEL TUNNEL, MEDICATION CHANGE [id number] 04/16/2018 12:00:00 PEN Preadmit CARINA CHILDS, AMY Mendez REPEAT [id number] 04/11/2018 11:57:00 Document Registration [id number] 02/17/2012 12:55:00 Document Registration [id number] 12/03/2011 16:28:00 Document Registration [id number] 07/13/2017 00:00:00 07/13/2017 23:59:59 [facility] Outpatient [facility] OBN SFOB [id number] 07/13/2017 00:00:00 07/13/2017 23:59:59 [facility] Outpatient [facility] OBN OB [id number] 07/08/2017 09:51:36 07/08/2017 23:59:59 [facility] Outpatient [facility] SFJEW
--- NOTE | 2018-04-11 16:48 | Operative Report ---
Operative Report Date of Procedure/Surgery Apr 11, 2018 Surgeon (s) AMY LIM DO [employer] Dealer (s): Rubi Morgan Post-Operative Diagnosis IUP at 38 2/7 weeks Previous Diabetes 2 Schizophrenia Bipolar Disorder Pelvic Pain Procedure Performed Repeat Low Transverse Description of Procedure Anesthesia Type: Spinal Estimated blood loss (mL): 600 ml Specimen(s) collected/removed Placenta Previous Skin Scar Packing: None Description of the Procedure Ms. Gimenez had IV fluids running upon my evaluation. The procedure with its associated risks were discussed, all questions were answered. Informed consent was obtained. She was taken to the Operating Room where spinal anesthesia was administered without difficulty. White catheter was inserted. She was then prepped and draped in the normal sterile fashion. The Spinal Block was tested and found to be adequate. An elliptical incision was made over her previous skin scar and the old scar was removed. The incision was taken down to the fascia, where it was nicked in the midline. Then it was extended laterally. The rectus muscle was manually in the midline. The peritoneum was identified, incised and extended superiorly and inferiorly with good visualization of the bladder. The vesicouterine peritoneum was grasped with pickup and dissected off of the lower uterine segment. The bladder blade was inserted at this time. Utilizing a scalpel, the lower uterine segment was incised. The vertex was delivered without difficulty. The mouth and nose were bulb-suctioned at this time. A viable female infant was delivered without problems. The cord was doubly clamped and cut, the was handed off to the waiting Pediatric Caregiver. Cord blood was obtained. The placenta was manually extracted. The uterine incision was approximated with 0-Vicryl in a running locked fashion. The an imbricated layer with the same size suture was placed. Hemostasis was noted. The vesicouterine peritoneum was approximated with 3-0 Vicryl. The posterior aspect of the uterus was irrigated with Normal Saline and all blood and debris removed from the pelvic cavity. The uterus was returned to the pelvic cavity. The peritoneum was approximated with 3-0 Vicryl. The fascia was closed with 0-Vicryl in a running fashion. The subcutaneous tissue was approximated with 3-0 Plain Gut. The skin was closed with 4-0 Monocryl Hemostasis was noted. A sterile bandage applied. Sponge, needle and instrument counts were correct x 3. Ms. Gimenez was taken to the Recovery Room in good and stable condition. Findings of the Procedure Female infant weight 10 pounds even. Apgars 8, 9. time 15:59. Allergies and Home Medications Allergies Coded Allergies: latex (Verified Allergy, Unknown, HIVES, 04/11/18) Uncoded Allergies: PAPER TAPE (Allergy, Unknown, 04/11/18) Patient Home Medication List Home Medication List Reviewed: Yes AMY LIM DO Apr 11, 2018 16:48
[2018-04-11] MEDS ORDERED: ONDANSETRON 4 MG/2 ML (SDV) Z0FRAN IVP PRN (17:00)
[2018-04-11] MEDS ORDERED: MEASLES,MUMPS,RUBELLA 1 EA INJ SC SCH (17:00)
[2018-04-11] MEDS ORDERED: TETANUS,DIPTH,PERTUSS P/F (BOOSTRIX) 0.5 ML VIAL IM SCH (17:00)
--- NOTE | 2018-04-11 17:30 | NUR ---
to room 313 via cart from recovery. A/Ox3. family present. dressing D/I. talking with staff. no s/s of distress noted. reviewed room controls, diet, pain medications, POC for postop day [address], call button. denies further need at this time.
[2018-04-11 18:05] VITALS: BP 118/72
[2018-04-11] MEDS: KETOROLAC 30 MG/ML VIAL IVP SCH (18:05)
--- NOTE | 2018-04-11 19:35 | NUR ---
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 discussed with pt concerns about leaving unit with brianna alonzo still in place. pt requesting nicoderm patch. notified of pt's request. order to start home meds received along with nicoderm patch.
[2018-04-11] MEDS: DOCUSATE SODIUM 100 MG (COLACE) CAP PO SCH (20:05)
[2018-04-11] MEDS: oxyCODONE/APAP 5/325MG (PERCOCET 5) TABLET PO PRN (20:05)
[2018-04-11] MEDS ORDERED: OXYTOCIN/NORMAL SALINE 500 ML IV ONE ×2 (20:17→21:45)
[2018-04-11] MEDS ORDERED: NICOTINE 14 MG (NICODERM) PATCH TD ONE (20:20)
[2018-04-11] MEDS ORDERED: risperiDONE 0.25 MG (RisperDAL) TAB ONE (20:20)
--- NOTE | 2018-04-11 20:26 | NUR ---
notified concerning orders. order clarification received.
[2018-04-11] MEDS ORDERED: ZOLPIDEM 5 MG (AMBIEN) TAB ONE (20:49)
[2018-04-11] MEDS: busPIRone 15 MG (BUSPAR) TABLET PO SCH (21:13)
[2018-04-11] MEDS ORDERED: ZOLPIDEM 5 MG (AMBIEN) TAB PO ONE (21:15)
[2018-04-11] MEDS ORDERED: metFORMIN 500 MG (GLUCOPHAGE) TAB ONE (21:16)
[2018-04-11] MEDS: risperiDONE 1 MG (RisperDAL) TAB PO SCH (21:30)
[2018-04-11] MEDS: metFORMIN 500 MG (GLUCOPHAGE) TAB PO SCH (21:33)
[2018-04-11 22:00] VITALS: BP 108/84
[2018-04-11] MEDS ORDERED: CATHETER FLUSH 10 ML SYR IV SCH (22:00)
--- NOTE | 2018-04-11 22:00 | NUR ---
Pt complaining of continuous cough. called for new orders.
[2018-04-11] MEDS: PROMETHAZINE/ CODEINE SYRUP 5 ML UDC PO PRN (22:16)
--- NOTE | 2018-04-11 22:55 | NUR ---
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 states she has the urge to have a bm. pt requesting to get up to the bathroom. pt assisted to toilet. positive flatus. pt continues to cry out in pain. pt assisted back to bed. pt positioned with pillows. warm blanket applied to abdomen. ms given ivp. s/o remains at side.
[2018-04-11] MEDS: morphine INJ 4 MG/ML 1 ML (VIAL/SYRINGE) IVP PRN (22:57)
[2018-04-12] MEDS: KETOROLAC 30 MG/ML VIAL IVP SCH ×2 (00:01→05:31)
[2018-04-12] MEDS: oxyCODONE/APAP 5/325MG (PERCOCET 5) TABLET PO PRN ×4 (01:35→20:50)
--- NOTE | 2018-04-12 01:35 | NUR ---
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 PERCOCET GIVEN, ALONG WITH JELLO AND BROTH.
[2018-04-12 02:46] VITALS: BP 129/79
[2018-04-12] MEDS: morphine INJ 4 MG/ML 1 ML (VIAL/SYRINGE) IVP PRN (04:34)
[2018-04-12] MEDS: PROMETHAZINE/ CODEINE SYRUP 5 ML UDC PO PRN (04:34)
[2018-04-12] MEDS ORDERED: BISACODYL 10 MG SUPP (DULCOLAX) PR ONE (05:00)
[2018-04-12] MEDS ORDERED: MILK OF MAGNESIA 400 MG/5 ML 30 ML UDC PO ONE (05:00)
--- NOTE | 2018-04-12 06:04 | NUR ---
alonzo dc'd, iv converted to SL, Pericare completed, pad changed, abdominal drsg removed. incision c/d/i. pt tolerated well.
--- NOTE | 2018-04-12 07:00 | NUR ---
REPORT RECEIVED FROM TIM CARABALLO.
[2018-04-12 07:25] LABS: BASOPHILS % (AUTO) 0 % (0-10); EOSINOPHILS # (AUTO) 0.2 10^3/uL (0.0-0.3); EOSINOPHILS % (AUTO) 1 % (0-10); HEMATOCRIT 34 % (35-52); HEMOGLOBIN 11.3 G/DL (11.5-16.0); LYMPHOCYTES # (AUTO) 2.8 X 10^3 (1.0-4.0); LYMPHOCYTES % (AUTO) 19 % (12-44); MEAN CORPUSCULAR HEMOGLOBIN 32 PG (25-34); MEAN CORPUSCULAR HGB CONC 34 G/DL (32-36); MEAN CORPUSCULAR VOLUME 94 FL (80-99); MONOCYTES # (AUTO) 1.2 X 10^3 (0.0-1.0); MONOCYTES % (AUTO) 8 % (0-12); NEUTROPHILS # (AUTO) 10.8 X 10^3 (1.8-7.8); NEUTROPHILS % (AUTO) 71 % (42-75); PLATELET COUNT 215 10^3/uL (130-400); RED BLOOD COUNT 3.55 10^6/uL (4.35-5.85); RED CELL DISTRIBUTION WIDTH 14.6 % (10.0-14.5); WHITE BLOOD COUNT 15.1 10^3/uL (4.3-11.0)
--- NOTE | 2018-04-12 07:40 | NUR ---
DR LIM HERE, NEW ORDERS RECEIVED.
[2018-04-12] MEDS: DOCUSATE SODIUM 100 MG (COLACE) CAP PO SCH ×2 (08:39→20:13)
[2018-04-12] MEDS: busPIRone 15 MG (BUSPAR) TABLET PO SCH ×2 (08:40→20:13)
[2018-04-12] MEDS: metFORMIN 500 MG (GLUCOPHAGE) TAB PO SCH ×2 (08:41→17:00)
[2018-04-12] MEDS ORDERED: NICOTINE 14 MG (NICODERM) PATCH TD SCH (09:00)
[2018-04-12] MEDS ORDERED: PATCH REMOVAL TP SCH (09:00)
--- NOTE | 2018-04-12 09:05 | NUR ---
PT EDUCATED ON AMBULATING IN HALLS ALONG WITH NOT GOING OFF UNIT WITH IV HEP LOCK IN PLACE, PT VERBALIZES UNDERSTANDING, ABDOMINAL BINDER PLACED.
--- NOTE | 2018-04-12 09:10 | NUR ---
DR LIM CALLED REGARDING CONSULT OF FAMILY MEDICINE, NEW ORDERS RECEIVED.
--- NOTE | 2018-04-12 09:25 | NUR ---
NOTIFIED DR LEÓN ABOUT CONSULT, RT NOTIFIED OF NEW REQUEST FOR TREATMENT.
[2018-04-12 09:57] VITALS: BP 129/79
--- NOTE | 2018-04-12 10:00 | NUR ---
RT HERE, VISITING WITH PT, LINUX SECURITY ADMINISTRATOR ALSO HERE, UPDATE RECEIVED, NEW ORDERS RECEIVED FROM RT.
[2018-04-12] MEDS ORDERED: RT-ALBUTEROL/IPRATROPIUM 3 ML (DUONEB) VIAL INH PRN (10:15)
--- NOTE | 2018-04-12 10:15 | NUR ---
PT AMBULATED DOWNSTAIRS WITH S/O.
--- NOTE | 2018-04-12 10:25 | NUR ---
PT BACK ON FLOOR, AMBULATED TO PRIVATE PP ROOM.
[2018-04-12] MEDS ORDERED: IBUPROFEN 800 MG (MOTRIN) TAB PO ONE (11:36)
[2018-04-12] MEDS: RT-ALBUTEROL/IPRATROPIUM 3 ML (DUONEB) VIAL INH SCH ×3 (11:38→19:50)
[2018-04-12] MEDS: IBUPROFEN 800 MG (MOTRIN) TAB PO SCH ×3 (11:49→23:42)
[2018-04-12] MEDS: risperiDONE 1 MG (RisperDAL) TAB PO SCH (11:50)
[2018-04-12 11:53] VITALS: BP 121/60
--- NOTE | 2018-04-12 12:00 | NUR ---
SCHEDULED MOTRIN GIVEN PER ORDER, NICOTINE PATCH TO BE REMOVED BUT PT REPORTS PATCH WAS MISSING AFTER HER SHOWER. UNABLE TO LOCATE NICOTINE PATCH. VSS, SCHEDULED MEDS GIVEN PER ORDER, MEDICAL RECORDS TO PTS ROOM, PT REFUSED TDAP AND FLU VACCINE.
--- NOTE | 2018-04-12 12:10 | NUR ---
PT AMBULATED DOWNSTAIRS WITH S/O AND FAMILY AT SIDE.
--- NOTE | 2018-04-12 12:32 | Anesthesia-Regional Post-Op ---
Regional Patient Condition Mental Status: Alert, Oriented x3 Circulation: Same as Pre-Op Headache: Absent Sensation: Full Recovery Motor Block: Absent Post Op Complications Complications None Follow Up Care/Instructions Patient Instructions None needed. Anesthesia/Patient Condition Patient is doing well, no complaints, stable vital signs, no apparent adverse anesthesia problems. No complications reported per nursing. CARINA MERIDA CRNA Apr 12, 2018 12:32
--- NOTE | 2018-04-12 13:30 | NUR ---
BLOOD SUGAR 223, DR LEÓN CALLED. PT UPDATED ABOUT PLAN OF CARE.
--- NOTE | 2018-04-12 14:18 | Consultation (CHS) ---
HPI History of Present Illness: This is a 37 yo female POD #1 s/p repeat c/s at 38 wk. I was asked to see the patient in consultation for medical management of schizophrenia and DM. Pt has history of schizophrenia for which she has previously been treated with Haldol. During her she was treated with Latuda and then changed to Risperdal. She has seen Dr. Coleman previously (10/2016). Pt feels she did best on Haldol despite having ocular side effects. She would like to be restarted on the Haldol. Pt has hx of drug use, having used meth early in the , but denies drug use since 20 wk. She is giving her baby up for adoption. Pt was diagnosed with DM Type 2 in March 2017 but patient believe she has had it longer than that. Per her clinic record her A1c was 5.7% 08/2017. She has been on Metformin 500mg BID and reportedly BS have not been well controlled. Infant weight 10# at 38wk. Source: patient Date seen by provider: Apr 12, 2018 Time Seen by Provider: 09:30 Attending Physician Sidney Stuart DO [facility] Center/Se,[facility] Consult Date of Admission Apr 11, 2018 at 14:10 Home Medications Home Medications Reviewed patient Home Medication Reconciliation performed by pharmacy medication reconciliations radio tower technician and/or nursing. Patients Allergies have been reviewed. Allergies Coded Allergies: latex (Verified Allergy, Unknown, HIVES, 04/11/18) Uncoded Allergies: PAPER TAPE (Allergy, Unknown, 04/11/18) MIF-Vihlpc-Skghyc Hx Patient Social History Alcohol Use: Denies Use Recreational Drug Use: Yes (history ) Smoking Status: Current Everyday Smoker Type Used: Cigarettes 2nd Hand Smoke Exposure: Yes Recent Foreign Travel: No Contact w/other who traveled: No Recent Hopitalizations: No Recent Infectious Disease Expo: No Physical Abuse Screen: No Sexual Abuse: No Past Medical History Schizophrenia Asthma DM Type 2 s/p Review of Systems (CHC) Constitutional: see HPI Reviewed Test Results Reviewed Test Results Lab Laboratory Tests 04/11/18 11:30: Urine Color YELLOW, Urine Clarity SLIGHTLY CLOUDY, Urine pH 5, Urine Specific [place] 1.015L, Urine Protein 1+H, Urine Glucose (UA) 3+H, Urine Ketones 2+H, Urine Nitrite NEGATIVE, Urine Bilirubin NEGATIVE, Urine Urobilinogen NORMAL, Urine Leukocyte Esterase NEGATIVE, Urine RBC (Auto) NEGATIVE, Urine RBC NONE, Urine WBC NONE, Urine Squamous Epithelial Cells 2-5, Urine Crystals NONE, Urine Bacteria FEWH, Urine Casts NONE, Urine Mucus NEGATIVE, Urine Culture Indicated NO, Urine Opiates Screen NEGATIVE, Urine Oxycodone Screen NEGATIVE, Urine Methadone Screen NEGATIVE, Urine Propoxyphene Screen NEGATIVE, Urine Barbiturates Screen NEGATIVE, Ur Tricyclic Antidepressants Screen POSITIVEH, Urine Phencyclidine Screen NEGATIVE, Urine Amphetamines Screen NEGATIVE, Urine Methamphetamines Screen NEGATIVE, Urine Benzodiazepines Screen NEGATIVE, Urine Cocaine Screen NEGATIVE, Urine Cannabinoids Screen NEGATIVE 04/11/18 14:45: White Blood Count 13.1H, Red Blood Count 3.89L, Hemoglobin 12.3, Hematocrit 37, Mean Corpuscular Volume 96, Mean Corpuscular Hemoglobin 32, Mean Corpuscular Hemoglobin Concent 33, Red Cell Distribution Width 14.2, Platelet Count 227, Mean Platelet Volume 10.0, Neutrophils (%) (Auto) 67, Lymphocytes (%) (Auto) 21 , Monocytes (%) (Auto) 10, Eosinophils (%) (Auto) 2, Basophils (%) (Auto) 1, Neutrophils # (Auto) 8.8H, Lymphocytes # (Auto) 2.7, Monocytes # (Auto) 1.4H, Eosinophils # (Auto) 0.2, Basophils # (Auto) 0.1 04/11/18 21:02: Glucometer 237H 04/12/18 05:30: Glucometer 154H 04/12/18 06:59: White Blood Count 15.1H, Red Blood Count 3.55L, Hemoglobin 11.3L, Hematocrit 34L , Mean Corpuscular Volume 94, Mean Corpuscular Hemoglobin 32, Mean Corpuscular Hemoglobin Concent 34, Red Cell Distribution Width 14.6H, Platelet Count 215, Mean Platelet Volume 10.0, Neutrophils (%) (Auto) 71, Lymphocytes (%) (Auto) 19 , Monocytes (%) (Auto) 8, Eosinophils (%) (Auto) 1, Basophils (%) (Auto) 0, Neutrophils # (Auto) 10.8H, Lymphocytes # (Auto) 2.8, Monocytes # (Auto) 1.2H, Eosinophils # (Auto) 0.2, Basophils # (Auto) 0.0, Sodium Level 137, Potassium Level 3.8, Chloride Level 110H, Carbon Dioxide Level 16L, Anion Gap 11, Blood Urea Nitrogen 8, Creatinine 0.62, Estimat Glomerular Filtration Rate > 60, BUN/ Creatinine Ratio 13, Glucose Level 125H, Calcium Level 8.3L, Corrected Calcium 9.5, Total Bilirubin 0.2, Aspartate Amino Transf (AST/SGOT) 19, Alanine Aminotransferase (ALT/SGPT) < 6, Alkaline Phosphatase 131, Total Protein 4.9L, Albumin 2.5L 04/12/18 13:26: Glucometer 223H 04/12/18 20:13: Glucometer 157H Physical Exam-(CHC) Physical Exam Vital Signs VS - Last 72 Hours, by Label 04/11/18 04/11/18 04/11/18 04/11/18 11:35 11:53 12:38 14:20 Temp 98.1 Pulse 101 86 99 Resp 20 20 20 B/P (MAP) 132/86 (101) 118/70 (86) 109/57 (74) O2 Delivery Room Air 04/11/18 04/11/18 04/12/18 04/12/18 18:05 22:00 02:46 09:57 Temp 97.7 98.3 97.3 Pulse 91 83 90 102 Resp 20 20 20 B/P (MAP) 118/72 (87) 108/84 (92) 129/79 (96) Pulse Ox 97 97 97 O2 Delivery Room Air Room Air 04/12/18 04/12/18 04/12/18 04/12/18 11:38 11:53 15:10 16:02 Temp 97.9 Pulse 84 Resp 18 B/P (MAP) 121/60 (80) 122/74 (90) Pulse Ox 96 100 97 O2 Delivery Room Air Room Air Room Air 04/12/18 04/12/18 16:02 19:51 Temp 98.0 Pulse 93 Resp 20 Pulse Ox 97 99 O2 Delivery Room Air Room Air Capillary Refill : General Appearance: WD/WN, no apparent distress Neurologic/Psychiatric: alert, normal mood/affect, oriented x 3 Skin: normal color, warm/dry Assessment/Plan Assessment/Plan (1) Schizophrenia Status: Chronic Assessment & Plan: - pt previously treated Haldol which patient would like to be restarted on instead of Risperdal. Will restart at 5mg qhs; previously on 10- 20mg daily. - will check CMP for baseline liver and kidney function - recommend patient f/u with Dr. Coleman for psychiatry and med management on DC. Qualifiers: Qualified Codes: F20.9 - Schizophrenia, unspecified (2) Type 2 diabetes mellitus with hyperglycemia, without long-term current use of insulin Status: Chronic Assessment & Plan: BS have been 120-220 since delivery - will increase metformin to 1000mg BID and monitor BS fasting and 2h pp - check A1c - recommend f/u with Elly Rowland at [facility] for Diabetic Education on DC. (3) History of illicit drug use Assessment & Plan: - Recommend patient f/u with ATS as OP - Recommend short duration of opioid therapy to treat post-op pain (3-5 day max) . Clinical Quality Measures DVT/VTE Risk/Contraindication: Risk Factor Score Per Nursin RFS Level Per Nursing on Admit: 3=High RADHA LEÓN DO Apr 12, 2018 14:18
[2018-04-12 15:09] LABS: ALANINE AMINOTRANSFERASE < 6 U/L (0-55); ALBUMIN 2.5 GM/DL (3.2-4.5); ALKALINE PHOSPHATASE 131 U/L (40-136); BILIRUBIN,TOTAL 0.2 MG/DL (0.1-1.0); BUN/CREATININE RATIO 13; CALCIUM 8.3 MG/DL (8.5-10.1); CARBON DIOXIDE 16 MMOL/L (21-32); CHLORIDE 110 MMOL/L (98-107); CREATININE SERUM 0.62 MG/DL (0.60-1.30); GFR ESTIMATED > 60; GLUCOSE 125 MG/DL (70-105); POTASSIUM 3.8 MMOL/L (3.6-5.0); SODIUM 137 MMOL/L (135-145); TOTAL PROTEIN 4.9 GM/DL (6.4-8.2)
[2018-04-12 16:02] VITALS: BP 122/74
--- NOTE | 2018-04-12 16:11 | NUR ---
CM/SS, respond to consult for planned/open adoption process. Visited with patient/bio mother and her SO/Daniel Dipak. Patient showed no indication of indecisiveness and no hesitation or doubt regarding moving forward on relinquishment of parental rights and adoption. Explored post delivery resources and supports with patient. She has 3 other children, ages 18, 13, and 12. The youngest two are with their father's mother at this time "until we can find a bigger house where we can all live." Patient states she has never had any involvement with Child Protective Services, past or present, not confirmed. 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 She resides in [place], she is currently established with [facility] there for Choices and Voc Rehab, and a goals program. She indicates she has 3-4 therapists she works with through these programs and that she also will be seeing substance abuse disability counselor at [facility]. When asked what feelings she anticipates about the final separation from , she indicated she was not sure what to expect. She went on to say she believed her current involvement through [facility] and the programs in [facility] was adequate and that she did not like [facility] staff enough to use their services. Anticipate legal administrative secretary today for signatures. Father of infant is expected to participate, he resides in [place] patient will contact when certified forklift operator is here. Updated Unit RN's this a.m.
[2018-04-12] MEDS ORDERED: IBUPROFEN 800 MG (MOTRIN) TAB PO SCH (18:00)
--- NOTE | 2018-04-12 18:00 | NUR ---
Meal finished - will need 2 hr pp at 1999. Pt will need dietary instructions tomorrow prior to discharge. Addendum: 04/12/18 at 1830 by NICK HICKEY RN Pt complaints of severe gas pains - requested medication. Greg Kerr.
[2018-04-12] MEDS: SIMETHICONE 80 MG (MYLICON) CHEW PO SCH (18:48)
--- NOTE | 2018-04-12 20:15 | NUR ---
Pt assessment and medications given, pt complained and became beligerant with this RN. Pt cussing previous RN and Dr Stuatr. Pt insisting that she have another gasX. Pt educated on the recent administration of medications and she insisted that she was told she would get it at 8 oclock. I continued to educate pt that she received the medication early and she insisted on another dose. This RN explained that she would not get another dose for 8 hours and then pt became verbally aggressive and this RN left the room.
[2018-04-12] MEDS ORDERED: HALOPERIDOL 2 MG (HALDOL) TABLET PO SCH (21:00)
[2018-04-12] MEDS ORDERED: HALOPERIDOL 5 MG (HALDOL) TAB PO SCH (21:00)
[2018-04-12 23:45] VITALS: BP 109/56
--- NOTE | 2018-04-12 23:46 | NUR ---
Pt educated on IS and pt refuses to try because "it hurts to cough" this Rn educated on importance of deep breathing and clearing secretions. Pt educated on using pillow to brace abdomin and pt said she will try tomorrow.
[2018-04-13] MEDS: oxyCODONE/APAP 5/325MG (PERCOCET 5) TABLET PO PRN ×2 (01:54→08:02)
[2018-04-13 06:15] VITALS: BP 133/67
[2018-04-13] MEDS: IBUPROFEN 800 MG (MOTRIN) TAB PO SCH (06:15)
--- NOTE | 2018-04-13 06:56 | Progress Note-Standard ---
Standard Progress Note Progress Notes/Assess & Plan Date Seen by a Provider: Apr 12, 2018 Time Seen by a Provider: 07:10 Progress/Assessment & Plan Subjective: Ms. Gimenez is POD#1 from a Repeat Low Transverse . She admits to being sore, but no other surgical problems. Admits to having shortness of breath, but had that prior to surgery. Objective: Heart: Normal rate and rhythm Lungs: Wheezing bilateral, poor inspiratory effort Abdomen: Good bowel sounds, incision is clean, dry and healing well--no signs of infection or dehiscence Extremities: +1 pitting edema of lower extremities, +2 DTR patellar tendons Assessment: POD#1 Repeat Diabetes Maniac Depression/Schizophrenia Shortness of Breath Plan: Start oral pain medication. Increase bowel function, then start Regular Diet. Shower. Ambulate. Breathing treatments. Consultation by PCP for Diabetes and Schizophrenia Final Diagnosis Postoperative Day #1 Repeat Diabetes Schizophrenia/Marilyn-Depressive Disorder Shortness of Breath Focused Exam Sepsis Stage: Ruled Out Respiratory: Wheezing AMY LIM DO Apr 13, 2018 06:56
--- NOTE | 2018-04-13 06:57 | NUR ---
Pt up and ambulating in guo, pt states she feels better and apologized for her actions last night.
--- NOTE | 2018-04-13 07:15 | NUR ---
DR. LIM HERE TO SEE PT. PLAN FOR DISCHARGE.
[2018-04-13] MEDS ORDERED: DOCU100C37 PO (07:19)
[2018-04-13] MEDS ORDERED: HALO2TAB PO (07:19)
[2018-04-13] MEDS ORDERED: METF-397 PO (07:19)
[2018-04-13] MEDS ORDERED: OXYC1TAB87 PO (07:19)
[2018-04-13] MEDS: RT-ALBUTEROL/IPRATROPIUM 3 ML (DUONEB) VIAL INH SCH (07:37)
[2018-04-13] MEDS: SIMETHICONE 80 MG (MYLICON) CHEW PO SCH (07:58)
[2018-04-13] MEDS: DOCUSATE SODIUM 100 MG (COLACE) CAP PO SCH (07:58)
[2018-04-13] MEDS: metFORMIN 500 MG (GLUCOPHAGE) TAB PO SCH (07:58)
[2018-04-13] MEDS: busPIRone 15 MG (BUSPAR) TABLET PO SCH (07:58)
[2018-04-13 08:00] VITALS: BP 120/77
--- NOTE | 2018-04-13 08:00 | NUR ---
A.M. ASSESSMENT COMPLETED. VSS. PT REFUSED FLU,TDAP, AND MMR. ANXIOUS TO GO HOME.
[2018-04-13] MEDS: PROMETHAZINE/ CODEINE SYRUP 5 ML UDC PO PRN (08:02)
[2018-04-13] MEDS ORDERED: HALO5TAB PO (08:15)
--- NOTE | 2018-04-13 08:30 | NUR ---
DR. LEÓN IN TO SEE PT. F/U PLANS DISCUSSED.
--- NOTE | 2018-04-13 09:15 | NUR ---
DISCHARGE INSTRUCTIONS REVIEWED WITH COPY TO PT. RXS GIVEN. STATES UNDERSTANDING OF ALL INSTRUCTIONS AND NEED TO F/U SCHEDULED AND NEEDED.
[2018-04-13 09:40] VITALS: BP 120/77
--- NOTE | 2018-04-13 09:40 | NUR ---
DISMISSED AMB FROM [facility] IN STABLE CONDITION TO [facility]ILY [facility] BY July AND GAUTAM MOREIRA RN.
== END 2018-04-13 09:40 | disposition home or self-care (01) | DRG 786 ==
LOC: WSo 11:29 → LDRP 11:31 → WSo 14:10 → LDRP 14:10
PROVIDERS: ADMIT Obstetrics & Gynecology; ATTEND Obstetrics & Gynecology
PROC: 10D00Z1 Extraction of Products of Conception, Low, Open Approach (ICD-10-PCS; principal; 2018-04-11 15:28)
DX: O34.211 Maternal care for low transverse scar from previous cesarean delivery (principal); O24.12 Pre-existing type 2 diabetes mellitus, in childbirth; E11.65 Type 2 diabetes mellitus with hyperglycemia; Z79.84 Long term (current) use of oral hypoglycemic drugs; O99.344 Other mental disorders complicating childbirth; F31.9 Bipolar disorder, unspecified; F20.9 Schizophrenia, unspecified; O99.334 Smoking (tobacco) complicating childbirth; F17.210 Nicotine dependence, cigarettes, uncomplicated; Z37.0 Single live birth; Z3A.38 38 weeks gestation of pregnancy
CPT/HCPCS: 36415; 80053; 80306; 81000; 82962; 83036; 85025; 86850; 86900; 86901; 94640; 94664; 94760; 99212

== ENCOUNTER 2019-01-14 17:37 | Emergency (ER) | payer OTHER ==
[~2019-01-14] VITALS: Ht 170.1 cm; Wt 102.0 kg
[~2019-01-14 17:37] MED LIST changes: +DOCU100C37 PO; +HALO2TAB PO; +HALO5TAB PO; +METF-397 PO; +OXYC1TAB87 PO
--- NOTE | 2019-01-14 17:37 | NUR ---
Arrival to ER Emergent Code Red per [facility]. Report from Maurisio LAM, Lalybryon' made the call 911 of pt "Overdose". History received from taryn' they were arguing after he got off work and picked her up from friend's house. aTryn' laid down for 45 min and awoke to patient calling for help "I took too much". Pt is obtunded on arrival, arouses confused and flailing to painful stimuli and returns briskly back to sleep.
[2019-01-14] MEDS ORDERED: NS IV 1000 ML 1,000 ML IV SCH (17:45)
--- NOTE | 2019-01-14 17:57 | ED General ---
General Stated Complaint: OVERDOSE Source of Information: EMS, Other (significant other, bf) (BALAJI OBRIEN MD) History of Present Illness Date Seen by Provider: Jan 14, 2019 Time Seen by Provider: 17:49 Initial Comments Patient presenting to emergency department via EMS for evaluation of altered mental status. Reportedly regis found her lethargic have her she was arousable. Per police regis says they have been arguing over finances over the past several days and that she may have taken too many of her pills which include Haldol lamotrigine montelukast. Flecking at the pill bottles they were prescribed on November 25 however the pill bottles still have some pills left so I do not know if she took more than she is supposed her not to me that his fiance or PD or EMS. There is report that she did use methamphetamines yesterday. No reported trauma. Patient is alert and oriented 1 and will arouse to gentle touch and will follow commands and move all extremities. She does not have a known seizure disorder I do not know if that lamotrigine is for psychiatric purposes her seizure disorder. She is satting 99% on room air with a normal heart rate and blood pressure but she does appear diaphoretic. Blood sugar was 170. (COLIN ZULETA DO) Allergies and Home Medications Allergies Coded Allergies: latex (Verified Allergy, Unknown, HIVES, 04/11/18) Uncoded Allergies: PAPER TAPE (Allergy, Unknown, 04/11/18) Home Medications Docusate Sodium 100 Mg Capsule, 100 MG PO BID One tablet orally every 12 hours Prescribed by: AMY LIM on 04/13/18718 Haloperidol 5 Mg Tablet, 5 MG PO HS Prescribed by: RADHA LEÓN on 04/13/18814 Metformin HCl 500 Mg Tablet, 1,000 MG PO BID@17 Prescribed by: AMY LIM on 04/13/18718 Oxycodone HCl/Acetaminophen 1 Each Tablet, 1-2 TAB PO Q4HR PRN for PAIN-MODERATE Prescribed by: AMY LIM on 04/13/18718 Patient Home Medication List Home Medication List Reviewed: Yes (COLIN ZULETA DO) Home Medication List Reviewed: Yes (BALAJI OBRIEN MD) Review of Systems Review of Systems Constitutional: no symptoms reported (unable to obtain due to mental status) (COLIN ZULETA DO) Unable to obtain a full review of systems due to the patient's critical condition and altered mental status. (BALAJI OBRIEN MD) All Other Systems Reviewed Negative Unless Noted: Yes (COLIN ZULETA DO) Past Dmqxhnd-Inpdgx-Voslvq Hx Past Med/Social Hx: Reviewed Nursing Past Med/Soc Hx (BALAJI OBRIEN MD) Patient Social History Type Used: Cigarettes 2nd Hand Smoke Exposure: Yes Recent Hopitalizations: No (COLIN ZULETA DO) Immunizations Up To Date PED Vaccines UTD: Yes (COLIN ZULETA DO) Seasonal Allergies Seasonal Allergies: No (COLIN ZULETA DO) Past Medical History Surgeries: Yes (c-sections x2) Respiratory: Yes COPD Cardiac: No Neurological: No Genitourinary: No Gastrointestinal: Yes Gastroesophageal Reflux Musculoskeletal: No Endocrine: No HEENT: No Cancer: No Psychosocial: Yes Schizophrenia, Depression Integumentary: No Blood Disorders: No Adverse Reaction/Blood Tranf: No (COLIN ZULETA DO) Physical Exam Vital Signs Vital Signs - First Documented 01/14/19 17:37 Temp 35.5 Pulse 83 Resp 24 B/P (MAP) 133/72 (92) Pulse Ox 100 O2 Delivery Nasal Cannula O2 Flow Rate 6.00 (BALAJI OBRIEN MD) Vital Signs Capillary Refill : (COLIN ZULETA DO) Height, Weight, BMI Height: 5'3.00" Weight: 229lbs. 6.0oz. [id number]; 40.6 BMI Method:Estimated General Appearance: Other (diaphoretic female in no obvious distress) Eyes: Left Eye PERRL (pupils 1 mm and reactive bilaterally) Neck: Supple Respiratory: Other (breath sounds present bilaterally) Cardiovascular: Regular Rate, Rhythm Gastrointestinal: Non Tender, Soft Rectal: Deferred Back: Normal Inspection Extremity: Normal Capillary Refill Neurologic/Psychiatric: Other (lethargic but will awaken to being touched) Skin: Other (diaphoretic) (COLIN ZULETA DO) Focused Exam Lactate Level 01/14/19 18:05: Lactic Acid Level 1.87 (BALAJI OBRIEN MD) Lactic Acid Level Laboratory Tests Test 01/14/19 18:05 Lactic Acid Level 1.87 MMOL/L (0.50-2.00) (BALAJI OBRIEN MD) Procedures/Interventions Reason for Intubation: protect airway Date of ETT Placement: Jan 14, 2019 Time of ETT Placement: 19:24 Intubation Method: orotracheal Tube Size: 7 Medications: Etomidate, Succinylcholine, Versed Positive End Tide CO2: Yes Breath Sounds after Intubation: bilateral-equal, right greater than left Intubation Complications: no complications Post Intubation Xray: Yes initial chest x-ray shows right mainstem bronchus intubation. Since the initial chest x-ray shows a right mainstem bronchus intubation the tube was pulled back by 3 cm by myself. It was then resecured in place with the tube 22 cm at the incisor. A repeat chest x-ray was taken showing that both lungs were inflating now. An NG was also placed. Patient was put on propofol for sedation. She was also given a dose of rocuronium for paralytic. (BALAJI OBRIEN MD) Progress/Results/Core Measures Suspected Sepsis SIRS Temperature: Pulse: Respiratory Rate: Blood Pressure / Mean: (COLIN ZULETA DO) Results/Orders Lab Results Laboratory Tests Test 01/14/19 18:00 01/14/19 18:05 Range/Units Urine Color YELLOW Urine Clarity CLEAR Urine pH 5.5 5-9 Urine Specific Shattuck 1.015 L 1.016-1.022 Urine Protein NEGATIVE NEGATIVE Urine Glucose (UA) NEGATIVE NEGATIVE Urine Ketones 1+ H NEGATIVE Urine Nitrite NEGATIVE NEGATIVE Urine Bilirubin NEGATIVE NEGATIVE Urine Urobilinogen 0.2 NORMAL MG/DL Urine Leukocyte Esterase NEGATIVE NEGATIVE Urine RBC (Auto) NEGATIVE NEGATIVE Urine RBC NONE /HPF Urine WBC 2-5 /HPF Urine Squamous Epithelial Cells NONE /HPF Urine Crystals NONE /LPF Urine Bacteria NEGATIVE /HPF Urine Casts PRESENT /LPF Urine White Blood Cell Casts 5-10 H /LPF Urine Mucus SMALL H /LPF Urine Culture Indicated NO Urine Test NEGATIVE NEGATIVE Urine Opiates Screen NEGATIVE NEGATIVE Urine Oxycodone Screen NEGATIVE NEGATIVE Urine Methadone Screen NEGATIVE NEGATIVE Urine Propoxyphene Screen NEGATIVE NEGATIVE Urine Barbiturates Screen NEGATIVE NEGATIVE Ur Tricyclic Antidepressants Screen NEGATIVE NEGATIVE Urine Phencyclidine Screen NEGATIVE NEGATIVE Urine Amphetamines Screen POSITIVE H NEGATIVE Urine Methamphetamines Screen POSITIVE H NEGATIVE Urine Benzodiazepines Screen NEGATIVE NEGATIVE Urine Cocaine Screen NEGATIVE NEGATIVE Urine Cannabinoids Screen NEGATIVE NEGATIVE White Blood Count 11.5 H 4.3-11.0 10^3/uL Red Blood Count 4.06 L 4.35-5.85 10^6/uL Hemoglobin 10.9 L 11.5-16.0 G/DL Hematocrit 35 35-52 % Mean Corpuscular Volume 86 80-99 FL Mean Corpuscular Hemoglobin 27 25-34 PG Mean Corpuscular Hemoglobin Concent 31 L 32-36 G/DL Red Cell Distribution Width 15.4 H 10.0-14.5 % Platelet Count 297 130-400 10^3/uL Mean Platelet Volume 9.4 7.4-10.4 FL Neutrophils (%) (Auto) 67 42-75 % Lymphocytes (%) (Auto) 25 12-44 % Monocytes (%) (Auto) 5 0-12 % Eosinophils (%) (Auto) 3 0-10 % Basophils (%) (Auto) 0 0-10 % Neutrophils # (Auto) 7.6 1.8-7.8 X 10^3 Lymphocytes # (Auto) 2.9 1.0-4.0 X 10^3 Monocytes # (Auto) 0.6 0.0-1.0 X 10^3 Eosinophils # (Auto) 0.3 0.0-0.3 10^3/uL Basophils # (Auto) 0.1 0.0-0.1 10^3/uL Prothrombin Time 14.4 12.2-14.7 SEC INR Comment 1.1 0.8-1.4 Activated Partial Thromboplast Time 24 24-35 SEC Blood Gas Puncture Site LEFT RADIAL Blood Gas Patient Temperature 95.8 Arterial Blood pH 7.40 7.37-7.43 Arterial Blood Partial Pressure CO2 34 L 35-45 MMHG Arterial Blood Partial Pressure O2 282 H 79-93 MMHG Arterial Blood HCO3 21 L 23-27 MMOL/L Arterial Blood Total CO2 22.0 21.0-31.0 MMOL/L Arterial Blood Oxygen Saturation 100 94-100 % Arterial Blood Base Excess -3.1 L -2.5-2.5 MMOL/L Dipak Test PT NOT ABLE Blood Gas Ventilator Setting NO Blood Gas Inspired Oxygen 100% NRB Sodium Level 138 135-145 MMOL/L Potassium Level 2.9 L 3.6-5.0 MMOL/L Chloride Level 103 98-107 MMOL/L Carbon Dioxide Level 20 L 21-32 MMOL/L Anion Gap 15 H 5-14 MMOL/L Blood Urea Nitrogen 11 7-18 MG/DL Creatinine 0.66 0.60-1.30 MG/DL Estimat Glomerular Filtration Rate > 60 BUN/Creatinine Ratio 17 Glucose Level 245 H 70-105 MG/DL Lactic Acid Level 1.87 0.50-2.00 MMOL/L Calcium Level 8.8 8.5-10.1 MG/DL Corrected Calcium 8.8 8.5-10.1 MG/DL Magnesium Level 1.6 1.6-2.4 MG/DL Total Bilirubin 0.4 0.1-1.0 MG/DL Aspartate Amino Transf (AST/SGOT) 13 5-34 U/L Alanine Aminotransferase (ALT/SGPT) 6 0-55 U/L Alkaline Phosphatase 105 40-136 U/L Troponin I < 0.30 <0.30 NG/ML Pro-B-Type Natriuretic Peptide 73.9 <75.0 PG/ML Total Protein 6.7 6.4-8.2 GM/DL Albumin 4.0 3.2-4.5 GM/DL Lipase 20 8-78 U/L Salicylates Level < 0.3 L 5.0-20.0 MG/DL Acetaminophen Level < 10 L 10-30 UG/ML Serum Alcohol < 10 <10 MG/DL (BALAJI OBRIEN MD) My Orders Orders - BALAJI OBRIEN MD Urine Bedside (01/14/19 18:41) Propofol Drip (Icu) (Diprivan Drip (Icu) (01/14/19 19:45) Ng Tube Insert & Assessment (01/14/19 19:37) Ng Tube To Low Wall Suction (01/14/19 19:37) Chest 1 View Ap/Pa Only (01/14/19 19:59) (BALAJI OBRIEN MD) Vital Signs/I&O 01/14/19 01/14/19 17:37 19:55 Temp 35.5 35.78185 Pulse 83 Resp 24 B/P (MAP) 133/72 (92) Pulse Ox 100 O2 Delivery Nasal Cannula O2 Flow Rate 6.00 (BALAJI OBRIEN MD) Vital Signs/I&O Capillary Refill : (COLIN ZULETA DO) Progress Note : Progress Note Will do altered mental status workup. Transfer of care to Dr. Obrien at 1800, dispo pending clinical course. (COLIN ZULETA DO) Progress Note : Progress Note I assumed care of the patient at [address] Zuleta. Patient was sent to CT scan while getting supplies together to perform intubation on patient to secure her airway since she has such a low GCS. Her labs came back showing a normal lactic acid. Her white blood cell count was at the upper limits of normal at 11.5 with a normal differential. She had stable chemistry without any acute significant abnormality in terms of renal or liver function. The boyfriend gave additional history to staff that the patient had been fighting with him this afternoon. Then because he had been working all day he went down for a nap and woke up to her screaming that she needed help because she had overdosed on pills. By the time EMS arrived she was becoming more somnolent. On arrival to the ED she was responsive only to painful stimuli. At 184 I spoke with the attending on for [facility] in she directed me to speak with the hospitalist. I spoke with the hospitalist at [address] Madrid said that he would no longer was covering for [facility] admits. At [address] Vasquez from [facility] again and she reported that there would not be a the concrete polisher to help with coverage of the ICU over the weekend and she felt that the patient being intubated and an overdose would require a higher level of care so I called [facility] through the [facility] access Center. 1856 I spoke with Mak RN from the access center and he took the basic information on the patient and then said he would call back once he got a hold of the hospitalist. 1913 I spoke with the hospitalist on-call resident Dr. Wheeler and he accepted the patient on behalf of his attending Dr. Fernandez. (BALAJI OBRIEN MD) ECG Initial ECG Impression Date: Jan 14, 2019 Initial ECG Impression Time: 17:37 Initial ECG Rate: 75 Initial ECG Rhythm: Normal Sinus Initial ECG Comparisson: No Previous ECG Available Comment Sinus rhythm with a heart rate of 75 bpm. ND interval of 143 ms. QT interval 414 ms with a QT corrected interval 463 ms. There is no acute ST elevation. No prior tracing for comparison. (BALAJI OBRIEN MD) Diagnostic Imaging Diagonstic Imaging: CT Plain Films/CT/US/NM/MRI: head Comments NAME: JOHNNYSMITHA KRAMER [facility] REC#: [id number] PT STATUS: REG ER : 1980 PHYSICIAN: COLIN ZULETA DO ADMIT DATE: 01/14/19/ER FS Draft Date of Exam:01/14/19 CT HEAD WO CLINICAL INDICATION: Patient with altered mental status, lethargy and suspected overdose. EXAM: Axial CT scan of the brain performed without IV contrast. COMPARISON: None. FINDINGS: There is no evidence of acute cerebral infarct, intracranial hemorrhage, or gross mass effect. The brain parenchymal volume appears appropriate for patient's age. There is normal sanchez-white matter distinction. There is no significant midline shift or herniation. There is no evidence of hydrocephalus. The basal cisterns are unremarkable. The skull, extracranial soft tissue, and orbits are unremarkable. There is a small air-fluid level in the right maxillary sinus. Temporal bones show no significant abnormality. IMPRESSION: Mild right maxillary sinus disease. Otherwise, unremarkable CT scan of the brain. Dictated on workstation # [id number] Dict: 01/14/191842 Trans: 01/14/191845 [id number] Interpreted by: VALARIE TAVAREZ MD Electronically signed by: Sigridgonsjorje Imaging: Xray Plain Films/CT/US/NM/MRI: chest Comments Initial CXR showed intubation into the right main bronchus. Repeat CXR shows improved position of the Tube after pulling it back 3 cm. (BALAJI OBRIEN MD) Critical Care Note Critical Care Total Time (minutes) 75 minutes Progress 75 minutes of critical care time was spent with the patient. This time was spent in obtaining history from the significant other, EMS, prior medical records, ordering tests and reviewing results, ordering interventions and reviewing response, discussion with consultants, documentation in the chart. Time was excluding separately billable procedures. (BALAJI OBRIEN MD) Departure Impression Primary Impression: Suicide by drug overdose Qualified Codes: T50.902A - Poisoning by unspecified drugs, medicaments and biological substances, intentional self-harm, initial encounter Additional Impressions: Altered mental status, unspecified Qualified Codes: R40.2432 - Henriette coma scale score 3-8, at arrival to emergency department Methamphetamine abuse Disposition: XFER SHT-TRM HOSP Condition: Stable Transfer Transfer Reason: Exceeds level of care Time Spoke to Accepting Phy: 19:14 Transfer Progress Notes D/w Dr. Wheeler, resident construction administrative assistant for Dr. Fernandez, and he accepted the patient on behalf of Dr. Fernandez to [facility] for ICU admit. Will intubate patient prior to transfer. Transfer Facility: [facility] Method of Transfer: EMS (BALAJI OBRIEN MD) Departure-Patient Inst. Referrals: [facility] (PCP/Family) Primary Care Physician COLIN ZULETA DO Jan 14, 2019 17:57 BALAJI OBRIEN MD Jan 14, 2019 18:35
[2019-01-14 18:25] LABS: WHITE BLOOD COUNT 11.5 10^3/uL (4.3-11.0)
[2019-01-14 18:26] LABS: BASOPHILS # (AUTO) 0.1 10^3/uL (0.0-0.1); BASOPHILS % (AUTO) 0 % (0-10); EOSINOPHILS # (AUTO) 0.3 10^3/uL (0.0-0.3); EOSINOPHILS % (AUTO) 3 % (0-10); HEMATOCRIT 35 % (35-52); HEMOGLOBIN 10.9 G/DL (11.5-16.0); LYMPHOCYTES # (AUTO) 2.9 X 10^3 (1.0-4.0); LYMPHOCYTES % (AUTO) 25 % (12-44); MEAN CORPUSCULAR HEMOGLOBIN 27 PG (25-34); MEAN CORPUSCULAR HGB CONC 31 G/DL (32-36); MEAN CORPUSCULAR VOLUME 86 FL (80-99); MEAN PLATELET VOLUME 9.4 FL (7.4-10.4); MONOCYTES # (AUTO) 0.6 X 10^3 (0.0-1.0); MONOCYTES % (AUTO) 5 % (0-12); NEUTROPHILS # (AUTO) 7.6 X 10^3 (1.8-7.8); NEUTROPHILS % (AUTO) 67 % (42-75); PLATELET COUNT 297 10^3/uL (130-400); RED CELL DISTRIBUTION WIDTH 15.4 % (10.0-14.5)
[2019-01-14 18:27] LABS: COLOR,URINE YELLOW
[2019-01-14 18:28] LABS: BILIRUBIN,URINE NEGATIVE (NEGATIVE); CLARITY,URINE CLEAR; GLUCOSE, URINE (UA) NEGATIVE (NEGATIVE); KETONES,URINE 1+ (NEGATIVE); LEUKOCYTE ESTERASE ,URINE NEGATIVE (NEGATIVE); NITRITE,URINE NEGATIVE (NEGATIVE); PH,URINE 5.5 (5-9); PROTEIN,URINE NEGATIVE (NEGATIVE)
--- NOTE | 2019-01-14 18:30 | NUR ---
Pt's Chandana Sanchez was brought to a consultation room to get hx. Taryn's questioned by RN as all 4 med bottles not a current script date. All filled 11/25/18 and they should be empty. Taryn' assumes she took some of them and that is why she is like this. Confirmed she has hx of IV drug use with Taryn' stating it was past not current. RN told Taryn' she did answer CAROLE Forde that she did do drugs yesterday "methamphetamines". Medication 30 day supply 11/25/18: Singulair bottle empty, Lamictal has #14 left, Metformin 8 pills left, Haldol total 14 1/4 pills left, some are in halves and a 1/4 pc.
[2019-01-14 18:33] LABS: ABG BASE EXCESS -3.1 MMOL/L (-2.5-2.5); ABG OXYGEN SATURATION 100 % (94-100); ABG PCO2 34 MMHG (35-45); ABG PO2 282 MMHG (79-93); ALLENS TEST PT NOT ABLE; VENTILATOR NO
[2019-01-14 18:34] LABS: INR 1.1 (0.8-1.4); PROTHROMBIN TIME PATIENT 14.4 SEC (12.2-14.7)
[2019-01-14 18:35] LABS: BACTERIA,URINE NEGATIVE /HPF
[2019-01-14 18:38] LABS: AMPHETAMINE SCREEN, URINE POSITIVE (NEGATIVE); BARBITURATE SCREEN URINE NEGATIVE (NEGATIVE); BENZODIAZEPINES SCREEN URINE NEGATIVE (NEGATIVE); CANNABINOID SCREEN, URINE NEGATIVE (NEGATIVE); COCAINE SCREEN URINE NEGATIVE (NEGATIVE); METHADONE STAT NEGATIVE (NEGATIVE); METHAMPHETAMINE SCREEN URINE S POSITIVE (NEGATIVE); OPIATE SCREEN URINE NEGATIVE (NEGATIVE); OXYCODONE STAT NEGATIVE (NEGATIVE); PROPOXYPHENE STAT NEGATIVE (NEGATIVE); TRICYCLIC ANTIDEPRESSANTS SCRE NEGATIVE (NEGATIVE)
[2019-01-14 18:39] LABS: POTASSIUM 2.9 MMOL/L (3.6-5.0); SODIUM 138 MMOL/L (135-145)
[2019-01-14 18:40] LABS: ALANINE AMINOTRANSFERASE 6 U/L (0-55); ALKALINE PHOSPHATASE 105 U/L (40-136); BILIRUBIN,TOTAL 0.4 MG/DL (0.1-1.0); BUN/CREATININE RATIO 17; CALCIUM 8.8 MG/DL (8.5-10.1); CARBON DIOXIDE 20 MMOL/L (21-32); CHLORIDE 103 MMOL/L (98-107); CREATININE SERUM 0.66 MG/DL (0.60-1.30); GFR ESTIMATED > 60; GLUCOSE 245 MG/DL (70-105); LIPASE 20 U/L (8-78); MAGNESIUM 1.6 MG/DL (1.6-2.4); TOTAL PROTEIN 6.7 GM/DL (6.4-8.2)
[2019-01-14 18:41] LABS: ACETAMINOPHEN < 10 UG/ML (10-30); SALICYLATE < 0.3 MG/DL (5.0-20.0)
--- NOTE | 2019-01-14 18:46 | Diagnostic Imaging Report ---
CLINICAL INDICATION: Patient with altered mental status, lethargy and suspected overdose. EXAM: Axial CT scan of the brain performed without IV contrast. COMPARISON: None. FINDINGS: There is no evidence of acute cerebral infarct, intracranial hemorrhage, or gross mass effect. The brain parenchymal volume appears appropriate for patient's age. There is normal sanchez-white matter distinction. There is no significant midline shift or herniation. There is no evidence of hydrocephalus. The basal cisterns are unremarkable. The skull, extracranial soft tissue, and orbits are unremarkable. There is a small air-fluid level in the right maxillary sinus. Temporal bones show no significant abnormality. IMPRESSION: Mild right maxillary sinus disease. Otherwise, unremarkable CT scan of the brain. Dictated by: Dictated on workstation # [id number]
--- NOTE | 2019-01-14 18:46 | NUR ---
Plan discussed plan to intubate patient r/t obtunded behavior, unknown substances. Calling to [facility] for request to accept. ICU with availability, no in house ICU Electrical Mechanical Technician/Suit Attendant this weekend (Dr Gray out). Calling to [facility] per Taryn' request to go north instead of [place] if not [place]. Taryn' leaving to go get some supper he states. Taryn' Daniel has the patient's phone [phone].
[2019-01-14 18:50] LABS: HCG,QUALITATIVE URINE NEGATIVE (NEGATIVE)
[2019-01-14 18:52] LABS: INSPIRED O2 100% NRB; PATIENT TEMP 95.8
--- NOTE | 2019-01-14 19:00 | NUR ---
[facility] is calling back to speak with Dr Moffett, spoke with transfer center.
--- NOTE | 2019-01-14 19:05 | NUR ---
[facility] calling back for to Patient being accepted and plan for [facility] Emergent Code Red after pt stabilized with intubation.
[2019-01-14] MEDS ORDERED: ETOMIDATE IV SOLN 20 MG/10 ML VIAL IV ONE (19:20)
[2019-01-14] MEDS ORDERED: MIDAZOLAM 5 MG/5 ML (VERSED) VIAL IVP ONE (19:20)
[2019-01-14] MEDS ORDERED: SUCCINYLCHOLINE INJ 100 MG/5 ML SYR INJ ONE (19:20)
[2019-01-14] MEDS ORDERED: ROCURONIUM 10 MG/ML 5 ML SYRINGE IV ONE (19:30)
[2019-01-14] MEDS ORDERED: VECURONIUM IV STA (19:34)
[2019-01-14] MEDS ORDERED: PROPOFOL DRIP (ICU) 100 ML IV SCH (19:45)
--- NOTE | 2019-01-14 19:48 | NUR ---
Per Dr Moffett being advised by die equipment operator staff that CAROLE Forde with [facility] reports no transfers will be taken till after the current duty of coverage on FB game at [place]. Advised us to call for other transfer services.
--- NOTE | 2019-01-14 19:57 | NUR ---
Dr Moffett called [facility] for transfer.
--- NOTE | 2019-01-14 20:05 | Diagnostic Imaging Report ---
INDICATION: Altered mental status. EXAMINATION: Portable chest at 7:43 p.m. FINDINGS: There is an ET tube that appears to be selectively intubating the right mainstem bronchus. There is an NG tube that appears to enter the stomach. There is some atelectasis in the left lung. Right lung is clear. IMPRESSION: Selective intubation of right mainstem bronchus. CRITICAL FINDING Report was called to the [facility] ER at 7:59 p.m., by jian. The ER doctor had already pulled the tube back 3 cm. Dictated by: Dictated on workstation # [id number]
--- NOTE | 2019-01-14 20:06 | NUR ---
1923-ns started w/o, versed 5 mg iv given, 20 mg etomidate iv given, pt being bagged with spo2-100%. 1924-anectine 100 mg iv given 1927-pt intubated with 7.0 at 25 cm-teeth 1930-pt placed on vent with 02 at 15 liters, a/c rate of 14, and tv-600 1934-100 mg rocuronium iv given 1935-left nare ng 18 fr placed with positive air bolus in abdomen-clear secretions noted 1942-chest xray taken 1949-ett pulled back to 22 cm at the teeth per Dr Moffett 1951-diprivan started at 20 mcg/kg/min
--- NOTE | 2019-01-14 20:16 | Diagnostic Imaging Report ---
Clinical indication: Post ET tube adjustment. Exam: Portable chest x-ray supine view. Comparisons: Portable chest x-ray dated 01/14/2019 at 1943. Findings and impression: 1: There is interval readjustment of ET tube with tip now roughly 3.8 cm from the abhi in good position. 2: There is slight improved aeration of the left lung with residual left basilar consolidation and mild airspace opacities in left upper lobe which may represent atelectasis versus infiltrate. 3: Small left pleural effusion cannot be completely excluded. 4: The remainder of this exam shows no significant interval change compared to the prior study of comparison. Dictated by: Dictated on workstation # [id number]
--- NOTE | 2019-01-14 20:22 | NUR ---
2002--Dr poe called med-flight 2 with a 20 minute eta
[2019-01-14 20:45] VITALS: BP 132/87
--- NOTE | 2019-01-14 20:48 | NUR ---
[facility] transfer center notified of [facility] 30 min ETA, not [facility].
--- NOTE | 2019-01-14 20:51 | NUR ---
2031-med flight here, report given 2044-pt transferred to med flight cot and secured, taken to aircraft
--- NOTE | 2019-01-14 20:52 | NUR ---
attempted to call report to icu 4, nurse being called in and in unavailabe. number given for nurse to call this rn back
--- OUTSIDE RECORDS SUMMARY | 2019-02-07 09:45 | XMS REPORT ---
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 Acti ve [id number] POS Problem Migraine with aura and with status migrainosus, not intractable SP Active 4197889 SP Problem Asthma exacerbation J45.901 Active [id number] SP 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 193312613 SP Problem Diabetes mellitus affecting in second trimester O24.912 SP [id number] SP Problem Hallucinations R44.3 Active 81968 01 SP Problem Type 2 diabetes mellitus wit h diabetic polyneuropathy, without long-term SPcurrent use of insulin E11.42 Active 713 705926 SP Problem Previous section complicating O 34.219 Active SP Problem COPD (chronic obstructive pulmonary disease) J44.9 Active 70007178 SP Problem Depression F32.9 Active 09103920 SP Problem Bipolar disorder F31.9 Active 137 31684 SP Problem Menorrhagia with irregular cycle N92.1 Active 230739528 SP Problem Chronic fatigue R53.82 Active 8422 9001 SP Problem Anxiety F41.9 Active 99045116 SP Problem Constipation by delayed colonic transit K59.01 Active 74433453 SP Problem Hallucination R44.3 Active 459975 1 SP Problem Psychotic disorder with delusions F29 Active 02048793 SP Problem Schizoaffective disorder, bipolar type F25.0 Active 86782880 SP Problem Metabolic syndrome E88.81 Active 2 39098481 SP Problem Schizo affective schizophrenia F25.0 Active 33036990 SP Problem 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 [address] [address] 24 SP 2018 SP [facility] [address] [place] [address] 22 [place], 2018 Abdominal bloating R14.0 ; Constipation by delayed colonic transit SP ; Bilateral leg numbness R20.0 and Menorrhagia with irregular cycle N92.[address] [address] 21 SP [address] [address] 20 2018 Abdominal bloating R14.0 ; Constipation by delayed colonic transit SP ; Bilateral leg numbness R20.0 and Menorrhagia with irregular cycle N92.1 [facility] [address] [id number] [address] [place] [phone] SP 18 Aug, 2018 Schizo affective schizophren ia F25.0 and Methamphetamine abuse in SPremission F15.[address] [address] 18 2018 SP [facility] [address] [id number] [address] [place] [address] SP Aug, Schizo affective schizophren ia F25.0 and Methamphetamine abuse in SPremission F15.[address] [address] 12 SP 2018 SP [facility] [address] [id number] [address] [place] [phone] SP Aug, Schizo affective schizophren ia F25.0 and Methamphetamine abuse in SPremission F15.[address] [address] 04 SP 2018 SP [facility] [address] [id number] [address] [place] [address] SP July, Methamphetamine abuse in rem ission F15.10 and Schizo affective SP F25.[address] [address] 21 SP 2018 Gestational diabetes mellitus (GDM) in s econd trimester controlled on hypoglycemic drug O24.[address] [address] 09 SP [address] [address] 01 SP 2019 Well woman exam with routine gynecologic al exam Z01.419 and Family SP Z30.[address] [address] 01 SP 2018 Metabolic syndrome E88.81 and Unintended weight gain R63.[address] [address] 29 SP 2018 Chronic fatigue R53.82 ; Unintentional w eight change R68.89 and SP R73.9 [facility] [address] [facility] [id number] [address] [place] [phone] SP 11 Jun, [address] [address] 10 SP 2018 Psychotic disorder with delusions F29 [address] [address] 28 SP [address] [address] 28 SP 2019 Hallucinations R44.3 and Psychotic disor gasper with delusions F29 [address] [address] 20 SP [address] [address] 15 SP [address] [address] 13 SP 2019 [facility] [address] [facility] [place] [address] 08 SPMar, 2019 Acute nasopharyngitis J00 and Fever R50. 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 ; Asthma exacerbation J45.901 ; Acute seasonal allergic rhinitis, unspecified trigger J30.2 ; Diabetes mellitus affecting in second trimester O24.912 ; Hallucinations R44.3 ; Previous section complicating O34.219 and Type 2 diabetes mellitus with diabetic polyneuropathy, without long-term current use of insulin E11.42 [facility] [address] [facility] [id number] [address] [place] [phone] SP Mar, SP [facility] [address] [facility] [id number] [address] [place] [address] SP Dec, SP [facility] [address] [facility] [id number] [address] [place] [phone] SP Dec, SP [facility] [address] [facility] [id number] [address] [place] [address] SP Dec, Normal in multigra naima Z34.80 ; Right hip pain M25.551 SP 26 weeks gestation of Z3A.26 ; Psychotic disorder with delusions F29 ; Gestational diabetes mellitus (GDM) in second trimester controlled on oral hypoglycemic drug O24.415 ; Multigravida of advanced maternal age in second trimester O09.522 and Previous section complicating O34.219 [facility] [address] [facility] [id number] [address] [place] [address] SP 18 Dec, 2017 SP [facility] [address] [facility] [id number] [address] [place] [phone] SP Nov, care in second trim pedro Z34.92 SP [facility] [address] [facility] [id number] [address] [place] [address] SP Nov, Normal in multigra naima Z34.80 ; Diabetes mellitus SP in second trimester O24.912 ; Hallucinations R44.3 ; 18 weeks gestation of Z3A.18 and Multigravida of advanced maternal age in second trimester O09.522 [facility] [address] [facility] [id number] [address] [place] [address] SP Nov, SP [facility] [address] [facility] [id number] [address] [place] [phone] SP Nov, SP [facility] [address] [facility] [id number] [address] [place] [address] SP Oct, care in second trim pedro Z34.92 ; Anxiety F41.9 and SP disorder with delusions F29 [facility] [address] [facility] [id number] [address] [place] [address] SP Oct, Normal in multigra naima Z34.80 ; care in second SPtrimester Z34.92 ; Gonorrhea affecting , antepartum O98.219 ; 18 weeks gestation of Z3A.18 ; 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 and Psychotic disorder with delusions F29 [facility] [address] [facility] [id number] [address] [place] [address] SP Oct, Encounter for dental examina tion and cleaning without abnormal SP Z01.20 and Caries K02.9 [facility] [address] [facility] [id number] [address] [place] [phone] SP Oct, SP [facility] [address] [facility] [id number] [address] [place] [phone] SP Oct, SP [facility] [address] [facility] [id number] [address] [place] [phone] SP Oct, SP [facility] [address] [facility] [id number] [address] [place] [phone] SP Sep, SP [facility] [address] [facility] [id number] [address] [place] [phone] SP Sep, SP [facility] [address] [facility] [id number] [address] [place] [address] SP Sep, Normal in multigra naima Z34.80 ; Currently in SP trimester with unknown gestational age Z34.92 ; 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 ; 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 and Psychotic disorder with delusions F29 [facility] [address] [facility] [id number] [address] [place] [phone] SP Sep, SP [facility] [address] [facility] [id number] [address] [place] [phone] SP Sep, SP [facility] [address] [facility] [id number] [address] [place] [phone] SP Aug, Anxiety F41.9 and Screening for diabetes mellitus (DM) Z13.1 SP [facility] [address] [facility] [id number] [address] [place] [phone] SP July, SP [facility] [address] [facility] [id number] [address] [place] [phone] SP July, SP [facility] [address] [facility] [id number] [address] [place] [phone] SP May, Psychotic disorder with delu sions F29 SP [facility] [address] [facility] [id number] [address] [place] [phone] SP May, SP [facility] [address] [facility] [id number] [address] [place] [phone] SP May, SP [facility] [address] [facility] [id number] [address] [place] [phone] SP Mar, Psychotic disorder with delu sions F29 and Undifferentiated SP F20.3 [facility] [address] [facility] [id number] [address] [place] [phone] SP Jan, SP [facility] [address] [facility] [id number] [address] [place] [phone] SP Dec, Psychotic disorder with delu sions F29 SP [facility] [address] [facility] [id number] [address] [place] [address] SP Dec, Acute seasonal allergic rhin itis, unspecified trigger J30.2 SP [facility] [address] [facility] [id number] [address] [place] [phone] SP Nov, Psychotic disorder with delu sions F29 SP [facility] [address] [facility] [id number] [address] [place] [phone] SP Nov, SP [facility] [address] [facility] [id number] [address] [place] [phone] SP Nov, SP [facility] [address] [facility] [id number] [address] [place] [phone] SP Nov, SP [facility] [address] [facility] [id number] [address] [place] [phone] SP Oct, Asthma exacerbation J45.901 SP [facility] [address] [facility] [id number] [address] [place] [phone] SP Oct, SP [facility] [address] [facility] [id number] [address] [place] [phone] SP Oct, Methamphetamine addiction F1 5.20 and Undifferentiated SP F20.3 [facility] [address] [facility] [id number] [address] [place] [phone] SP Oct, SP [facility] [address] [facility] [id number] [address] [place] [phone] SP Oct, Migraine with aura and with status migrainosus, not intractable SP ; Other abnormal cytological finding of specimen from cervix R87.618 ; Screening for diabetes mellitus (DM) Z13.1 ; Screening for lipid disorders Z13.220 and Weight gain R63.5 [facility] [address] [facility] [id number] [address] [place] [phone] SP Oct, SP [facility] [address] [facility] [id number] [address] [place] [phone] SP Oct, SP [facility] [address] [facility] [id number] [address] [place] [phone] SP Oct, SP [facility] [address] [facility] [id number] [address] [place] [phone] SP Sep, Weight gain R63.5 ; Screenin g for lipid disorders Z13.220 ; SP for diabetes mellitus (DM) Z13.1 and Scabies exposure Z20.89 [facility] [address] [id number] [address] [place] [id number] SP Sep, Encounter for dental examina tion and cleaning without abnormal SP Z01.20 [facility] [address] [facility] [id number] [address] [place] [address] SP Sep, Abscess L02.91 SP [facility] [address] [facility] [id number] [address] [place] [phone] SP Jun, SP [facility] [address] [facility] [id number] [address] [place] [phone] SP Jun, Routine gynecological examin ation Z01.419 SP [facility] [address] [facility] [id number] [address] [place] [phone] SP Jun, Routine gynecological examin ation Z01.419 ; Encounter for Depo- SP contraception Z30.42 and Routine screening for STI (sexually transmitted infection) Z11.3 [facility] [address] [facility] [id number] [address] [place] [phone] SP Jun, Anxiety F41.9 SP [facility] [address] [facility] [id number] [address] [place] [phone] SP May, SP [facility] [address] [facility] [id number] [address] [place] [phone] SP Apr, Psychotic disorder with delu sions F29 SP [facility] [address] [id number] [address] [place] [phone] SP Jan, SP [facility] [address] [facility] [id number] [address] [place] [phone] SP Jan, Psychotic disorder with chantell joseph F29 SP [facility] [address] [facility] [id number] [address] [place] [phone] SP 16 Jan, 2016 Encounter for contraceptive management, unspecified contraceptive SPencounter type Z30.9 ; Anxiety F41.9 ; Simple chronic bronchitis J41.0 and Encounter for Depo-Provera contraception Z30.42 [facility] [address] [facility] [id number] [address] [place] [phone] SP 14 Jun, 2014 SP [facility] [address] [facility] [id number] [address] [place] [phone] SP Jun, SP [facility] [address] [facility] [id number] [address] [place] [phone] SP Mar, SP [facility] [address] [facility] [id number] [address] [place] [phone] SP Jan, SP [facility] [address] [facility] [id number] [address] [place] [phone] SP Jan, SP [facility] [address] [facility] [id number] [address] [place] [phone] SP Jan, SP [facility] [address] [facility] [id number] [address] [place] [phone] SP Jan, SP [facility] [address] [facility] [id number] [address] [place] [phone] SP Jan, SP [facility] [address] [facility] [id number] [address] [place] [phone] SP Jan, SP [facility] [address] [facility] [id number] [address] [place] [phone] SP Jan, SP [facility] [address] [id number] [address] [place] [phone] SP 31 Dec, 2011 SP [facility] [address] [id number] [address] [place] [phone] SP 31 Dec, 2011 SP [facility] [address] [id number] [address] [place] [phone] SP Dec, 2011 SP [facility] [address] [id number] [address] [place] [phone] SP Dec, 2011 SP [facility] [address] [id number] [address] [place] [phone] SP 23 Dec, 2011 SP [facility] [address] [id number] [address] [place] [phone] SP 18 Dec, 2011 SP [facility] [address] [id number] [address] [place] [phone] SP 18 Dec, 2011 SP [facility] [address] [id number] [address] [place] [phone] SP 18 Dec, 2011 SP [facility] [address] [id number] [address] [place] [phone] SP 18 Dec, 2011 SP [facility] [address] [id number] [address] [place] [phone] SP 18 Dec, 2011 SP [facility] [address] [id number] [address] [place] [phone] SP 18 Dec, 2011 SP [facility] [address] [id number] [address] [place] [phone] SP 15 Dec, 2011 SP [facility] [address] [id number] [address] [place] [phone] SP 10 Dec, 2011 SP [facility] [address] [id number] [address] [place] [phone] SP 10 Dec, 2011 SP [facility] [address] [id number] [address] [place] [phone] SP 08 Dec, 2011 SP [facility] [address] [id number] [address] [place] [address], [place] [address] SP Dec, SP [facility] [address] [id number] [address] [place] [address], [place] [address] SP Dec, SP [facility] [address] [id number] [address] [place] [address], [place] [address] SP Dec, SP [facility] [address] [id number] [address] [place] [address], [place] [phone] SP 18 Nov, 2011 SP [facility] [address] [id number] [address] [place] [address], [place] [address] SP 17 Nov, 2011 SP [facility] [address] [id number] [address] [place] [address], [place] [address] SP Nov, SP [facility] [address] [id number] [address] [place] [address], [place] [address] SP Nov, SP [facility] [address] [id number] [address] [place] [address], [place] [address] SP Nov, SP [facility] [address] [id number] [address] [place] [address], [place] [address] SP Nov, SP [facility] [address] [id number] [address] [place] [address], [place] [address] SP Sep, SP [facility] [address] [id number] [address] [place] [address], [place] [address] SP Aug, SP [facility] [address] [id number] [address] [place] [address], [place] [address] SP Aug, SP [facility] [address] [id number] [address] [place] [address], [place] [address] SP July, SP [facility] [address] [id number] [address] [place] [address], [place] [address] SP July, SP [facility] [address] [id number] [address] [place] [address], [place] [address] SP July, SP IMMUNIZATIONS No Known Immunizations SOCIAL HISTORY Never Assessed REASON FOR VISIT med PLAN OF CARE VITAL SIGNS MEDICATIONS Medication Instructions Dosage Frequency Start Date End Date Duration S kunal POS Estratest May, Active SP RESULTS No Results PROCEDURES No Known procedures INSTRUCTIONS MEDICATIONS ADMINISTERED No Known Medications MEDICAL (GENERAL) HISTORY Type Description Date POS Medical History Schizoaffective disorder, bipolar type SP Medical History Bipolar disorder SP Medical History COPD (chronic obstructive pulmonary dise ase) SP Medical History Depression SP Medical History Anxiety SP Medical History Psychotic disorder with delusions SP Medical History Methamphetamine addiction SP Medical History Undifferentiated schizophrenia SP Medical History Asthma exacerbation SP Medical History Hallucination SP Medical History Type 2 diabetes mellitus wit h diabetic polyneuropathy, without SPterm current use of insulin SP Surgical History x 3 SP Hospitalization History Staph infection in arm SP Hospitalization History see surgeries SP
--- OUTSIDE RECORDS SUMMARY | 2019-02-07 09:46 | XMS REPORT ---
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 Acti ve [id number] SP Problem Migraine with aura and with status migrainosus, not intractable SP Active 3544681 SP Problem Asthma exacerbation J45.901 Active 273274589 SP 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 747603255 SP Problem Diabetes mellitus affecting in second trimester O24.912 SP 25390996 SP Problem Hallucinations R44.3 Active 43857 01 SP Problem Hallucination R44.3 Active 693205 1 SP Problem Chronic fatigue R53.82 Active 8422 9001 SP Problem Bipolar disorder F31.9 Active 137 42439 SP Problem 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 Active [id number] SP Problem Type 2 diabetes mellitus wit h diabetic polyneuropathy, without long-term SPcurrent use of insulin E11.42 Active 713 189235 SP Problem Schizo affective schizophrenia F25.0 Active 35448603 SP Problem Previous section complicating O 34.219 Active SP Problem COPD (chronic obstructive pulmonary disease) J44.9 Active 06898468 SP Problem Depression F32.9 Active 34892803 SP Problem Schizoaffective disorder, bipolar type F25.0 Active 36306259 SP Problem Metabolic syndrome E88.81 Active 2 79368492 SP ALLERGIES No Information ENCOUNTERS Encounter Location Date Diagnosis POS [facility] [address] [facility] [id number] [address] [place] [phone] SP Aug, SP [facility] [address] [facility] [id number] [address] [place] [phone] SP Aug, [facility] [place] [address] [facility] [id number] [address] [place] [phone] SP July, Methamphetamine abuse in rem ission F15.10 and Schizo affective SP F25.[address] [address] 21 SP 2018 Gestational diabetes mellitus (GDM) in s econd trimester controlled on hypoglycemic drug O24.[address] [address] 09 SP [address] [address] 01 SP 2019 Well woman exam with routine gynecologic al exam Z01.419 and Family SP Z30.[address] [address] 01 SP 2018 Metabolic syndrome E88.81 and Unintended weight gain R63.[address] [address] 29 SP 2018 Chronic fatigue R53.82 ; Unintentional w eight change R68.89 and SP R73.9 [facility] [address] [facility] [id number] [address] [place] [phone] SP Jun, [address] [address] 10 SP 2018 Psychotic disorder with delusions F29 [address] [address] 28 SP [address] [address] 28 SP 2019 Hallucinations R44.3 and Psychotic disor gasper with delusions F29 [address] [address] 20 SP [address] [address] 15 SP [address] [address] 13 SP 2019 [facility] [address] [place] [address] 08 SPMar, 2019 Acute nasopharyngitis J00 and Fever R50. [address] [address] 26 SP 2019 Encounter for routine follow- up Z39.2 ; Family planning SP and Encounter for Depo-Provera contraception Z30.[address] [address] 12 SP 2018 Anxiety F41.9 ; Simple [...] without long-term current use of insulin E11.42 [facility] [address] [facility] [id number] [address] [place] [phone] SP Mar, SP [facility] [address] [facility] [id number] [address] [place] [phone] SP Dec, SP [facility] [address] [facility] [id number] [address] [place] [phone] SP Dec, [facility] [place] [address] [facility] [id number] [address] [place] [phone] SP Dec, Normal in multigra naima Z34.80 ; Right hip pain M25.551 SP 26 weeks gestation of Z3A.26 ; Psychotic disorder with delusions F29 ; Gestational diabetes mellitus (GDM) in second trimester controlled on oral hypoglycemic drug O24.415 ; Multigravida of advanced maternal age in second trimester O09.522 and Previous section complicating O34.219 [facility] [address] [facility] [id number] [address] [place] [phone] SP Dec, SP [facility] [address] [facility] [id number] [address] [place] [phone] SP Nov, care in second trim pedro Z34.92 SP [facility] [address] [facility] [id number] [address] [place] [address] SP Nov, Normal in multigra naima Z34.80 ; Diabetes mellitus SP in second trimester O24.912 ; Hallucinations R44.3 ; 18 weeks gestation of Z3A.18 and Multigravida of advanced maternal age in second trimester O09.522 [facility] [address] [id number] [address] [place] [phone] SP Nov, SP [facility] [address] [facility] [id number] [address] [place] [phone] SP Nov, SP [facility] [address] [facility] [id number] [address] [place] [phone] SP Oct, care in second trim pedro Z34.92 ; Anxiety F41.9 and SP disorder with delusions F29 [facility] [address] [facility] [id number] [address] [place] [address] SP Oct, Normal in multigra naima Z34.80 ; care in second SPtrimester Z34.92 ; Gonorrhea affecting , antepartum O98.219 ; 18 weeks gestation of Z3A.18 ; 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 and Psychotic disorder with delusions F29 [facility] [address] [facility] [id number] [address] [place] [phone] SP Oct, Encounter for dental examina tion and cleaning without abnormal SP Z01.20 and Caries K02.9 [facility] [address] [id number] [address] [place] [phone] SP Oct, SP [facility] [address] [id number] [address] [place] [phone] SP Oct, SP [facility] [address] [facility] [id number] [address] [place] [phone] SP Oct, SP [facility] [address] [facility] [id number] [address] [place] [phone] SP Sep, SP [facility] [address] [facility] [id number] [address] [place] [phone] SP Sep, SP [facility] [address] [facility] [id number] [address] [place] [phone] SP Sep, Normal in multigra naima Z34.80 ; Currently in SP trimester with unknown gestational age Z34.92 ; 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 ; 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 and Psychotic disorder with delusions F29 [facility] [address] [facility] [id number] [address] [place] [phone] SP Sep, SP [facility] [address] [facility] [id number] [address] [place] [phone] SP Sep, SP [facility] [address] [facility] [id number] [address] [place] [phone] SP Aug, Anxiety F41.9 and Screening for diabetes mellitus (DM) Z13.1 SP [facility] [address] [facility] [id number] [address] [place] [phone] SP July, SP [facility] [address] [facility] [id number] [address] [place] [phone] SP July, SP [facility] [address] [facility] [id number] [address] [place] [phone] SP May, Psychotic disorder with delu sions F29 SP [facility] [address] [facility] [id number] [address] [place] [phone] SP May, SP [facility] [address] [facility] [id number] [address] [place] [phone] SP May, SP [facility] [address] [facility] [id number] [address] [place] [phone] SP Mar, Psychotic disorder with delu sions F29 and Undifferentiated SP F20.3 [facility] [address] [facility] [id number] [address] [place] [phone] SP Jan, SP [facility] [address] [facility] [id number] [address] [place] [phone] SP Dec, Psychotic disorder with delu sions F29 SP [facility] [address] [facility] [id number] [address] [place] [address] SP Dec, Acute seasonal allergic rhin itis, unspecified trigger J30.2 SP [facility] [address] [facility] [id number] [address] [place] [phone] SP Nov, Psychotic disorder with delu sions F29 SP [facility] [address] [place] [id number] [place] [phone] SP Nov, SP [facility] [address] [place] [id number] [place] [phone] SP Nov, SP [facility] [address] [address] SP Nov, SP [facility] [address] [place] [id number] [address] [place] [phone] SP Oct, Asthma exacerbation J45.901 SP [facility] [address] [place] [id number] [place] [phone] SP Oct, SP [facility] [address] [phone] SP Oct, Methamphetamine addiction F1 5.20 and Undifferentiated SP F20.3 [facility] [address] [facility] [id number] [address] [place] [phone] SP Oct, SP [facility] [address] [address] SP Oct, Migraine with aura and with status migrainosus, not intractable SP ; Other abnormal cytological finding of specimen from cervix R87.618 ; Screening for diabetes mellitus (DM) Z13.1 ; Screening for lipid disorders Z13.220 and Weight gain R63.5 [facility] [address] [facility] [id number] [address] [place] [phone] SP Oct, SP [facility] [address] [facility] [id number] [address] [place] [phone] SP Oct, SP [facility] [address] [facility] [id number] [address] [place] [phone] SP Oct, SP [facility] [address] [facility] [id number] [address] [place] [phone] SP Sep, Weight gain R63.5 ; Screenin g for lipid disorders Z13.220 ; SP for diabetes mellitus (DM) Z13.1 and Scabies exposure Z20.89 [facility] [address] [facility] [id number] [address] [place] [id number] SP Sep, Encounter for dental examina tion and cleaning without abnormal SP Z01.20 [facility] [address] [facility] [id number] [address] [place] [address] SP Sep, Abscess L02.91 SP [facility] [address] [facility] [id number] [address] [place] [phone] SP Jun, SP [facility] [address] [facility] [id number] [address] [place] [phone] SP Jun, Routine gynecological examin ation Z01.419 SP [facility] [address] [facility] [id number] [address] [place] [phone] SP Jun, Routine gynecological examin ation Z01.419 ; Encounter for Depo- SP contraception Z30.42 and Routine screening for STI (sexually transmitted infection) Z11.3 [facility] [address] [facility] [id number] [address] [place] [phone] SP Jun, Anxiety F41.9 SP [facility] [address] [facility] [id number] [address] [place] [phone] SP May, SP [facility] [address] [facility] [id number] [address] [place] [phone] SP Apr, Psychotic disorder with delu sions F29 SP [facility] [address] [facility] [id number] [address] [place] [phone] SP Jan, SP [facility] [address] [facility] [id number] [address] [place] [phone] SP Jan, Psychotic disorder with delu sions F29 SP [facility] [address] [facility] [id number] [address] [place] [phone] SP Jan, Encounter for contraceptive management, unspecified contraceptive SPencounter type Z30.9 ; Anxiety F41.9 ; Simple chronic bronchitis J41.0 and Encounter for Depo-Provera contraception Z30.42 [facility] [address] [facility] [id number] [address] [place] [phone] SP Jun, SP [facility] [address] [facility] [id number] [address] [place] [phone] SP Jun, SP [facility] [address] [facility] [id number] [address] [place] [phone] SP Mar, SP [facility] [address] [facility] [id number] [address] [place] [phone] SP Jan, SP [facility] [address] [facility] [id number] [address] [place] [phone] SP Jan, SP [facility] [address] [facility] [id number] [address] [place] [phone] SP Jan, SP [facility] [address] [facility] [id number] [address] [place] [phone] SP Jan, SP [facility] [address] [facility] [id number] [address] [place] [phone] SP Jan, SP [facility] [address] [facility] [id number] [address] [place] [phone] SP Jan, SP [facility] [address] [place] [id number] [address] [place] [phone] SP Jan, SP [facility] [address] [id number] [address] [place] [phone] SP Dec, 2011 SP [facility] [address] [id number] [address] [place] [phone] SP Dec, 2011 SP [facility] [address] [facility] [id number] [address] [place] [phone] SP Dec, 2011 SP [facility] [address] [id number] [address] [place] [phone] SP Dec, 2011 SP [facility] [address] [id number] [address] [place] [phone] SP Dec, 2011 SP [facility] [address] [id number] [address] [place] [phone] SP Dec, 2011 SP [facility] [address] [id number] [address] [place] [phone] SP 18 Dec, 2011 SP [facility] [address] [id number] [address] [place] [phone] SP 18 Dec, 2011 SP [facility] [address] [id number] [address] [place] [phone] SP 18 Dec, 2011 SP [facility] [address] [facility] [id number] [address] [place] [phone] SP 18 Dec, 2011 SP [facility] [address] [id number] [address] [place] [phone] SP 18 Dec, 2011 SP [facility] [address] [id number] [address] [place] [phone] SP 15 Dec, 2011 SP [facility] [address] [id number] [address] [place] [phone] SP 10 Dec, 2011 SP [facility] [address] [facility] [id number] [address] [place] [phone] SP 10 Dec, 2011 SP [facility] [address] [id number] [address] [place] [phone] SP Dec, SP [facility] [address] [id number] [address] [place] [address], [place] [address] SP Dec, SP [facility] [address] [id number] [address] [place] [address], [place] [address] SP Dec, SP [facility] [address] [id number] [address] [place] [address], [place] [address] SP Dec, SP [facility] [address] [id number] [address] [place] [address], [place] [address] SP 18 Nov, 2011 SP [facility] [address] [id number] [address] [place] [address], [place] [address] SP 17 Nov, 2011 SP [facility] [address] [id number] [address] [place] [address], [place] [address] SP Nov, SP [facility] [address] [id number] [address] [place] [address], [place] [address] SP Nov, SP [facility] [address] [id number] [address] [place] [address], [place] [address] SP Nov, SP [facility] [address] [id number] [address] [place] [address], [place] [address] SP Nov, SP [facility] [address] [id number] [address] [place] [address], [place] [address] SP Sep, SP [facility] [address] [id number] [address] [place] [address], [place] [address] SP Aug, SP [facility] [address] [id number] [address] [place] [address], [place] [address] SP Aug, SP [facility] [address] [id number] [address] [place] [address], [place] [address] SP July, SP [facility] [address] [id number] [address] [place] [address], [place] [address] SP July, SP [facility] [address] [facility] [id number] [address] [place] [address] SP July, SP IMMUNIZATIONS No Known Immunizations SOCIAL HISTORY Never Assessed REASON FOR VISIT EMR-[facility] [place] OF CARE VITAL SIGNS MEDICATIONS Unknown [...]
--- OUTSIDE RECORDS SUMMARY | 2019-02-07 09:46 | XMS REPORT ---
Demographics Address [address] [place] [address] Preferred Language Unknown SP Marital Status Unknown SP Amish Affiliation Unknown SP Race Unknown SP Ethnic Group Unknown SP Author Author Migration, Doctor POS Organization [facility] SP Address Unknown SP Phone Unavailable SP Care Team Providers Care Fire Prevention Bureau Captain Name Role Phone POS Migration, Doctor Unavailable Unavailable SP PROBLEMS Type Condition ICD9-CM Code RAK06-CT Code Onset Dates Condition S tatus SNOMED POS Problem Migraine with aura and with status migrainosus, not intractable POS Active 8601275 SP Problem 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 Acti ve [id number] SP 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 082893460 SP Problem Anxiety F41.9 Active 24522919 SP Problem Previous section complicating O 34.219 Active SP Problem Psychotic disorder with delusions F29 Active 02050367 SP Problem Type 2 diabetes mellitus wit h diabetic polyneuropathy, without long-term SPcurrent use of insulin E11.42 Active [id number] 182382 SP Problem Simple chronic bronchitis J41.0 Acti ve 06282127 SP Problem Asthma exacerbation J45.901 Active 582351194 SP Problem Acute seasonal allergic rhinitis, unspecified trigger J30.2 Active SP Problem Hallucinations R44.3 Active 22983 01 SP Problem Diabetes mellitus affecting in second trimester O24.912 SP [id number] SP ALLERGIES No Information ENCOUNTERS Encounter Location Date Diagnosis POS [facility] [address] [facility] [id number] [address] [place] [phone] SP July, SP [address] [address] 29 SP 2019 SP [facility] [address] [facility] [id number] [address] [place] [phone] SP Jun, [address] [address] 10 SP 2019 Psychotic disorder with delusions F29 SP [address] [address] 28 SP [address] [place] [address] 28 SP 2019 Hallucinations R44.3 and Psychotic disor gasper with delusions F29 SP [address] [address] 20 SP [address] [address] 15 SP [address] [address] 13 SP 2018 [facility] [address] [place] [address] 08 SPMar, 2019 Acute nasopharyngitis J00 and Fever R50. [address] [address] 05 SP [address] [address] 26 SP 2019 Encounter for routine follow- up Z39.2 ; Family planning SP and Encounter for Depo-Provera contraception Z30.[address] [address] 12 SP 2018 Anxiety F41.9 ; Simple [...] without long-term current use of insulin E11.42 [facility] [address] [facility] [id number] [address] [place] [phone] SP Mar, SP [facility] [address] [facility] [id number] [address] [place] [phone] SP Dec, SP [facility] [address] [facility] [id number] [address] [place] [phone] SP Dec, SP [facility] [address] [facility] [id number] [address] [place] [phone] SP Dec, Normal in [facility] Z34.80 ; Right hip pain M25.551 SP 26 weeks gestation of Z3A.26 ; Psychotic disorder with delusions F29 ; Gestational diabetes mellitus (GDM) in second trimester controlled on oral hypoglycemic drug O24.415 ; Multigravida of advanced maternal age in second trimester O09.522 and Previous section complicating O34.219 [facility] [address] [facility] [id number] [address] [place] [phone] SP Dec, SP [facility] [address] [facility] [id number] [address] [place] [phone] SP Nov, care in second trim pedro Z34.92 SP [facility] [address] [facility] [id number] [address] [place] [address] SP Nov, Normal in [facility] Z34.80 ; Diabetes mellitus SP in second trimester O24.912 ; Hallucinations R44.3 ; 18 weeks gestation of Z3A.18 and Multigravida of advanced maternal age in second trimester O09.522 [facility] [address] [facility] [id number] [address] [place] [phone] SP Nov, SP [facility] [address] [facility] [id number] [address] [place] [phone] SP Nov, SP [facility] [address] [facility] [id number] [address] [place] [phone] SP Oct, care in second trim pedro Z34.92 ; Anxiety F41.9 and SP disorder with delusions F29 [facility] [address] [facility] [id number] [address] [place] [phone] SP Oct, Normal in [facility] Z34.80 ; care in second SPtrimester Z34.92 ; Gonorrhea affecting , antepartum O98.219 ; 18 weeks gestation of Z3A.18 ; 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 and Psychotic disorder with delusions F29 [facility] [address] [id number] [address] [place] [phone] SP Oct, Encounter for dental examina tion and cleaning without abnormal SP Z01.20 and Caries K02.9 [facility] [address] [id number] [address] [place] [phone] SP Oct, SP [facility] [address] [facility] [id number] [address] [place] [phone] SP Oct, SP [facility] [address] [facility] [id number] [address] [place] [phone] SP Oct, SP [facility] [address] [facility] [id number] [address] [place] [phone] SP Sep, SP [facility] [address] [facility] [id number] [address] [place] [phone] SP Sep, SP [facility] [address] [facility] [id number] [address] [place] [phone] SP Sep, Normal in multigra naima Z34.80 ; Currently in SP trimester with unknown gestational age Z34.92 ; 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 ; 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 and Psychotic disorder with delusions F29 [facility] [address] [facility] [id number] [address] [place] [phone] SP Sep, SP [facility] [address] [facility] [id number] [address] [place] [phone] SP Sep, SP [facility] [address] [facility] [id number] [address] [place] [phone] SP Aug, Anxiety F41.9 and Screening for diabetes mellitus (DM) Z13.1 SP [facility] [address] [facility] [id number] [address] [place] [phone] SP July, SP [facility] [address] [facility] [id number] [address] [place] [phone] SP July, SP [facility] [address] [facility] [id number] [address] [place] [phone] SP May, Psychotic disorder with delu sions F29 SP [facility] [address] [facility] [id number] [address] [place] [phone] SP May, SP [facility] [address] [facility] [id number] [address] [place] [phone] SP May, SP [facility] [address] [facility] [id number] [address] [place] [phone] SP Mar, Psychotic disorder with delu sions F29 and Undifferentiated SP F20.3 [facility] [address] [facility] [id number] [address] [place] [phone] SP Jan, SP [facility] [address] [facility] [id number] [address] [place] [phone] SP Dec, Psychotic disorder with delu sions F29 SP [facility] [address] [facility] [id number] [address] [place] [address] SP Dec, Acute seasonal allergic rhin itis, unspecified trigger J30.2 SP [facility] [address] [place] [id number] [address] [place] [phone] SP Nov, Psychotic disorder with delu sions F29 SP [facility] [address] [facility] [id number] [address] [place] [phone] SP Nov, SP [facility] [address] [facility] [id number] [address] [place] [phone] SP Nov, SP [facility] [address] [facility] [id number] [address] [place] [phone] SP Nov, SP [facility] [address] [place] [id number] [address] [place] [phone] SP Oct, Asthma exacerbation J45.901 SP [facility] [address] [facility] [id number] [address] [place] [phone] SP Oct, SP [facility] [id number] [place] [phone] SP Oct, Methamphetamine addiction F1 5.20 and Undifferentiated SP F20.3 [facility] [address] [place] [id number] [address] [place] [phone] SP Oct, SP [facility] [address] [address] SP Oct, Migraine with aura and with status migrainosus, not intractable SP ; Other abnormal cytological finding of specimen from cervix R87.618 ; Screening for diabetes mellitus (DM) Z13.1 ; Screening for lipid disorders Z13.220 and Weight gain R63.5 [place] [address] [place] [id number] [phone] SP Oct, SP [place] [address] [address] SP Oct, SP [place] [address] [address] SP Oct, SP [facility] [address] [place] [id number] [place] [phone] SP Sep, Weight gain R63.5 ; Screenin g for lipid disorders Z13.220 ; SP for diabetes mellitus (DM) Z13.1 and Scabies exposure Z20.89 [facility] [address] [place] [id number] [place] [id number] SP Sep, Encounter for dental examina tion and cleaning without abnormal SP Z01.20 [facility] [address] [facility] [id number] [address] [place] [address] SP Sep, Abscess L02.91 SP [facility] [address] [place] [id number] [address] [place] [phone] SP Jun, SP [facility] [address] [place] [id number] [address] [place] [phone] SP Jun, Routine gynecological examin ation Z01.419 SP [place] [address] [facility] [id number] [address] [place] [phone] SP Jun, Routine gynecological examin ation Z01.419 ; Encounter for Depo- SP contraception Z30.42 and Routine screening for STI (sexually transmitted infection) Z11.3 [place] [address] [facility] [id number] [address] [place] [phone] SP Jun, Anxiety F41.9 SP [place] [address] [facility] [id number] [address] [place] [phone] SP May, SP [place] [address] [place] [id number] [address] [place] [phone] SP Apr, Psychotic disorder with delu sions F29 SP [place] [address] [place] [id number] [address] [place] [phone] SP Jan, SP [place] [address] [place] [id number] [place] [phone] SP Jan, Psychotic disorder with delu sions F29 SP [place] [address] [facility] [id number] [address] [place] [phone] SP Jan, Encounter for contraceptive management, unspecified contraceptive SPencounter type Z30.9 ; Anxiety F41.9 ; Simple chronic bronchitis J41.0 and Encounter for Depo-Provera contraception Z30.42 [place] [address] [facility] [id number] [address] [place] [phone] SP 14 Jun, 2014 SP [place] [address] [facility] [id number] [address] [place] [phone] SP Jun, SP [place] [address] [facility] [id number] [address] [place] [phone] SP Mar, SP [place] [address] [facility] [id number] [address] [place] [phone] SP Jan, SP [place] [address] [place] [id number] [address] [place] [phone] SP Jan, SP [facility] [address] [id number] [address] [place] [address], [place] [address] SP Jan, 2011 SP [facility] [address] [id number] [address] [place] [address], [place] [address] SP Jan, SP [facility] [address] [facility] [id number] [address] [place] [address], [place] [address] SP Jan, SP [facility] [address] [id number] [address] [place] [address], [place] [address] SP Jan, SP [facility] [address] [id number] [address] [place] [address], [place] [address] SP Jan, SP [facility] [address] [id number] [address] [place] [address], [place] [address] SP Dec, SP [facility] [address] [id number] [address] [place] [phone] SP Dec, 2011 SP [facility] [address] [id number] [address] [place] [address], [place] [address] SP Dec, SP [facility] [address] [id number] [address] [place] [address], [place] [address] SP Dec, 2011 SP [facility] [address] [id number] [address] [place] [phone] SP Dec, SP [facility] [address] [id number] [address] [place] [address], [place] [address] SP Dec, SP [facility] [address] [id number] [address] [place] [phone] SP Dec, SP [facility] [address] [id number] [address] [place] [address], [place] [address] SP Dec, SP [facility] [address] [id number] [address] [place] [phone] SP Dec, SP [facility] [address] [id number] [address] [place] [phone] SP 18 Dec, 2011 SP [facility] [address] [id number] [address] [place] [address], [place] [address] SP 18 Dec, 2011 SP [facility] [address] [id number] [address] [place] [phone] SP 15 Dec, 2011 SP [facility] [address] [id number] [address] [place] [address], [place] [address] SP 10 Dec, 2011 SP [facility] [address] [id number] [address] [place] [address], [place] [address] SP 10 Dec, 2011 SP [facility] [address] [id number] [address] [place] [phone] SP 08 Dec, 2011 SP [facility] [address] [id number] [address] [place] [address], [place] [address] SP 05 Dec, 2011 SP [facility] [address] [id number] [address] [place] [phone] SP 03 Dec, 2011 SP [facility] [address] [id number] [address] [place] [phone] SP 02 Dec, 2011 SP [facility] [address] [id number] [address] [place] [phone] SP 18 Nov, 2011 SP [facility] [address] [id number] [address] [place] [id number] SP 17 Nov, 2011 SP [facility] [address] [id number] [address] [place] [phone] SP 13 Nov, 2011 SP [facility] [address] [id number] [address] [place] [address], [place] [address] SP 13 Sep, 2011 SP [facility] [address] [id number] [address] [place] [phone] SP 12 Nov, 2011 SP [facility] [address] [id number] [address] [place] [address], [place] [address] SP 05 Nov, 2011 SP [facility] [address] [id number] [address] [place] [phone] SP Sep, SP [facility] [address] [facility] [id number] [address] [place] [phone] SP Aug, SP [facility] [address] [facility] [id number] [address] [place] [phone] SP Aug, SP [facility] [address] [facility] [id number] [address] [place] [phone] SP July, SP [facility] [address] [facility] [id number] [address] [place] [phone] SP July, SP [facility] [address] [facility] [id number] [address] [place] [id number] SP July, SP IMMUNIZATIONS No Known Immunizations SOCIAL HISTORY Never Assessed REASON FOR VISIT EMR-[facility] PLAN OF CARE VITAL SIGNS MEDICATIONS Unknown Medications RESULTS No Results PROCEDURES No Known procedures INSTRUCTIONS MEDICATIONS ADMINISTERED No Known Medications MEDICAL (GENERAL) HISTORY Type Description Date POS Medical History schizoaffective disorder SP Medical History bi-polar disorder SP Medical History depression SP Medical History anxiety SP Medical History pre diabetes SP Medical History COPD SP Surgical History x 3 SP Hospitalization History Staph infection in arm SP Hospitalization History see surgeries SP
--- OUTSIDE RECORDS SUMMARY | 2019-02-07 09:46 | XMS REPORT ---
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 Acti ve 915155243 SP Problem Migraine with aura and with status migrainosus, not intractable SP Active 2670483 SP Problem Asthma exacerbation J45.901 Active 777872022 SP 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 109588960 SP Problem Previous section complicating O 34.219 Active SP Problem Type 2 diabetes mellitus wit h diabetic polyneuropathy, without long-term SPcurrent use of insulin E11.42 Active 713 103469 SP Problem Hallucination R44.3 Active 800241 1 SP Problem Schizoaffective disorder, bipolar type F25.0 Active 31109328 SP Problem Diabetes mellitus affecting in second trimester O24.912 SP 91325115 SP Problem Metabolic syndrome E88.81 Active 2 28548047 SP Problem Hallucinations R44.3 Active 79800 01 SP Problem Bipolar disorder F31.9 Active 137 95943 SP Problem Chronic fatigue R53.82 Active 8422 9001 SP Problem COPD (chronic obstructive pulmonary disease) J44.9 Active 63655669 SP Problem Depression F32.9 Active 03587964 SP ALLERGIES No Information ENCOUNTERS Encounter Location Date Diagnosis POS [facility] [address] [id number] [address] [place] [address] SP July, SP [address] [address] 01 SP 2019 Well woman exam with routine gynecologic al exam Z01.419 and Family SP Z30.[address] [address] 01 SP 2019 Metabolic syndrome E88.81 and Unintended weight gain R63.[address] [address] 29 SP 2019 Chronic fatigue R53.82 ; Unintentional w eight change R68.89 and SP R73.9 [facility] [address] [facility] [id number] [address] [place] [address] SP 11 Jun, [address] [id number] 10 SP 2018 Psychotic disorder with delusions F29 [address] [id number] 28 SP [address] [id number] 28 SP 2018 Hallucinations R44.3 and Psychotic disor gasper with delusions F29 [address] [address] 20 SP [address] [address] 15 SP [address] [address] 13 SP 2018 [facility] [address] [place] [address] 08 SPMar, 2019 Acute nasopharyngitis J00 and Fever R50. [address] [address] 26 SP 2019 Encounter for routine follow- up Z39.2 ; Family planning SP and Encounter for Depo-Provera contraception Z30.[address] [address] 12 SP 2019 Anxiety F41.9 ; Simple chronic bronchiti s [...] without long-term current use of insulin E11.42 [facility] [address] [id number] [address] [place] [address] SP Mar, SP [facility] [address] [id number] [address] [place] [phone] SP Dec, SP [facility] [address] [facility] [id number] [address] [place] [phone] SP Dec, SP [facility] [address] [facility] [id number] [address] [place] [address] SP Dec, Normal in [facility] Z34.80 ; Right hip pain M25.551 SP 26 weeks gestation of Z3A.26 ; Psychotic disorder with delusions F29 ; Gestational diabetes mellitus (GDM) in second trimester controlled on oral hypoglycemic drug O24.415 ; Multigravida of advanced maternal age in second trimester O09.522 and Previous section complicating O34.219 [facility] [address] [id number] [address] [place] [address] SP Dec, SP [facility] [address] [facility] [id number] [address] [place] [phone] SP Nov, care in second trim pedro Z34.92 SP [facility] [address] [facility] [id number] [address] [place] [address] SP Nov, Normal in [facility] Z34.80 ; Diabetes mellitus SP in second trimester O24.912 ; Hallucinations R44.3 ; 18 weeks gestation of Z3A.18 and Multigravida of advanced maternal age in second trimester O09.522 [facility] [address] [facility] [id number] [address] [place] [phone] SP Nov, SP [facility] [address] [facility] [id number] [address] [place] [address] SP Nov, SP [facility] [address] [id number] [address] [place] [address] SP Oct, care in second trim pedro Z34.92 ; Anxiety F41.9 and SP disorder with delusions F29 [facility] [address] [id number] [address] [place] [phone] SP Oct, Normal in multigra naima Z34.80 ; care in second SPtrimester Z34.92 ; Gonorrhea affecting , antepartum O98.219 ; 18 weeks gestation of Z3A.18 ; 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 and Psychotic disorder with delusions F29 [facility] [address] [id number] [address] [place] [address] SP Oct, Encounter for dental examina tion and cleaning without abnormal SP Z01.20 and Caries K02.9 [facility] [address] [id number] [address] [place] [phone] SP Oct, SP [facility] [address] [id number] [address] [place] [phone] SP Oct, SP [facility] [address] [id number] [address] [place] [phone] SP Oct, SP [facility] [address] [id number] [address] [place] [phone] SP Sep, SP [facility] [address] [facility] [id number] [address] [place] [phone] SP Sep, SP [facility] [address] [id number] [address] [place] [address] SP Sep, Normal in multigra naima Z34.80 ; Currently in SP trimester with unknown gestational age Z34.92 ; 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 ; 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 and Psychotic disorder with delusions F29 [facility] [address] [id number] [address] [place] [phone] SP Sep, SP [facility] [address] [id number] [address] [place] [address] SP Sep, SP [facility] [address] [facility] [id number] [address] [place] [phone] SP Aug, Anxiety F41.9 and Screening for diabetes mellitus (DM) Z13.1 SP [facility] [address] [facility] [id number] [address] [place] [phone] SP July, SP [facility] [address] [place] [id number] [place] [address] SP July, SP [facility] [address] [id number] [place] [address] SP May, Psychotic disorder with delu sions F29 SP [facility] [address] [id number] [address] [place] [phone] SP May, SP [facility] [id number] [place] [address] SP May, SP [facility] [address] [id number] [address] [place] [phone] SP Mar, Psychotic disorder with delu sions F29 and Undifferentiated SP F20.3 [facility] [address] [id number] [address] [place] [phone] SP Jan, SP [facility] [address] [id number] [address] [place] [phone] SP Dec, Psychotic disorder with delu sions F29 SP [facility] [address] [facility] [id number] [address] [place] [address] SP Dec, Acute seasonal allergic rhin itis, unspecified trigger J30.2 SP [facility] [address] [id number] [address] [place] [phone] SP Nov, Psychotic disorder with delu sions F29 SP [facility] [address] [id number] [address] [place] [phone] SP Nov, SP [facility] [address] [facility] [id number] [address] [place] [phone] SP Nov, SP [facility] [address] [facility] [id number] [address] [place] [phone] SP Nov, SP [facility] [address] [facility] [id number] [address] [place] [address] SP Oct, Asthma exacerbation J45.901 SP [facility] [address] [facility] [id number] [address] [place] [phone] SP Oct, SP [facility] [address] [facility] [id number] [address] [place] [address] SP Oct, Methamphetamine addiction F1 5.20 and Undifferentiated SP F20.3 [facility] [address] [facility] [id number] [address] [place] [phone] SP Oct, SP [facility] [address] [id number] [address] [place] [phone] SP Oct, Migraine with aura and with status migrainosus, not intractable SP ; Other abnormal cytological finding of specimen from cervix R87.618 ; Screening for diabetes mellitus (DM) Z13.1 ; Screening for lipid disorders Z13.220 and Weight gain R63.5 [facility] [address] [facility] [id number] [address] [place] [phone] SP Oct, SP [facility] [address] [facility] [id number] [address] [place] [phone] SP Oct, SP [facility] [address] [facility] [id number] [address] [place] [phone] SP Oct, SP [facility] [address] [facility] [id number] [address] [place] [phone] SP Sep, Weight gain R63.5 ; Screenin g for lipid disorders Z13.220 ; SP for diabetes mellitus (DM) Z13.1 and Scabies exposure Z20.89 [facility] [address] [facility] [id number] [address] [place] [id number] SP Sep, Encounter for dental examina tion and cleaning without abnormal SP Z01.20 [facility] [address] [facility] [id number] [address] [place] [address] SP Sep, Abscess L02.91 SP [facility] [address] [facility] [id number] [address] [place] [phone] SP Jun, SP [facility] [address] [facility] [id number] [address] [place] [phone] SP Jun, Routine gynecological examin ation Z01.419 [place] [address] [facility] [id number] [address] [place] [phone] SP Jun, Routine gynecological examin ation Z01.419 ; Encounter for Depo- SP contraception Z30.42 and Routine screening for STI (sexually transmitted infection) Z11.3 [facility] [address] [id number] [address] [place] [phone] SP Jun, Anxiety F41.9 SP [facility] [address] [facility] [id number] [address] [place] [phone] SP May, SP [facility] [address] [id number] [address] [place] [phone] SP Apr, Psychotic disorder with delu sions F29 SP [facility] [id number] [place] [phone] SP Jan, SP [facility] [address] [facility] [id number] [address] [place] [phone] SP Jan, Psychotic disorder with delu sions F29 SP [place] [address] [facility] [id number] [address] [place] [phone] SP Jan, Encounter for contraceptive management, unspecified contraceptive SPencounter type Z30.9 ; Anxiety F41.9 ; Simple chronic bronchitis J41.0 and Encounter for Depo-Provera contraception Z30.42 [facility] [address] [id number] [address] [place] [phone] SP 14 Jun, 2014 SP [facility] [address] [id number] [address] [place] [address], [place] [address] SP 13 Jun, 2014 SP [facility] [address] [id number] [address] [place] [phone] SP Mar, SP [facility] [address] [id number] [address] [place] [address], [place] [address] SP Jan, SP [facility] [address] [id number] [address] [place] [address], [place] [address] SP Jan, 2011 SP [facility] [address] [id number] [address] [place] [address], [place] [address] SP Jan, 2011 SP [facility] [address] [id number] [address] [place] [address], [place] [address] SP Jan, 2011 SP [facility] [address] [id number] [address] [place] [address], [place] [address] SP Jan, 2011 SP [facility] [address] [id number] [address] [place] [address], [place] [address] SP Jan, SP [facility] [address] [id number] [address] [place] [address], [place] [address] SP Jan, SP [facility] [address] [id number] [address] [place] [address], [place] [address] SP Dec, SP [facility] [address] [id number] [address] [place] [phone] SP Dec, SP [facility] [address] [id number] [address] [place] [address], [place] [address] SP Dec, SP [facility] [address] [id number] [address] [place] [address], [place] [address] SP Dec, SP [facility] [address] [id number] [address] [place] [address], [place] [address] SP Dec, SP [facility] [address] [id number] [address] [place] [phone] SP 18 Dec, 2011 SP [facility] [address] [id number] [address] [place] [address], [place] [address] SP 18 Dec, 2011 SP [facility] [address] [id number] [address] [place] [address], [place] [address] SP 18 Dec, 2011 SP [facility] [address] [id number] [address] [place] [address], [place] [address] SP 18 Dec, 2011 SP [facility] [address] [id number] [address] [place] [address], [place] [address] SP 18 Dec, 2011 SP [facility] [address] [id number] [address] [place] [address], [place] [address] SP 18 Dec, 2011 SP [facility] [address] [id number] [address] [place] [phone] SP 15 Dec, 2011 SP [facility] [address] [id number] [address] [place] [address] SP 10 Dec, 2011 SP [facility] [address] [id number] [address] [place] [address], [place] [address] SP 10 Dec, 2011 SP [facility] [address] [id number] [address] [place] [phone] SP 08 Dec, 2011 SP [facility] [address] [id number] [address] [place] [address] SP 05 Dec, 2011 SP [facility] [address] [id number] [address] [place] [address] SP 03 Dec, 2011 SP [facility] [address] [id number] [address] [place] [phone] SP 02 Dec, 2011 SP [facility] [address] [id number] [address] [place] [phone] SP 18 Nov, 2011 SP [facility] [address] [facility] [id number] [address] [place] [address] SP 17 Nov, 2011 SP [facility] [address] [id number] [address] [place] [address] SP 13 Nov, 2011 SP [facility] [address] [id number] [address] [place] [phone] SP Nov, SP [facility] [address] [id number] [address] [place] [phone] SP 12 Nov, 2011 SP [facility] [address] [id number] [address] [place] [phone] SP Nov, SP [facility] [address] [id number] [address] [place] [phone] SP Sep, SP [facility] [address] [id number] [address] [place] [phone] SP Aug, SP [facility] [address] [id number] [address] [place] [phone] SP Aug, SP [facility] [address] [id number] [address] [place] [phone] SP July, SP [facility] [address] [id number] [address] [place] [phone] SP July, SP [facility] [address] [id number] [address] [place] [phone] SP July, SP IMMUNIZATIONS No Known Immunizations SOCIAL HISTORY Never Assessed REASON FOR VISIT [facility] [place] C[place] VITAL SIGNS MEDICATIONS Unknown [...]
--- OUTSIDE RECORDS SUMMARY | 2019-02-07 09:46 | XMS REPORT ---
Demographics Address [address] [place] [address] Preferred Language Unknown SP Marital Status Unknown SP Mandaen Affiliation Unknown SP Race Unknown SP Ethnic Group Unknown SP Author Author Migration, Doctor POS Organization [facility] SP Address Unknown SP Phone Unavailable SP Care Team Providers Care Criminal Judge Name Role Phone POS Migration, Doctor Unavailable Unavailable SP PROBLEMS Type Condition ICD9-CM Code [id number] Code Onset Dates Condition S tatus SNOMED POS Problem Migraine with aura and with status migrainosus, not intractable POS Active [id number] SP Problem 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 Acti ve [id number] SP 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 [id number] SP Problem Anxiety F41.9 Active 91725964 SP Problem Previous section complicating O 34.219 Active SP Problem Psychotic disorder with delusions F29 Active 29833065 SP Problem Type 2 diabetes mellitus wit h diabetic polyneuropathy, without long-term SPcurrent use of insulin E11.42 Active [id number] SP Problem Simple chronic bronchitis J41.0 Acti ve 98708977 SP Problem Asthma exacerbation J45.901 Active 414813257 SP Problem Acute seasonal allergic rhinitis, unspecified trigger J30.2 Active SP Problem Hallucinations R44.3 Active 41339 01 SP Problem Diabetes mellitus affecting in second trimester O24.912 SP [id number] SP ALLERGIES No Information ENCOUNTERS Encounter Location Date Diagnosis POS [facility] [address] [facility] [id number] [address] [place] [address] SP July, SP [address] [address] 29 SP 2019 SP [facility] [address] [facility] [id number] [address] [place] [address] SP Jun, [address] [address] 10 SP 2019 Psychotic disorder with delusions F29 SP [address] [address] 28 SP [address] [place] [address] 28 SP 2019 Hallucinations R44.3 and Psychotic disor gasper with delusions F29 SP [address] [address] 20 SP [address] [address] 15 SP [address] [address] 13 SP 2018 [facility] [address] [place] [address] 08 SPMar, 2019 Acute nasopharyngitis J00 and Fever R50. [address] [address] 05 SP [address] [address] 26 SP 2019 Encounter for routine follow- up Z39.2 ; Family planning SP and Encounter for Depo-Provera contraception Z30.[address] [address] 12 SP 2018 Anxiety F41.9 ; Simple [...] without long-term current use of insulin E11.42 [facility] [address] [facility] [id number] [address] [place] [address] SP Mar, SP [facility] [address] [facility] [id number] [address] [place] [phone] SP Dec, SP [facility] [address] [facility] [id number] [address] [place] [address] SP Dec, SP [facility] [address] [facility] [id number] [address] [place] [phone] SP Dec, Normal in [facility] Z34.80 ; Right hip pain M25.551 SP 26 weeks gestation of Z3A.26 ; Psychotic disorder with delusions F29 ; Gestational diabetes mellitus (GDM) in second trimester controlled on oral hypoglycemic drug O24.415 ; Multigravida of advanced maternal age in second trimester O09.522 and Previous section complicating O34.219 [facility] [address] [facility] [id number] [address] [place] [phone] SP Dec, SP [facility] [address] [facility] [id number] [address] [place] [phone] SP Nov, care in second trim pedro Z34.92 SP [facility] [address] [facility] [id number] [address] [place] [address] SP Nov, Normal in [facility] Z34.80 ; Diabetes mellitus SP in second trimester O24.912 ; Hallucinations R44.3 ; 18 weeks gestation of Z3A.18 and Multigravida of advanced maternal age in second trimester O09.522 [facility] [address] [facility] [id number] [address] [place] [phone] SP Nov, SP [facility] [address] [facility] [id number] [address] [place] [address] SP Nov, SP [facility] [address] [facility] [id number] [address] [place] [address] SP Oct, care in second trim pedro Z34.92 ; Anxiety F41.9 and SP disorder with delusions F29 [facility] [address] [facility] [id number] [address] [place] [phone] SP Oct, Normal in 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 and Psychotic disorder with delusions F29 [facility] [address] [id number] [address] [place] [phone] SP Oct, Encounter for dental examina tion and cleaning without abnormal SP Z01.20 and Caries K02.9 [facility] [address] [id number] [address] [place] [phone] SP Oct, SP [facility] [address] [facility] [id number] [address] [place] [phone] SP Oct, SP [facility] [address] [facility] [id number] [address] [place] [phone] SP Oct, SP [facility] [address] [facility] [id number] [address] [place] [phone] SP Sep, SP [facility] [address] [facility] [id number] [address] [place] [phone] SP Sep, SP [facility] [address] [facility] [id number] [address] [place] [address] SP Sep, Normal in multigra naima Z34.80 ; Currently in SP trimester with unknown gestational age Z34.92 ; 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 ; 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 and Psychotic disorder with delusions F29 [facility] [address] [facility] [id number] [address] [place] [phone] SP Sep, SP [facility] [address] [facility] [id number] [address] [place] [phone] SP Sep, SP [facility] [address] [facility] [id number] [address] [place] [phone] SP Aug, Anxiety F41.9 and Screening for diabetes mellitus (DM) Z13.1 SP [facility] [address] [facility] [id number] [address] [place] [phone] SP July, SP [facility] [address] [facility] [id number] [address] [place] [phone] SP July, SP [facility] [address] [facility] [id number] [address] [place] [phone] SP May, Psychotic disorder with delu sions F29 SP [facility] [address] [facility] [id number] [address] [place] [phone] SP May, SP [facility] [address] [facility] [id number] [address] [place] [phone] SP May, SP [facility] [address] [facility] [id number] [address] [place] [phone] SP Mar, Psychotic disorder with delu sions F29 and Undifferentiated SP F20.3 [facility] [address] [facility] [id number] [address] [place] [phone] SP Jan, SP [facility] [address] [facility] [id number] [address] [place] [phone] SP Dec, Psychotic disorder with delu sions F29 SP [facility] [address] [facility] [id number] [address] [place] [address] SP Dec, Acute seasonal allergic rhin itis, unspecified trigger J30.2 SP [facility] [address] [place] [id number] [address] [place] [phone] SP Nov, Psychotic disorder with delu sions F29 SP [facility] [address] [facility] [id number] [address] [place] [phone] SP Nov, SP [facility] [address] [facility] [id number] [address] [place] [phone] SP Nov, SP [facility] [address] [facility] [id number] [address] [place] [phone] SP Nov, SP [facility] [address] [place] [id number] [address] [place] [address] SP Oct, Asthma exacerbation J45.901 SP [facility] [address] [facility] [id number] [address] [place] [address] SP Oct, SP [facility] [id number] [place] [phone] SP Oct, Methamphetamine addiction F1 5.20 and Undifferentiated SP F20.3 [facility] [address] [place] [id number] [address] [place] [phone] SP Oct, SP [facility] [address] [phone] SP Oct, Migraine with aura and with status migrainosus, not intractable SP ; Other abnormal cytological finding of specimen from cervix R87.618 ; Screening for diabetes mellitus (DM) Z13.1 ; Screening for lipid disorders Z13.220 and Weight gain R63.5 [place] [address] [place] [id number] [place] [phone] SP Oct, SP [place] [address] [phone] SP Oct, SP [place] [address] [phone] SP Oct, SP [facility] [address] [place] [id number] [place] [address] SP Sep, Weight gain R63.5 ; Screenin g for lipid disorders Z13.220 ; SP for diabetes mellitus (DM) Z13.1 and Scabies exposure Z20.89 [facility] [address] [place] [id number] [address] [place] [id number] SP Sep, Encounter for dental examina tion and cleaning without abnormal SP Z01.20 [facility] [address] [facility] [id number] [address] [place] [address] SP Sep, Abscess L02.91 SP [facility] [address] [place] [id number] [address] [place] [phone] SP Jun, SP [facility] [address] [place] [id number] [address] [place] [phone] SP Jun, Routine gynecological examin ation Z01.419 SP [place] [address] [facility] [id number] [address] [place] [address] SP Jun, Routine gynecological examin ation Z01.419 ; Encounter for Depo- SP contraception Z30.42 and Routine screening for STI (sexually transmitted infection) Z11.3 [place] [address] [facility] [id number] [address] [place] [phone] SP Jun, Anxiety F41.9 SP [place] [address] [facility] [id number] [address] [place] [phone] SP May, SP [place] [address] [place] [id number] [address] [place] [phone] SP Apr, Psychotic disorder with delu sions F29 SP [place] [address] [place] [id number] [address] [place] [phone] SP Jan, SP [place] [address] [place] [id number] [address] [place] [phone] SP Jan, Psychotic disorder with delu sions F29 SP [place] [address] [facility] [id number] [address] [place] [phone] SP Jan, Encounter for contraceptive management, unspecified contraceptive SPencounter type Z30.9 ; Anxiety F41.9 ; Simple chronic bronchitis J41.0 and Encounter for Depo-Provera contraception Z30.42 [place] [address] [facility] [id number] [address] [place] [phone] SP 14 Jun, 2014 SP [place] [address] [facility] [id number] [address] [place] [phone] SP Jun, SP [place] [address] [facility] [id number] [address] [place] [phone] SP Mar, SP [place] [address] [facility] [id number] [address] [place] [phone] SP Jan, SP [place] [address] [place] [id number] [address] [place] [phone] SP Jan, SP [facility] [address] [id number] [address] [place] [address], [place] [address] SP Jan, 2011 SP [facility] [address] [id number] [address] [place] [address], [place] [address] SP Jan, SP [facility] [address] [facility] [id number] [address] [place] [address], [place] [address] SP Jan, SP [facility] [address] [id number] [address] [place] [address], [place] [address] SP Jan, SP [facility] [address] [id number] [address] [place] [address], [place] [address] SP Jan, SP [facility] [address] [id number] [address] [place] [address], [place] [address] SP Dec, SP [facility] [address] [id number] [address] [place] [phone] SP Dec, 2011 SP [facility] [address] [id number] [address] [place] [address], [place] [address] SP Dec, SP [facility] [address] [id number] [address] [place] [address], [place] [address] SP Dec, 2011 SP [facility] [address] [id number] [address] [place] [phone] SP Dec, SP [facility] [address] [id number] [address] [place] [address], [place] [address] SP Dec, SP [facility] [address] [id number] [address] [place] [phone] SP Dec, SP [facility] [address] [id number] [address] [place] [address], [place] [address] SP Dec, SP [facility] [address] [id number] [address] [place] [phone] SP Dec, SP [facility] [address] [id number] [address] [place] [phone] SP 18 Dec, 2011 SP [facility] [address] [id number] [address] [place] [address], [place] [address] SP 18 Dec, 2011 SP [facility] [address] [id number] [address] [place] [phone] SP 15 Dec, 2011 SP [facility] [address] [id number] [address] [place] [address], [place] [address] SP 10 Dec, 2011 SP [facility] [address] [id number] [address] [place] [address], [place] [address] SP 10 Dec, 2011 SP [facility] [address] [id number] [address] [place] [phone] SP 08 Dec, 2011 SP [facility] [address] [id number] [address] [place] [address], [place] [address] SP 05 Dec, 2011 SP [facility] [address] [id number] [address] [place] [phone] SP 03 Dec, 2011 SP [facility] [address] [id number] [address] [place] [phone] SP 02 Dec, 2011 SP [facility] [address] [id number] [address] [place] [phone] SP 18 Nov, 2011 SP [facility] [address] [id number] [address] [place] [phone] SP 17 Nov, 2011 SP [facility] [address] [id number] [address] [place] [phone] SP 13 Nov, 2011 SP [facility] [address] [id number] [address] [place] [address], [place] [address] SP 13 Sep, 2011 SP [facility] [address] [id number] [address] [place] [phone] SP 12 Nov, 2011 SP [facility] [address] [id number] [address] [place] [address], [place] [address] SP 05 Nov, 2011 SP [facility] [address] [id number] [address] [place] [phone] SP Sep, SP [facility] [address] [facility] [id number] [address] [place] [phone] SP Aug, SP [facility] [address] [facility] [id number] [address] [place] [phone] SP Aug, SP [facility] [address] [facility] [id number] [address] [place] [phone] SP July, SP [facility] [address] [facility] [id number] [address] [place] [phone] SP July, SP [facility] [address] [facility] [id number] [address] [place] [id number] SP July, SP IMMUNIZATIONS No Known Immunizations SOCIAL HISTORY Never Assessed REASON FOR VISIT EMR-[facility] [place] PLAN OF CARE VITAL SIGNS MEDICATIONS Unknown [...]
--- OUTSIDE RECORDS SUMMARY | 2019-02-07 09:47 | XMS REPORT ---
Demographics Address [address] [place] [address] Preferred Language Unknown SP Marital Status Unknown SP Uatsdin Affiliation Unknown SP Race Unknown SP Ethnic Group Unknown SP Author Author Migration, Doctor POS Organization [facility] SP Address Unknown SP Phone Unavailable SP Care Team Providers Care Hi Lift Operator Name Role Phone POS Migration, Doctor Unavailable Unavailable SP PROBLEMS Type Condition ICD9-CM Code [id number] Code Onset Dates Condition S tatus SNOMED POS Problem Migraine with aura and with status migrainosus, not intractable POS Active 3667869 SP Problem 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 Acti ve [id number] SP 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 448398954 SP Problem Anxiety F41.9 Active 62766957 SP Problem Previous section complicating O 34.219 Active SP Problem Psychotic disorder with delusions F29 Active 41793236 SP Problem Type 2 diabetes mellitus wit h diabetic polyneuropathy, without long-term SPcurrent use of insulin E11.42 Active 713 750938 SP Problem Simple chronic bronchitis J41.0 Acti ve 37359412 SP Problem Asthma exacerbation J45.901 Active 064793351 SP Problem Acute seasonal allergic rhinitis, unspecified trigger J30.2 Active SP Problem Hallucinations R44.3 Active 30992 01 SP Problem Diabetes mellitus affecting in second trimester O24.912 SP [id number] SP ALLERGIES No Information ENCOUNTERS Encounter Location Date [facility] [address] [address] 28 SP [address] [id number] 28 SP 2019 Hallucinations R44.3 and Psychotic disor gasper with delusions F29 SP [address] [id number] 20 SP [address] [address] 15 SP [address] [address] [address] [facility] [address] [place] [address] 08 [id number] Acute nasopharyngitis J00 and Fever R50. [address] [id number] 05 SP [address] [address] 26 SP 2018 Encounter for routine follow- up Z39.2 ; Family planning SP and Encounter for Depo-Provera contraception Z30.[address] [address] 12 SP 2018 Anxiety F41.9 ; Simple [...] without long-term current use of insulin E11.42 [facility] [address] [id number] [address] [place] [phone] SP Mar, SP [facility] [address] [facility] [id number] [address] [place] [phone] SP Dec, SP [facility] [address] [id number] [address] [place] [phone] SP Dec, SP [facility] [address] [id number] [address] [place] [phone] SP Dec, Normal in multigra namia Z34.80 ; Right hip pain M25.551 SP 26 weeks gestation of Z3A.26 ; Psychotic disorder with delusions F29 ; Gestational diabetes mellitus (GDM) in second trimester controlled on oral hypoglycemic drug O24.415 ; Multigravida of advanced maternal age in second trimester O09.522 and Previous section complicating O34.219 [facility] [address] [facility] [id number] [address] [place] [phone] SP Dec, SP [facility] [address] [facility] [id number] [address] [place] [phone] SP Nov, care in second trim pedro Z34.92 SP [facility] [address] [facility] [id number] [address] [place] [phone] SP Nov, Normal in multigra naima Z34.80 ; Diabetes mellitus SP in second trimester O24.912 ; Hallucinations R44.3 ; 18 weeks gestation of Z3A.18 and Multigravida of advanced maternal age in second trimester O09.522 [facility] [address] [facility] [id number] [address] [place] [phone] SP Nov, SP [facility] [address] [facility] [id number] [address] [place] [phone] SP Nov, SP [facility] [address] [facility] [id number] [address] [place] [phone] SP Oct, care in second trim pedro Z34.92 ; Anxiety F41.9 and SP disorder with delusions F29 [facility] [address] [facility] [id number] [address] [place] [phone] SP Oct, Normal in multigra naima Z34.80 ; care in second SPtrimester Z34.92 ; Gonorrhea affecting , antepartum O98.219 ; 18 weeks gestation of Z3A.18 ; 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 and Psychotic disorder with delusions F29 [facility] [address] [facility] [id number] [address] [place] [phone] SP Oct, Encounter for dental examina tion and cleaning without abnormal SP Z01.20 and Caries K02.9 [facility] [address] [facility] [id number] [address] [place] [phone] SP Oct, SP [facility] [address] [facility] [id number] [address] [place] [phone] SP Oct, SP [facility] [address] [facility] [id number] [address] [place] [phone] SP Oct, SP [facility] [address] [facility] [id number] [address] [place] [phone] SP Sep, SP [facility] [address] [facility] [id number] [address] [place] [phone] SP Sep, SP [facility] [address] [facility] [id number] [address] [place] [phone] SP Sep, [facility] Z[facility].80 ; Currently in SP trimester with unknown gestational age Z34.92 ; 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 ; 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 and Psychotic disorder with delusions F29 [facility] [address] [facility] [id number] [address] [place] [phone] SP Sep, SP [facility] [address] [facility] [id number] [address] [place] [phone] SP Sep, SP [facility] [address] [facility] [id number] [address] [place] [phone] SP Aug, Anxiety F41.9 and Screening for diabetes mellitus (DM) Z13.1 SP [facility] [address] [facility] [id number] [address] [place] [phone] SP July, SP [facility] [address] [facility] [id number] [address] [place] [phone] SP July, SP [facility] [address] [facility] [id number] [address] [place] [phone] SP May, Psychotic disorder with delu sions F29 SP [facility] [address] [facility] [id number] [address] [place] [phone] SP May, SP [facility] [address] [facility] [id number] [address] [place] [phone] SP May, SP [facility] [address] [facility] [id number] [address] [place] [phone] SP Mar, Psychotic disorder with delu sions F29 and Undifferentiated SP F20.3 [facility] [address] [facility] [id number] [address] [place] [phone] SP Jan, SP [facility] [address] [facility] [id number] [address] [place] [phone] SP Dec, Psychotic disorder with delu sions F29 SP [facility] [address] [facility] [id number] [address] [place] [address] SP Dec, Acute seasonal allergic rhin itis, unspecified trigger J30.2 SP [facility] [address] [facility] [id number] [address] [place] [phone] SP Nov, Psychotic disorder with delu sions F29 SP [facility] [address] [facility] [id number] [address] [place] [phone] SP Nov, SP [facility] [address] [facility] [id number] [address] [place] [phone] SP Nov, SP [facility] [address] [facility] [id number] [address] [place] [phone] SP Nov, SP [facility] [address] [facility] [id number] [address] [place] [phone] SP Oct, Asthma exacerbation J45.901 SP [facility] [address] [facility] [id number] [address] [place] [phone] SP Oct, SP [facility] [address] [facility] [id number] [address] [place] [phone] SP Oct, Methamphetamine addiction F1 5.20 and Undifferentiated SP F20.3 [facility] [address] [facility] [id number] [address] [place] [phone] SP Oct, SP [facility] [address] [facility] [id number] [address] [place] [phone] SP Oct, Migraine with aura and with status migrainosus, not intractable SP ; Other abnormal cytological finding of specimen from cervix R87.618 ; Screening for diabetes mellitus (DM) Z13.1 ; Screening for lipid disorders Z13.220 and Weight gain R63.5 [facility] [address] [facility] [id number] [address] [place] [phone] SP Oct, SP [facility] [address] [facility] [id number] [address] [place] [phone] SP Oct, SP [facility] [address] [facility] [id number] [address] [place] [phone] SP Oct, SP [facility] [address] [facility] [id number] [address] [place] [phone] SP Sep, Weight gain R63.5 ; Screenin g for lipid disorders Z13.220 ; SP for diabetes mellitus (DM) Z13.1 and Scabies exposure Z20.89 [facility] [address] [id number] [address] [place] [id number] SP Sep, Encounter for dental examina tion and cleaning without abnormal SP Z01.20 [facility] [address] [facility] [id number] [address] [place] [address] SP Sep, Abscess L02.91 [id number] [place] [phone] SP Jun, SP [facility] [address] [facility] [id number] [address] [place] [phone] SP Jun, Routine gynecological examin ation Z01.419 [address] [place] [address] [facility] [id number] [address] [place] [phone] SP Jun, Routine gynecological examin ation Z01.419 ; Encounter for Depo- SP contraception Z30.42 and Routine screening for STI (sexually transmitted infection) Z11.3 [facility] [address] [facility] [id number] [address] [place] [phone] SP Jun, Anxiety F41.9 SP [facility] [address] [facility] [id number] [address] [place] [phone] SP May, SP [facility] [address] [facility] [id number] [address] [place] [phone] SP Apr, Psychotic disorder with delu sions F29 SP [facility] [address] [facility] [id number] [address] [place] [phone] SP Jan, SP [facility] [address] [facility] [id number] [address] [place] [phone] SP Jan, Psychotic disorder with delu sions F29 SP [facility] [address] [facility] [id number] [address] [place] [phone] SP Jan, Encounter for contraceptive management, unspecified contraceptive SPencounter type Z30.9 ; Anxiety F41.9 ; Simple chronic bronchitis J41.0 and Encounter for Depo-Provera contraception Z30.42 [facility] [address] [facility] [id number] [address] [place] [phone] SP Jun, SP [facility] [address] [facility] [id number] [address] [place] [phone] SP Jun, SP [facility] [address] [facility] [id number] [address] [place] [phone] SP Mar, SP [facility] [address] [facility] [id number] [address] [place] [phone] SP Jan, SP [facility] [address] [facility] [id number] [address] [place] [phone] SP Jan, SP [facility] [address] [facility] [id number] [address] [place] [phone] SP Jan, SP [facility] [address] [facility] [id number] [address] [place] [phone] SP Jan, SP [facility] [address] [facility] [id number] [address] [place] [phone] SP Jan, SP [facility] [address] [facility] [id number] [address] [place] [phone] SP Jan, 2011 SP [facility] [address] [id number] [address] [place] [phone] SP Jan, 2011 SP [facility] [address] [id number] [address] [place] [phone] SP Dec, 2011 SP [facility] [address] [id number] [address] [place] [phone] SP Dec, 2011 SP [facility] [address] [id number] [address] [place] [phone] SP Dec, 2011 SP [facility] [address] [id number] [address] [place] [phone] SP Dec, 2011 SP [facility] [address] [id number] [address] [place] [phone] SP Dec, 2011 SP [facility] [address] [id number] [address] [place] [phone] SP 18 Dec, 2011 SP [facility] [address] [id number] [address] [place] [phone] SP 18 Dec, 2011 SP [facility] [address] [id number] [address] [place] [phone] SP 18 Dec, 2011 SP [facility] [address] [id number] [address] [place] [phone] SP 18 Dec, 2011 SP [facility] [address] [id number] [address] [place] [phone] SP 18 Dec, 2011 SP [facility] [address] [id number] [address] [place] [phone] SP 18 Dec, 2011 SP [facility] [address] [id number] [address] [place] [phone] SP 15 Dec, 2011 SP [facility] [address] [id number] [address] [place] [phone] SP 10 Dec, 2011 SP [facility] [address] [id number] [address] [place] [address], [place] [phone] SP Dec, SP [facility] [address] [id number] [address] [place] [address], [place] [address] SP Dec, SP [facility] [address] [id number] [address] [place] [address], [place] [address] SP Dec, SP [facility] [address] [id number] [address] [place] [address], [place] [phone] SP Dec, SP [facility] [address] [id number] [address] [place] [address], [place] [phone] SP Dec, SP [facility] [address] [id number] [address] [place] [address], [place] [phone] SP 18 Nov, 2011 SP [facility] [address] [id number] [address] [place] [address], [place] [address] SP 17 Nov, 2011 SP [facility] [address] [id number] [address] [place] [address], [place] [address] SP 13 Nov, 2011 SP [facility] [address] [id number] [address] [place] [address], [place] [phone] SP 13 Nov, 2011 SP [facility] [address] [id number] [address] [place] [address], [place] [address] SP 12 Nov, 2011 SP [facility] [address] [id number] [address] [place] [address], [place] [phone] SP Nov, SP [facility] [address] [id number] [address] [place] [address], [place] [address] SP Sep, SP [facility] [address] [id number] [address] [place] [address], [place] [address] SP Aug, SP [facility] [address] [id number] [address] [place] [address], [place] [address] SP Aug, SP [facility] [address] [id number] [address] [place] [address], [place] [address] SP July, SP [facility] [address] [facility] [id number] [address] [address] SP July, SP [facility] [address] [facility] [id number] [address] [place] [phone] SP July, SP IMMUNIZATIONS No Known Immunizations SOCIAL HISTORY Never Assessed REASON FOR VISIT [facility] PLAN OF CARE VITAL SIGNS MEDICATIONS Medication Instructions Dosage Frequency Start Date End Date Duration S tatus POS Loratadine 10 mg 1 tablet by Oral route 1 time per day 1 Dec, 2011 SP Nicoderm 14 mg/24 hr 1 PATCH by Transder mal route 1 time per day for 28 day(s) SP Dec, Active SP benztropine 1 mg 1 Tablet 1 time per day Dec, Active SP Miconazole 7 2 % insert 1 applicatorf ul by vaginal route once daily at bedtime SPfor 7 days Dec, Active SP Ortho Evra 150-20 mcg/24 hr 1 PATCH by T ransdermal route 1 time per week for 3 SPweek(s) Dec, Active SP Haloperidol 0.5 mg 1 Tablet 2 times per day Dec, Active SP Omeprazole 20 mg take 1 capsule (20 m g) by oral route once daily before a meal SP Dec, Active SP Monistat 7 2 % 1 appful by Vaginal route 1 time per da y for 7 day(s) Dec,012 Active SP ProAir HFA 90 mcg/actuation 2 puffs by Inhalation rout e 4 times per day 2011 Active SP Albuterol Sulfate 2.5 mg /3 mL (0.083 %) 1 Each by Inhalation route every 4 SP for cough and wheezePRNfor wheezing or cough Dec, Active SP Tegretol 200 mg take 1 tablet by Oral route every 8 hours Nov, SP Symbicort 80-4.5 mcg/actuation 2 puffs b y Inhalation route 2 times per day for SP30 day(s) Dec, Active SP RESULTS No Results PROCEDURES No [...]
--- OUTSIDE RECORDS SUMMARY | 2019-02-07 09:47 | XMS REPORT ---
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 Name Role Phone POS Migration, Doctor Unavailable Unavailable SP PROBLEMS Type Condition ICD9-CM Code OFE20-LP Code Onset Dates Condition S tatus SNOMED POS Problem Migraine with aura and with status migrainosus, not intractable POS Active 1333713 SP Problem 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 Acti ve [id number] SP 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 [id number] SP Problem Anxiety F41.9 Active 70858171 SP Problem Previous section complicating O 34.219 Active SP Problem Psychotic disorder with delusions F29 Active [id number] SP Problem Type 2 diabetes mellitus wit h diabetic polyneuropathy, without long-term SPcurrent use of insulin E11.42 Active 713 228161 SP Problem Simple chronic bronchitis J41.0 Acti ve 71211460 SP Problem Asthma exacerbation J45.901 Active [id number] SP Problem Acute seasonal allergic rhinitis, unspecified trigger J30.2 Active SP Problem Hallucinations R44.3 Active 24110 01 SP Problem Diabetes mellitus affecting in second trimester O24.912 SP [id number] SP ALLERGIES No Information ENCOUNTERS Encounter Location Date Diagnosis POS [address] [id number] 20 SP [address] SP [address] [id number] 15 SP [address] [phone] 13 SP 2019 [facility] [address] [place] [address] 08 SPMar, 2019 Acute nasopharyngitis J00 and Fever R50. [address] [id number] 05 SP [address] [id number] 26 SP 2019 Encounter for routine follow- up Z39.2 ; Family planning SP and Encounter for Depo-Provera contraception Z30.42 [facility] [address] [place] [address] 12 SP 2018 Anxiety F41.9 ; Simple [...] without long-term current use of insulin E11.42 [place] [id number] [facility] [id number] [address] [place] [address] SP 22 Mar, 2018 SP [facility] [address] [facility] [id number] [address] [place] [address] SP Dec, SP [facility] [address] [facility] [id number] [address] [place] [address] SP Dec, SP [facility] [address] [place] [id number] [address] [place] [address] SP Dec, Normal in multigra naima Z34.80 ; Right hip pain M25.551 SP 26 weeks gestation of Z3A.26 ; Psychotic disorder with delusions F29 ; Gestational diabetes mellitus (GDM) in second trimester controlled on oral hypoglycemic drug O24.415 ; Multigravida of advanced maternal age in second trimester O09.522 and Previous section complicating O34.219 [facility] [address] [facility] [id number] [address] [place] [address] SP 18 Dec, 2017 SP [place] [id number] [facility] [id number] [address] [place] [address] SP Nov, care in second trim pedro Z34.92 SP [facility] [address] [facility] [id number] [address] [place] [address] SP Nov, Normal in multigra naima Z34.80 ; Diabetes mellitus SP in second trimester O24.912 ; Hallucinations R44.3 ; 18 weeks gestation of Z3A.18 and Multigravida of advanced maternal age in second trimester O09.522 [facility] [address] [facility] [id number] [address] [place] [address] SP Nov, SP [facility] [address] [facility] [id number] [address] [place] [address] SP Nov, SP [place] [address] [facility] [id number] [place] [address] SP Oct, care in second trim pedro Z34.92 ; Anxiety F41.9 and SP disorder with delusions F29 [place] [id number] [facility] [id number] [address] [place] [address] SP Oct, Normal in multigra naima Z34.80 ; care in second SPtrimester Z34.92 ; Gonorrhea affecting , antepartum O98.219 ; 18 weeks gestation of Z3A.18 ; 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 and Psychotic disorder with delusions F29 [place] [id number] [facility] [id number] [address] [place] [address] SP Oct, Encounter for dental examina tion and cleaning without abnormal SP Z01.20 and Caries K02.9 [facility] [address] [facility] [id number] [address] [place] [address] SP Oct, SP [facility] [address] [facility] [id number] [address] [place] [address] SP Oct, SP [place] [id number] [facility] [id number] [address] [place] [address] SP Oct, SP [facility] [address] [facility] [id number] [address] [place] [phone] SP Sep, SP [place] [address] [facility] [id number] [address] [place] [address] SP Sep, SP [facility] [address] [facility] [id number] [address] [place] [address] SP Sep, Normal in multigra naima Z34.80 ; Currently in SP trimester with unknown gestational age Z34.92 ; 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 ; 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 and Psychotic disorder with delusions F29 [facility] [address] [facility] [id number] [address] [place] [phone] SP Sep, SP [facility] [address] [facility] [id number] [address] [place] [address] SP Sep, SP [facility] [address] [facility] [id number] [address] [place] [address] SP Aug, Anxiety F41.9 and Screening for diabetes mellitus (DM) Z13.1 SP [facility] [address] [facility] [id number] [address] [place] [address] SP July, SP [facility] [address] [facility] [id number] [address] [place] [phone] SP July, SP [facility] [address] [facility] [id number] [address] [place] [address] SP May, Psychotic disorder with delu sions F29 SP [facility] [address] [facility] [id number] [address] [place] [address] SP May, SP [facility] [address] [facility] [id number] [address] [place] [address] SP May, SP [facility] [address] [facility] [id number] [address] [place] [address] SP Mar, Psychotic disorder with delu sions F29 and Undifferentiated SP F20.3 [facility] [address] [facility] [id number] [address] [place] [phone] SP Jan, SP [facility] [address] [facility] [id number] [address] [place] [phone] SP Dec, Psychotic disorder with delu sions F29 SP [facility] [address] [facility] [id number] [address] [place] [address] SP Dec, Acute seasonal allergic rhin itis, unspecified trigger J30.2 SP [facility] [address] [facility] [id number] [address] [place] [address] SP Nov, Psychotic disorder with delu sions F29 SP [facility] [address] [facility] [id number] [address] [place] [address] SP Nov, SP [facility] [address] [facility] [id number] [address] [place] [address] SP Nov, SP [facility] [address] [facility] [id number] [address] [place] [address] SP Nov, SP [facility] [address] [facility] [id number] [address] [place] [address] SP Oct, Asthma exacerbation J45.901 SP [facility] [address] [facility] [id number] [address] [place] [address] SP Oct, SP [facility] [address] [facility] [id number] [address] [place] [address] SP Oct, Methamphetamine addiction F1 5.20 and Undifferentiated SP F20.3 [facility] [address] [facility] [id number] [address] [place] [address] SP Oct, SP [facility] [address] [facility] [id number] [address] [place] [address] SP Oct, Migraine with aura and with status migrainosus, not intractable SP ; Other abnormal cytological finding of specimen from cervix R87.618 ; Screening for diabetes mellitus (DM) Z13.1 ; Screening for lipid disorders Z13.220 and Weight gain R63.5 [facility] [address] [facility] [id number] [address] [place] [address] SP Oct, SP [facility] [address] [facility] [id number] [address] [place] [address] SP Oct, SP [facility] [address] [facility] [id number] [address] [place] [address] SP Oct, SP [facility] [address] [facility] [id number] [address] [place] [address] SP Sep, Weight gain R63.5 ; Screenin g for lipid disorders Z13.220 ; SP for diabetes mellitus (DM) Z13.1 and Scabies exposure Z20.89 [facility] [address] [id number] [address] [place] [id number] SP Sep, Encounter for dental examina tion and cleaning without abnormal SP Z01.20 [facility] [address] [facility] [id number] [address] [place] [address] SP Sep, Abscess L02.91 SP [facility] [address] [facility] [id number] [address] [place] [address] SP Jun, SP [facility] [address] [facility] [id number] [address] [place] [address] SP Jun, Routine gynecological examin ation Z01.419 SP [facility] [address] [facility] [id number] [address] [place] [address] SP Jun, Routine gynecological examin ation Z01.419 ; Encounter for Depo- SP contraception Z30.42 and Routine screening for STI (sexually transmitted infection) Z11.3 [facility] [address] [facility] [id number] [address] [place] [address] SP Jun, Anxiety F41.9 SP [facility] [address] [facility] [id number] [address] [place] [address] SP May, SP [facility] [address] [facility] [id number] [address] [place] [phone] SP Apr, Psychotic disorder with delu sions F29 SP [facility] [address] [id number] [address] [place] [phone] SP Jan, SP [facility] [address] [facility] [id number] [address] [place] [address] SP 18 Jan, 2016 Psychotic disorder with chantell joseph F29 SP [facility] [address] [facility] [id number] [address] [place] [address] SP 16 Jan, 2016 Encounter for contraceptive management, unspecified contraceptive SPencounter type Z30.9 ; Anxiety F41.9 ; Simple chronic bronchitis J41.0 and Encounter for Depo-Provera contraception Z30.42 [facility] [address] [facility] [id number] [address] [place] [address] SP 14 Jun, 2014 SP [facility] [address] [facility] [id number] [address] [place] [phone] SP Jun, SP [facility] [address] [facility] [id number] [address] [place] [address] SP Mar, SP [facility] [address] [facility] [id number] [address] [place] [phone] SP Jan, SP [facility] [address] [facility] [id number] [address] [place] [address] SP Jan, 2011 SP [facility] [address] [facility] [id number] [address] [place] [address] SP Jan, SP [facility] [address] [facility] [id number] [address] [place] [address] SP Jan, SP [facility] [address] [facility] [id number] [address] [place] [phone] SP Jan, SP [facility] [address] [facility] [id number] [address] [place] [address] SP Jan, SP [facility] [address] [facility] [id number] [address] [place] [address] SP Jan, SP [facility] [address] [facility] [id number] [address] [place] [address] SP Dec, 2011 SP [facility] [address] [id number] [address] [place] [phone] SP Dec, 2011 SP [facility] [address] [id number] [address] [place] [phone] SP Dec, 2011 SP [facility] [address] [id number] [address] [place] [phone] SP Dec, 2011 SP [facility] [address] [id number] [address] [place] [id number] SP Dec, 2011 SP [facility] [address] [id number] [address] [place] [address] SP 18 Dec, 2011 SP [facility] [address] [id number] [address] [place] [phone] SP 18 Dec, 2011 SP [facility] [address] [id number] [address] [place] [phone] SP 18 Dec, 2011 SP [facility] [address] [id number] [address] [place] [id number] SP 18 Dec, 2011 SP [facility] [address] [id number] [address] [place] [address] SP 18 Dec, 2011 SP [facility] [address] [id number] [address] [place] [phone] SP 18 Dec, 2011 SP [facility] [address] [id number] [address] [place] [phone] SP 15 Dec, 2011 SP [facility] [address] [id number] [address] [place] [phone] SP 10 Dec, 2011 SP [facility] [address] [id number] [address] [place] [address] SP 10 Dec, 2011 SP [facility] [address] [id number] [address] [place] [phone] SP 08 Dec, 2011 SP [facility] [address] [id number] [address] [place] [phone] SP Dec, SP [facility] [place] [address] [id number] [address] [place] [address], [place] [address] SP Dec, SP [facility] [address] [id number] [address] [place] [address], [place] [address] SP Dec, SP [facility] [address] [id number] [address] [place] [address], [place] [address] SP 18 Nov, 2011 SP [facility] [address] [id number] [address] [place] [address], [place] [address] SP 17 Nov, 2011 SP [facility] [address] [id number] [address] [place] [address], [place] [address] SP Nov, SP [facility] [address] [id number] [address] [place] [address], [place] [address] SP Nov, SP [facility] [place] [address] [id number] [address] [place] [phone] SP Nov, SP [facility] [place] [address] [id number] [address] [place] [address], [place] [address] SP Nov, SP [facility] [address] [id number] [address] [place] [phone] SP Sep, SP [facility] [address] [id number] [address] [place] [phone] SP Aug, SP [facility] [address] [id number] [address] [place] [address] SP Aug, SP [facility] [place] [address] [id number] [address] [place] [phone] SP July, SP [facility] [address] [id number] [address] [place] [id number] SP July, SP [facility] [address] [facility] [id number] [address] [place] [phone] SP July, SP IMMUNIZATIONS No Known Immunizations SOCIAL HISTORY Never Assessed REASON FOR VISIT EMR-[facility] PLAN OF CARE VITAL SIGNS MEDICATIONS Unknown [...]
--- OUTSIDE RECORDS SUMMARY | 2019-02-07 09:47 | XMS REPORT ---
Demographics Address [address] [place] [address] Preferred Language Unknown SP Marital Status Unknown SP Muslim Affiliation Unknown SP Race Unknown SP Ethnic Group Unknown SP Author Author Migration, Doctor POS Organization [facility] SP Address Unknown SP Phone Unavailable SP Care Team Providers Care Biometrics Consultant Name Role Phone POS Migration, Doctor Unavailable Unavailable SP PROBLEMS Type Condition ICD9-CM Code [id number] Code Onset Dates Condition S tatus SNOMED POS Problem Migraine with aura and with status migrainosus, not intractable POS Active [id number] SP Problem 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 Acti ve [id number] SP 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 [id number] SP Problem Anxiety F41.9 Active 35881630 SP Problem Previous section complicating O 34.219 Active SP Problem Psychotic disorder with delusions F29 Active [id number] SP Problem Type 2 diabetes mellitus wit h diabetic polyneuropathy, without long-term SPcurrent use of insulin E11.42 Active [id number] SP Problem Simple chronic bronchitis J41.0 Acti ve [id number] SP Problem Asthma exacerbation J45.901 Active [id number] SP Problem Acute seasonal allergic rhinitis, unspecified trigger J30.2 Active SP Problem Hallucinations R44.3 Active 74157 01 SP Problem Diabetes mellitus affecting in second trimester O24.912 SP [id number] SP ALLERGIES No Information ENCOUNTERS Encounter Location Date Diagnosis POS [facility] [address] [facility] [id number] [address] [place] [phone] SP July, SP [address] [id number] 29 SP 2019 SP [facility] [address] [facility] [id number] [address] [place] [phone] SP 11 Jun, [address] [address] 10 SP 2019 Psychotic disorder with delusions F29 SP [address] [address] 28 SP [address] [place] [address] 28 SP 2019 Hallucinations R44.3 and Psychotic disor gasper with delusions F29 SP [address] [address] 20 SP [address] [address] 15 SP [address] [address] 13 SP 2018 [facility] [address] [place] [address] 08 SPMar, 2019 Acute nasopharyngitis J00 and Fever R50. [address] [address] 05 SP [address] [address] 26 SP 2019 Encounter for routine follow- up Z39.2 ; Family planning SP and Encounter for Depo-Provera contraception Z30.[address] [address] 12 SP 2018 Anxiety F41.9 ; Simple [...] without long-term current use of insulin E11.42 [facility] [address] [facility] [id number] [address] [place] [address] SP Mar, SP [facility] [address] [facility] [id number] [address] [place] [phone] SP Dec, SP [facility] [address] [facility] [id number] [address] [place] [phone] SP Dec, SP [facility] [address] [facility] [id number] [address] [place] [address] SP Dec, Normal in [facility] Z34.80 ; Right hip pain M25.551 SP 26 weeks gestation of Z3A.26 ; Psychotic disorder with delusions F29 ; Gestational diabetes mellitus (GDM) in second trimester controlled on oral hypoglycemic drug O24.415 ; Multigravida of advanced maternal age in second trimester O09.522 and Previous section complicating O34.219 [facility] [address] [facility] [id number] [address] [place] [phone] SP Dec, SP [facility] [address] [facility] [id number] [address] [place] [phone] SP Nov, care in second trim pedro Z34.92 SP [facility] [address] [facility] [id number] [address] [place] [phone] SP Nov, Normal in [facility] Z34.80 ; Diabetes mellitus SP in second trimester O24.912 ; Hallucinations R44.3 ; 18 weeks gestation of Z3A.18 and Multigravida of advanced maternal age in second trimester O09.522 [facility] [address] [facility] [id number] [address] [place] [phone] SP Nov, SP [facility] [address] [facility] [id number] [address] [place] [phone] SP Nov, SP [facility] [address] [facility] [id number] [address] [place] [phone] SP Oct, care in second trim pedro Z34.92 ; Anxiety F41.9 and SP disorder with delusions F29 [facility] [address] [facility] [id number] [address] [place] [phone] SP Oct, Normal in [facility] Z34.80 ; care in second SPtrimester Z34.92 ; Gonorrhea affecting , antepartum O98.219 ; 18 weeks gestation of Z3A.18 ; 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 and Psychotic disorder with delusions F29 [facility] [address] [id number] [address] [place] [phone] SP Oct, Encounter for dental examina tion and cleaning without abnormal SP Z01.20 and Caries K02.9 [facility] [address] [id number] [address] [place] [phone] SP Oct, SP [facility] [address] [facility] [id number] [address] [place] [phone] SP Oct, SP [facility] [address] [facility] [id number] [address] [place] [phone] SP Oct, SP [facility] [address] [facility] [id number] [address] [place] [phone] SP Sep, SP [facility] [address] [facility] [id number] [address] [place] [phone] SP Sep, SP [facility] [address] [facility] [id number] [address] [place] [phone] SP Sep, Normal in multigra naima Z34.80 ; Currently in SP trimester with unknown gestational age Z34.92 ; 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 ; 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 and Psychotic disorder with delusions F29 [facility] [address] [facility] [id number] [address] [place] [phone] SP Sep, SP [facility] [address] [facility] [id number] [address] [place] [phone] SP Sep, SP [facility] [address] [facility] [id number] [address] [place] [phone] SP Aug, Anxiety F41.9 and Screening for diabetes mellitus (DM) Z13.1 SP [facility] [address] [facility] [id number] [address] [place] [phone] SP July, SP [facility] [address] [facility] [id number] [address] [place] [phone] SP July, SP [facility] [address] [facility] [id number] [address] [place] [phone] SP May, Psychotic disorder with delu sions F29 SP [facility] [address] [facility] [id number] [address] [place] [phone] SP May, SP [facility] [address] [facility] [id number] [address] [place] [phone] SP May, SP [facility] [address] [facility] [id number] [address] [place] [phone] SP Mar, Psychotic disorder with delu sions F29 and Undifferentiated SP F20.3 [facility] [address] [facility] [id number] [address] [place] [phone] SP Jan, SP [facility] [address] [facility] [id number] [address] [place] [phone] SP Dec, Psychotic disorder with delu sions F29 SP [facility] [address] [facility] [id number] [address] [place] [address] SP Dec, Acute seasonal allergic rhin itis, unspecified trigger J30.2 SP [facility] [address] [place] [id number] [address] [place] [phone] SP Nov, Psychotic disorder with delu sions F29 SP [facility] [address] [facility] [id number] [address] [place] [phone] SP Nov, SP [facility] [address] [facility] [id number] [address] [place] [phone] SP Nov, SP [facility] [address] [facility] [id number] [address] [place] [phone] SP Nov, SP [facility] [address] [place] [id number] [address] [place] [phone] SP Oct, Asthma exacerbation J45.901 SP [facility] [address] [facility] [id number] [address] [place] [phone] SP Oct, SP [facility] [id number] [place] [phone] SP Oct, Methamphetamine addiction F1 5.20 and Undifferentiated SP F20.3 [facility] [address] [place] [id number] [address] [place] [phone] SP Oct, SP [facility] [address] [address] SP Oct, Migraine with aura and with status migrainosus, not intractable SP ; Other abnormal cytological finding of specimen from cervix R87.618 ; Screening for diabetes mellitus (DM) Z13.1 ; Screening for lipid disorders Z13.220 and Weight gain R63.5 [place] [address] [place] [id number] [place] [phone] SP Oct, SP [place] [address] [address] SP Oct, SP [place] [address] [address] SP Oct, SP [facility] [address] [place] [id number] [place] [phone] SP Sep, Weight gain R63.5 ; Screenin g for lipid disorders Z13.220 ; SP for diabetes mellitus (DM) Z13.1 and Scabies exposure Z20.89 [facility] [address] [place] [id number] [address] [place] [id number] SP Sep, Encounter for dental examina tion and cleaning without abnormal SP Z01.20 [facility] [address] [facility] [id number] [address] [place] [address] SP Sep, Abscess L02.91 SP [facility] [address] [place] [id number] [address] [place] [phone] SP Jun, SP [facility] [address] [place] [id number] [address] [place] [phone] SP Jun, Routine gynecological examin ation Z01.419 SP [place] [address] [facility] [id number] [address] [place] [phone] SP Jun, Routine gynecological examin ation Z01.419 ; Encounter for Depo- SP contraception Z30.42 and Routine screening for STI (sexually transmitted infection) Z11.3 [place] [address] [facility] [id number] [address] [place] [phone] SP Jun, Anxiety F41.9 SP [place] [address] [facility] [id number] [address] [place] [phone] SP May, SP [place] [address] [place] [id number] [address] [place] [phone] SP Apr, Psychotic disorder with delu sions F29 SP [place] [address] [place] [id number] [address] [place] [phone] SP Jan, SP [place] [address] [place] [id number] [address] [place] [id number] SP Jan, Psychotic disorder with delu sions F29 SP [place] [address] [facility] [id number] [address] [place] [phone] SP Jan, Encounter for contraceptive management, unspecified contraceptive SPencounter type Z30.9 ; Anxiety F41.9 ; Simple chronic bronchitis J41.0 and Encounter for Depo-Provera contraception Z30.42 [place] [address] [facility] [id number] [address] [place] [phone] SP 14 Jun, 2014 SP [place] [address] [facility] [id number] [address] [place] [phone] SP Jun, SP [place] [address] [facility] [id number] [address] [place] [phone] SP Mar, SP [place] [address] [facility] [id number] [address] [place] [phone] SP Jan, SP [place] [address] [place] [id number] [address] [place] [phone] SP Jan, SP [facility] [address] [id number] [address] [place] [address], [place] [address] SP Jan, 2011 SP [facility] [address] [id number] [address] [place] [address], [place] [address] SP Jan, SP [facility] [address] [facility] [id number] [address] [place] [address], [place] [address] SP Jan, SP [facility] [address] [id number] [address] [place] [address], [place] [address] SP Jan, SP [facility] [address] [id number] [address] [place] [address], [place] [address] SP Jan, SP [facility] [address] [id number] [address] [place] [address], [place] [address] SP Dec, SP [facility] [address] [id number] [address] [place] [phone] SP Dec, 2011 SP [facility] [address] [id number] [address] [place] [address], [place] [address] SP Dec, SP [facility] [address] [id number] [address] [place] [address], [place] [address] SP Dec, 2011 SP [facility] [address] [id number] [address] [place] [phone] SP Dec, SP [facility] [address] [id number] [address] [place] [address], [place] [address] SP Dec, SP [facility] [address] [id number] [address] [place] [phone] SP Dec, SP [facility] [address] [id number] [address] [place] [address], [place] [address] SP Dec, SP [facility] [address] [id number] [address] [place] [phone] SP Dec, SP [facility] [address] [id number] [address] [place] [phone] SP 18 Dec, 2011 SP [facility] [address] [id number] [address] [place] [address], [place] [address] SP 18 Dec, 2011 SP [facility] [address] [id number] [address] [place] [phone] SP 15 Dec, 2011 SP [facility] [address] [id number] [address] [place] [address], [place] [address] SP 10 Dec, 2011 SP [facility] [address] [id number] [address] [place] [address], [place] [address] SP 10 Dec, 2011 SP [facility] [address] [id number] [address] [place] [phone] SP 08 Dec, 2011 SP [facility] [address] [id number] [address] [place] [address], [place] [address] SP 05 Dec, 2011 SP [facility] [address] [id number] [address] [place] [phone] SP 03 Dec, 2011 SP [facility] [address] [id number] [address] [place] [phone] SP 02 Dec, 2011 SP [facility] [address] [id number] [address] [place] [phone] SP 18 Nov, 2011 SP [facility] [address] [id number] [address] [place] [phone] SP 17 Nov, 2011 SP [facility] [address] [id number] [address] [place] [phone] SP 13 Nov, 2011 SP [facility] [address] [id number] [address] [place] [address], [place] [address] SP 13 Sep, 2011 SP [facility] [address] [id number] [address] [place] [phone] SP 12 Nov, 2011 SP [facility] [address] [id number] [address] [place] [address], [place] [address] SP 05 Nov, 2011 SP [facility] [address] [id number] [address] [place] [phone] SP Sep, SP [facility] [address] [facility] [id number] [address] [place] [phone] SP Aug, SP [facility] [address] [facility] [id number] [address] [place] [phone] SP Aug, SP [facility] [address] [facility] [id number] [address] [place] [phone] SP July, SP [facility] [address] [facility] [id number] [address] [place] [phone] SP July, SP [facility] [address] [facility] [id number] [address] [place] [phone] SP July, SP IMMUNIZATIONS No Known Immunizations SOCIAL HISTORY Never Assessed REASON FOR VISIT EMR-[facility] PLAN OF CARE VITAL SIGNS MEDICATIONS Unknown [...]
--- OUTSIDE RECORDS SUMMARY | 2019-02-07 09:56 | XMS REPORT | Continuity of Care Document ---
Demographics POS Preferred Language Unknown SP Marital Status Unknown SP Spiritism Affiliation Unknown SP Race Unknown SP Ethnic Group Unknown SP Author Organization Unknown POS Address Unknown SP Phone Unavailable SP Allergies Active Description Code Type Severity POS Reaction Onset Reported/Identified POS to Patient Clinical Status POS Yes latex [id number] Drug Allergy SP HIVES 04/11/2018 SP Yes PAPER TAPE PAPER TAPE Unknown SP N/A 04/11/2018 SP Medications Medication Packaging Start Date St op Date POS Route Dosage Sig POS gabapentin (NEURONTIN) 300 m g capsule -- Take 300 mg by mouth at SP capsule 07/08/2017 Or al SP EVERY BEDTIME EVERY BEDTIME SP metFORMIN (GLUCOPHAGE) 500 m g tablet -- Take 500 mg by mouth once a SP with dinner tablet 07/08/2017 SP Oral DAILY WITH AN EVENING MEAL DAILY WITH SPAN EVENING MEAL Problems Date Dx Coded Attending Type Code POS Diagnosed By POS 10/17/2009 680.9 Carb uncle And SP Unspecified Site SP 10/17/2009 GREEN DDS, BENSON L 680.9 SP And Furuncle, Unspecified Site SP 08/21/2011 300.00 ANX IETY STATE SP SP 08/21/2011 496 CHRONI C AIRWAY SP NOT ELSEWHERE CLASSIFIED SP 08/21/2011 GREEN DDS, BENSON L 300.0 0 SP STATE UNSPECIFIED SP 08/21/2011 GREEN DDS, BENSON L 496 SP AIRWAY OBSTRUCTION NOT ELSEWHERE CLASSIFIED SP 09/27/2011 530.81 GERD SP 09/27/2011 553.3 DIAP HRAGMATIC SP WITHOUT OBSTRUCTION OR GANGRENE SP 09/27/2011 V58.69 IJEOMA G-TERM SP USE OF OTHER MEDICATIONS SP 09/27/2011 V65.42 COU NSELING - SP CESSATION SP 09/27/2011 GREEN DDS, BENSON L 530.8 1 SP SP 09/27/2011 GREEN DDS, BENSON L 553.3 SP HERNIA WITHOUT OBSTRUCTION OR GANGRENE SP 09/27/2011 GREEN DDS, BENSON L V58.6 9 SPTERM (CURRENT) USE OF OTHER MEDICATIONS SP 09/27/2011 GREEN DDS, BENSON L V65.4 2 SP - SMOKING CESSATION SP 12/03/2011 Ot 614.9 FEM PELV INFLAM SP NOS SP 12/03/2011 Ot 620.2 OVAR ZAIN CYST SP SP 12/03/2011 Ot 789.00 ABD OMINAL PAIN, SP SITE SP 12/31/2011 112.1 CAND IDIASIS OF SP AND VAGINA SP 12/31/2011 620.2 OVAR ZAIN CYST SP SP 12/31/2011 V25.42 CON TRACEPTION SP (IUD) SP 12/31/2011 V74.5 STD SCREEN SP SP 12/31/2011 V76.2 CERV ICAL CANCER SP (PAP SMEAR) SP 12/31/2011 GREEN DDS, BENSON L 112.1 SP OF VULVA AND VAGINA SP 12/31/2011 GREEN DDS, BENSON L 620.2 SP CYST SP 12/31/2011 GREEN DDS, BENSON L V25.4 2 SP SURVEILLANCE (IUD) SP 12/31/2011 GREEN DDS, BENSON L V74.5 STD SPSCREEN SP 12/31/2011 GREEN DDS, BENSON L V76.2 SP CANCER SCREENING (PAP SMEAR) SP 01/02/2012 V04.81 FLU DX (3 YRS AND SP IM) SP 01/02/2012 GREEN DDS, BENSON L V04.8 1 SP DX (3 YRS AND ABOVE, IM) SP 01/07/2012 305.1 [employer] ABUSE SP SP 01/07/2012 477.9 RHINITIS SP 01/07/2012 GREEN DDS, BENSON L 305.1 SP ABUSE SP 01/07/2012 GREEN DDS, BENSON L 477.9 SP SP 01/28/2012 626.2 COCO RRHAGIA SP SP 01/28/2012 V25.09 CON TRACEPTIVE SP - GENERAL SP 01/28/2012 V25.12 IUD REMOVAL SP SP 01/28/2012 GREEN DDS, BENSON L 626.2 SP SP 01/28/2012 GREEN DDS, BENSON L V25.0 9 SP COUNSELING - GENERAL SP 01/28/2012 GREEN DDS, BENSON L V25.1 2 SP REMOVAL SP 02/03/2012 327.23 OBS TRUCTIVE SLEEP SP (ADULT) (PEDIATRIC) SP 02/03/2012 GREEN DDS, BENSON L 327.2 3 SP SLEEP APNEA (ADULT) (PEDIATRIC) SP 07/02/2017 MILLIE SHEIKH WORKING G89.29 SP Other chronic pain SP 07/02/2017 MILLIE SHEIKH WORKING M54.31 SP Sciatica, right side SP 07/02/2017 MILLIE SHEIKH WORKING M54.5 SP Low back pain SP 07/07/2017 MILLIE SHEIKH WORKING R53.83 SP Other fatigue SP 07/08/2017 WORKING M54.41 Lumbago with SPsciatica, right side SP 07/08/2017 WORKING R87.619 Unspecified SPabnormal cytological findings in specimens from cervix uteri SP 07/08/2017 WORKING Z86.32 Personal SP of gestational diabetes SP 07/13/2017 WORKING G89.29 Other SP pain SP 07/13/2017 WORKING R10.2 Pelvic and SP pain SP 07/13/2017 WORKING Z87.898 Personal SP of other specified conditions SP 10/06/2017 KESHA GONZALES MD Ot F20. 9 SP UNSPECIFIED SP 10/06/2017 KESHA GONZALES MD Ot G56. 03 SP TUNNEL SYNDROME, BILATERAL UPPER SP 10/06/2017 KESHA GONZALES MD Ot O99.341 SP OTH MENTAL DISORDERS COMPLICATING PREGNA SP 10/06/2017 KESHA GONZALES MD Ot O99.351 SP DISEASES OF THE NERVOUS SYS COMP PREGNAN SP 10/06/2017 KESHA GONZALES MD Ot O99. 89 SP DISEASES AND CONDITIONS COMPL PREG/C SP 10/06/2017 KESHA GONZALES MD Ot Z3A. 12 SP WEEKS GESTATION OF SP 10/06/2017 KESHA GONZALES MD Ot Z88. 8 SP STATUS TO OTH DRUG/MEDS/BIOL SUB SP 10/08/2017 KESHA GONZALES MD Ot F20. 9 SP UNSPECIFIED SP 10/08/2017 KESHA GONZALES MD Ot G56. 03 SP TUNNEL SYNDROME, BILATERAL UPPER SP 10/08/2017 KESHA GONZALES MD Ot O99.341 SP OTH MENTAL DISORDERS COMPLICATING PREGNA SP 10/08/2017 KESHA GONZALES MD Ot O99.351 SP DISEASES OF THE NERVOUS SYS COMP PREGNAN SP 10/08/2017 KESHA GONZALES MD Ot O99. 89 SP DISEASES AND CONDITIONS COMPL PREG/C SP 10/08/2017 KESHA GONZALES MD Ot Z3A. 12 SP WEEKS GESTATION OF SP 10/08/2017 KESHA GONZALES MD Ot Z88. 8 SP STATUS TO OTH DRUG/MEDS/BIOL SUB SP 10/12/2017 KESHA GONZALES MD Ot F20. 9 SP UNSPECIFIED SP 10/12/2017 KESHA GONZALES MD Ot G56. 03 SP TUNNEL SYNDROME, BILATERAL UPPER SP 10/12/2017 KESHA GONZALES MD Ot O99.341 SP OTH MENTAL DISORDERS COMPLICATING PREGNA SP 10/12/2017 KESHA GONZALES MD Ot O99.351 SP DISEASES OF THE NERVOUS SYS COMP PREGNAN SP 10/12/2017 KESHA GONZALES MD Ot O99. 89 SP DISEASES AND CONDITIONS COMPL PREG/C SP 10/12/2017 KESHA GONZALES MD Ot Z3A. 12 SP WEEKS GESTATION OF SP 10/12/2017 KESHA GONZALES MD Ot Z88. 8 SP STATUS TO OTH DRUG/MEDS/BIOL SUB SP 10/14/2017 Ot 623.8 TANO NFLAM DIS SP NEC SP 10/14/2017 Ot 625.9 FEM GENITAL SP NOS SP 02/18/2018 KESHA GONZALES MD Ot F20. 9 SP UNSPECIFIED SP 02/18/2018 KESHA GONZALES MD Ot G56. 03 SP TUNNEL SYNDROME, BILATERAL UPPER SP 02/18/2018 KESHA GONZALES MD Ot O99.341 SP OTH MENTAL DISORDERS COMPLICATING PREGNA SP 02/18/2018 KESHA GONZALES MD Ot O99.351 SP DISEASES OF THE NERVOUS SYS COMP PREGNAN SP 02/18/2018 KESHA GONZALES MD Ot O99. 89 SP DISEASES AND CONDITIONS COMPL PREG/C SP 02/18/2018 KESHA GONZALES MD Ot Z3A. 12 SP WEEKS GESTATION OF SP 02/18/2018 KESHA GONZALES MD Ot Z88. 8 SP STATUS TO OTH DRUG/MEDS/BIOL SUB SP 04/13/2018 SEALS DO, AMY E Ot E11.6 5 SP 2 DIABETES MELLITUS WITH HYPERGLYCE SP 04/13/2018 SEALS DO, AMY E Ot F17.2 10 SP DEPENDENCE, CIGARETTES, UNCOMPL SP 04/13/2018 SEALS DO, AMY E Ot F20.9 SP UNSPECIFIED SP 04/13/2018 SEALS DO, AMY E Ot F31.9 SP DISORDER, UNSPECIFIED SP 04/13/2018 SEALS DO, AMY E Ot O24.1 2 SPEXISTING TYPE 2 DIABETES MELLITUS, I SP 04/13/2018 SEALS DO, AMY E Ot O34.2 11 SP CARE FOR LOW TRANSVERSE SCAR FROM SP 04/13/2018 SEALS DO, AMY E Ot O99.3 34 SP (TOBACCO) COMPLICATING CHILDBIRT SP 04/13/2018 SEALS DO, AMY E Ot O99.3 44 SP MENTAL DISORDERS COMPLICATING CHIL SP 04/13/2018 SEALS DO, AMY E Ot Z37.0 SP LIVE SP 04/13/2018 SEALS DO, AMY E Ot Z3A.3 8 SP WEEKS GESTATION OF SP 04/13/2018 SEALS DOAMY E Ot Z79.8 4 SP TERM (CURRENT) USE OF ORAL HYPOGLYC SP 01/14/2019 BALAJI OBRIEN MD Ot F15.1 0 SP STIMULANT ABUSE, UNCOMPLICATED SP 01/14/2019 BALAJI OBRIEN MD Ot F20.9 SP UNSPECIFIED SP 01/14/2019 BALAJI OBRIEN MD, Ot F32.9 SP DEPRESSIVE DISORDER, SINGLE EPISOD SP 01/14/2019 BALAJI OBRIEN MD Ot J44.9 SP OBSTRUCTIVE PULMONARY DISEASE, U SP 01/14/2019 BALAJI OBRIEN MD Ot K21.9 SPESOPHAGEAL REFLUX DISEASE WITHOUT SP 01/14/2019 BALAJI OBRIEN MD Ot R41.8 2 SP MENTAL STATUS, UNSPECIFIED SP 01/14/2019 BALAJI OBRIEN MD Ot T43.592A SP POISONING BY OTH ANTIPSYCHOT/NEUROLEPT, SP 01/14/2019 BALAJI OBRIEN MD Ot T48.6X2A SP POISONING BY ANTIASTHMATICS, INTENTIONAL SP 01/14/2019 BALAJI OBRIEN MD Ot Z77.2 2 SP W AND EXPSR TO ENVIRON TOBACCO SMO SP 01/14/2019 BLAAJI OBRIEN MD Ot Z79.8 4 SP TERM (CURRENT) USE OF ORAL HYPOGLYC SP 01/14/2019 BALAJI OBRIEN MD, Ot Z88.8 SP STATUS TO OT DRUG/MEDS/BIOL SUB SP 01/14/2019 BALAJI OBRIEN MD, Ot Z91.0 40 SP ALLERGY STATUS SP Procedures Code Description Performed By Per formed On POS NICOLE JOAQUIN SP 01/28/2012 [place] [address] SLEE P STUDY SP 02/03/2012 [place] [address] US P ELVIC (TRANSVAGINAL ONLY) SP 02/05/2012 SP [id number] EX TRACTION OF PRODUCTS OF SP LO 04/11/2018 SP Results Test Result Range POS CBC With Differential/Platelet - 6 10:04 POS WBC 10.1 x10E3/uL 3.4-10.8 SP RBC 5.14 x10E6/uL 3.77-5.28 SP Hemoglobin 14.5 g/dL 11.1-15.9 SP Hematocrit 44.8 % 34.0-46.6 SP MCV 87 fL 79-97 SP MCH 28.2 pg 26.6-33.0 SP MCHC 32.4 g/dL 31.5-35.7 SP RDW 14.0 % 12.3-15.4 SP Platelets 308 x10E3/uL 150-379 SP Neutrophils 70 % SP Lymphs 20 % SP Monocytes 6 % SP Eos 3 % SP Basos 0 % SP Neutrophils (Absolute) 7.2 x10E3/uL 1.4- 7.0 SP Lymphs (Absolute) 2.0 x10E3/uL 0.7-3.1 SP Monocytes(Absolute) 0.6 x10E3/uL 0.1-0.9 SP Eos (Absolute) 0.3 x10E3/uL 0.0-0.4 SP Baso (Absolute) 0.0 x10E3/uL 0.0-0.2 SP Immature Granulocytes 1 % SP Immature Grans (Abs) 0.1 x10E3/uL 0.0-0. 1 SP Comp. Metabolic Panel (14) - 02/13/16 10 :04 POS Glucose, Serum 87 mg/dL 65-99 SP BUN 10 mg/dL 6-20 SP Creatinine, Serum 0.74 mg/dL 0.57-1.00 SP eGFR If NonAfricn Am 107 mL/min/1.73 >59 SP eGFR If Africn Am 123 mL/min/1.73 >5 9 SP BUN/Creatinine Ratio 14 8-20 SP Sodium, Serum 140 mmol/L 136-144 SP Potassium, Serum 4.5 mmol/L 3.5-5.2 SP Chloride, Serum 98 mmol/L 97-106 SP Carbon Dioxide, Total 23 mmol/L 18-29 SP Calcium, Serum 10.3 mg/dL 8.7-10.2 SP Protein, Total, Serum 8.5 g/dL 6.0-8.5 SP Albumin, Serum 4.7 g/dL 3.5-5.5 SP Globulin, Total 3.8 g/dL 1.5-4.5 SP A/G Ratio 1.2 1.1-2.5 SP Bilirubin, Total 0.2 mg/dL 0.0-1.2 SP Alkaline Phosphatase, S 181 IU/L 39-117 SP AST (SGOT) 14 IU/L 0-40 SP ALT (SGPT) 7 IU/L 0-32 SP Lipid Panel - 02/13/16 10:04 POS Cholesterol, Total 210 mg/dL 100-199 SP Triglycerides 209 mg/dL 0-149 SP HDL Cholesterol 49 mg/dL >39 SP VLDL Cholesterol Michele 42 mg/dL 5-40 SP LDL Cholesterol Calc 119 mg/dL 0-99 SP Hepatitis Panel (4) - 02/13/16 10:04 POS HBsAg Screen Negative Negative SP Hep A Ab, IgM Negative Negative SP Hep B Core Ab, IgM Negative Negative SP Hep C Virus Ab <0.1 s/co ratio 0.0-0.9 SP TSH - 02/13/16 10:04 POS TSH 0.701 uIU/mL 0.450-4.500 SP HSV 1 and 2-Specific Ab, IgG - 07/08/16 14:11 POS HSV 1 IgG, Type Spec 19.10 index 0.00-0. 90 SP HSV 2 IgG, Type Spec 5.49 index 0.00-0.9 0 SP HSV 1 and 2 IgM Abs, Indirect - 07/08/16 14:11 POS HSV 1 IgM Antibodies <1:10 titer <1:10 SP HSV 2 IgM Antibodies <1:10 titer <1:10 SP Genital Culture, Routine - 07/08/16 14:1 1 POS Genital Culture, Routine Note SP Pap Lb, HPV-hr - 07/08/16 14:11 POS HPV, high-risk Positive Negative SP DIAGNOSIS: Comment SP Specimen adequacy: Comment SP Clinician provided ICD10: Comment SP Performed by: Comment SP . . SP Note: Comment SP LIPID PANEL - 11/19/16 10:39 POS Cholesterol, Total 172 mg/dL 100-199 SP Triglycerides 282 mg/dL 0-149 SP HDL Cholesterol 39 mg/dL >39 SP VLDL Cholesterol Michele 56 mg/dL 5-40 SP LDL Cholesterol Calc 77 mg/dL 0-99 SP TSH+Free T4 - 11/19/16 10:39 POS TSH 0.741 uIU/mL 0.450-4.500 SP T4,Free(Direct) 1.00 ng/dL 0.82-1.77 SP Lipid Panel - 11/19/16 10:39 POS Cholesterol, Total 172 mg/dL 100-199 SP Triglycerides 282 mg/dL 0-149 SP HDL Cholesterol 39 mg/dL >39 SP VLDL Cholesterol Michele 56 mg/dL 5-40 SP LDL Cholesterol Calc 77 mg/dL 0-99 SP Hemoglobin A1c - 11/19/16 10:39 POS Hemoglobin A1c 6.0 % 4.8-5.6 SP POC URINE TEST, QUAL - 8 12:25 POS POC URINE TEST NEGATIVE SP POC COMMENT SEE NOTES SP URINALYSIS POC - 07/02/17 12:39 POS POC COMMENT SEE NOTES SP COLOR, URINE POCT YELLOW SP APPEARANCE, URINE POCT CLEAR SP GLUCOSE, URINE POCT NEGATIVE mg/dL NEGAT BERTIN SP BILIRUBIN, URINE POCT NEGATIVE NEGATIVE SP KETONES, URINE POCT NEGATIVE mg/dL NEGAT BERTIN SP SPECIFIC GRAVITY, URINE POCT 1.015 1 .005-1.030 SP BLOOD, URINE POCT NEGATIVE NEGATIVE SP PH, URINE POCT 7.5 5.0-9.0 SP PROTEIN, URINE POCT NEGATIVE mg/dL NEGAT BERTIN SP UROBILINOGEN, URINE POCT 0.2 EhrlichU/dL 0.2-1.0 SP NITRITES, URINE POCT NEGATIVE NEGATIVE SP LEUKOCYTES, URINE POCT NEGATIVE NEGATIV E SP URINALYSIS AUTOMATED W MICROSCOPY - 06/28 15:45 POS SPECIMEN VOIDED URINE SP COLOR LIGHT YELLOW SP APPEARANCE CLEAR CLEAR SP SPECIFIC GRAVITY 1.017 1.005-1.030 SP PH, URINE 6.5 5.0-9.0 SP PROTEIN NEGATIVE mg/dL NEGATIVE SP GLUC LARGE mg/dL NEGATIVE SP KETONES TRACE mg/dL NEGATIVE SP BILIRUBIN NEGATIVE NEGATIVE SP BLOOD NEGATIVE NEGATIVE SP NITRITE NEGATIVE NEGATIVE SP UROBILINOGEN NORMAL mg/dL NORMAL SP LEUKOCYTE ESTERASE NEGATIVE NEGATIVE SP WBC'S <1 [HPF] 0-4 SP SQUAMOUS EPITHELIAL CELLS 1 [HPF] 0-1 SP DRUG SCREEN URINE - 07/07/17 15:45 POS BARBITURATE, URINE NEGATIVE NEGATIVE SP BENZODIAZEPINE, URINE NEGATIVE NEGATIVE SP AMPHETAMINE, URINE NEGATIVE NEGATIVE SP THC, URINE NEGATIVE NEGATIVE SP COCAINE, URINE NEGATIVE NEGATIVE SP OPIATES, URINE NEGATIVE NEGATIVE SP PHENCYCLIDINE, URINE SCREEN NEGATIVE NE GATIVE SP ALCOHOL, URINE NEGATIVE NEGATIVE SP CBC WITH DIFF - 07/07/17 15:50 POS WBC 19.76 10*3/uL 4.00-10.80 SP RBC 4.49 10*6/uL 4.20-5.40 SP HGB 12.9 g/dL 12.0-16.0 SP HCT 40.1 % 37.0-47.0 SP MCV 89 fL 81-99 SP MCH 29 pg 26.0-34.0 SP MCHC 32.2 g/dL 31.0-37.0 SP PLATELET COUNT 298 10*3/uL 150-400 SP RDWCV 14.2 % 11.5-14.5 SP DIFF TYPE AUTOMATED DIFF SP NEUTROPHIL % 79.0 % 36.0-66.0 SP LYMPHOCYTE % 11.8 % 24.0-44.0 SP MONOCYTE % 3.7 % 1.0-10.0 SP EOSINOPHIL % 0.1 % 0.0-6.0 SP BASOPHIL % 0.6 % 0.0-2.0 SP ABS. NEUTROPHILS 15.63 10*3/uL 1.55-7.13 SP ABS. LYMPHOCYTES 2.33 10*3/uL 1.00-4.80 SP ABS. MONOCYTES 0.73 10*3/uL 0.40-1.08 SP ABS. EOSINOPHILS 0.01 10*3/uL 0.00-0.65 SP ABS. BASOPHILS 0.11 10*3/uL 0.00-0.11 SP ABSOLUTE NUCLEATED RBC 0.00 10*3/uL 0.00 SP PERCENT NUCLEATED RBC 0.0 % 0.0 SP MPV 9.3 fL 9.4-12.3 SP RDW STANDARD DEVIATION 46.5 fL 36.4-46 .3 SP GRANULOCYTE, IMMATURE, ABSOLUTE 0.95 10*3/uL 0.00-0.10 SP GRANULOCYTES, IMMATURE, PERCENT 4.8 % 0.0-0.5 SP ACETAMINOPHEN LEVEL - 07/07/17 15:50 POS ACETAMINOPHEN <2.0 ug/mL SP COMPREHENSIVE METABOLIC PANEL - 07/07/17 15:50 POS POTASSIUM 4.2 mmol/L 3.5-5.1 SP CALCIUM 9.0 mg/dL 8.5-10.0 SP GLUCOSE 233 mg/dL 70-115 SP BUN 15 mg/dL 7-18 SP CREATININE 1.02 mg/dL 0.55-1.30 SP SODIUM 138 mmol/L 136-145 SP CHLORIDE 104 mmol/L 98-107 SP CO2 23 mmol/L 21-32 SP GFR ESTIMATED NOT AFR/AM >60 SP GFR ESTIMATED IF AFR/AM >60 SP ALT-SGPT 11 U/L 13-56 SP AST-SGOT 7 U/L 15-37 SP TOTAL PROTEIN,SERUM 7.6 g/dL 6.0-8.3 SP ALBUMIN 3.5 g/dL 3.4-5.0 SP ALKALINE PHOSPHATASE 146 U/L 45-117 SP TOTAL BILIRUBIN 0.2 mg/dL 0.2-1.0 SP ANION GAP 11 5-15 SP GLOBULIN, CALCULATED 4.1 g/dL SP A/G RATIO 0.9 ratio 1-1.8 SP PROCALCITONIN - 07/07/17 15:50 POS PROCALCITONIN <0.05 ng/mL SP POC URINE TEST, QUAL - 8 15:58 POS POC URINE TEST NEGATIVE SP POC COMMENT SEE NOTES SP LACTIC ACID - 07/07/17 16:22 POS LACTATE 3.1 mmol/L 0.4-2.0 SP SALICYLATE LEVEL - 07/07/17 16:22 POS SALICYLATE 2.5 mg/dL SP MONO TEST - 07/07/17 16:22 POS MONONUCLEOSIS TEST NEGATIVE NEGATIVE SP LACTIC ACID - 07/07/17 18:18 POS LACTATE 1.8 mmol/L 0.4-2.0 SP LACTIC ACID - 07/07/17 20:18 POS LACTATE 1.5 mmol/L 0.4-2.0 SP Urine beta human chorionic gonadotropin (hCG) measurement - 10/06/17 16:10 POS Urine beta human chorionic gonadotropin (hCG) measurem ent POSITIVE POS NEGATIVE SP Complete urinalysis with reflex to cultu re - 10/06/17 16:10 POS Urine color determination YELLOW NRG SP Urine clarity determination CLEAR NR G SP Urine pH measurement by test strip 8 5-9 SP Specific gravity of urine by test strip 1.015 1.016-1.022 SP Urine protein assay by test strip, semi-quantitative NEGATIVE SP NEGATIVE SP Urine glucose detection by automated test strip NE GATIVE SP Erythrocytes detection in urine sediment by light micr oscopy NEGATIVE SP NEGATIVE SP Urine ketones detection by automated test strip NE GATIVE SP Urine nitrite detection by test strip NEGATIVE NEGATIVE SP Urine total bilirubin detection by test strip NEGA TIVE SP Urine urobilinogen measurement by automated test strip (mass/volume) SP NORMAL SP Urine leukocyte esterase detection by dipstick 1+ NEGATIVE SP Automated urine sediment erythrocyte cou nt by microscopy (number/high power SP [HPF] NRG SP Automated urine sediment leukocyte count by microscopy (number/high power field) SP NONE NRG SP Bacteria detection in urine sediment by light microsco py FEW SP NRG SP Squamous epithelial cells detection in u rine sediment by light microscopy SP 5-10 NRG SP Crystals detection in urine sediment by light microsco py NONE SP NRG SP Casts detection in urine sediment by light microscopy NONE SP Mucus detection in urine sediment by light microscopy NEGATIVE SP NRG SP Complete urinalysis with reflex to culture NO NRG SP SUREPATH PAP AND HPV mRNA E6/E7 - 14:40 POS CLINICAL INFORMATION: NRG SP LMP: NRG SP PREV. PAP: NRG SP PREV. BX: NRG SP SOURCE: NRG SP STATEMENT OF ADEQUACY: NR SP INTERPRETATION/RESULT: NR SP CARD ROOM MANAGER: NR SP HPV mRNA E6/E7, SUREPATH VIAL Detected NOT DETECTED SP REVIEW CARD ROOM MANAGER: NR SP INFECTION: NRG SP COMMENT NR SP CULTURE, GENITAL - 10/21/17 14:40 POS CULTURE, GENITAL SEE NOTE NRG SP Complete urinalysis with reflex to cultu re - 04/11/18 11:30 POS Urine color determination YELLOW NRG SP Urine clarity determination SLIGHTLY CLOUDY NRG SP Urine pH measurement by test strip 5 5-9 SP Specific gravity of urine by test strip 1.015 1.016-1.022 SP Urine protein assay by test strip, semi-quantitative 1+ SP Urine glucose detection by automated test strip 3+ NEGATIVE SP Erythrocytes detection in urine sediment by light micr oscopy NEGATIVE SP NEGATIVE SP Urine ketones detection by automated test strip 2+ NEGATIVE SP Urine nitrite detection by test strip NEGATIVE NEGATIVE SP Urine total bilirubin detection by test strip NEGA TIVE SP Urine urobilinogen measurement by automated test strip (mass/volume) SP NORMAL SP Urine leukocyte esterase detection by dipstick NEG ATIVE SP Automated urine sediment erythrocyte cou nt by microscopy (number/high power SP NONE NRG SP Automated urine sediment leukocyte count by microscopy (number/high power field) SP NONE NRG SP Bacteria detection in urine sediment by light microsco py FEW SP NRG SP Squamous epithelial cells detection in u rine sediment by light microscopy SP 2-5 NRG SP Crystals detection in urine sediment by light microsco py NONE SP NRG SP Casts detection in urine sediment by light microscopy NONE SP Mucus detection in urine sediment by light microscopy NEGATIVE SP NRG SP Complete urinalysis with reflex to culture NO NRG SP Urine drug screening test - 04/11/18 11: 30 POS Urine phencyclidine detection by screening method NEGATIVE SP Urine benzodiazepines detection by screening method NEGATIVE SP NEGATIVE SP Urine cocaine detection NEGATIVE NEGATI VE SP Urine amphetamines detection by screening method N EGATIVE SP Urine methamphetamine detection by screening method NEGATIVE SP NEGATIVE SP Urine cannabinoids detection by screening method N EGATIVE SP Urine opiates detection by screening method NEGATI VE SP Urine barbiturates detection NEGATIVE N EGATIVE SP Screening urine tricyclic antidepressants detection POSITIVE SP NEGATIVE SP Urine methadone detection by screening method NEGA TIVE SP Urine oxycodone detection NEGATIVE NEGA TIVE SP Urine propoxyphene detection NEGATIVE N EGATIVE SP Complete blood count (CBC) with automate d white blood cell (WBC) differential - POS 14:45 Blood leukocytes automated count (number/volume) 13.1 10*3/uL POS 4.3-11.0 SP Blood erythrocytes automated count (number/volume) 3.89 10*6/uL SP 4.35-5.85 SP Venous blood hemoglobin measurement (mass/volume) 12.3 g/dL SP16.0 Blood hematocrit (volume fraction) 37 % 35-52 SP Automated erythrocyte mean corpuscular volume 96 [ foz_us] SP99 Automated erythrocyte mean corpuscular h emoglobin (mass per erythrocyte) SP 32 pg 25-34 SP Automated erythrocyte mean corpuscular h emoglobin concentration measurement SP 33 g/dL 32-36 SP Automated erythrocyte distribution width ratio 14. 2 % 10.0- SP Automated blood platelet count (count/volume) 227 10*3/uL SP400 Automated blood platelet mean volume measurement 10.0 [foz_us] SP 7.4-10.4 SP Automated blood neutrophils/100 leukocytes 67 % 42-75 SP Automated blood lymphocytes/100 leukocytes 21 % 12-44 SP Blood monocytes/100 leukocytes 10 % 0-12 SP Automated blood eosinophils/100 leukocytes 2 % 0-10 SP Automated blood basophils/100 leukocytes 1 % 0-10 SP Blood neutrophils automated count (number/volume) 8.8 10*3 SP7.8 Blood lymphocytes automated count (number/volume) 2.7 10*3 SP4.0 Blood monocytes automated count (number/volume) 1. 4 10*3 SP1.0 Automated eosinophil count 0.2 10*3/uL 0 .0-0.3 SP Automated blood basophil count (count/volume) 0.1 10*3/uL SP0.1 Blood type T Indirect antibody screen pa rogelio - 04/11/18 14:45 POS ABO+Rh group ON NRG SP Transfusion band number [id number] [facility] SP Blood group antibody screen NEGATIVE NR G SP Capillary blood glucose measurement by g lucometer (mass/volume) - 04/11/18 21:02 POS Capillary blood glucose measurement by glucometer (mas s/volume) 237 POS 70-110 SP Capillary blood glucose measurement by g lucometer (mass/volume) - 04/12/18 05:30 POS Capillary blood glucose measurement by glucometer (mas s/volume) 154 POS 70-110 SP Complete blood count (CBC) with automate d white blood cell (WBC) differential - POS 06:59 Blood leukocytes automated count (number/volume) 15.1 10*3/uL POS 4.3-11.0 SP Blood erythrocytes automated count (number/volume) 3.55 10*6/uL SP 4.35-5.85 SP Venous blood hemoglobin measurement (mass/volume) 11.3 g/dL SP16.0 Blood hematocrit (volume fraction) 34 % 35-52 SP Automated erythrocyte mean corpuscular volume 94 [ foz_us] SP99 Automated erythrocyte mean corpuscular h emoglobin (mass per erythrocyte) SP 32 pg 25-34 SP Automated erythrocyte mean corpuscular h emoglobin concentration measurement SP 34 g/dL 32-36 SP Automated erythrocyte distribution width ratio 14. 6 % 10.0- SP Automated blood platelet count (count/volume) 215 10*3/uL SP400 Automated blood platelet mean volume measurement 10.0 [foz_us] SP 7.4-10.4 SP Automated blood neutrophils/100 leukocytes 71 % 42-75 SP Automated blood lymphocytes/100 leukocytes 19 % 12-44 SP Blood monocytes/100 leukocytes 8 % 0-12 SP Automated blood eosinophils/100 leukocytes 1 % 0-10 SP Automated blood basophils/100 leukocytes 0 % 0-10 SP Blood neutrophils automated count (number/volume) 10.8 10*3 SP7.8 Blood lymphocytes automated count (number/volume) 2.8 10*3 SP4.0 Blood monocytes automated count (number/volume) 1. 2 10*3 SP1.0 Automated eosinophil count 0.2 10*3/uL 0 .0-0.3 SP Automated blood basophil count (count/volume) 0.0 10*3/uL SP0.1 Comprehensive metabolic panel - 04/12/18 06:59 POS Serum or plasma sodium measurement (moles/volume) 137 mmol/L SP 135-145 SP Serum or plasma potassium measurement (moles/volume) 3.8 mmol/L SP 3.6-5.0 SP Serum or plasma chloride measurement (moles/volume) 110 mmol/L SP 98-107 SP Carbon dioxide 16 mmol/L 21-32 SP Serum or plasma anion gap determination (moles/volume) 11 mmol/L SP 5-14 SP Serum or plasma urea nitrogen measurement (mass/volume ) 8 mg/dL SP 7-18 SP Serum or plasma creatinine measurement (mass/volume) 0.62 mg/dL SP 0.60-1.30 SP Serum or plasma urea nitrogen/creatinine mass ratio 13 NRG SP Serum or plasma creatinine measurement w ith calculation of estimated glomerular SP rate > NRG SP Serum or plasma glucose measurement (mass/volume) 125 mg/dL SP105 Serum or plasma calcium measurement (mass/volume) 8.3 mg/dL SP10.1 Serum or plasma total bilirubin measurement (mass/volu me) 0.2 mg/dL SP 0.1-1.0 SP Serum or plasma alkaline phosphatase ld surement (enzymatic activity/volume) SP 131 U/L 40-136 SP Serum or plasma aspartate aminotransfera se measurement (enzymatic SP 19 U/L 5-34 SP Serum or plasma alanine aminotransferase measurement (enzymatic activity/volume) SP < U/L 0-55 SP Serum or plasma protein measurement (mass/volume) 4.9 g/dL SP8.2 Serum or plasma albumin measurement (mass/volume) 2.5 g/dL SP4.5 CALCIUM CORRECTED 9.5 mg/dL 8.5-10.1 SP Hemoglobin A1c - 04/12/18 06:59 POS Blood hemoglobin A1C measurement (mass/volume) 7.5 % 4.0-5.6 SP MEAN BLOOD GLUCOSE 169 % <=126 SP Capillary blood glucose measurement by g lucometer (mass/volume) - 04/12/18 13:26 POS Capillary blood glucose measurement by glucometer (mas s/volume) 223 POS 70-110 SP Capillary blood glucose measurement by g lucometer (mass/volume) - 04/12/18 20:13 POS Capillary blood glucose measurement by glucometer (mas s/volume) 157 POS 70-110 SP Capillary blood glucose measurement by g lucometer (mass/volume) - 04/13/18 06:19 POS Capillary blood glucose measurement by glucometer (mas s/volume) 162 POS 70-110 SP Capillary blood glucose measurement by g lucometer (mass/volume) - 04/13/18 09:04 POS Capillary blood glucose measurement by glucometer (mas s/volume) 181 POS 70-110 SP A1C - 07/26/18 11:30 POS HEMOGLOBIN A1c 5.5 % of total Hgb <5.7 SP SUREPATH PAP RFX HPV mRNA E6/E7 - 16:00 POS CLINICAL INFORMATION: NRG SP LMP: NRG SP PREV. PAP: NRG SP PREV. BX: NRG SP SOURCE: [employer] NRG SP STATEMENT OF ADEQUACY: NRG SP INTERPRETATION/RESULT: NRG SP CARD ROOM MANAGER: CARLOSG KAVIN GENERAL CATEGORIZATION: NRG SP COMMENT: CARLOSG SP PATHOLOGIST: CARLOSG KAVIN COMMENT NRG KAVIN CMP - 09/16/18 14:17 POS GLUCOSE 115 mg/dL 65-99 SP UREA NITROGEN (BUN) 10 mg/dL 7-25 SP CREATININE 0.72 mg/dL 0.50-1.10 SP eGFR NON-AFR. VINCENTIAN 108 mL/min/1.73m2 > OR=60 SP eGFR 125 mL/min/1.73m2 > OR=60 SP BUN/CREATININE RATIO NOT APPLICABLE (calc) 6-22 SP SODIUM 140 mmol/L 135-146 SP POTASSIUM 3.9 mmol/L 3.5-5.3 SP CHLORIDE 103 mmol/L 98-110 SP CARBON DIOXIDE 25 mmol/L 20-32 SP CALCIUM 10.0 mg/dL 8.6-10.2 SP PROTEIN, TOTAL 7.5 g/dL 6.1-8.1 SP ALBUMIN 4.7 g/dL 3.6-5.1 SP GLOBULIN 2.8 g/dL (calc) 1.9-3.7 SP ALBUMIN/GLOBULIN RATIO 1.7 (calc) 1.0-2. 5 SP BILIRUBIN, TOTAL 0.3 mg/dL 0.2-1.2 SP ALKALINE PHOSPHATASE 89 U/L 33-115 SP AST 12 U/L 10-30 SP ALT 8 U/L 6-29 SP CBC w/MANUAL DIFF - 09/16/18 14:17 POS WHITE BLOOD CELL COUNT 10.6 Thousand/uL 3.8-10.8 SP RED BLOOD CELL COUNT 4.52 Million/uL 3.8 0-5.10 SP HEMOGLOBIN 13.7 g/dL 11.7-15.5 SP HEMATOCRIT 42.1 % 35.0-45.0 SP MCV 93.1 fL 80.0-100.0 SP MCH 30.3 pg 27.0-33.0 SP MCHC 32.5 g/dL 32.0-36.0 SP RDW 12.6 % 11.0-15.0 SP PLATELET COUNT 319 Thousand/uL 140-400 SP MPV 9.2 fL 7.5-12.5 SP ABSOLUTE NEUTROPHILS 7420 cells/uL 1500- 7800 SP ABSOLUTE MONOCYTES 106 cells/uL 200-950 SP ABSOLUTE EOSINOPHILS 318 cells/uL 15-500 SP ABSOLUTE BASOPHILS 106 cells/uL 0-200 SP NEUTROPHILS 70.0 % NRG SP LYMPHOCYTES 24.0 % NRG SP MONOCYTES 1.0 % NRG SP EOSINOPHILS 3.0 % NRG SP BASOPHILS 1.0 % NRG SP ABSOLUTE BAND NEUTROPHILS 106 cells/uL 0 -750 SP ABSOLUTE LYMPHOCYTES 2544 cells/uL 850-3 900 SP BAND NEUTROPHILS 1.0 % NRG SP PLATELET ESTIMATION ADEQUATE ADEQUATE SP TEST, SERUM (QUAL) - 09/16/18 14:17 POS HCG, TOTAL, QL NEGATIVE See Note: SP VITAMIN B12 - 09/16/18 14:17 POS VITAMIN B12 428 pg/mL 200-1100 SP Complete urinalysis with reflex to cultu re - 01/14/19 18:00 POS Urine color determination YELLOW NRG SP Urine clarity determination CLEAR NR G SP Urine pH measurement by test strip 5.5 5-9 SP Specific gravity of urine by test strip 1.015 1.016-1.022 SP Urine protein assay by test strip, semi-quantitative NEGATIVE SP NEGATIVE SP Urine glucose detection by automated test strip NE GATIVE SP Erythrocytes detection in urine sediment by light micr oscopy NEGATIVE SP NEGATIVE SP Urine ketones detection by automated test strip 1+ NEGATIVE SP Urine nitrite detection by test strip NEGATIVE NEGATIVE SP Urine total bilirubin detection by test strip NEGA TIVE SP Urine urobilinogen measurement by automated test strip (mass/volume) SP mg/dL NORMAL SP Urine leukocyte esterase detection by dipstick NEG ATIVE SP Automated urine sediment erythrocyte cou nt by microscopy (number/high power SP NONE NRG SP Automated urine sediment leukocyte count by microscopy (number/high power field) SP [HPF] NRG SP Bacteria detection in urine sediment by light microsco py NEGATIVE SP NRG SP Squamous epithelial cells detection in u rine sediment by light microscopy SP NONE NRG SP Crystals detection in urine sediment by light microsco py NONE SP NRG SP Casts detection in urine sediment by light microscopy PRESENT SP NRG SP Mucus detection in urine sediment by light microscopy SMALL SP NRG SP Complete urinalysis with reflex to culture NO NRG SP WBC casts detection in urine sediment by light microsc opy 5-10 SP NRG SP Urine beta human chorionic gonadotropin (hCG) measurement - 01/14/19 18:00 POS Urine beta human chorionic gonadotropin (hCG) measurem ent NEGATIVE POS NEGATIVE SP Urine drug screening test - 01/14/19 18: 00 POS Urine phencyclidine detection by screening method NEGATIVE SP Urine benzodiazepines detection by screening method NEGATIVE SP NEGATIVE SP Urine cocaine detection NEGATIVE NEGATI VE SP Urine amphetamines detection by screening method P OSITIVE SP Urine methamphetamine detection by screening method POSITIVE SP NEGATIVE SP Urine cannabinoids detection by screening method N EGATIVE SP Urine opiates detection by screening method NEGATI VE SP Urine barbiturates detection NEGATIVE N EGATIVE SP Screening urine tricyclic antidepressants detection NEGATIVE SP NEGATIVE SP Urine methadone detection by screening method NEGA TIVE SP Urine oxycodone detection NEGATIVE NEGA TIVE SP Urine propoxyphene detection NEGATIVE N EGATIVE SP Arterial blood gas measurement - 9 18:05 POS Blood pCO2 34 mm[Hg] 35-45 SP Blood pO2 282 mm[Hg] 79-93 SP Arterial blood bicarbonate measurement (moles/volume) 21 mmol/L SP 23-27 SP Arterial blood base excess by calculation -3.1 mmo l/L SP Arterial blood oxygen saturation measurement 100 % 94-100 SP * Inhaled oxygen flow rate 100% NRB NRG SP Arterial blood pH measurement with patient temperature correction 7.40 SP 7.37-7.43 SP Arterial blood carbon dioxide, total measurement (mole s/volume) 22.0 SP 21.0-31.0 SP Body site LEFT RADIAL NRG SP Assessment of wrist artery patency prior to arterial p uncture PT NOT SP NRG SP Setting of ventilation mode NO NR G SP Measurement of body temperature 95.8 NRG SP Complete blood count (CBC) with automate d white blood cell (WBC) differential - POS 18:05 Blood leukocytes automated count (number/volume) 11.5 10*3/uL POS 4.3-11.0 SP Blood erythrocytes automated count (number/volume) 4.06 10*6/uL SP 4.35-5.85 SP Venous blood hemoglobin measurement (mass/volume) 10.9 g/dL SP16.0 Blood hematocrit (volume fraction) 35 % 35-52 SP Automated erythrocyte mean corpuscular volume 86 [ foz_us] SP99 Automated erythrocyte mean corpuscular h emoglobin (mass per erythrocyte) SP 27 pg 25-34 SP Automated erythrocyte mean corpuscular h emoglobin concentration measurement SP 31 g/dL 32-36 SP Automated erythrocyte distribution width ratio 15. 4 % 10.0- SP Automated blood platelet count (count/volume) 297 10*3/uL SP400 Automated blood platelet mean volume measurement 9.4 [foz_us] SP 7.4-10.4 SP Automated blood neutrophils/100 leukocytes 67 % 42-75 SP Automated blood lymphocytes/100 leukocytes 25 % 12-44 SP Blood monocytes/100 leukocytes 5 % 0-12 SP Automated blood eosinophils/100 leukocytes 3 % 0-10 SP Automated blood basophils/100 leukocytes 0 % 0-10 SP Blood neutrophils automated count (number/volume) 7.6 10*3 SP7.8 Blood lymphocytes automated count (number/volume) 2.9 10*3 SP4.0 Blood monocytes automated count (number/volume) 0. 6 10*3 SP1.0 Automated eosinophil count 0.3 10*3/uL 0 .0-0.3 SP Automated blood basophil count (count/volume) 0.1 10*3/uL SP0.1 PT panel in platelet poor plasma by coag ulation assay - 01/14/19 18:05 POS Prothrombin time (PT) in platelet poor plasma by coagu lation assay SP s 12.2-14.7 SP INR in platelet poor plasma or blood by coagulation as say 1.1 SP 0.8-1.4 SP Activated partial thromboplastin time (a PTT) in platelet poor plasma POS assay - 01/14/19 18:05 Activated partial thromboplastin time (a PTT) in platelet poor plasma POS assay 24 s 24-35 SP Blood lactic acid measurement (moles/vol ume) - 01/14/19 18:05 POS Blood lactic acid measurement (moles/volume) 1.87 mmol/L SP2.00 Comprehensive metabolic panel - 01/14/19 18:05 POS Serum or plasma sodium measurement (moles/volume) 138 mmol/L SP 135-145 SP Serum or plasma potassium measurement (moles/volume) 2.9 mmol/L SP 3.6-5.0 SP Serum or plasma chloride measurement (moles/volume) 103 mmol/L SP 98-107 SP Carbon dioxide 20 mmol/L 21-32 SP Serum or plasma anion gap determination (moles/volume) 15 mmol/L SP 5-14 SP Serum or plasma urea nitrogen measurement (mass/volume ) 11 mg/dL SP 7-18 SP Serum or plasma creatinine measurement (mass/volume) 0.66 mg/dL SP 0.60-1.30 SP Serum or plasma urea nitrogen/creatinine mass ratio 17 NRG SP Serum or plasma creatinine measurement w ith calculation of estimated glomerular SP rate > NRG SP Serum or plasma glucose measurement (mass/volume) 245 mg/dL SP105 Serum or plasma calcium measurement (mass/volume) 8.8 mg/dL SP10.1 Serum or plasma total bilirubin measurement (mass/volu me) 0.4 mg/dL SP 0.1-1.0 SP Serum or plasma alkaline phosphatase ld surement (enzymatic activity/volume) SP 105 U/L 40-136 SP Serum or plasma aspartate aminotransfera se measurement (enzymatic SP 13 U/L 5-34 SP Serum or plasma alanine aminotransferase measurement (enzymatic activity/volume) SP 6 U/L 0-55 SP Serum or plasma protein measurement (mass/volume) 6.7 g/dL SP8.2 Serum or plasma albumin measurement (mass/volume) 4.0 g/dL SP4.5 CALCIUM CORRECTED 8.8 mg/dL 8.5-10.1 SP Magnesium - 01/14/19 18:05 POS Magnesium 1.6 mg/dL 1.6-2.4 SP TROPONIN I FS - 01/14/19 18:05 POS TROPONIN I FS < 0.30 <0.30 SP PROBNP FS - 01/14/19 18:05 POS PROBNP FS 73.9 pg/mL <75.0 SP Lipase - 01/14/19 18:05 POS Lipase 20 U/L 8-78 SP Serum or plasma salicylates measurement (mass/volume) - 01/14/19 18:05 POS Serum or plasma salicylates measurement (mass/volume) < mg/dL SP 5.0-20.0 SP Serum or plasma acetaminophen measuremen t (mass/volume) - 01/14/19 18:05 POS Serum or plasma acetaminophen measurement (mass/volume ) < ug/mL SP 10-30 SP Serum or plasma ethanol measurement (mas s/volume) - 01/14/19 18:05 POS Serum or plasma ethanol measurement (mass/volume) < mg/dL SP GC/CHLAMYDIA (SWAB OR URINE)-RAPID - 09:52 POS CHLAMYDIA TRACHOMATIS RNA, TMA NOT DETECTED NOT DETECTED SP NEISSERIA GONORRHOEAE RNA, TMA NOT DETECTED NOT DETECTED SP COMMENT NRG SP Radiology Report from [id number] on 12/2017 15:49:04 POS EXAM: XR CHEST 2 VIEWSEXAM DATE: 018INDICATION: coughTECHNIQUE: PA and SP viewsCOMPARISON: NoneFINDINGS: The heart size is normal.The great vessels appear unremarkable.There is no hilar or mediastinal mass.Left basilar subsegmental atelectasis, otherwise the lungs are clear.There is no pleural effusion or pneumothorax.There are no significant osseous abnormalities.IMPRESSION: Left basilar subsegmental atelectasis, otherwise negative chest.Finalized by Patricio Brennan on 07/07/2017 16:46[facility] Radiology Report from [id number] on 12/2017 16:59:44 POS EXAM: CT Abdomen and Pelvis INDICATION: pain, abdominal pain and SP Multiple contiguous helical axial imaging was performed through the abdomen and pelvis during and after the administration of IV contrast. Sagittal and coronal images were acquired utilizing the axial image data set. Automated Exposure Control (AEC) was utilized for patient radiation dose reduction. All CT scans performed at this facility utilize dosage reduction techniques as appropriate to the exam, including the following Automatic Exposure Control, and adjustment of the mA and/or kV according to patient size.DLP: 994 mGycmCOMPARISON: NoneCT abdomen findings:the lung bases are clear. There is no pleural or pericardial effusion. Liver is borderline enlarged. Spleen is normal in size. The pancreas and adrenal glands are grossly unremarkable. Kidneys are normal in size. The abdominal aorta is normal in caliber. There is no retroperitoneal adenopathy. There is no upper abdominal ascites. The lumbar spine is intact.CT pelvis findings:The appendix is not discretely visualized, the cecum is floppy. There is no pelvic ascites. There is no bowel obstruction. Urinary bladder is unremarkable. The uterus is within normal limits. There is no iliac or inguinal adenopathy the pelvic osseous structures are intact.Impression:Nonvisualization of the appendix. No acute or inflammatory process identified in the abdomen or pelvis. Borderline hepatomegaly. Encounters ACCT No. Visit Date/Time Discharge Status POS Pt. Type Provider Facility Loc./Un it POS Complaint POS [id number] 07/10/2016 17:09:00 SP Registration SP [id number] 07/11/2016 10:08:[place] [id number] 10/27/2018 09:15:00 10/27/2018 23:59:5 9 [facility] SP Outpatient SELF, YULIYA VALE [id number] 01/27/2019 09:15:00 Document SPRegistration SP [id number] 09/16/2018 13:45:00 Document SPRegistration SP [id number] 07/28/2018 10:00:00 Document SPRegistration SP [id number] 07/26/2018 14:00:00 Document SPRegistration SP [id number] 10/21/2017 14:00:00 Document SPRegistration SP [id number] 11/19/2016 10:00:00 Document SPRegistration SP [id number] 02/14/2016 13:06:00 SP Registration SP [id number] 02/04/2012 11:19:00 02/04/2012 23:59: 59 [place] [id number] 01/28/2012 17:42:00 01/28/2012 23:59:5 9 CLS SP Outpatient GREEN DDS, BENSON L SP SP [id number] 07/13/2017 10:07:00 07/13/2017 11: 19:00 SP Emergency [facility] SP FED SP [id number] 07/07/2017 14:49:00 07/07/2017 21: 52:00 SP [facility] SP [id number] 07/02/2017 10:25:00 07/02/2017 13: 41:00 [facility] SP FED SP [id number] 07/11/2016 19:07:00 SP Registration SP [id number] 11/20/2016 09:09:00 SP Registration SP [id number] 01/14/2019 17:42:00 20:45:00 SP DIS Emergency BALAJI OBRIEN MD [facility] ER FS OVERDOSE SP [id number] 12/24/2018 09:20:00 23:59:59 SP CLS Preadmit SELIN MARQUEZ MD (DDU) [facility] RT COPD SP [id number] 04/16/2018 12:00:00 23:59:59 SP CLS Preadmit [facility] SP REPEAT SP [id number] 04/11/2018 14:10:00 09:40:00 SP DIS Inpatient [facility] LDRP NON REACTIVE TRACING SP [id number] 10/06/2017 15:54:00 17:12:00 SP DIS Emergency KESHA GONZALES MD [facility] ER , CARPEL TUNNEL, [place] DICATION KAVIN [id number] 02/17/2012 12:55:00 SP Registration KAVIN [id number] 12/03/2011 16:28:00 SP Registration KAVIN [id number] 07/13/2017 00:00:00 07/13/2017 23: 59:59 SP Outpatient [facility] KAVIN VALE [id number] 07/13/2017 00:00:00 07/13/2017 23: 59:59 SP Outpatient [facility] KAVIN VALE [id number] 07/08/2017 09:51:36 07/08/2017 23: 59:59 SP Outpatient [facility] KAVIN SFJEW KAVIN
== END 2019-01-14 20:45 | disposition short-term general hospital (02) ==
LOC: EDUNIT# 17:39 → ER FS 17:42
DX: T48.6X2A Poisoning by antiasthmatics, intentional self-harm, initial encounter (principal); T43.592A Poisoning by other antipsychotics and neuroleptics, intentional self-harm, initial encounter; F15.10 Other stimulant abuse, uncomplicated; R41.82 Altered mental status, unspecified; J44.9 Chronic obstructive pulmonary disease, unspecified; K21.9 Gastro-esophageal reflux disease without esophagitis; F20.9 Schizophrenia, unspecified; F32.9 Major depressive disorder, single episode, unspecified; Z91.040 Latex allergy status; Z88.8 Allergy status to other drugs, medicaments and biological substances; Z79.84 Long term (current) use of oral hypoglycemic drugs; Z77.22 Contact with and (suspected) exposure to environmental tobacco smoke (acute) (chronic)
CPT/HCPCS: 31500; 36415; 51702; 70450; 71045; 80053; 80306; 80320; 80329; 81000; 82805; 83605; 83690; 83735; 83880; 84484; 84703; 85025; 85610; 85730; 93005; 96361; 96365

== ENCOUNTER → 2019-04-14 | Outpatient (CLI) | payer OTHER ==
--- NOTE | 2019-04-15 14:53 | Diagnostic Imaging Report ---
INDICATION: Right hand swelling. TIME OF EXAM: 4:34 PM Three views of the right hand were obtained. FINDINGS: There appears to some swelling of the dorsum of the hand best seen on the lateral view. Metacarpals appear to be intact. Phalanges are intact. Carpus unremarkable. No fractures are seen. IMPRESSION: Soft tissue swelling. No acute bony abnormality is detected. Dictated by: Dictated on workstation # [id number]
== END ==
LOC: RAD FS 16:23
PROVIDERS: ATTEND Nurse Practitioner Family
DX: M25.441 Effusion, right hand (principal)
CPT/HCPCS: 73130

== ENCOUNTER → 2019-11-08 | Outpatient (CLI) | payer OTHER | LOC: LAB FS 12:57 | PROVIDERS: ATTEND Obstetrics & Gynecology | DX: N91.2 Amenorrhea, unspecified (principal) | CPT/HCPCS: 36415; 84702 ==

== ENCOUNTER 2020-05-07 14:30 | Outpatient (CLI) | payer MEDICAID, OTHER ==
[~2020-05-07] VITALS: Ht 160 cm; Wt 95.4 kg
--- NOTE | 2020-05-07 14:36 | NUR ---
Pt. presented to unit via from ED, accompanied by s/o, with c/o WHITE D/C, BACK PAIN, DFM. Pt.weighed, gowned, voided, and to bed. EFHM and TOCO applied, VS taken. Pt. oriented to bed controls, call light, TV, heat, and A/C controls.
[2020-05-07 14:59] LABS: BILIRUBIN,URINE NEGATIVE (NEGATIVE); CLARITY,URINE CLEAR; COLOR,URINE YELLOW; GLUCOSE, URINE (UA) TRACE (NEGATIVE); KETONES,URINE TRACE (NEGATIVE); LEUKOCYTE ESTERASE ,URINE NEGATIVE (NEGATIVE); NITRITE,URINE NEGATIVE (NEGATIVE); PROTEIN,URINE NEGATIVE (NEGATIVE)
--- NOTE | 2020-05-07 15:00 | NUR ---
pt reports white vaginal discharge x2 days. no itching or burning present- smells "strong". "discomfort in lower back" with decreased FM. also reports feeling "dropped kicked between legs". reports headache this a.m. with nausea. states hx of diabetes x3 years- Metaformin 1000mg p.o. BID. fasting blood sugar this a.m. was 220mg/dl. smokes .5 pack of cigarettes per day, reports hx of COPD. non productive cough present.
[2020-05-07 15:06] LABS: BACTERIA,URINE MODERATE /HPF
[2020-05-07 15:07] VITALS: BP 131/71
--- NOTE | 2020-05-07 15:34 | NUR ---
Dr. Pina was called. no answer on cell phone. message left
[2020-05-07 15:36] VITALS: BP 131/71
--- NOTE | 2020-05-07 15:48 | NUR ---
SVE closed, thick, anterior. small amount white discharge noted.
--- NOTE | 2020-05-07 15:54 | NUR ---
returned phone call. july D/C to home if UDS negative.
[2020-05-07 15:55] LABS: AMPHETAMINE SCREEN, URINE NEGATIVE (NEGATIVE); BARBITURATE SCREEN URINE NEGATIVE (NEGATIVE); BENZODIAZEPINES SCREEN URINE NEGATIVE (NEGATIVE); CANNABINOID SCREEN, URINE NEGATIVE (NEGATIVE); COCAINE SCREEN URINE NEGATIVE (NEGATIVE); METHADONE STAT NEGATIVE (NEGATIVE); METHAMPHETAMINE SCREEN URINE S NEGATIVE (NEGATIVE); OPIATE SCREEN URINE NEGATIVE (NEGATIVE); OXYCODONE STAT NEGATIVE (NEGATIVE); PROPOXYPHENE STAT NEGATIVE (NEGATIVE); TRICYCLIC ANTIDEPRESSANTS SCRE NEGATIVE (NEGATIVE)
[2020-05-07] MEDS ORDERED: METF-399 PO ×2 (16:07→16:11)
[2020-05-07] MEDS ORDERED: NF-VITD400 PO (16:12)
[2020-05-07] MEDS ORDERED: MONT10TA21 PO ×2 (16:12→16:14)
[2020-05-07] MEDS ORDERED: PREN1TAB79 PO (16:12)
--- NOTE | 2020-05-07 16:20 | NUR ---
dismissal instructions given, verbalizes understanding. instructed pt to RTC as scheduled or prn. signature page signed, placed on chart.
--- NOTE | 2020-05-07 16:25 | NUR ---
pt ambulated to private vehicle with s.o. @ side. pt stable with no sx'x of distress noted.
--- NOTE | 2020-05-08 07:56 | Physician Query-Final Dx ---
CHRISTINE SALMEORN 05/08/20 0756: Clinic Account Progress/Dx Physician Query: Please give diagnosis Please include # weeks gestation Date of Service May 07, 2020 at 14:30 RADHA LEÓN DO 05/08/20 0841: Clinic Account Progress/Dx DIAGNOSIS: Diagnosis 29 wk vaginal discharge CHRISTINE SALMERON May 08, 2020 07:56 RADHA LEÓN DO May 08, 2020 08:41
== END 2020-05-07 16:25 | disposition home or self-care (01) ==
LOC: WSo 14:30 → LDRP 14:30 → WSo 16:25
PROVIDERS: ATTEND Family Medicine
DX: O26.893 Other specified pregnancy related conditions, third trimester (principal); Z3A.29 29 weeks gestation of pregnancy
CPT/HCPCS: 80306; 81000; 87088; G0463; 99213

== ENCOUNTER 2020-05-18 23:48 | Emergency (ER) | payer MEDICAID ==
[~2020-05-18] VITALS: Ht 162 cm; Wt 100.1 kg
[~2020-05-18 23:48] MED LIST changes: +METF-399 PO; +MONT10TA21 PO; +NF-VITD400 PO; +PREN1TAB79 PO
--- NOTE | 2020-05-19 00:33 | ED Lower Extremity ---
General Chief Complaint: Lower Extremity Stated Complaint: LEFT LEG SWOLLEN Nursing Triage Note: pt states 2 days of left lower leg and ankle swelling, pt 32 weeks Nursing Sepsis Screen: No Definite Risk Source: patient Exam Limitations: no limitations History of Present Illness Date Seen by Provider: May 19, 2020 Time Seen by Provider: 00:00 Initial Comments Patient is a 39-year-old G5 5, P4, 32 weeks gestation high risk with type 1 diabetes who presents with left leg swelling since early this morning. Patient denies cramping pain or redness swelling or fever. She denies chest pain or shortness of breath. No history of DVT or PE. No history of hypertension -induced hypertension or preeclampsia.. No flank pain, abdominal pain, pelvic pain or cramping. No leakage of fluid or vaginal bleeding. No other acute symptoms or complaints. Onset: this evening Severity: mild Pain/Injury Location: left leg, left knee, left ankle Method of Injury: other Modifying Factors: Improves With Other Allergies and Home Medications Allergies Coded Allergies: latex (Verified Allergy, Unknown, HIVES, 04/11/18) Uncoded Allergies: PAPER TAPE (Allergy, Unknown, 04/11/18) Home Medications Metformin HCl 1,000 Mg Tablet, 1,000 MG PO BID, (Reported) Montelukast Sodium 10 Mg Tablet, 10 MG PO DAILY, (Reported) Vit W-Ca,Fe,FA(<1 mg) 1 Each Tablet, 1 EACH PO DAILY, (Reported) Vitamin D 10 Mcg Tablet, 400 MCG PO DAILY, (Reported) Patient Home Medication List Home Medication List Reviewed: Yes Review of Systems Constitutional: no symptoms reported EENTM: no symptoms reported Respiratory: no symptoms reported Cardiovascular: no symptoms reported Gastrointestinal: no symptoms reported Genitourinary: see HPI Musculoskeletal: see HPI Skin: see HPI Psychiatric/Neurological: See HPI All Other Systems Reviewed Negative Unless Noted: Yes Past Hbwoqon-Qjacqk-Mzpykt Hx Past Med/Social Hx: Reviewed and Corrections made Patient Social History Alcohol Use: Denies Use Drug of Choice: meth, THC, pain pills- last used around 5-6 months Type Used: Cigarettes 2nd Hand Smoke Exposure: Yes Recent Infectious Disease Expo: No Recent Hopitalizations: No Immunizations Up To Date Tetanus Booster (TDap): Unknown PED Vaccines UTD: Yes Seasonal Allergies Seasonal Allergies: No Past Medical History Surgeries: Yes (c-sections x 3 2003, 2006, 2019) Respiratory: Yes COPD Cardiac: No Neurological: No Genitourinary: No Gastrointestinal: Yes (Gastritis, Gastroduodenitis) Gastroesophageal Reflux Musculoskeletal: Yes (Hx of carpal tunnel syndrome) Endocrine: Yes Diabetes, Non-Insulin dep HEENT: No Cancer: No Psychosocial: Yes Anxiety, Schizophrenia, Depression Integumentary: No (past hx left arm abscess, Hx IV drug user) Blood Disorders: No Adverse Reaction/Blood Tranf: No Physical Exam Vital Signs Vital Signs - First Documented 05/19/20 00:07 Temp 36.8 Pulse 108 Resp 18 B/P (MAP) 101/68 (79) Pulse Ox 98 O2 Delivery Room Air Capillary Refill : Less Than 3 Seconds Height, Weight, BMI Height: 5'3.00" Weight: 229lbs. 6.0oz. 104.687308ag; 38.00 BMI Method:Estimated General Appearance: WD/WN, mild distress HEENT: PERRL/EOMI Neck: non-tender, full range of motion, supple Cardiovascular: normal peripheral pulses, regular rate, rhythm Respiratory: chest non-tender, lungs clear Gastrointestinal: normal bowel sounds, non tender, soft, other (GRAVID ABDOMEM, ) Legs: right leg swelling Knees: right knee soft tissue tenderness Ankles: right ankle swelling Neurologic/Tendon: normal sensation Neurologic/Psychiatric: paediatrician II-XII nml as tested, alert, oriented x 3 Skin: normal color Procedures/Interventions Date of ETT Placement: Jan 14, 2019 Time of ETT Placement: 1923 Progress/Results/Core Measures Results/Orders Lab Results Laboratory Tests Test 05/19/20 00:25 05/19/20 00:42 Range/Units Urine Color YELLOW Urine Clarity CLEAR Urine pH 6.0 5-9 Urine Specific Fowler 1.010 L 1.016-1.022 Urine Protein NEGATIVE NEGATIVE Urine Glucose (UA) NEGATIVE NEGATIVE Urine Ketones NEGATIVE NEGATIVE Urine Nitrite NEGATIVE NEGATIVE Urine Bilirubin NEGATIVE NEGATIVE Urine Urobilinogen 0.2 < = 1.0 MG/DL Urine Leukocyte Esterase NEGATIVE NEGATIVE Urine RBC (Auto) NEGATIVE NEGATIVE Urine RBC NONE /HPF Urine WBC 2-5 /HPF Urine Squamous Epithelial Cells 10-25 H /HPF Urine Crystals PRESENT H /LPF Urine Calcium Oxalate Crystals MODERATE H /LPF Urine Bacteria NEGATIVE /HPF Urine Casts NONE /LPF Urine Mucus NEGATIVE /LPF Urine Culture Indicated NO White Blood Count 14.0 H 4.3-11.0 10^3/uL Red Blood Count 4.30 L 4.35-5.85 10^6/uL Hemoglobin 12.6 11.5-16.0 G/DL Hematocrit 39 35-52 % Mean Corpuscular Volume 90 80-99 FL Mean Corpuscular Hemoglobin 29 25-34 PG Mean Corpuscular Hemoglobin Concent 33 32-36 G/DL Red Cell Distribution Width 14.0 10.0-14.5 % Platelet Count 229 130-400 10^3/uL Mean Platelet Volume 10.0 7.4-10.4 FL Immature Granulocyte % (Auto) 2 % Neutrophils (%) (Auto) 70 42-75 % Lymphocytes (%) (Auto) 21 12-44 % Monocytes (%) (Auto) 7 0-12 % Eosinophils (%) (Auto) 1 0-10 % Basophils (%) (Auto) 0 0-10 % Neutrophils # (Auto) 9.7 H 1.8-7.8 X 10^3 Lymphocytes # (Auto) 2.9 1.0-4.0 X 10^3 Monocytes # (Auto) 0.9 0.0-1.0 X 10^3 Eosinophils # (Auto) 0.2 0.0-0.3 10^3/uL Basophils # (Auto) 0.1 0.0-0.1 10^3/uL Immature Granulocyte # (Auto) 0.2 H 0.0-0.1 10^3/uL Neutrophils % (Manual) 80 % Lymphocytes % (Manual) 15 % Monocytes % (Manual) 4 % Eosinophils % (Manual) 1 % D-Dimer 1.86 H 0.00-0.49 UG/ML Sodium Level 137 135-145 MMOL/L Potassium Level 4.1 3.6-5.0 MMOL/L Chloride Level 106 98-107 MMOL/L Carbon Dioxide Level 18 L 21-32 MMOL/L Anion Gap 13 5-14 MMOL/L Blood Urea Nitrogen 13 7-18 MG/DL Creatinine 0.67 0.60-1.30 MG/DL Estimat Glomerular Filtration Rate > 60 BUN/Creatinine Ratio 19 Glucose Level 143 H 70-105 MG/DL Calcium Level 9.5 8.5-10.1 MG/DL Corrected Calcium 10.1 8.5-10.1 MG/DL Total Bilirubin 0.2 0.1-1.0 MG/DL Aspartate Amino Transf (AST/SGOT) 10 5-34 U/L Alanine Aminotransferase (ALT/SGPT) 5 0-55 U/L Alkaline Phosphatase 206 H 40-136 U/L Total Protein 6.6 6.4-8.2 GM/DL Albumin 3.3 3.2-4.5 GM/DL My Orders Orders - KEYON MCQUEEN DO Cbc With Automated Diff (05/19/20 00:21) Comprehensive Metabolic Panel (05/19/20 00:21) Ua Culture If Indicated (05/19/20 00:21) Fibrin Degradation Products (05/19/20 00:21) Manual Differential (05/19/20 00:42) Enoxaparin Injection (Lovenox Injection) (05/19/20 01:15) Vital Signs/I&O 05/19/20 00:07 Temp 36.8 Pulse 108 Resp 18 B/P (MAP) 101/68 (79) Pulse Ox 98 O2 Delivery Room Air Blood Pressure Mean: 79 Departure Communication (Admissions) Labs pending. Patient high risk for DVT PE. Vital signs stable. Basic labs obtained. Will give single dose of Lovenox with instructions to follow-up with ultrasound tomorrow as an outpatient in [place]. Patient high risk for DVT but eloped from the ED without warning prior to Love nox being administer or outpatient ultrasound be provided. Patient did say earlier in the visit that she has a scheduled appointment with her OB on Thursday. Patient was identified leaving the ED premises on video camera. Impression Primary Impression: Pain and swelling of left lower extremity Disposition: HOME, SELF-CARE Condition: Stable Departure-Patient Inst. Decision time for Depature: 01:29 Referrals: [facility] (PCP/Family) Primary Care Physician KEYON MCQUEEN DO May 19, 2020 00:33
[2020-05-19 00:51] LABS: BASOPHILS # (AUTO) 0.1 10^3/uL (0.0-0.1); BASOPHILS % (AUTO) 0 % (0-10); EOSINOPHILS # (AUTO) 0.2 10^3/uL (0.0-0.3); EOSINOPHILS % (AUTO) 1 % (0-10); HEMATOCRIT 39 % (35-52); HEMOGLOBIN 12.6 G/DL (11.5-16.0); LYMPHOCYTES # (AUTO) 2.9 X 10^3 (1.0-4.0); LYMPHOCYTES % (AUTO) 21 % (12-44); MEAN CORPUSCULAR HEMOGLOBIN 29 PG (25-34); MEAN CORPUSCULAR HGB CONC 33 G/DL (32-36); MEAN CORPUSCULAR VOLUME 90 FL (80-99); MONOCYTES # (AUTO) 0.9 X 10^3 (0.0-1.0); MONOCYTES % (AUTO) 7 % (0-12); NEUTROPHILS # (AUTO) 9.7 X 10^3 (1.8-7.8); NEUTROPHILS % (AUTO) 70 % (42-75); PLATELET COUNT 229 10^3/uL (130-400)
[2020-05-19 00:55] LABS: CLARITY,URINE CLEAR; COLOR,URINE YELLOW
[2020-05-19 00:56] LABS: BACTERIA,URINE NEGATIVE /HPF; BILIRUBIN,URINE NEGATIVE (NEGATIVE); CALCIUM OXALATE CRYSTALS,UR MODERATE /LPF; GLUCOSE, URINE (UA) NEGATIVE (NEGATIVE); KETONES,URINE NEGATIVE (NEGATIVE); LEUKOCYTE ESTERASE ,URINE NEGATIVE (NEGATIVE); NITRITE,URINE NEGATIVE (NEGATIVE); PROTEIN,URINE NEGATIVE (NEGATIVE)
[2020-05-19 01:00] LABS: EOSINOPHILS % (MANUAL) 1 %; LYMPHOCYTES % (MANUAL) 15 %; MONOCYTES % (MANUAL) 4 %; NEUTROPHILS % (MANUAL) 80 %
[2020-05-19 01:06] LABS: CARBON DIOXIDE 18 MMOL/L (21-32); CHLORIDE 106 MMOL/L (98-107); POTASSIUM 4.1 MMOL/L (3.6-5.0); SODIUM 137 MMOL/L (135-145)
[2020-05-19 01:07] LABS: ALANINE AMINOTRANSFERASE 5 U/L (0-55); ALBUMIN 3.3 GM/DL (3.2-4.5); ALKALINE PHOSPHATASE 206 U/L (40-136); BILIRUBIN,TOTAL 0.2 MG/DL (0.1-1.0); BUN/CREATININE RATIO 19; CALCIUM 9.5 MG/DL (8.5-10.1); CREATININE SERUM 0.67 MG/DL (0.60-1.30); GFR ESTIMATED > 60; GLUCOSE 143 MG/DL (70-105); TOTAL PROTEIN 6.6 GM/DL (6.4-8.2)
[2020-05-19 01:10] VITALS: BP 101/68
[2020-05-19] MEDS ORDERED: ENOXAPARIN 100 MG/1 ML (LOVENOX) SYR SC ONE (01:15)
== END 2020-05-19 01:10 | disposition left against medical advice (07) ==
LOC: EDUNIT# 23:48 → ER FS 23:51
DX: O26.893 Other specified pregnancy related conditions, third trimester (principal); M79.89 Other specified soft tissue disorders; E10.9 Type 1 diabetes mellitus without complications; Z91.040 Latex allergy status; Z3A.32 32 weeks gestation of pregnancy; Z77.22 Contact with and (suspected) exposure to environmental tobacco smoke (acute) (chronic)
CPT/HCPCS: 36415; 80053; 81000; 85007; 85027; 85379

== ENCOUNTER 2020-06-04 20:54 | Outpatient (CLI) | payer MEDICAID ==
[~2020-06-04] VITALS: Ht 165 cm; Wt 101.9 kg
[2020-06-04 21:20] LABS: BILIRUBIN,URINE NEGATIVE (NEGATIVE); CLARITY,URINE SL CLOUDY; COLOR,URINE YELLOW; GLUCOSE, URINE (UA) NEGATIVE (NEGATIVE); KETONES,URINE NEGATIVE (NEGATIVE); LEUKOCYTE ESTERASE ,URINE 1+ (NEGATIVE); NITRITE,URINE NEGATIVE (NEGATIVE); PH,URINE 5.5 (5-9); PROTEIN,URINE TRACE (NEGATIVE)
[2020-06-04 21:27] LABS: BACTERIA,URINE NEGATIVE /HPF; WBC,URINE 50-100 /HPF
[2020-06-04 21:32] LABS: AMPHETAMINE SCREEN, URINE NEGATIVE (NEGATIVE); BARBITURATE SCREEN URINE POSITIVE (NEGATIVE); BENZODIAZEPINES SCREEN URINE NEGATIVE (NEGATIVE); CANNABINOID SCREEN, URINE NEGATIVE (NEGATIVE); COCAINE SCREEN URINE NEGATIVE (NEGATIVE); METHADONE STAT NEGATIVE (NEGATIVE); METHAMPHETAMINE SCREEN URINE S NEGATIVE (NEGATIVE); OPIATE SCREEN URINE NEGATIVE (NEGATIVE); OXYCODONE STAT NEGATIVE (NEGATIVE); PROPOXYPHENE STAT NEGATIVE (NEGATIVE); TRICYCLIC ANTIDEPRESSANTS SCRE NEGATIVE (NEGATIVE)
[2020-06-04 22:09] VITALS: BP 127/60
[2020-06-04] MEDS ORDERED: FLUT1DIS28 IH (22:29)
[2020-06-04] MEDS ORDERED: FERR-84 PO (22:29)
[2020-06-04] MEDS ORDERED: BUDE10.27 IH (22:29)
[2020-06-04] MEDS ORDERED: ALBU5SOL6 IH (22:29)
[2020-06-04] MEDS ORDERED: insulin (22:29)
[2020-06-04 22:30] VITALS: BP 127/60
[2020-06-04] MEDS ORDERED: HALO5AMP IJ (22:30)
[2020-06-04] MEDS ORDERED: LACTATED RINGERS 1,000 ML IV ONE (22:37)
[2020-06-04] MEDS ORDERED: TERBUTALINE INJ 1 MG/ML (BRETHINE) AMP ONE (22:38)
[2020-06-04] MEDS ORDERED: LACTATED RINGERS 1,000 ML IV SCH ×2 (22:45→23:00)
[2020-06-04] MEDS ORDERED: TERBUTALINE INJ 1 MG/ML (BRETHINE) AMP SC ONE (22:45)
--- NOTE | 2020-06-05 07:54 | Physician Query-Final Dx ---
CHRISTINE SALMERON 06/05/20 0754: Clinic Account Progress/Dx Physician Query: Please give diagnosis Please include # weeks gestation Date of Service Jun 04, 2020 at 20:54 RADHA LEÓN DO 06/06/20 0909: Clinic Account Progress/Dx DIAGNOSIS: Diagnosis 34 week GA Gestational Diabetes pre-term contractions dehydration CHRISTINE SALMERON Jun 05, 2020 07:54 RADHA LEÓN DO Jun 06, 2020 09:09
== END 2020-06-04 23:55 | disposition home or self-care (01) ==
LOC: LDRP 20:54 → WSo 20:54 → LDRP 20:59 → WSo 23:55
PROVIDERS: ATTEND Family Medicine
DX: O62.4 Hypertonic, incoordinate, and prolonged uterine contractions (principal); Z3A.34 34 weeks gestation of pregnancy
CPT/HCPCS: 80306; 81000; 82962

== ENCOUNTER 2021-02-07 11:31 | Emergency (ER) | payer MEDICAID ==
[~2021-02-07] VITALS: Ht 157.5 cm; Wt 74.9 kg
[~2021-02-07 11:31] MED LIST changes: +ALBU5SOL6 IH; +BUDE10.27 IH; +FERR-84 PO; +FLUT1DIS28 IH; +HALO5AMP IJ; +insulin
--- OUTSIDE RECORDS SUMMARY | 2021-02-07 11:37 | XMS REPORT | Clinical Summary ---
Demographics Address [address] [place] [address] Home Phone Preferred Language Burundian Marital Status Mosque Affiliation Unknown Race White Ethnic Group Not or Author Author [facility] Organization [facility] Address Unknown Phone Unavailable Care Team Providers Care Strip Stamp Straightener Name Role Phone No Pcp, Na PCP Unavailable Source Comments Some departments are not documenting in the electronic medical record. If you d o not see the information that you expected, contact Release of Information in [facility] [place] Information Management department at [phone] for further assistan ce in locating additional records.[facility] Allergies Comments Active Allergy Reactions Severity Noted Date Adhesive Tape (Rosins) BLISTERS High 020 Latex BLISTERS High 10/21/2019 Naproxen Sodium HIVES Medium 10/21/2019 Medications End Date Status Medication Sig Dispensed Refills Start Date Active metFORMIN (GLUCOPHAGE) Take 1,000 mg 0 01 1,000 mg tablet by mouth 9 every 12 hours. Active montelukast (SINGULAIR) Take 10 mg by 0 10 mg tablet mouth daily. 9 Active haloperidol decanoate 1 ml 0 11/21/ 1 (HALDOL DECANOATE) 50 7 mg/mL injection Active ascorbic acid (VITAMIN C Take by 0 PO) mouth. Active ergocalciferol (vitamin Take by 0 D2) (VITAMIN D PO) mouth. Active ALBUTEROL IN Inhale by 0 mouth into the lungs. Active budesonide/formoterol Inhale by 0 fumarate (SYMBICORT IN) mouth into the lungs. Active fluticasone Inhale by 0 propion/salmeterol mouth into (ADVAIR DISKUS IN) the lungs. 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) Social History Date Tobacco Use Types Packs/Day Years Used Current Every Day Smoker 0.5 Smokeless Tobacco: Never Used Comments Alcohol Use Standard Drinks/Week Not Currently 0 (1 standard drink = 0.6 o z pure alcohol) Comments Yes Sex Assigned at Date Recorded Not on file Obstetrics History Term Pre Abrt (TAB) (SAB) (Ect) Mult Lvng Comments Grav Para 1 Date GA Total Labor Labor/2nd/3rd Weight Sex Delivery Anes PTL Anette A1 A5 Name Clin Outcome Current Last Filed Vital Signs Reading Time Taken Comments Vital Sign - - Blood Pressure - - Pulse - - Temperature - - Respiratory Rate - - Oxygen Saturation - - Inhaled Oxygen Concentration 79.4 kg (175 lb) 11/17/2019 2:53 PM CDT Weight 160 cm (5' 3") 11/17/2019 2:53 PM CDT Height 31 11/17/2019 2:53 PM CDT Body Mass Index Plan of Treatment Health Maintenance Due Date Last Done Comments HIV SCREENING 1997 DTAP/TDAP VACCINES (1 - 2000 Tdap) HEPATITIS C SCREENING 2000 PHYSICAL (COMPREHENSIVE) 2000 EXAM CERVICAL CANCER SCREENING 06/05/2003 INFLUENZA VACCINE 10/28/2020 Results Not on filefrom Last 3 Months Insurance Type Payer Benefit Subscriber ID Effective Phone Address Plan / Dates Group Medicaid [place] MEDICAID MEDI KAN - [id number] 2019-P [phone] [id number] [place], [place] PLAN [address] [phone] [address] (Home) [place], [place] [phone] 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
--- OUTSIDE RECORDS SUMMARY | 2021-02-07 11:37 | XMS REPORT | Clinical Summary ---
Author Author [facility] Organization [facility] Address Unknown Phone Unavailable Care Team Providers Care Hotel Houseman Name Role Phone Jeanie Foreman MD PCP Unavailable Source Comments [facility] (Labor and Delivery) documents do [facility] appear [facility] Allergies Comments Active Allergy Reactions Severity Noted Date Rash Adhesive Rash High 07/02/2017 Anaphylaxis Naproxen Anaphylaxis High 07/02/2017 Medications * Please verify current medications with patient. End Date Status Medication Sig Dispensed Refills Start Date Active haloperidol (HALDOL) 10 Take 10 mg by 0 mg tablet mouth once a day Active busPIRone (BUSPAR) 30 mg Take 30 mg by 0 tablet mouth once a day before breakfast Active benztropine (COGENTIN) 1 Take 1 mg by 0 mg tablet mouth once a day Active MONTELUKAST SODIUM 0 (SINGULAIR ORAL) Active acetaminophen (TYLENOL) Take 1,000 mg 1 Bottle 0 500 mg tablet by mouth four 8 times a day, as needed for Pain Active gabapentin (NEURONTIN) Take 300 mg 30 capsule 0 300 mg capsule by mouth at 8 bedtime Active metFORMIN (GLUCOPHAGE) Take 500 mg 30 tablet 0 500 mg tablet by mouth once 8 a day with dinner Active Problems Not on file Family History Medical History Relation Comments Cancer Father Depression Maternal Grandmother Diabetes Maternal Grandmother Heart Disease Maternal Grandmother Hypertension Maternal Grandmother Cancer Mother Relation Status Comments Father Maternal Grandmother Mother Social History Date Tobacco Use Types Packs/Day Years Used Current Every Day Smoker Cigarettes 0.5 Smokeless Tobacco: Snuff Current User Comments Alcohol Use Standard Drinks/Week couple of times a month Yes 0 (1 standard drink = 0.6 o z pure alcohol) Alcohol Habits Answer Date Recorded How often do you have a drink containing alcohol? No t asked How many drinks containing alcohol do you have on No t asked a typical day when you are drinking? How often do you have six or more drinks on one Not asked occasion? Comment: couple of times a month 07/08/2017 Sex Assigned at Date Recorded Not on file Last Filed Vital Signs Reading Time Taken Comments Vital Sign 119/73 07/13/2017 10:12 AM CDT Blood Pressure 89 07/13/2017 10:12 AM CDT Pulse 36.3 C (97.4 F) 07/13/2017 10:12 AM CDT Temperature 18 07/13/2017 10:12 AM CDT Respiratory Rate 98% 07/13/2017 10:12 AM CDT Oxygen Saturation - - Inhaled Oxygen Concentration 91.3 kg (201 lb 3.2 oz) 07/13/2017 10:12 AM CDT Weight 154.9 cm (5' 1") 07/13/2017 10:12 AM CDT Height 38.02 07/13/2017 10:12 AM CDT Body Mass Index Plan of Treatment Health Maintenance Due Date Last Done Comments Cervical Cancer Screening 1982 HPV/Cotest 1982 Pap Smear 1982 COVID-19 Vaccine (1) 1994 Influenza Vaccine (#1) 2020 HPV Vaccine Aged Out No longer eligible based on patient's age to complete this topic Hepatitis A Vaccine Aged Out No longer eligible based on patient's age to complete this topic Hepatitis B Vaccine Aged Out No longer eligible based on patient's age to complete this topic Hib Vaccine Aged Out No longer eligible based on patient's age to complete this topic IPV Vaccine Aged Out No longer eligible based on patient's age to complete this topic Meningococcal Vaccine Aged Out No longer eligib le based on patient's age to (MCV4) complete this topic Pneumococcal Vaccine: Aged Out No longer eligib le based on patient's age to Pediatrics (0 to 5 Years) complete this topic and At-Risk Patients (6 to 64 Years) Rotavirus Vaccine Aged Out No longer eligible based on patient's age to complete this topic Results Not on filefrom Last 3 Months Insurance Type Payer Benefit Subscriber ID Effective Phone Address Plan / Dates Group [place] [id number] Effective [phone] for all [address] [place] [address] Medicaid [id number] Effective [phone] [address] MEDICAID [place] [id number] [place] [address] 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
--- NOTE | 2021-02-07 11:38 | ED General ---
General Stated Complaint: RT THIGH BROWN RECLUSE BITE History of Present Illness Date Seen by Provider: Feb 07, 2021 Time Seen by Provider: 11:38 Initial Comments Patient presenting to the emergency department for evaluation of right inner thigh wound that has been present for approximate 1 week. She thinks that she was bit by a brown recluse spider but she did not actually see a spider. She thinks she may have felt something crawling on her leg with an odd sensation prior to this wound being present. She says that she went to an urgent care 3 to 4 days ago and was started on Cipro and a topical cream but she feels that the wound is getting worse. She says that it is draining purulent material. She denies fevers chills nausea vomiting or other systemic symptoms. She is in no acute distress. Allergies and Home Medications Allergies Coded Allergies: latex (Verified Allergy, Unknown, HIVES, 04/11/18) Uncoded Allergies: PAPER TAPE (Allergy, Unknown, 04/11/18) Patient Home Medication List Home Medication List Reviewed: Yes Albuterol Sulfate (Albuterol Sulfate) 5 Mg/1 Ml Solution, 5 MG IH, (Reported) Entered as Reported by: JACQUE MEREDITH on 06/04/202228 Budesonide/Formoterol Fumarate (Budesonide-Formoterol 80-4.5) 10.2 Gm Hfa.aer.ad, 10.2 GM IH, (Reported) Entered as Reported by: JACQUE MEREDITH on 06/04/202228 Ferrous Sulfate (Iron) 325 Mg Tablet, 325 MG PO, (Reported) Entered as Reported by: JACQUE MEREDITH on 06/04/202228 Fluticasone/Salmeterol (Advair 100-50 Diskus) 1 Each Blst.w.dev, 1 EACH IH, (Reported) Entered as Reported by: JACQUE MEREDITH on 06/04/202228 Haloperidol Lactate (Haldol) 5 Mg/1 Ml Ampul, 5 MG IJ MONTHLY , (Reported) Entered as Reported by: JACQUE MEREDITH on 06/04/202229 Metformin HCl (Metformin HCl) 1,000 Mg Tablet, 1,000 MG PO BID, (Reported) Entered as Reported by: ANU VAN on 05/07/20 1611 Montelukast Sodium (Singulair) 10 Mg Tablet, 10 MG PO DAILY, (Reported) Entered as Reported by: ANU VAN on 05/07/201611 Oxycodone HCl/Acetaminophen (Percocet 5-325 mg Tablet) 1 Each Tablet, 1 TAB PO Q4H Prescribed by: COLIN ZULETA on 02/07/21 142 Vit W-Ca,Fe,FA(<1 mg) ( Vitamins) 1 Each Tablet, 1 EACH PO DAILY, (Reported) Entered as Reported by: ANU VAN on 05/07/201611 Sulfamethoxazole/Trimethoprim (Bactrim Ds Tablet) 1 Each Tablet, 1 EACH PO BID Prescribed by: COLIN ZULETA on 02/07/21 142 Vitamin D (Vitamin D3) 10 Mcg Tablet, 400 MCG PO DAILY, (Reported) Entered as Reported by: ANU VAN on 05/07/201611 [insulin] , (Reported) Entered as Reported by: JACQUE MEREDITH on 06/04/202228 Review of Systems Review of Systems Constitutional: no symptoms reported EENTM: no symptoms reported Respiratory: no symptoms reported Cardiovascular: no symptoms reported Gastrointestinal: no symptoms reported Musculoskeletal: no symptoms reported Skin: lesions Psychiatric/Neurological: No Symptoms Reported All Other Systems Reviewed Negative Unless Noted: Yes Past Smntkwu-Ddzard-Dxzdqo Hx Immunizations Up To Date Tetanus Booster (TDap): Unknown PED Vaccines UTD: Yes Seasonal Allergies Seasonal Allergies: No Past Medical History Surgeries: Yes (c-sections x 3 2003, 2005, 2019) Respiratory: Yes COPD Cardiac: No Neurological: No Genitourinary: No Gastrointestinal: Yes (Gastritis, Gastroduodenitis) Gastroesophageal Reflux Musculoskeletal: Yes (Hx of carpal tunnel syndrome) Endocrine: Yes Diabetes, Non-Insulin dep HEENT: No Cancer: No Psychosocial: Yes Anxiety, Schizophrenia, Depression Integumentary: No (past hx left arm abscess, Hx IV drug user) Blood Disorders: No Adverse Reaction/Blood Tranf: No Physical Exam Vital Signs Vital Signs - First Documented 02/07/21 11:38 Temp 35.5 Pulse 140 Resp 19 B/P (MAP) 108/83 (91) O2 Delivery Room Air Capillary Refill : Height, Weight, BMI Height: 5'3.00" Weight: 229lbs. 6.0oz. [id number]; 37.42 BMI Method:Estimated General Appearance: No Apparent Distress, WD/WN Respiratory: No Respiratory Distress Cardiovascular: Regular Rate, Rhythm Gastrointestinal: Non Tender, Soft Extremity: Normal Capillary Refill Neurologic/Psychiatric: Alert, Oriented x3 Skin: Warm/Dry, Other (On right inner thigh there is an approximate 3 cm bluish appearing wound with some purulence and blood draining from the site. There is surrounding erythema and hardening of the skin with significant tenderness to palpation. The surrounding erythema is approximately 8 x 8 cm.) Procedures/Interventions I&D : Blade Size: 11 I & D Procedure: betadine prep Progress Wound prepped and draped in normal sterile fashion and approximately 10 cc of 1% lidocaine with epinephrine was used to anesthetize the wound. An approximate 2 cm incision was made directly into the center of the wound with no purulence drained however there was some bloody drainage. The covering was unroofed and there is a ulceration noted. Wound was irrigated and wound was dressed. No co mplications noted. Date of ETT Placement: Jan 14, 2019 Time of ETT Placement: 1923 Progress/Results/Core Measures Suspected Sepsis SIRS Temperature: Pulse: Respiratory Rate: Laboratory Tests 02/07/21 11:50: White Blood Count 13.8H Blood Pressure / Mean: Laboratory Tests 02/07/21 11:50: Platelet Count 358 02/07/21 12:04: Creatinine 0.80, Total Bilirubin 0.2 02/07/21 12:45: INR Comment 1.0 Results/Orders Lab Results Laboratory Tests Test 02/07/21 11:50 02/07/21 12:04 02/07/21 12:45 Range/Units White Blood Count 13.8 H 4.3-11.0 10^3/uL Red Blood Count 5.29 H 3.80-5.11 10^6/uL Hemoglobin 15.2 11.5-16.0 g/dL Hematocrit 47 35-52 % Mean Corpuscular Volume 89 80-99 fL Mean Corpuscular Hemoglobin 29 25-34 pg Mean Corpuscular Hemoglobin Concent 32 32-36 g/dL Red Cell Distribution Width 12.8 10.0-14.5 % Platelet Count 358 130-400 10^3/uL Mean Platelet Volume 8.9 L 9.0-12.2 fL Immature Granulocyte % (Auto) 1 % Neutrophils (%) (Auto) 78 H 42-75 % Lymphocytes (%) (Auto) 16 12-44 % Monocytes (%) (Auto) 5 0-12 % Eosinophils (%) (Auto) 1 0-10 % Basophils (%) (Auto) 0 0-10 % Neutrophils # (Auto) 10.7 H 1.8-7.8 X 10^3 Lymphocytes # (Auto) 2.1 1.0-4.0 X 10^3 Monocytes # (Auto) 0.7 0.0-1.0 X 10^3 Eosinophils # (Auto) 0.1 0.0-0.3 10^3/uL Basophils # (Auto) 0.1 0.0-0.1 10^3/uL Smear Scan OK Sodium Level 137 135-145 MMOL/L Potassium Level 4.4 3.6-5.0 MMOL/L Chloride Level 103 98-107 MMOL/L Carbon Dioxide Level 18 L 21-32 MMOL/L Anion Gap 16 H 5-14 MMOL/L Blood Urea Nitrogen 17 7-18 MG/DL Creatinine 0.80 0.60-1.30 MG/DL Estimat Glomerular Filtration Rate 80 BUN/Creatinine Ratio 21 Glucose Level 157 H 70-105 MG/DL Calcium Level 11.1 H 8.5-10.1 MG/DL Corrected Calcium 11.0 H 8.5-10.1 MG/DL Total Bilirubin 0.2 0.1-1.0 MG/DL Aspartate Amino Transf (AST/SGOT) 15 5-34 U/L Alanine Aminotransferase (ALT/SGPT) 6 0-55 U/L Alkaline Phosphatase 191 H 40-136 U/L Total Protein 8.4 H 6.4-8.2 GM/DL Albumin 4.1 3.2-4.5 GM/DL Prothrombin Time 13.5 12.2-14.7 SEC INR Comment 1.0 0.8-1.4 Activated Partial Thromboplast Time 25 24-35 SEC D-Dimer 0.68 H 0.00-0.49 UG/ML My Orders Orders - COLIN ZULETA DO Cbc With Automated Diff (02/07/21 11:49) Comprehensive Metabolic Panel (02/07/21 11:49) Fibrin Degradation Products (02/07/21 11:49) Partial Thromboplastin Time (02/07/21 11:49) Protime With Inr (02/07/21 11:49) Blood Culture (02/07/21 11:49) Iv/Invasive Line Insertion .IV start (02/07/21 11:49) Ondansetron Injection (Zofran Injectio (02/07/21 12:00) Hydromorphone Injection (Dilaudid Inject (02/07/21 12:00) Lidocaine/Epi 2% 1:100,000 (Xylocaine/Ep (02/07/21 12:00) Ceftriaxone (Rocephin) (02/07/21 12:00) Sulfamethoxazole/Trimet Ds Tab (Bactrim (02/07/21 12:00) Ua Culture If Indicated (02/07/21 11:52) Ct Extremity Lower Right W (02/07/21 12:50) Iohexol Injection (Omnipaque 350 Mg/Ml 1 (02/07/21 13:00) Received Contrast (Hold Metformin- Contr (02/07/21 13:00) Sodium Chloride Flush (Catheter Flush Sy (02/07/21 13:00) Ns (Ivpb) (Sodium Chloride 0.9% Ivpb Bag (02/07/21 13:00) Wound Culture (02/07/21 13:54) Ns Iv 1000 Ml (Sodium Chloride 0.9%) (02/07/21 14:15) Oxycodone/Apap 5/325mg Tablet (Percocet (02/07/21 14:15) Fentanyl Inj (Sublimaze Injection) (02/07/21 14:15) Medications Given in ED Current Medications Medications Dose Ordered Sig/Betsy Route Start Time Stop Time Status Last Admin Dose Admin Ceftriaxone Sodium 2000 mg/ Sodium Chloride 50 ml @ 100 mls/hr ONCE ONCE IV 02/07/21 12:00 02/07/21 12:29 DC 02/07/21 12:17 100 MLS/HR Hydromorphone HCl 1 mg ONCE ONCE IVP 02/07/21 12:00 02/07/21 12:01 DC 02/07/21 12:16 1 MG Iohexol 100 ml ONCE ONCE IV 02/07/21 13:00 02/07/21 13:01 DC 02/07/21 13:16 100 ML Lidocaine/ Epinephrine 20 ml ONCE ONCE INJ 02/07/21 12:00 02/07/21 12:01 DC 02/07/21 12:17 20 ML Ondansetron HCl 4 mg ONCE ONCE IVP 02/07/21 12:00 02/07/21 12:01 DC 02/07/21 12:15 4 MG Oxycodone/ Acetaminophen 1 tab ONCE ONCE PO 02/07/21 14:15 02/07/21 14:16 DC 02/07/21 14:11 1 TAB Sodium Chloride 10 ml NEEDED PRN IV 02/07/21 13:00 02/07/21 13:16 10 ML Sodium Chloride 100 ml ONCE ONCE IV 02/07/21 13:00 02/07/21 13:01 DC 02/07/21 13:16 100 ML Trimethoprim/ Sulfamethoxazole 2 ea ONCE ONCE PO 02/07/21 12:00 02/07/21 12:01 DC 02/07/21 12:17 2 EA Vital Signs/I&O 02/07/21 11:38 Temp 35.5 Pulse 140 Resp 19 B/P (MAP) 108/83 (91) O2 Delivery Room Air Capillary Refill : Progress Note : Progress Note This certainly could be a brown recluse spider bite or black spider bite given the discoloration to the wound however abscess is still a possibility as well. She does not have fevers chills nausea vomiting so I do not suspect a systemic toxicity she would need an antivenom. I will perform incision and drainage while checking labs treat her symptoms and reassess. I spoke to Dr. Mancera about patient's presentation labs and work-up with incision and drainage in the I told him I likely do think this is a brown recluse spider bite given the appearance. He recommended imaging to rule out fluid collection and on CT there is no signs of fluid collection rather it appears to be edema. He did recommend changing her antibiotics to Bactrim. He said he would be willing to follow with patient as an outpatient. I discussed inpatient versus outpatient treatment with the patient and she says she feels much better here and she is not willing to be admitted to the hospital and would like to have this managed as an outpatient. I told her she needs to take better control of her blood sugar and she needs to follow-up with Dr. Mancera as an outpatient preferably tomorrow or Thursday. I told her if she is having worsening pain fevers or if the wound is getting worse she will have to come back to the emergency department and likely require admission for failure of outpatient treatment. Patient will be discharged on Bactrim and Percocet told to drink plenty of fluids. Patient aware and agreeable with plan and verbalized understanding of the above instructions. Departure Impression Primary Impression: Spider bite wound Qualified Codes: T63.301A - Toxic effect of unspecified spider venom, accidental (unintentional), initial encounter Additional Impressions: Leukocytosis Diabetes Disposition: HOME, SELF-CARE Condition: Stable Departure-Patient Inst. Referrals: YAMILKA CHENG APRN (PCP) Primary Care Physician SEBLE MANCERA DO Patient Instructions: Spider Bites Scripts Oxycodone HCl/Acetaminophen (Percocet 5-325 mg Tablet) 1 Each Tablet 1 TAB PO Q4H for PAIN-MODERATE MDD 6 TABS for 7 Days, #14 TAB Prov: COLIN ZULETA DO 02/07/21 Sulfamethoxazole/Trimethoprim (Bactrim Ds Tablet) 1 Each Tablet 1 EACH PO BID for 7 Days, #14 TAB Prov: COLIN ZULETA DO 02/07/21 COLIN ZULETA DO Feb 07, 2021 11:38
[2021-02-07] MEDS ORDERED: TRIM/SULFAMETH 160/800 (SEPTRA DS) TAB PO ONE (12:00)
[2021-02-07] MEDS ORDERED: LIDOCAINE/EPI 2% 1:100,00 (XYLOCAINE) 20 ML VIAL INJ ONE (12:00)
[2021-02-07] MEDS ORDERED: HYDROmorphone 2 MG/ML VIAL (DILAUDID) IVP ONE (12:00)
[2021-02-07] MEDS ORDERED: cefTRIAXone 2,000 MG in NS (IVPB) 50 ML IV ONE (12:00)
[2021-02-07] MEDS ORDERED: ONDANSETRON 4 MG/2 ML (SDV) Z0FRAN IVP ONE (12:00)
[2021-02-07 12:22] LABS: HEMATOCRIT 47 % (35-52); HEMOGLOBIN 15.2 g/dL (11.5-16.0); MEAN CORPUSCULAR HEMOGLOBIN 29 pg (25-34); WHITE BLOOD COUNT 13.8 10^3/uL (4.3-11.0)
[2021-02-07 12:23] LABS: BASOPHILS % (AUTO) 0 % (0-10); EOSINOPHILS % (AUTO) 1 % (0-10); LYMPHOCYTES # (AUTO) 2.1 X 10^3 (1.0-4.0); LYMPHOCYTES % (AUTO) 16 % (12-44); MEAN CORPUSCULAR HGB CONC 32 g/dL (32-36); MEAN CORPUSCULAR VOLUME 89 fL (80-99); MEAN PLATELET VOLUME 8.9 fL (9.0-12.2); MONOCYTES # (AUTO) 0.7 X 10^3 (0.0-1.0); MONOCYTES % (AUTO) 5 % (0-12); NEUTROPHILS # (AUTO) 10.7 X 10^3 (1.8-7.8); NEUTROPHILS % (AUTO) 78 % (42-75); PLATELET COUNT 358 10^3/uL (130-400)
[2021-02-07 12:24] LABS: BASOPHILS # (AUTO) 0.1 10^3/uL (0.0-0.1); EOSINOPHILS # (AUTO) 0.1 10^3/uL (0.0-0.3)
[2021-02-07 12:31] LABS: BILIRUBIN,TOTAL 0.2 MG/DL (0.1-1.0); CALCIUM 11.1 MG/DL (8.5-10.1); CREATININE SERUM 0.8 MG/DL (0.60-1.30); POTASSIUM 4.4 MMOL/L (3.6-5.0)
[2021-02-07 12:32] LABS: ALBUMIN 4.1 GM/DL (3.2-4.5); TOTAL PROTEIN 8.4 GM/DL (6.4-8.2)
[2021-02-07 12:41] LABS: SMEAR SCAN COMMENT OK
[2021-02-07] MEDS ORDERED: HOLD METFORMIN - RECEIVED CONTRAST 20 ML VIAL IV SCH (13:00)
[2021-02-07] MEDS ORDERED: CATHETER FLUSH 10 ML SYR IV PRN (13:00)
[2021-02-07] MEDS ORDERED: NS 100 ML (IVPB) BAG IV ONE (13:00)
[2021-02-07] MEDS ORDERED: IOHEXOL 350 MG/ML 100 ML (OMNIPAQUE 350) VIAL IV ONE (13:00)
[2021-02-07 13:19] LABS: FIBRIN DEGRADATION PRODUCTS 0.68 UG/ML (0.00-0.49); PROTHROMBIN TIME PATIENT 13.5 SEC (12.2-14.7)
--- NOTE | 2021-02-07 13:33 | Diagnostic Imaging Report ---
Indication: Spider bite to right inner thigh CT right lower study performed from the pelvis to lower thigh. There is no previous study for comparison TECHNIQUE: Multiple contiguous axial CT images of the right extremity were obtained after intravenous administration of iodinated contrast. Auto Exposure Controls were utilized during the CT exam to meet ALARA standards for radiation dose reduction. Bony windows demonstrated no acute bone abnormality or erosive bony process. Muscle groups of the right thigh appear unremarkable. There is diffuse soft tissue edema in the medial soft tissues of the thigh, which appears confined to the subcutaneous fat. There is prominent skin thickening with area of skin ulceration in the mid thigh. There is no well-defined fluid collection or discrete abscess. IMPRESSION: Diffuse edema in the medial thigh above the subcutaneous fat, compatible with cellulitis. There is prominent skin thickening in the medial thigh soft tissues at the level of the mid thigh, with ulceration extending to the skin service. The muscle groups do not appear involved. Bony structures are unremarkable. There is no discrete abscess. Dictated by: Dictated on workstation # [id number]
[2021-02-07] MEDS: fentaNYL INJ 100 MCG/2 ML AMP IVP ONE ×2 (14:11→14:21)
[2021-02-07] MEDS ORDERED: NS IV 1000 ML 1,000 ML IV SCH (14:15)
[2021-02-07] MEDS ORDERED: oxyCODONE/APAP 5/325MG (PERCOCET 5) TABLET PO ONE (14:15)
[2021-02-07] MEDS ORDERED: SULF1TAB38 PO ×2 (14:20→14:31)
[2021-02-07] MEDS ORDERED: OXYC1TAB87 PO ×2 (14:20→14:31)
[2021-02-07 14:26] VITALS: BP 144/83
== END 2021-02-07 14:26 | disposition home or self-care (01) ==
LOC: EDUNIT# 11:31 → ER FS 11:33
DX: T63.301A Toxic effect of unspecified spider venom, accidental (unintentional), initial encounter (principal); D72.829 Elevated white blood cell count, unspecified; E11.9 Type 2 diabetes mellitus without complications; J44.9 Chronic obstructive pulmonary disease, unspecified; F41.9 Anxiety disorder, unspecified; F20.9 Schizophrenia, unspecified; Z79.84 Long term (current) use of oral hypoglycemic drugs; Z79.899 Other long term (current) drug therapy
CPT/HCPCS: 36415; 73701; 80053; 85025; 85379; 85610; 85730; 87040; 87070; 87077; 87186; 87205

== ENCOUNTER → 2021-07-05 | Outpatient (CLI) | payer MEDICAID ==
[~2021-07-05] MED LIST changes: +SULF1TAB38 PO
--- NOTE | 2021-07-05 16:29 | Diagnostic Imaging Report ---
INDICATION: Right shoulder pain Three views of the right shoulder show no fracture, dislocation or other acute abnormalities. IMPRESSION: Negative right shoulder. Dictated by: Dictated on workstation # [id number]
--- NOTE | 2021-07-05 16:34 | Diagnostic Imaging Report ---
EXAMINATION: Right elbow radiographs, 3 views. COMPARISON: None. HISTORY: 41-year-old female, right elbow pain. Fall on ice one month ago. FINDINGS: There is no acute fracture. Bone mineralization and alignment are unremarkable. The elbow is not dislocated. There is no elbow joint effusion. The joint spaces are well preserved. There is no radiopaque foreign body. IMPRESSION: Unremarkable radiographs of the right elbow. Dictated by: Dictated on workstation # [id number]
== END ==
LOC: RAD FS 15:52
PROVIDERS: ATTEND Nurse Practitioner Family
DX: M25.511 Pain in right shoulder (principal); M25.521 Pain in right elbow; G89.29 Other chronic pain; W00.9XXA Unspecified fall due to ice and snow, initial encounter
CPT/HCPCS: 73030; 73080

== ENCOUNTER 2021-10-25 11:01 | Emergency (ER) | payer MEDICAID ==
[~2021-10-25] VITALS: Ht 160 cm; Wt 90.9 kg
--- NOTE | 2021-10-25 11:23 | ED Cardiac General ---
History of Present Illness General Chief Complaint: Chest Wall Stated Complaint: RIB PAIN Source: patient Exam Limitations: no limitations History of Present Illness Date Seen by Provider: Oct 25, 2021 Time Seen by Provider: 11:05 Initial Comments 41-year-old female with past medical history of schizophrenia coming in due to left upper back pain. Started yesterday, constant, sharp, worse with breathing, severe. She says she has had similar pain in the past but this is worse. Denies any history of DVT or PE, no recent surgery, no leg swelling or pain, no hemoptysis or cough otherwise, no shortness of breath, does not take any hormones. Supposed to be on Haldol but has not been taking that recently. Denies any trauma. Is otherwise denying any other acute complaints. She has been trying a lidocaine patch which has not been helping. ASA po IRONER OR PRESSER: No Allergies and Home Medications Allergies Coded Allergies: latex (Verified Allergy, Unknown, HIVES, 04/11/18) Uncoded Allergies: PAPER TAPE (Allergy, Unknown, 04/11/18) Patient Home Medication List Home Medication List Reviewed: Yes Albuterol Sulfate (Albuterol Sulfate) 5 Mg/1 Ml Solution, 5 MG IH, (Reported) Entered as Reported by: JACQUE MEREDITH on 06/04/202228 Budesonide/Formoterol Fumarate (Budesonide-Formoterol 80-4.5) 10.2 Gm Hfa.aer.ad, 10.2 GM IH, (Reported) Entered as Reported by: JACQUE MEREDITH on 06/04/202228 Ferrous Sulfate (Iron) 325 Mg Tablet, 325 MG PO, (Reported) Entered as Reported by: JACQUE MEREDITH on 06/04/202228 Fluticasone/Salmeterol (Advair 100-50 Diskus) 1 Each Blst.w.dev, 1 EACH IH, (Reported) Entered as Reported by: JACQUE MEREDITH on 06/04/202228 Gabapentin (Gabapentin) 100 Mg Capsule, 100 MG PO Q8H Prescribed by: NEWTON BERNAL on 10/25/21 1222 Haloperidol Lactate (Haldol) 5 Mg/1 Ml Ampul, 5 MG IJ MONTHLY , (Reported) Entered as Reported by: JACQUE MEREDITH on 06/04/202229 Ketorolac Tromethamine (Ketorolac Tromethamine) 10 Mg Tablet, 10 MG PO TID Prescribed by: NEWTON BERNAL on 10/25/21 1222 Metformin HCl (Metformin HCl) 1,000 Mg Tablet, 1,000 MG PO BID, (Reported) Entered as Reported by: ANU VAN on 05/07/201610 Montelukast Sodium (Singulair) 10 Mg Tablet, 10 MG PO DAILY, (Reported) Entered as Reported by: ANU VAN on 05/07/20 161 Oxycodone HCl/Acetaminophen (Percocet 5-325 mg Tablet) 1 Each Tablet, 1 TAB PO Q4H Prescribed by: COLIN ZULETA on 02/07/21 142 Oxycodone HCl/Acetaminophen (Percocet 5-325 mg Tablet) 1 Each Tablet, 1 TAB PO Q4H Prescribed by: COLIN ZULETA on 02/07/21 143 Vit W-Ca,Fe,FA(<1 mg) ( Vitamins) 1 Each Tablet, 1 EACH PO DAILY, (Reported) Entered as Reported by: ANU VAN on 05/07/201611 Sulfamethoxazole/Trimethoprim (Bactrim Ds Tablet) 1 Each Tablet, 1 EACH PO BID Prescribed by: COLIN ZULETA on 02/07/21 1420 Sulfamethoxazole/Trimethoprim (Bactrim Ds Tablet) 1 Each Tablet, 1 EACH PO BID Prescribed by: COLIN ZULETA on 02/07/21 143 Valacyclovir HCl (Valacyclovir) 1,000 Mg Tablet, 1,000 MG PO BID Prescribed by: NEWTON BERNAL on 10/25/21 1222 Vitamin D (Vitamin D3) 10 Mcg Tablet, 400 MCG PO DAILY, (Reported) Entered as Reported by: ANU VAN on 05/07/20 161 [insulin] , (Reported) Entered as Reported by: JACQUE MEREDITH on 06/04/202228 Review of Systems Review of Systems Constitutional: No fever Respiratory: Denies Cough, Denies Shortness of Air Cardiovascular: Denies Chest Pain Gastrointestinal: No Symptoms Reported Genitourinary: No Symptoms Reported Musculoskeletal: no symptoms reported Skin: no symptoms reported Psychiatric/Neurological: No Symptoms Reported Endocrine: No Symptoms Reported Hematologic/Lymphatic: No Symptoms Reported All Other Systems Reviewed Negative Unless Noted: Yes Past Vgsdysm-Rndafp-Lfczjq Hx Patient Social History Tobacco Use?: Yes Tobacco type used: Cigarettes Smoking Status: Current Everyday Smoker Substance use?: Yes Substance type: Marijuana Alcohol Use?: No Pt feels they are or have been: No Immunizations Up To Date Tetanus Booster (TDap): Unknown PED Vaccines UTD: Yes Seasonal Allergies Seasonal Allergies: No Past Medical History Surgery/Hospitalization HX: schizophrenia, DM, COPD Surgeries: Yes (c-sections x 3 2003, 2005, 2018) Respiratory: Yes COPD Cardiac: No Neurological: No Genitourinary: No Gastrointestinal: Yes (Gastritis, Gastroduodenitis) Gastroesophageal Reflux Musculoskeletal: Yes (Hx of carpal tunnel syndrome) Endocrine: Yes Diabetes, Non-Insulin dep HEENT: No Cancer: No Psychosocial: Yes Anxiety, Schizophrenia, Depression Integumentary: No (past hx left arm abscess, Hx IV drug user) Blood Disorders: No Adverse Reaction/Blood Tranf: No Physical Exam Vital Signs Vital Signs - First Documented 10/25/21 11:09 Temp 36.6 Pulse 103 Resp 28 B/P (MAP) 115/90 (98) Pulse Ox 98 O2 Delivery Room Air Capillary Refill : Height, Weight, BMI Height: 5'3.00" Weight: 229lbs. 6.0oz. [id number]; 30.00 BMI Method:Estimated General Appearance: WD/WN, Anxious HEENT: PERRL/EOMI, Normal ENT Inspection, Pharynx Normal Neck: Full Range of Motion, Normal Inspection, Non Tender, Supple Respiratory: Chest Non Tender, Lungs Clear, Normal Breath Sounds, No Accessory Muscle Use, No Respiratory Distress Cardiovascular: Regular Rate, Rhythm, No Edema, Normal Peripheral Pulses Gastrointestinal: Normal Bowel Sounds, Non Tender, Soft Extremity: Normal Capillary Refill, Normal Inspection, Normal Range of Motion, Non Tender, No Calf Tenderness, No Pedal Edema Neurologic/Psychiatric: Alert, No Motor/Sensory Deficits, Normal Mood/Affect Skin: Normal Color, Warm/Dry, Other (Small area of erythema to the left upper back near the scapula where lidocaine patch is present, tender to light touch over this area) Lymphatic: No Adenopathy Procedures/Interventions Date of ETT Placement: Jan 14, 2019 Time of ETT Placement: 1923 Progress/Results/Core Measures Results/Orders Lab Results Laboratory Tests Test 10/25/21 11:40 Range/Units White Blood Count 12.2 H 4.3-11.0 10^3/uL Red Blood Count 4.63 3.80-5.11 10^6/uL Hemoglobin 13.6 11.5-16.0 g/dL Hematocrit 41 35-52 % Mean Corpuscular Volume 89 80-99 fL Mean Corpuscular Hemoglobin 29 25-34 pg Mean Corpuscular Hemoglobin Concent 33 32-36 g/dL Red Cell Distribution Width 13.2 10.0-14.5 % Platelet Count 311 130-400 10^3/uL Mean Platelet Volume 8.9 L 9.0-12.2 fL Immature Granulocyte % (Auto) 1 % Neutrophils (%) (Auto) 63 42-75 % Lymphocytes (%) (Auto) 26 12-44 % Monocytes (%) (Auto) 7 0-12 % Eosinophils (%) (Auto) 3 0-10 % Basophils (%) (Auto) 1 0-10 % Neutrophils # (Auto) 7.8 1.8-7.8 10^3/uL Lymphocytes # (Auto) 3.1 1.0-4.0 10^3/uL Monocytes # (Auto) 0.8 0.0-1.0 10^3/uL Eosinophils # (Auto) 0.4 H 0.0-0.3 10^3/uL Basophils # (Auto) 0.1 0.0-0.1 10^3/uL Immature Granulocyte # (Auto) 0.1 0.0-0.1 10^3/uL Sodium Level 140 135-145 MMOL/L Potassium Level 4.2 3.6-5.0 MMOL/L Chloride Level 103 98-107 MMOL/L Carbon Dioxide Level 26 21-32 MMOL/L Anion Gap 11 5-14 MMOL/L Blood Urea Nitrogen 11 7-18 MG/DL Creatinine 0.64 0.60-1.30 MG/DL Estimat Glomerular Filtration Rate 115 BUN/Creatinine Ratio 17 Glucose Level 119 H 70-105 MG/DL Calcium Level 9.6 8.5-10.1 MG/DL Corrected Calcium 9.3 8.5-10.1 MG/DL Total Bilirubin 0.5 0.1-1.0 MG/DL Aspartate Amino Transf (AST/SGOT) 17 5-34 U/L Alanine Aminotransferase (ALT/SGPT) 7 0-55 U/L Alkaline Phosphatase 181 H 40-136 U/L Troponin I < 0.30 <0.30 NG/ML Total Protein 7.7 6.4-8.2 GM/DL Albumin 4.4 3.2-4.5 GM/DL Lipase 24 8-78 U/L My Orders Orders - NEWTON BERNAL MD Cbc With Automated Diff (10/25/21 11:18) Comprehensive Metabolic Panel (10/25/21 11:18) Lipase (10/25/21 11:18) Troponin I Evelin (10/25/21 11:18) Chest 1 View Ap/Pa Only (10/25/21 11:18) Ed Iv/Invasive Line Start (10/25/21 11:18) Ekg Tracing (10/25/21 11:18) Droperidol Inj (Ed Only) (Inapsine Inj ( (10/25/21 11:45) Ketorolac Injection (Toradol Injection) (10/25/21 11:45) Diphenhydramine Tablet (Benadryl Tablet) (10/25/21 11:45) Medications Given in ED Current Medications Medications Dose Ordered Sig/Betsy Route Start Time Stop Time Status Last Admin Dose Admin Diphenhydramine HCl 25 mg ONCE ONCE PO 10/25/21 11:45 10/25/21 11:46 DC 10/25/21 11:49 25 MG Droperidol 2.5 mg ONCE ONCE IM 10/25/21 11:45 10/25/21 11:46 DC 10/25/21 11:37 2.5 MG Ketorolac Tromethamine 15 mg ONCE ONCE IM 10/25/21 11:45 10/25/21 11:46 DC 10/25/21 11:37 15 MG Vital Signs/I&O 10/25/21 11:09 Temp 36.6 Pulse 103 Resp 28 B/P (MAP) 115/90 (98) Pulse Ox 98 O2 Delivery Room Air Progress Progress Note : Progress Note 41-year-old female with above history coming in due to left sided scapular pain. ABCs were intact and vitals were stable on presentation. Physical exam with some erythema in that area and tenderness to light touch. My immediate suspicion would be for shingles that has not erupted yet. EKG, chest x-ray, basic labs including cardiac biomarkers obtained. Labs reassuring. CXR with no abnormalities. EKG non ischemic. She is low risk for a PE and is PERC negative. I think this scenario more likely points towards shingles prior to the rash erupting. We will send her a prescription for Valtrex. I believe she stable for discharge with outpatient follow-up. She was sent home with strict return precautions Initial ECG Impression Date: Oct 25, 2021 Initial ECG Impression Time: 11:49 Initial ECG Rate: 96 Initial ECG Rhythm: Normal Sinus Comment Narrow QRS, normal axis, no significant ST changes or T wave abnormalities Diagnostic Imaging Diagonstic Imaging: Xray Plain Films/CT/US/NM/MRI: chest Comments [facility]. [place], [place] NAME: SMITHA WELLS [facility] REC#: [id number] PT STATUS: REG ER : 1980 PHYSICIAN: NEWTON BERNAL MD ADMIT DATE: 10/25/21/ER FS Signed Date of Exam:10/25/21 CHEST 1 VIEW AP/PA ONLY Indication: Left-sided chest pain Portable chest 11:31 AM Heart size and pulmonary vascularity are normal. There are no infiltrates, effusions or pneumothoraces. IMPRESSION: No acute abnormalities in the chest Dictated by: Dictated on workstation # [id number] Dict: 10/25/21 1141 Trans: 10/25/21 1142 TCB [id number] Interpreted by: CECELIA SANTACRUZ MD Electronically signed by: CECELIA SANTACRUZ MD 10/25/21 1142 Departure Impression Primary Impression: Chest wall pain Disposition: 01 HOME, SELF-CARE Condition: Stable Departure-Patient Inst. Decision time for Depature: 12:27 Referrals: YAMILKA CHENG APRN (PCP) Primary Care Physician [facility] (Family) Primary Care Physician Patient Instructions: Pleuritic Chest Pain (DC), Shingles (DC) Add. Discharge Instructions: I think this is possibly shingles or could just be inflammation around your chest wall called pleurisy. We will start you on a medication for this. Lidocaine patches will be helpful as well and I also sent an anti-inflammatory pain medicine to your pharmacy. Be on the look out for any type of rash that shows up where you are hurting over the next several days. Follow-up with your regular doctor if things are not improving. Scripts Gabapentin (Gabapentin) 100 Mg Capsule 100 MG PO Q8H for Neuropathic pain for 14 Days, #42 CAP Prov: NEWTON BERNAL MD 10/25/21 Ketorolac Tromethamine (Ketorolac Tromethamine) 10 Mg Tablet 10 MG PO TID for 3 Days, #9 TAB Prov: NEWTON BERNAL MD 10/25/21 Valacyclovir HCl (Valacyclovir) 1,000 Mg Tablet 1000 MG PO BID for 7 Days, #14 TAB Prov: NEWTON BERNAL MD 10/25/21 Work/School Note: Work Release Form Date Seen in the Emergency Department: Oct 25, 2021 Return to Work: Oct 27, 2021 Restrictions: No Restrictions NEWTON BERNAL MD Oct 25, 2021 11:23
[2021-10-25] MEDS ORDERED: DROPERIDOL 5 MG/2 ML (INAPSINE) ED ONLY! IV ONE (11:30)
[2021-10-25] MEDS ORDERED: KETOROLAC 30 MG/ML VIAL IVP ONE (11:30)
--- NOTE | 2021-10-25 11:43 | Diagnostic Imaging Report ---
Indication: Left-sided chest pain Portable chest 11:31 AM Heart size and pulmonary vascularity are normal. There are no infiltrates, effusions or pneumothoraces. IMPRESSION: No acute abnormalities in the chest Dictated by: Dictated on workstation # [id number]
[2021-10-25] MEDS ORDERED: KETOROLAC 30 MG/ML VIAL IM ONE (11:45)
[2021-10-25] MEDS ORDERED: diphenhydrAMINE 25 MG TAB (BENADRYL) PO ONE (11:45)
[2021-10-25] MEDS ORDERED: DROPERIDOL 5 MG/2 ML (INAPSINE) ED ONLY! IM ONE (11:45)
[2021-10-25 11:51] LABS: BASOPHILS # (AUTO) 0.1 10^3/uL (0.0-0.1); BASOPHILS % (AUTO) 1 % (0-10); EOSINOPHILS # (AUTO) 0.4 10^3/uL (0.0-0.3); EOSINOPHILS % (AUTO) 3 % (0-10); HEMATOCRIT 41 % (35-52); HEMOGLOBIN 13.6 g/dL (11.5-16.0); LYMPHOCYTES # (AUTO) 3.1 10^3/uL (1.0-4.0); LYMPHOCYTES % (AUTO) 26 % (12-44); MEAN CORPUSCULAR HEMOGLOBIN 29 pg (25-34); MEAN CORPUSCULAR HGB CONC 33 g/dL (32-36); MEAN CORPUSCULAR VOLUME 89 fL (80-99); MEAN PLATELET VOLUME 8.9 fL (9.0-12.2); MONOCYTES # (AUTO) 0.8 10^3/uL (0.0-1.0); MONOCYTES % (AUTO) 7 % (0-12); NEUTROPHILS # (AUTO) 7.8 10^3/uL (1.8-7.8); NEUTROPHILS % (AUTO) 63 % (42-75); PLATELET COUNT 311 10^3/uL (130-400); WHITE BLOOD COUNT 12.2 10^3/uL (4.3-11.0)
[2021-10-25 12:15] LABS: CHLORIDE 103 MMOL/L (98-107); POTASSIUM 4.2 MMOL/L (3.6-5.0); SODIUM 140 MMOL/L (135-145)
[2021-10-25 12:16] LABS: ALANINE AMINOTRANSFERASE 7 U/L (0-55); ALBUMIN 4.4 GM/DL (3.2-4.5); ALKALINE PHOSPHATASE 181 U/L (40-136); BILIRUBIN,TOTAL 0.5 MG/DL (0.1-1.0); BUN/CREATININE RATIO 17; CALCIUM 9.6 MG/DL (8.5-10.1); CARBON DIOXIDE 26 MMOL/L (21-32); CREATININE SERUM 0.64 MG/DL (0.60-1.30); GFR ESTIMATED 115; GLUCOSE 119 MG/DL (70-105); LIPASE 24 U/L (8-78); TOTAL PROTEIN 7.7 GM/DL (6.4-8.2)
[2021-10-25] MEDS ORDERED: GABA-486 PO (12:22)
[2021-10-25] MEDS ORDERED: KETO10TA PO (12:22)
[2021-10-25] MEDS ORDERED: VALA10007 PO (12:22)
[2021-10-25 12:24] VITALS: BP 123/72
== END 2021-10-25 12:25 | disposition home or self-care (01) ==
LOC: EDUNIT# 11:01 → ER FS 11:03
DX: R07.89 Other chest pain (principal); F17.210 Nicotine dependence, cigarettes, uncomplicated; Z91.040 Latex allergy status
CPT/HCPCS: 36415; 71045; 80053; 83690; 84484; 85025; 93005; 96372

== ENCOUNTER → 2022-04-28 | Outpatient (CLI) | payer MEDICAID ==
[~2022-04-28] MED LIST changes: +GABA-486 PO; +KETO10TA PO; +VALA10007 PO
--- NOTE | 2022-04-28 16:14 | Diagnostic Imaging Report ---
INDICATION: Right wrist pain. TIME OF EXAM: 2:53 PM. TECHNIQUE: Three views of the right wrist were obtained. FINDINGS: The distal radius and ulna are intact. The carpus appears intact. The metacarpals are unremarkable. No fractures are seen. IMPRESSION: No acute bony abnormality is detected. Dictated by: Dictated on workstation # [id number]
== END ==
LOC: RAD FS 14:37
PROVIDERS: ATTEND Nurse Practitioner
DX: M25.531 Pain in right wrist (principal)
CPT/HCPCS: 73110